=== PATIENT | male | born 1960 | race Caucasian/White ===

== ENCOUNTER 2016-12-10 16:07 | Inpatient (IN) | payer OTHER ==
[~2016-12-10] VITALS: Ht 175.3 cm; Wt 93.5 kg
[2016-12-10] VITALS (12 sets, daily range): BP systolic 60–96; BP diastolic 39–65; PULSE 77–88; RESP 16–20; TEMP 97.5–98; O2SAT 95–99
[~2016-12-10 16:07] MED LIST: DICL75 PO; FOLITAB6 PO; HYDR-3533 PO; HYDR10SO PO; LISI-363 PO; LOVA20TA PO; METO25 PO; ROBA750T3 PO
[2016-12-10] MEDS ORDERED: GABA600T PO (16:25)
[2016-12-10] MEDS ORDERED: HYDR-3533 PO (16:25)
[2016-12-10] MEDS ORDERED: LISI-515 PO (16:25)
[2016-12-10] MEDS ORDERED: LOVA20TA PO (16:25)
[2016-12-10] MEDS ORDERED: FOLI400T PO (16:25)
[2016-12-10] MEDS ORDERED: SODIUM CHLOR 0.9% 1000 ML INJ 1,000 ML IV ONE ×3 (16:30→19:00)
[2016-12-10 16:32] LABS: AUTOMATED NEUTROPHIL # 9.4 TH/MM3 (1.8-7.7); BASOPHIL # 0.2 TH/MM3 (0-0.2); BASOPHIL % 1.3 % (0.0-2.0); EOSINOPHIL # 0.1 TH/MM3 (0-0.4); EOSINOPHIL % 0.7 % (0.0-4.0); HEMATOCRIT 40.6 % (39.0-51.0); HEMO FLAGS DIFF FINAL; LYMPH % 15.4 % (9.0-44.0); LYMPHOCYTE # 1.9 TH/MM3 (1.0-4.8); MEAN CELL VOLUME 94.1 FL (80.0-100.0); MEAN CORPUSCULAR HEMOGLOBIN 32.6 PG (27.0-34.0); MEAN CORPUSCULAR HGB CONC 34.6 % (32.0-36.0); MONO % 8.1 % (0.0-8.0); NEUT % 74.5 % (16.0-70.0); PLATELET COUNT 274 TH/MM3 (150-450); RED BLOOD COUNT 4.32 MIL/MM3 (4.50-5.90); RED CELL DISTRIBUTION WIDTH 13.3 % (11.6-17.2); WHITE BLOOD COUNT 12.6 TH/MM3 (4.0-11.0)
--- NOTE | 2016-12-10 16:35 | PD ---
HPI Chief Complaint: Cardiac Complaint Time Seen by Provider: 16:14 Travel History International Travel<30 days: No Contact w/Intl Traveler<30days: No Traveled to known affect area: No History of Present Illness HPI 56-year-old male complains of generalized malaise, blurry vision and low blood pressure. Patient states that he has not eaten all day. Patient states that he has some alcohol drinks this afternoon and has minimal water intake today. Patient has been working outside in the heat. Patient denies any headache. Patient denies any chest pain or shortness of breath. Patient denies abdominal pain. Patient denies any nausea vomiting diarrhea. Patient denies dysuria or frequency. Patient denies any fever chills. Patient denies any back pain. Patient denies any focal weakness or numbness of extremity. Patient has history of hypertension, dyslipidemia. Patient denies history diabetes. PFSH Past Medical History Autoimmune Disease: No Cardiovascular Problems: Yes High Cholesterol: Yes Diabetes: No Diminished Hearing: No Endocrine: No Genitourinary: No Hypertension: Yes Musculoskeletal: No Neurologic: Yes (neuropathy) Psychiatric: No Reproductive: No Respiratory: No Thyroid Disease: No Social History Alcohol Use: Yes ([place] daily) Tobacco Use: Yes (1 PPD) Substance Use: No Allergies-Medications (Allergen,Severity, Reaction): Coded Allergies: Penicillin (Verified Allergy, Severe, 12/10/16) Reported Meds & Prescriptions Reported Meds & Active Scripts Active Reported Gabapentin 600 Mg Tab 600 Mg PO TID Folic Acid 400 Mcg Tab 400 Mcg PO DAILY Lisinopril 20 Mg Tab 20 Mg PO BID Lortab (Hydrocodone-Acetaminophen) 5-325 Mg Tab 1 Tab PO Q8HR PRN Lovastatin 20 Mg Tab 20 Mg PO HS Review of Systems General / Constitutional: No: Fever Eyes: Positive: Blurred Vision, No: Visual changes HENT: No: Headaches Cardiovascular: No: Chest Pain or Discomfort Respiratory: No: Shortness of Breath Gastrointestinal: No: Abdominal Pain Genitourinary: No: Dysuria Musculoskeletal: No: Pain Skin: No Rash Neurologic: No: Weakness Psychiatric: No: Depression Endocrine: No: Polydipsia Hematologic/Lymphatic: No: Easy Bruising Physical Exam Narrative GENERAL: Well-nourished, well-developed patient. SKIN: Focused skin assessment warm/dry. HEAD: Normocephalic. EYES: No scleral icterus. No injection or drainage. NECK: Supple, trachea midline. No JVD or lymphadenopathy. CARDIOVASCULAR: Regular rate and rhythm without murmurs, gallops, or rubs. RESPIRATORY: Breath sounds equal bilaterally. No accessory muscle use. GASTROINTESTINAL: Abdomen soft, non-tender, nondistended. MUSCULOSKELETAL: No cyanosis, or edema. BACK: Nontender without obvious deformity. No CVA tenderness. Neurologic exam normal. Data Data Last Documented VS Vital Signs Date Time Temp Pulse Resp B/P Pulse Ox O2 Delivery O2 Flow Rate FiO2 12/10/16 17:15 91/61 12/10/16 17:11 86 18 97 Room Air 12/10/16 17:10 21 12/10/16 16:08 97.5 Orders Sodium Chlor 0.9% 1000 Ml Inj (Ns 1000 M (12/10/16 16:30) Sodium Chlor 0.9% 1000 Ml Inj (Ns 1000 M (12/10/16 16:30) Electrocardiogram (12/10/16 16:21) Complete Blood Count With Diff (12/10/16 16:21) Basic Metabolic Panel (Bmp) (12/10/16 16:21) Creatine Kinase (Cpk) (12/10/16 16:21) Troponin I (12/10/16 16:21) Prothrombin Time / Inr (Pt) (12/10/16 16:21) Act Partial Throm Time (Ptt) (12/10/16 16:21) Thyroid Stimulating Hormone (12/10/16 16:21) Chest, Single Ap (12/10/16 16:21) Iv Access Insert/Monitor (12/10/16 16:21) Ecg Monitoring (12/10/16 16:21) Oximetry (12/10/16 16:21) Alcohol (Ethanol) (12/10/16 16:23) CKMB (12/10/16 16:10) CKMB% (12/10/16 16:10) Ct Abd/Pel W/O Iv Contrast (12/10/16 17:17) Dext 5%-Nacl 0.45%... W/Sodium Bicarbona (12/10/16 17:30) Admit Order (Ed Use Only) (12/10/16 17:27) Labs Laboratory Tests Test 12/10/16 16:10 White Blood Count 12.6 TH/MM3 Red Blood Count 4.32 MIL/MM3 Hemoglobin 14.1 GM/DL Hematocrit 40.6 % Mean Corpuscular Volume 94.1 FL Mean Corpuscular Hemoglobin 32.6 PG Mean Corpuscular Hemoglobin 34.6 % Concent Red Cell Distribution Width 13.3 % Platelet Count 274 TH/MM3 Mean Platelet Volume 6.4 FL Neutrophils (%) (Auto) 74.5 % Lymphocytes (%) (Auto) 15.4 % Monocytes (%) (Auto) 8.1 % Eosinophils (%) (Auto) 0.7 % Basophils (%) (Auto) 1.3 % Neutrophils # (Auto) 9.4 TH/MM3 Lymphocytes # (Auto) 1.9 TH/MM3 Monocytes # (Auto) 1.0 TH/MM3 Eosinophils # (Auto) 0.1 TH/MM3 Basophils # (Auto) 0.2 TH/MM3 CBC Comment DIFF FINAL Differential Comment Prothrombin Time 10.7 SEC Prothromb Time International 1.0 RATIO Ratio Activated Partial 35.1 SEC Thromboplast Time Sodium Level 129 MEQ/L Potassium Level 3.9 MEQ/L Chloride Level 94 MEQ/L Carbon Dioxide Level 16.3 MEQ/L Anion Gap 19 MEQ/L Blood Urea Nitrogen 60 MG/DL Creatinine 7.20 MG/DL Estimat Glomerular Filtration 8 ML/MIN Rate Random Glucose 91 MG/DL Calcium Level 8.7 MG/DL Total Creatine Kinase 1582 U/L Creatine Kinase MB 37.1 NG/ML Creatine Kinase MB % 2.3 % Troponin I LESS THAN 0.02 NG/ML Thyroid Stimulating Hormone 0.803 uIU/ML 3rd Gen Ethyl Alcohol Level 68 MG/DL [facility] Medical Decision Making Medical Screen Exam Complete: Yes Emergency Medical Condition: Yes Interpretation(s) 1708 p.m. CBC WBC 12.6. Hemoglobin 14.1 and hematocrit 40.6. 74 neutrophil. Sodium 129. Chloride 94. Bicarbonate 16.3. Anion gap 19. BUN 60. Creatinine 7.20. Total CK 1582. Cardiac enzymes are normal. TSH normal. Alcohol 68. Differential Diagnosis Differential diagnosis including dehydration, electrolyte imbalance, TIA, CVA, IN, sepsis. Narrative Course 56-year-old male with generalized malaise, blurry vision and low blood pressure. Patient with minimal fluid intake and has not eaten all day today. Normal saline solution 2 L IV bolus. I spoke with aircraft avionics technician Dr. Jacobsen, advised D5 and a half with 75 mEq of bicarbonate at 1 25 cc an hour. Patient will be admitted for IV hydration and nephrology consultation. CT scan abdomen and pelvis without contrast was done. I spoke with radiologist about the CT abdomen pelvis which shows possible sigmoidoscopy colitis with focal contained perforation air-containing collection posterior to the sigmoid colon or could be fistula with chronic changes. Patient is asymptomatic and no abdominal pain. I spoke with general surgeon on-call for [facility] Dr. English. Advised admission to the [facility] hospital and consult Gen. surgery in a.m. Levaquin 500 milligrams IV given. Flagyl 500 mg IV given. I spoke with Dr. Roberson, web content director. Patient will be admitted to the [facility] at the [facility]. Surgical consultation and nephrology consultation in a.m. Diagnosis Primary Impression: Acute renal failure Qualified Code: N17.9 - Acute renal failure, unspecified acute renal failure type Additional Impressions: Metabolic acidosis Diverticulitis Qualified Code: K57.32 - Diverticulitis of large intestine without bleeding, unspecified complication status Hyponatremia Rhabdomyolysis Qualified Code: M62.82 - Non-traumatic rhabdomyolysis Admitting Information Admitting Physician Requests: Admit Jared Celeste MD Dec 10, 2016 16:35
[2016-12-10 16:41] LABS: CHLORIDE 94 MEQ/L (98-107); POTASSIUM 3.9 MEQ/L (3.5-5.1); SODIUM (NA) 129 MEQ/L (136-145)
[2016-12-10 16:44] LABS: ANION GAP 19 MEQ/L (5-15); BICARBONATE 16.3 MEQ/L (21.0-32.0); BLOOD UREA NITROGEN 60 MG/DL (7-18)
[2016-12-10 16:46] LABS: APTT (PATIENT) 35.1 SEC (24.3-30.1); PROTHROMBIN TIME - PATIENT 10.7 SEC (9.8-11.6)
[2016-12-10 16:47] LABS: GLOMERULAR FILTRATION RATE 8 ML/MIN (>89)
[2016-12-10 17:02] LABS: CREATINE KINASE 1582 U/L (39-308)
[2016-12-10 17:15] LABS: CKMB 37.1 NG/ML (0.5-3.6)
--- NOTE | 2016-12-10 17:19 | RADHPO ---
EXAM DATE/TIME: 12/10/2016 16:52 [facility] COMPARISON: CHEST SINGLE AP, February 04, 2015, 15:00. INDICATIONS : Short of breath, low blood pressure, weak, dizzy MEDICAL HISTORY : None. SURGICAL HISTORY : None. ENCOUNTER: Initial ACUITY: 1 day PAIN SCORE: 0/10 LOCATION: Bilateral chest FINDINGS: Portable AP view of the chest demonstrates a normal-sized cardiac silhouette. No effusion, consolidat ion, or pneumothorax is visualized. The bones and soft tissues demonstrate no acute abnormality. CONCLUSION: No acute cardiopulmonary abnormality is identified. Joni Cornejo MD on December 10, 2016 at 17:16 Board Certified Radiologist. This report was verified electronically.
[2016-12-10] MEDS ORDERED: SODIUM BICARBONATE 8.4% INJ 75 MEQ in DEXT 5%-NACL 0.45% 1000 ML INJ 1,000 ML IV SCH (17:30)
[2016-12-10] MEDS ORDERED: ACETAMINOPHEN 325 MG TAB PO PRN (17:45)
[2016-12-10] MEDS ORDERED: ONDANSETRON HCL 4 MG/2 ML VIAL IV PRN (17:45)
[2016-12-10] MEDS ORDERED: SODIUM CHLORIDE 0.9% FLUSH 10 ML FLUSH IVF PRN (17:45)
--- NOTE | 2016-12-10 18:55 | RADHPO ---
EXAM DATE/TIME: 12/10/2016 17:45 [facility] COMPARISON: No previous studies available for comparison. INDICATIONS : Hypotensive. ORAL CONTRAST: No oral contrast ingested. RADIATION DOSE: 10.86 CTDIvol (mGy) MEDICAL HISTORY : Hypertension. SURGICAL HISTORY : None. ENCOUNTER: Initial ACUITY: 1 day PAIN SCALE: 0/10 LOCATION: Abdomen/pelvis TECHNIQUE: Volumetric scanning of the abdomen and pelvis was performed. Using automated exposure control and ad justment of the mA and/or kV according to patient size, radiation dose was kept as low as reasonably achievable to obtain optimal diagnostic quality images. FINDINGS: LOWER LUNGS: The visualized lower lungs are clear. LIVER: Homogeneous density without lesion. There is no dilation of the biliary tree. No calcified gallston es. SPLEEN: Normal size without lesion. PANCREAS: Within normal limits. KIDNEYS: There is a 1.9 x 1.7 x 2.1 cm cyst in the super pole the left kidney. There is a 6 by 8mm nonobstruct ing calcified calculus in the inferior pole the left kidney. There is mild left hydronephrosis and mo derate hydroureter likely secondary to functional delayed clearance by left lower quadrant inflammato ry changes ADRENAL GLANDS: Within normal limits. VASCULAR: There is no aortic aneurysm. BOWEL/MESENTERY: Examination is abnormal. There is moderate sigmoid diverticulosis. There is inflammatory changes in t he mid sigmoid region with a small anomaly air-containing collection measuring 2.2 x 1.3 cm seen post eriorly. No drainable fluid collections at this time. Remainder of the bowel is grossly unremarkable. ABDOMINAL WALL: Within normal limits. RETROPERITONEUM: There is no lymphadenopathy. BLADDER: No wall thickening or mass. REPRODUCTIVE: Within normal limits. INGUINAL: Fat-containing right inguinal hernia. MUSCULOSKELETAL: Within normal limits for patient age. CONCLUSION: 1. Sigmoid diverticulitis with focal contained perforation. 2.1 x 1.3 cm air-containing collection po sterior to the sigmoid without drainable associated fluid collection at this time. Yazan Burns MD on December 10, 2016 at 18:47 Board Certified Radiologist. This report was verified electronically.
[2016-12-10] MEDS ORDERED: LEVOFLOXACIN 500 MG PREMIX INJ 100 ML IV ONE (20:00)
[2016-12-10] MEDS ORDERED: metroNIDAZOLE 500 MG INJ 100 ML IV ONE (20:00)
[2016-12-10] MEDS ORDERED: NICOTINE 14 MG/24 HR PATCH T-DERMAL ONE (20:15)
[2016-12-10] MEDS ORDERED: SODIUM CHLORIDE 0.9% FLUSH 10 ML FLUSH IV FLUSH SCH (21:00)
--- NOTE | 2016-12-10 23:47 | HHI.HP ---
[facility] Service Critical Care Medicine Primary Care Physician Derek Lara MD Admission Diagnosis acute renal failure. Hyponatremia. Metabolic acidosis. Dehydratio Diagnosis: Travel History International Travel<30 Days: No Contact w/Intl Traveler <30 Da: No Traveled to Known Affected Are: No History of Present Illness 56-year-old male with history of hypertension, neuropathy, presents with complaints of generalized malaise, blurry vision and low blood pressure. Patient states that he has not eaten all day. He has some alcohol drinks this afternoon and has minimal water intake today. He also has been working outside in the heat. He denies any headache. Patient denies any chest pain or shortness of breath. Patient admits some abdominal pain, however denies any nausea vomiting diarrhea. His CAT scan at the emergency department at [facility] revealed Sigmoid diverticulitis with focal contained perforation. 2.1 x 1.3 cm air-containing collection posterior to the sigmoid without drainable associated fluid. Review of Systems Constitutional: COMPLAINS OF: Diaphoretic episodes, Fatigue, Change in appetite , DENIES: Fever, Weight gain, Weight loss, Chills, Dizziness, Night Sweats Endocrine: DENIES: Heat/cold intolerance, Polydipsia, Polyuria, Polyphagia Eyes: COMPLAINS OF: Blurred vision, Diplopia, Double Vision, DENIES: Eye inflammation, Eye pain, Vision loss, Photosensitivity Ears, nose, mouth, throat: DENIES: Tinnitus, Hearing loss, Vertigo, Nasal discharge, Oral lesions, Throat pain, Hoarseness, Ear Pain, Running Nose, Epistaxis, Sinus Pain, Toothache, Odynophagia Respiratory: DENIES: Apneas, Cough, Snoring, Wheezing, Hemoptysis, Sputum production, Shortness of breath Cardiovascular: DENIES: Chest pain, Palpitations, Syncope, Dyspnea on Exertion , PND, Lower Extremity Edema, Orthopnea, Claudication Gastrointestinal: COMPLAINS OF: Abdominal pain, DENIES: Black stools, Bloody stools, Constipation, Diarrhea, Nausea, Vomiting, Difficulty Swallowing, Anorexia Genitourinary: DENIES: Sexual dysfunction, Urinary frequency, Urinary incontinence, Urgency, Hematuria, Dysuria, Nocturia, Penile Discharge, Testicular Pain, Testicular Swelling Musculoskeletal: DENIES: Joint pain, Muscle aches, Stiffness, Joint Swelling, Back pain, Neck pain Integumentary: DENIES: Abnormal pigmentation, Nail changes, Pruritus, Rash Hematologic/lymphatic: DENIES: Bruising, Lymphadenopathy Immunologic/allergic: DENIES: Eczema, Urticaria Neurologic: DENIES: Abnormal gait, Headache, Localized weakness, Paresthesias, Seizures, Speech Problems, Tremor, Poor Balance Psychiatric: DENIES: Anxiety, Confusion, Mood changes, Depression, Hallucinations, Agitation, Suicidal Ideation, Homicidal Ideation, Delusions Past Family Social History Allergies: Coded Allergies: Penicillin (Verified Allergy, Severe, 12/10/16) Past Medical History Hypertension Dyslipidemia Daily alcohol use Tobacco use disorder Peripheral neuropathy Past Surgical History None Reported Medications Reported Meds & Active Scripts Active Reported Gabapentin 600 Mg Tab 600 Mg PO TID Folic Acid 400 Mcg Tab 400 Mcg PO DAILY Lisinopril 20 Mg Tab 20 Mg PO BID Lortab (Hydrocodone-Acetaminophen) 5-325 Mg Tab 1 Tab PO Q8HR PRN Lovastatin 20 Mg Tab 20 Mg PO HS Active Ordered Medications Current Medications Medications (Trade) Dose Ordered Sig/Jennifer Route PRN Reason Start Time Stop Time Status Last Admin Dose Admin Sodium Bicarbonate/ Dextrose/Sodium Chloride (Sodium Bicarbonate 8.4% Inj/D5W-1/2 NS 1000 ml Inj) 1,075 ml @ 125 mls/hr Q8H36M IV 12/10/16 17:30 12/10/16 18:11 Ondansetron HCl (Zofran Inj) 4 mg Q6H PRN IV NAUSEA OR VOMITING 12/10/16 17:45 Acetaminophen (Tylenol) 650 mg Q4H PRN PO Temp>101F, Headache 12/10/16 17:45 Sodium Chloride (NS Flush) 2 ml BID IV FLUSH 12/10/16 21:00 12/10/16 20:27 Sodium Chloride (NS Flush) 2 ml UNSCH PRN IVF FLUSH AFTER USING IV ACCESS 12/10/16 17:45 Folic Acid (Folate) 1 mg DAILY PO 12/11/16 09:00 Gabapentin 600 mg 600 mg TID PO 12/11/16 09:00 Sodium Chloride (NS 1000 ml Inj) 1,000 ml @ 125 mls/hr Q8H IV 12/11/16 00:15 UNV Sodium Chloride (NS Flush) 2 ml UNSCH PRN .XX FLUSH AFTER USING IV ACCESS 12/11/16 00:15 UNV Sodium Chloride (NS Flush) 2 ml BID .XX 12/11/16 09:00 UNV Acetaminophen (Tylenol) 650 mg Q6H PRN PO PAIN 1-10 AND/OR FEVER >101F 12/11/16 00:15 UNV Hydromorphone HCl (Dilaudid Pf Inj) 1 mg Q4H PRN IV PAIN SCALE 6 TO 10 12/11/16 00:15 UNV Pantoprazole Sodium (Protonix Inj) 40 mg DAILY IV 12/11/16 09:00 UNV Ondansetron HCl (Zofran Inj) 4 mg Q6H PRN IV NAUSEA OR VOMITING 12/11/16 00:15 UNV Metoclopramide HCl (Reglan Inj) 10 mg Q6H PRN IV NAUSEA OR VOMITING 12/11/16 00:15 UNV Prochlorperazine (Compazine Supp) 25 mg Q12H PRN RECTAL NAUSEA OR VOMITING 12/11/16 00:15 UNV Zolpidem Tartrate (Ambien) 5 mg HS PRN PO INSOMNIA 12/11/16 00:15 UNV Heparin Sodium (Porcine) (Heparin Inj) 5,000 units Q8H SQ 12/11/16 00:15 UNV Miscellaneous Information 1 Q361D XX 12/11/16 00:15 UNV Chlorhexidine Gluconate (Chlorhexidine 2% Cloth) 3 pack Taper DAILY@04 TOP 12/11/16 04:00 12/07/17 03:59 UNV Chlorhexidine Gluconate (Chlorhexidine 2% Cloth) 3 pack UNSCH PRN TOP HYGIENIC CARE 12/11/16 00:15 UNV Senna/Docusate Sodium (Nataliya-Colace) 1 tab BID PO 12/11/16 09:00 UNV Magnesium Hydroxide (Milk Of Magnesia Liq) 30 ml Q12H PRN PO MILD - MODERATE CONSTIPATION 12/11/16 00:15 UNV Sennosides (Senokot) 17.2 mg Q12H PRN PO MODERATE - SEVERE CONSTIPATION 12/11/16 00:15 UNV Bisacodyl (Dulcolax Supp) 10 mg DAILY PRN RECTAL SEVERE CONSITIPATION 12/11/16 00:15 UNV Lactulose (Lactulose Liq) 30 ml DAILY PRN PO SEVERE CONSITIPATION 12/11/16 00:15 UNV Family History Noncontributory Social History Drinks bourbon daily Smokes 1 pack per day Denies illicit drug abuse Physical Exam Vital Signs Vital Signs Date Time Temp Pulse Resp B/P Pulse Ox O2 Delivery O2 Flow Rate FiO2 12/10/16 23:30 87 17 95/64 95 12/10/16 22:45 81 17 94/60 95 Room Air 12/10/16 21:37 98.0 88 17 90/60 96 Room Air 12/10/16 20:35 82 16 95/60 98 Room Air 12/10/16 20:35 98 21 12/10/16 20:05 86 17 96/61 97 Room Air 12/10/16 19:00 85 18 92/65 98 Room Air 12/10/16 19:00 85 18 92/65 97 Room Air 12/10/16 18:13 77 18 93/61 99 Room Air 12/10/16 17:15 91/61 12/10/16 17:11 86 18 71/47 97 Room Air 12/10/16 17:10 97 21 12/10/16 16:33 77 18 61/39 97 Room Air 12/10/16 16:26 96 Room Air 12/10/16 16:08 97.5 82 20 60/42 97 Physical Exam GENERAL: Well-nourished, well-developed patient. SKIN: Warm and dry. HEAD: Normocephalic. EYES: No scleral icterus. No injection or drainage. NECK: Supple, trachea midline. No JVD or lymphadenopathy. CARDIOVASCULAR: Regular rate and rhythm without murmurs, gallops, or rubs. RESPIRATORY: Breath sounds equal bilaterally. No accessory muscle use. GASTROINTESTINAL: Abdomen soft, non-tender, nondistended. MUSCULOSKELETAL: No cyanosis, or edema. BACK: Nontender without obvious deformity. No CVA tenderness. EXTREMITIES: No clubbing cyanosis or edema Laboratory Laboratory Tests Test 12/10/16 16:10 White Blood Count 12.6 Red Blood Count 4.32 Hemoglobin 14.1 Hematocrit 40.6 Mean Corpuscular Volume 94.1 Mean Corpuscular Hemoglobin 32.6 Mean Corpuscular Hemoglobin 34.6 Concent Red Cell Distribution Width 13.3 Platelet Count 274 Mean Platelet Volume 6.4 Neutrophils (%) (Auto) 74.5 Lymphocytes (%) (Auto) 15.4 Monocytes (%) (Auto) 8.1 Eosinophils (%) (Auto) 0.7 Basophils (%) (Auto) 1.3 Neutrophils # (Auto) 9.4 Lymphocytes # (Auto) 1.9 Monocytes # (Auto) 1.0 Eosinophils # (Auto) 0.1 Basophils # (Auto) 0.2 CBC Comment DIFF FINAL Differential Comment Prothrombin Time 10.7 Prothromb Time International 1.0 Ratio Activated Partial 35.1 Thromboplast Time Sodium Level 129 Potassium Level 3.9 Chloride Level 94 Carbon Dioxide Level 16.3 Anion Gap 19 Blood Urea Nitrogen 60 Creatinine 7.20 Estimat Glomerular Filtration 8 Rate Random Glucose 91 Calcium Level 8.7 Total Creatine Kinase 1582 Creatine Kinase MB 37.1 Creatine Kinase MB % 2.3 Troponin I LESS THAN 0.02 Thyroid Stimulating Hormone 0.803 3rd Gen Ethyl Alcohol Level 68 Result Diagram: 12/10/16 1610 12/10/16 1610 Imaging Last 24 hours Impressions Abdomen/Pelvis CT 12/10/16 1717 Signed Impressions: Service Date/Time: Saturday, December 10, 2016 17:45 - CONCLUSION: 1. Sigmoid diverticulitis with focal contained perforation. 2.1 x 1.3 cm air-containing collection posterior to the sigmoid without drainable associated fluid collection at this time. Yazan Burns MD Chest X-Ray 12/10/16 1621 Signed Impressions: Service Date/Time: Saturday, December 10, 2016 16:52 - CONCLUSION: No acute cardiopulmonary abnormality is identified. Joni Cornejo MD Assessment and Plan Assessment and Plan Perforated viscus - Admitted to Dr. Lara's service Gen. surgery - Nothing by mouth - IV fluid hydration - Management per surgeon Acute kidney injury - Dehydration - Aggressive IV fluid hydration - Monitor creatinine and urine output and electrolytes Alcohol use disorder - CIWA protocol to monitor for withdrawal - [facility] medications when necessary - Thiamine folate multivitamins Tobacco use disorder - Nicotine patch - Counseling provided Peripheral neuropathy - Continue home dose of gabapentin Hypertension - Hold lisinopril due to acute kidney injury - Currently normotensive - Telemetry - Hydralazine when necessary DVT GI prophylaxis - Subcutaneous heparin and IV omeprazole Critical Care: The total critical care time was 35 minutes. Time to perform other separately billable procedures was not included in the critical care time. Eze Roberson MD Dec 10, 2016 23:47
[2016-12-11] VITALS (9 sets, daily range): BP systolic 86–133; BP diastolic 49–84; PULSE 75–84; RESP 18–28; TEMP 96.5–98; O2SAT 94–100
[2016-12-11] MEDS ORDERED: CHLORHEXIDINE GLUCONATE 2 % 1 PACK (2 CLOTHS) TOP PRN (00:15)
[2016-12-11] MEDS ORDERED: METOCLOPRAMIDE HCL 10 MG/2 ML VIAL IV PRN (00:15)
[2016-12-11] MEDS ORDERED: ACETAMINOPHEN 325 MG TAB PO PRN (00:15)
[2016-12-11] MEDS ORDERED: RESP: ALBUTEROL 2.5 MG/IPRATROPIUM 0.5 MG NEB (PRN) INH (00:15)
[2016-12-11] MEDS ORDERED: PROCHLORPERAZINE 25 MG SUPP RECTAL PRN (00:15)
[2016-12-11] MEDS ORDERED: LACTULOSE SYRUP 20 GM/30 ML CUP PO PRN (00:15)
[2016-12-11] MEDS ORDERED: SENNOSIDES 8.6 MG TAB PO PRN (00:15)
[2016-12-11] MEDS ORDERED: HYDROmorphone HCL PF 1 MG/ML VIAL IV PRN (00:15)
[2016-12-11] MEDS ORDERED: ONDANSETRON HCL 4 MG/2 ML VIAL IV PRN (00:15)
[2016-12-11] MEDS ORDERED: ZOLPIDEM TARTRATE 5 MG TAB PO PRN (00:15)
[2016-12-11] MEDS ORDERED: MISCELLANEOUS NURSING INFORMATION XX SCH (00:15)
[2016-12-11] MEDS ORDERED: SODIUM CHLORIDE 0.9% FLUSH 10 ML FLUSH PRN (00:15)
[2016-12-11] MEDS ORDERED: BISACODYL 10 MG SUPP RECTAL PRN (00:15)
[2016-12-11] MEDS ORDERED: MAGNESIUM HYDROXIDE SUSP 30 ML CUP PO PRN (00:15)
[2016-12-11] MEDS ORDERED: LORazepam 1 MG TAB PO PRN (00:30)
[2016-12-11] MEDS ORDERED: FLUMAZENIL 0.5 MG/5 ML VIAL IV PUSH PRN (00:30)
[2016-12-11] MEDS ORDERED: LORazepam 2 MG/ML VIAL IV PUSH PRN ×4 (00:30)
[2016-12-11] MEDS ORDERED: hydrALAZINE HCL 20 MG/ML VIAL IV PUSH PRN (00:45)
[2016-12-11] MEDS ORDERED: PIPERACIL-TAZO 2.25 GM PREMIX 50 ML IV SCH (01:00)
[2016-12-11] MEDS ORDERED: FLUCONAZOLE 400 MG PREMIX BAG 200 ML IV SCH (01:00)
[2016-12-11] MEDS ORDERED: FLUCONAZOLE 200 MG PREMIX BAG 100 ML IV SCH (01:00)
[2016-12-11] MEDS: SODIUM CHLOR 0.9% 1000 ML INJ 1,000 ML IV SCH ×4 (02:18→23:01)
[2016-12-11] MEDS ORDERED: MULTIVITAMIN INJ 10 ML, THIAMINE INJ 100 MG, FOLIC ACID INJ 1 MG in DEXT 5%-NACL 0.9% 5... IV ONE (02:30)
[2016-12-11] MEDS ORDERED: SODIUM CHLOR 0.9% 1000 ML INJ 2,000 ML IV ONE (03:45)
[2016-12-11] MEDS: CHLORHEXIDINE GLUCONATE 2 % 1 PACK (2 CLOTHS) TOP SCH (03:48)
[2016-12-11] MEDS ORDERED: SODIUM BICARBONATE 8.4% INJ 50 MEQ/50 ML SYR IV PUSH ONE (04:15)
[2016-12-11] MEDS ORDERED: SODIUM BICARBONATE 8.4% INJ 150 MEQ in DEXTROSE 5% IN WATE 1000ML INJ 1,000 ML IV SCH ×2 (04:15)
[2016-12-11 04:44] LABS: BLOOD GAS BASE EXCESS -8.6 mmol/L (-2-2); BLOOD GAS CARBOXYHEMOGLOBIN 2.1 % (0-4); BLOOD GAS HCO3 16 mmol/L (22-26); BLOOD GAS METHEMOGLOBIN 0.8 % (0-2); BLOOD GAS O2 HGB SATURATION 93 % (90-100); BLOOD GAS OXYGEN CONTENT 15.2 Vol % (12.0-20.0); BLOOD GAS PCO2 33 mmHg (38-42); BLOOD GAS PO2 84 mmHg (61-120); BLOOD GAS TOTAL HGB 11.7 G/DL (12.0-16.0); TEMP CORR TO 98.6
[2016-12-11 04:46] LABS: CRITICAL VALUE YES; DRAW SITE RT RADIAL; FIO2 21 %; NUMBER OF ARTERIAL PUNCTURES 1; OXYGEN DEVICE RA; STAT NO; ULNAR PULSE PRESENT
[2016-12-11] MEDS: HEPARIN SODIUM - SQ 10,000 UNITS/ML VIAL SQ SCH ×3 (05:40→22:59)
[2016-12-11 06:46] LABS: CALCIUM-PROTEIN CORRECTED 7.7 MG/DL (8.5-10.1)
[2016-12-11] MEDS: DOCUSATE SODIUM 50 MG/SENNA 8.6 MG TAB PO SCH ×2 (08:31→20:24)
[2016-12-11] MEDS: FOLIC ACID 1 MG TAB PO SCH (08:31)
--- NOTE | 2016-12-11 08:33 | PD.TRANSFR ---
Transfer Summary Admission Date Dec 10, 2016 at 17:33 Admitting Diagnosis acute renal failure. Hyponatremia. Metabolic acidosis. Dehydratio Diagnoses: (1) Acute diverticulitis with perforation Diagnosis: Principal (2) Severe sepsis Diagnosis: Principal (3) Acute renal failure Diagnosis: Principal (4) Metabolic acidosis Diagnosis: Principal (5) Hyponatremia Diagnosis: Principal (6) Dehydration Diagnosis: Principal (7) Hypotension Diagnosis: Principal (8) Folate deficiency Diagnosis: Secondary (9) Chronic alcohol abuse Diagnosis: Secondary (10) Peripheral neuropathy Diagnosis: Secondary (11) Macrocytosis Diagnosis: Secondary (12) GERD (gastroesophageal reflux disease) Diagnosis: Secondary Transfer Summary/Subjective 56-year-old male with history of hypertension, neuropathy, presents with complaints of generalized malaise, blurry vision and low blood pressure. Patient states that he has not eaten all day. He has some alcohol drinks this afternoon and has minimal water intake today. He also has been working outside in the heat. He denies any headache. Patient denies any chest pain or shortness of breath. Patient admits some abdominal pain, however denies any nausea vomiting diarrhea. His CAT scan at the emergency department at [facility] revealed Sigmoid diverticulitis with focal contained perforation. 2.1 x 1.3 cm air-containing collection posterior to the sigmoid without drainable associated fluid. 12/11: Subjectively feeling better. Urine output is adequate. Creatinine has improved from 7.2-3.4. Hyponatremia resolved. Surgical consult is pending at this time Objective Vital Signs Date Time Temp Pulse Resp B/P Pulse Ox O2 Delivery O2 Flow Rate FiO2 12/11/16 08:06 100 21 12/11/16 04:00 97.8 75 18 86/49 12/10/16 22:45 Room Air Intake and Output 12/10/16 12/10/16 12/11/16 08:00 16:00 00:00 Intake Total 3475 ml Output Total 2400 ml Balance 1075 ml Result Diagram: 12/10/16 1610 12/11/16 0413 Other Results Laboratory Tests Test 12/11/16 04:33 Blood Gas Puncture Site RT RADIAL Blood Gas Patient Temperature 98.6 Blood Gas HCO3 16 mmol/L (22-26) Blood Gas Base Excess -8.6 mmol/L (-2-2) Blood Gas Oxygen Saturation 93 % (90-100) Arterial Blood pH 7.31 (7.380-7.420) Arterial Blood Partial 33 mmHg (38-42) Pressure CO2 Arterial Blood Partial 84 mmHg Pressure O2 (61-120) Arterial Blood Oxygen Content 15.2 Vol % (12.0-20.0) Arterial Blood 2.1 % (0-4) Carboxyhemoglobin Arterial Blood Methemoglobin 0.8 % (0-2) Blood Gas Hemoglobin 11.7 G/DL (12.0-16.0) Oxygen Delivery Device RA Blood Gas Inspired Oxygen 21 % Imaging Last 24 hours Impressions Abdomen/Pelvis CT 12/10/16 1717 Signed Impressions: Service Date/Time: Saturday, December 10, 2016 17:45 - CONCLUSION: 1. Sigmoid diverticulitis with focal contained perforation. 2.1 x 1.3 cm air-containing collection posterior to the sigmoid without drainable associated fluid collection at this time. Yazan Burns MD Chest X-Ray 12/10/16 1621 Signed Impressions: Service Date/Time: Saturday, December 10, 2016 16:52 - CONCLUSION: No acute cardiopulmonary abnormality is identified. Joni Cornejo MD Objective Remarks GENERAL: Well-nourished, well-developed patient. SKIN: Warm and dry. HEAD: Normocephalic. EYES: No scleral icterus. No injection or drainage. NECK: Supple, trachea midline. No JVD or lymphadenopathy. CARDIOVASCULAR: Regular rate and rhythm without murmurs, gallops, or rubs. RESPIRATORY: Breath sounds equal bilaterally. No accessory muscle use. GASTROINTESTINAL: Abdomen soft, nondistended. Minimal left lower quadrant tenderness MUSCULOSKELETAL: No cyanosis, or edema. BACK: Nontender without obvious deformity. No CVA tenderness. EXTREMITIES: No clubbing cyanosis or edema A/P Assessment and Plan Sigmoid diverticulitis with contained perforation - Gen. surgery consult ordered - Nothing by mouth - IV fluid hydration - Currently on Zosyn and Diflucan. We'll discontinue Diflucan Acute kidney injury - Dehydration, ATN - Aggressive IV fluid hydration IVF NS 150 ml per hour and 500 ml bolus. DC Bicarb gtt - Monitor creatinine and urine output and electrolytes, creat improved from 7.2 to 3.4 - Nephrology Dr. Jacobsen consulted Alcohol use disorder - [place] protocol to monitor for withdrawal - [facility] medications when necessary - Thiamine folate multivitamins Tobacco use disorder - Nicotine patch - Counseling provided Peripheral neuropathy - Continue home dose of gabapentin Hypertension - Hold lisinopril due to acute kidney injury - Currently normotensive - Telemetry - Hydralazine when necessary DVT GI prophylaxis - Subcutaneous heparin and PPL Critical Care: Level 3 Consult Hospitalist to assume care in am 12/12. Transfer to Med/Surg with Tele Allyssa Quinones MD Dec 11, 2016 08:33
[2016-12-11] MEDS: SODIUM CHLORIDE 0.9% FLUSH 10 ML FLUSH SCH ×2 (09:00→20:23)
[2016-12-11] MEDS ORDERED: SODIUM CHLORID 0.9% 500 ML INJ 500 ML IV ONE (09:00)
[2016-12-11] MEDS ORDERED: GABAPENTIN 300 MG CAP PO SCH (09:00)
[2016-12-11] MEDS: THIAMINE INJ 100 MG in SODIUM CHLORIDE 0.9% INJ 100 ML IV SCH (09:43)
[2016-12-11] MEDS: PANTOPRAZOLE SODIUM 40 MG VIAL IV SCH (09:43)
--- NOTE | 2016-12-11 10:29 | PD.CONS ---
[facility] Service Nephrology Consult Requested By Reason for Consult Acute Renal failure Primary Care Physician Derek Lara MD History of Present Illness This is a 56 y/o male patient who was admitted yesterday evening for dizziness and blurry vision. He works outside and felt himself to be dehydrated, repoerted decreased oral intake admits to daily ETOH use even yesterday prior to admission. PMH of HTN, hyperlipidemia, and neuropathy felt to be due to ETOH abuse. On arrival his creatinine 7.2, which improved to 3.41 with IVF. In 2014 his creatinine was 1.05, he denies hx of renal disorders. Imaging revealed diverticulitis with colonic perforation without an abscess. He was given a dose of fluconazole, flagyl, and levaquin, and is on Zosyn currently. and mother are at the bedside. He is a full code this admission. We were consulted for renal management. (Dorita Drake) Review of Systems Constitutional: COMPLAINS OF: Fatigue, Dizziness, DENIES: Weight gain Cardiovascular: DENIES: Chest pain Gastrointestinal: DENIES: Abdominal pain (Dorita Drake) Past Family Social History Allergies: Coded Allergies: Penicillin (Verified Allergy, Severe, 12/10/16) Past Medical History Hypertension Dyslipidemia Daily alcohol use Tobacco use disorder Peripheral neuropathy Past Surgical History None Reported Medications Gabapentin 600 Mg Tab 600 Mg PO TID Folic Acid 400 Mcg Tab 400 Mcg PO DAILY Lisinopril 20 Mg Tab 20 Mg PO BID Lortab (Hydrocodone-Acetaminophen) 5-325 Mg Tab 1 Tab PO Q8HR PRN Lovastatin 20 Mg Tab 20 Mg PO HS Active Ordered Medications Last 72 hours Impressions Abdomen/Pelvis CT 12/10/16 1717 Signed Impressions: Service Date/Time: Saturday, December 10, 2016 17:45 - CONCLUSION: 1. Sigmoid diverticulitis with focal contained perforation. 2.1 x 1.3 cm air-containing collection posterior to the sigmoid without drainable associated fluid collection at this time. Yazan Burns MD Chest X-Ray 12/10/16 1621 Signed Impressions: Service Date/Time: Saturday, December 10, 2016 16:52 - CONCLUSION: No acute cardiopulmonary abnormality is identified. 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 (Dorita DrakeDerrek BORJAS) Physical Exam Vital Signs Vital Signs Date Time Temp Pulse Resp B/P Pulse Ox O2 Delivery O2 Flow Rate FiO2 12/11/16 08:06 100 21 12/11/16 08:00 97.9 81 28 129/84 94 12/11/16 07:00 81 12/11/16 04:00 97.8 75 18 86/49 100 12/11/16 00:00 84 12/11/16 00:00 98.0 84 24 99/59 100 12/10/16 23:30 87 17 95/64 95 12/10/16 22:45 81 17 94/60 95 Room Air 12/10/16 21:37 98.0 88 17 90/60 96 Room Air 12/10/16 20:35 82 16 95/60 98 Room Air 12/10/16 20:35 98 21 12/10/16 20:05 86 17 96/61 97 Room Air 12/10/16 19:00 85 18 92/65 98 Room Air 12/10/16 19:00 85 18 92/65 97 Room Air 12/10/16 18:13 77 18 93/61 99 Room Air 12/10/16 17:15 91/61 12/10/16 17:11 86 18 71/47 97 Room Air 12/10/16 17:10 97 21 12/10/16 16:33 77 18 61/39 97 Room Air 12/10/16 16:26 96 Room Air 12/10/16 16:08 97.5 82 20 60/42 97 Laboratory Laboratory Tests Test 12/10/16 12/11/16 12/11/16 12/11/16 16:10 02:09 04:13 04:33 White Blood Count 12.6 Red Blood Count 4.32 Hemoglobin 14.1 Hematocrit 40.6 Mean Corpuscular Volume 94.1 Mean Corpuscular Hemoglobin 32.6 Mean Corpuscular Hemoglobin 34.6 Concent Red Cell Distribution Width 13.3 Platelet Count 274 Mean Platelet Volume 6.4 Neutrophils (%) (Auto) 74.5 Lymphocytes (%) (Auto) 15.4 Monocytes (%) (Auto) 8.1 Eosinophils (%) (Auto) 0.7 Basophils (%) (Auto) 1.3 Neutrophils # (Auto) 9.4 Lymphocytes # (Auto) 1.9 Monocytes # (Auto) 1.0 Eosinophils # (Auto) 0.1 Basophils # (Auto) 0.2 CBC Comment DIFF FINAL Differential Comment Prothrombin Time 10.7 Prothromb Time International 1.0 Ratio Activated Partial 35.1 Thromboplast Time Sodium Level 129 140 Potassium Level 3.9 4.0 Chloride Level 94 111 Carbon Dioxide Level 16.3 22.0 Anion Gap 19 7 Blood Urea Nitrogen 60 47 Creatinine 7.20 3.41 Estimat Glomerular Filtration 8 19 Rate Random Glucose 91 86 Calcium Level 8.7 7.0 Total Creatine Kinase 1582 Creatine Kinase MB 37.1 Creatine Kinase MB % 2.3 Troponin I LESS THAN 0.02 Thyroid Stimulating Hormone 0.803 3rd Gen Ethyl Alcohol Level 68 Nasal Screen MRSA (PCR) MRSA NOT DETECTED Protein Corrected Calcium 7.7 Total Protein 5.8 Blood Gas Puncture Site RT RADIAL Blood Gas Patient Temperature 98.6 Blood Gas HCO3 16 Blood Gas Base Excess -8.6 Blood Gas Oxygen Saturation 93 Arterial Blood pH 7.31 Arterial Blood Partial 33 Pressure CO2 Arterial Blood Partial 84 Pressure O2 Arterial Blood Oxygen Content 15.2 Arterial Blood 2.1 Carboxyhemoglobin Arterial Blood Methemoglobin 0.8 Blood Gas Hemoglobin 11.7 Oxygen Delivery Device RA Blood Gas Inspired Oxygen 21 (Dorita Drake) Result Diagram: 12/10/16 1610 12/11/16 0413 Imaging Last Impressions Abdomen/Pelvis CT 12/10/16 1717 Signed Impressions: Service Date/Time: Saturday, December 10, 2016 17:45 - CONCLUSION: 1. Sigmoid diverticulitis with focal contained perforation. 2.1 x 1.3 cm air-containing collection posterior to the sigmoid without drainable associated fluid collection at this time. Yazan Burns MD Chest X-Ray 12/10/16 1621 Signed Impressions: Service Date/Time: Saturday, December 10, 2016 16:52 - CONCLUSION: No acute cardiopulmonary abnormality is identified. Joni Cornejo MD (Dorita Drake) Assessment and Plan Problem List: (1) Acute renal failure Plan: In a patient with creatinine around 1 in 2014 MARGARET due to intravascular volume depletion from dehydration, possible heat stroke renal function is improving with fluids, continue IVF avoid nephrotoxins, LETICIA (home medication) is on hold obtain UA for analysis imaging shows nonobstructing stone on left; also mild hydroureter due to inflammatory process of colon monitor urine output repeat renal panel in am (2) Metabolic acidosis Plan: due to renal failure (3) Dehydration Plan: continue to hydrate follow renal function (4) Chronic alcohol abuse Plan: On ETOH withdrawal protocol monitor for symptoms (5) Hypotension Plan: recently hypotensive hole antihypertensive medications continue IVF hypotension may have been due to infections vs heat stroke (6) Acute diverticulitis with perforation Plan: surgery to follow on Zosyn currently he is pain free (Dorita Drake) Assessment and Plan patient was seen and examined. Agree with above assessment and plan. Discussed with patient and his family at the bedside. Renal function has improved with hydration. (Matthew Jacobsen MD) Problem Qualifiers (1) Acute renal failure: Qualified Code: N17.9 - Acute renal failure, unspecified acute renal failure type Dorita Drake Dec 11, 2016 10:29 Matthew Jacobsen MD Dec 11, 2016 14:58
[2016-12-11] MEDS: PIPERACIL-TAZO 2.25 GM PREMIX 50 ML IV SCH ×3 (11:29→22:59)
[2016-12-11 12:59] LABS: BLOOD, URINE SMALL (NEG); GLUCOSE,URINE NEG (NEG); KETONE, URINE NEG (NEG); NITRITE,URINE NEG (NEG); PH, URINE 6.5 (5.0-8.5); URINE COLOR LIGHT-YELLOW (YELLW/STRAW)
[2016-12-11 13:03] LABS: COMMENT (UR) CATH-CULT NOT IND; CULTURE IF INDICATED CATH CULTURE NOT IND
--- NOTE | 2016-12-11 13:31 | PD.CONS ---
HPI Service General Surgery Consult Requested By Dr. Quinones Reason for Consult Sigmoid diverticulitis with contained perforation Primary Care Physician Derek Lara MD History of Present Illness The patient is a 56-year-old male admitted yesterday with hypotension and acute kidney insufficiency. He was noted on CT abdomen and pelvis to have apparent sigmoid diverticulitis with associated contained perforation. The patient states that Sunday and Sunday he was working outside and then yesterday he was celebrating Father's Day when he began to feel dizzy and have blurry vision. He took his blood pressure at his mother's house which the patient reports was around 60/40. He denies recent abdominal pain or current abdominal pain. He denies nausea vomiting diarrhea or constipation. He states that he had a colonoscopy about 4 years ago which was basically normal except for there may have been a polyp which was removed. The patient has had improvement in the urine and creatinine. He is hungry and wants something to eat. He is anxious to go home. He was transferred to the regular floor this morning and blood pressure is normal. Review of Systems Constitutional: DENIES: Fever, Chills Eyes: DENIES: Eye inflammation, Eye pain Respiratory: DENIES: Cough, Shortness of breath Cardiovascular: DENIES: Chest pain, Palpitations Gastrointestinal: DENIES: Abdominal pain, Constipation, Nausea, Vomiting Musculoskeletal: DENIES: Muscle aches, Stiffness Integumentary: DENIES: Pruritus, Rash Neurologic: DENIES: Headache, Localized weakness Past Family Social History Past Medical History Hypertension Dyslipidemia Daily alcohol use Tobacco use disorder Peripheral neuropathy Past Surgical History None Reported Medications Reported Meds & Active Scripts Active Reported Gabapentin 600 Mg Tab 600 Mg PO TID Folic Acid 400 Mcg Tab 400 Mcg PO DAILY Lisinopril 20 Mg Tab 20 Mg PO BID Lortab (Hydrocodone-Acetaminophen) 5-325 Mg Tab 1 Tab PO Q8HR PRN Lovastatin 20 Mg Tab 20 Mg PO HS Allergies: Coded Allergies: Penicillin (Verified Allergy, Severe, 12/10/16) Active Ordered Medications Current Medications Medications (Trade) Dose Ordered Sig/Jennifer Route Start Time Stop Time Status Last Admin Folic Acid 1 mg 1 mg DAILY PO 12/11/16 09:00 (NS 1000 ml Inj) 1,000 ml @ 150 mls/hr Q6H40M IV 12/11/16 00:15 12/11/16 09:42 (NS Flush) 2 ml UNSCH PRN .XX 12/11/16 00:15 (NS Flush) 2 ml BID .XX 12/11/16 09:00 (Tylenol) 650 mg Q6H PRN PO 12/11/16 00:15 (Dilaudid Pf Inj) 1 mg Q4H PRN IV 12/11/16 00:15 (Protonix Inj) 40 mg DAILY IV 12/11/16 09:00 12/11/16 09:43 (Zofran Inj) 4 mg Q6H PRN IV 12/11/16 00:15 (Reglan Inj) 10 mg Q6H PRN IV 12/11/16 00:15 (Compazine Supp) 25 mg Q12H PRN RECTAL 12/11/16 00:15 (Ambien) 5 mg HS PRN PO 12/11/16 00:15 (Heparin Inj) 5,000 units Q8HR SQ 12/11/16 06:00 12/11/16 05:40 Miscellaneous Information 1 Q361D XX 12/11/16 00:15 12/11/16 02:18 (Chlorhexidine 2% Cloth) 3 pack Taper DAILY@04 TOP 12/11/16 04:00 12/07/17 03:59 12/11/16 03:48 (Chlorhexidine 2% Cloth) 3 pack UNSCH PRN TOP 12/11/16 00:15 (Nataliya-Colace) 1 tab BID PO 12/11/16 09:00 (Milk Of Magnesia Liq) 30 ml Q12H PRN PO 12/11/16 00:15 (Senokot) 17.2 mg Q12H PRN PO 12/11/16 00:15 (Dulcolax Supp) 10 mg DAILY PRN RECTAL 12/11/16 00:15 (Lactulose Liq) 30 ml DAILY PRN PO 12/11/16 00:15 (Romazicon Inj) 0.2 mg Q1M PRN IV PUSH 12/11/16 00:30 (Ativan) 1 mg Q4H PRN PO 12/11/16 00:30 (Ativan Inj) 1 mg Q4H PRN IV PUSH 12/11/16 00:30 (Ativan Inj) 2 mg Q2H PRN IV PUSH 12/11/16 00:30 (Ativan Inj) 2 mg Q1H PRN IV PUSH 12/11/16 00:30 (Ativan Inj) 2 mg Q15M PRN IV PUSH 12/11/16 00:30 Hydralazine HCl 20 mg 20 mg Q4H PRN IV PUSH 12/11/16 00:45 Thiamine HCl 100 mg/Sodium Chloride 101 ml @ 101 mls/hr DAILY IV 12/11/16 09:00 12/11/16 09:43 (Zosyn 2.25 Gm Premix) 50 ml @ 100 mls/hr Q6H IV 12/11/16 10:00 12/11/16 11:29 Family History Noncontributory Social History Drinks bourbon daily Smokes 1 pack per day Denies illicit drug abuse Physical Exam Vital Signs Vital Signs Date Time Temp Pulse Resp B/P Pulse Ox O2 Delivery O2 Flow Rate FiO2 12/11/16 12:20 96.9 76 20 124/81 99 12/11/16 11:46 80 12/11/16 11:20 Room Air 12/11/16 08:06 100 21 12/11/16 08:00 97.9 81 28 129/84 94 12/11/16 07:00 81 12/11/16 04:00 97.8 75 18 86/49 100 12/11/16 00:00 84 12/11/16 00:00 98.0 84 24 99/59 100 12/10/16 23:30 87 17 95/64 95 12/10/16 22:45 81 17 94/60 95 Room Air 12/10/16 21:37 98.0 88 17 90/60 96 Room Air 12/10/16 20:35 82 16 95/60 98 Room Air 12/10/16 20:35 98 21 12/10/16 20:05 86 17 96/61 97 Room Air 12/10/16 19:00 85 18 92/65 98 Room Air 12/10/16 19:00 85 18 92/65 97 Room Air 12/10/16 18:13 77 18 93/61 99 Room Air 12/10/16 17:15 91/61 12/10/16 17:11 86 18 71/47 97 Room Air 12/10/16 17:10 97 21 12/10/16 16:33 77 18 61/39 97 Room Air 12/10/16 16:26 96 Room Air 12/10/16 16:08 97.5 82 20 60/42 97 Physical Exam GENERAL: Awake and alert. No acute distress. Cooperative. HEAD: Normocephalic. Atraumatic. EYES: Pupils equal round and reactive to light bilaterally. No scleral icterus. CHEST: Lungs clear to auscultation bilaterally with no wheezing or rhonchi. No respiratory distress. CARDIOVASCULAR: Regular rate and rhythm. ABDOMEN: Soft, nontender, nondistended. EXTREMITIES: No cyanosis or edema. SKIN: Warm, dry, nonjaundiced. Laboratory Laboratory Tests Test 12/10/16 12/11/16 12/11/16 12/11/16 16:10 02:09 04:13 04:33 White Blood Count 12.6 Red Blood Count 4.32 Hemoglobin 14.1 Hematocrit 40.6 Mean Corpuscular Volume 94.1 Mean Corpuscular Hemoglobin 32.6 Mean Corpuscular Hemoglobin 34.6 Concent Red Cell Distribution Width 13.3 Platelet Count 274 Mean Platelet Volume 6.4 Neutrophils (%) (Auto) 74.5 Lymphocytes (%) (Auto) 15.4 Monocytes (%) (Auto) 8.1 Eosinophils (%) (Auto) 0.7 Basophils (%) (Auto) 1.3 Neutrophils # (Auto) 9.4 Lymphocytes # (Auto) 1.9 Monocytes # (Auto) 1.0 Eosinophils # (Auto) 0.1 Basophils # (Auto) 0.2 CBC Comment DIFF FINAL Differential Comment Prothrombin Time 10.7 Prothromb Time International 1.0 Ratio Activated Partial 35.1 Thromboplast Time Sodium Level 129 140 Potassium Level 3.9 4.0 Chloride Level 94 111 Carbon Dioxide Level 16.3 22.0 Anion Gap 19 7 Blood Urea Nitrogen 60 47 Creatinine 7.20 3.41 Estimat Glomerular Filtration 8 19 Rate Random Glucose 91 86 Calcium Level 8.7 7.0 Total Creatine Kinase 1582 Creatine Kinase MB 37.1 Creatine Kinase MB % 2.3 Troponin I LESS THAN 0.02 Thyroid Stimulating Hormone 0.803 3rd Gen Ethyl Alcohol Level 68 Nasal Screen MRSA (PCR) MRSA NOT DETECTED Protein Corrected Calcium 7.7 Total Protein 5.8 Blood Gas Puncture Site RT RADIAL Blood Gas Patient Temperature 98.6 Blood Gas HCO3 16 Blood Gas Base Excess -8.6 Blood Gas Oxygen Saturation 93 Arterial Blood pH 7.31 Arterial Blood Partial 33 Pressure CO2 Arterial Blood Partial 84 Pressure O2 Arterial Blood Oxygen Content 15.2 Arterial Blood 2.1 Carboxyhemoglobin Arterial Blood Methemoglobin 0.8 Blood Gas Hemoglobin 11.7 Oxygen Delivery Device RA Blood Gas Inspired Oxygen 21 Test 12/11/16 12:30 Urine Color LIGHT-YELLOW Urine Turbidity CLEAR Urine pH 6.5 Urine Specific [place] 1.009 Urine Protein TRACE Urine Glucose (UA) NEG Urine Ketones NEG Urine Occult Blood SMALL Urine Nitrite NEG Urine Bilirubin NEG Urine Urobilinogen LESS THAN 2.0 Urine Leukocyte Esterase NEG Urine RBC 1 Urine WBC LESS THAN 1 Urine Bacteria Microscopic Urinalysis Comment CATH-CULT NOT IND Urine Random Creatinine 41.9 Urine Random Sodium 104 Date/Time Procedure Status Source Growth 12/11/16 13:04 Aerobic Blood Culture Received Blood Peripheral Pending 12/11/16 13:04 Anaerobic Blood Culture Received Blood Peripheral Pending Result Diagram: 12/10/16 1610 12/11/16 0413 Imaging Last Impressions Abdomen/Pelvis CT 12/10/16 1717 Signed Impressions: Service Date/Time: Saturday, December 10, 2016 17:45 - CONCLUSION: 1. Sigmoid diverticulitis with focal contained perforation. 2.1 x 1.3 cm air-containing collection posterior to the sigmoid without drainable associated fluid collection at this time. Yazan Burns MD Chest X-Ray 12/10/16 1621 Signed Impressions: Service Date/Time: Saturday, December 10, 2016 16:52 - CONCLUSION: No acute cardiopulmonary abnormality is identified. Joni Cornejo MD Assessment and Plan Assessment and Plan 56-year-old male admitted with dehydration and acute kidney insufficiency and noted to have sigmoid diverticulitis with contained perforation. He has no abdominal pain or tenderness. Start full liquids. Continue antibiotics. I anticipate he would be able to go home tomorrow from my standpoint with oral antibiotics. Momo Rosas MD Dec 11, 2016 13:31
--- NOTE | 2016-12-11 14:21 | EKG ---
Date Performed: 12/10/2016 Time Performed: 16:26:50 PTAGE: 56 years EKG: Sinus rhythm Since previous tracing, no significant change noted NORMAL ECG PREVIOUS TRACING : 02/04/2015 14.51.06 DOCTOR: Connor Trevino Interpretating Date/Time 12/11/2016 14:16:41
[2016-12-12 02:40] VITALS: PULSE 78
[2016-12-12] MEDS: CHLORHEXIDINE GLUCONATE 2 % 1 PACK (2 CLOTHS) TOP SCH (04:00)
[2016-12-12 04:03] LABS: AUTOMATED NEUTROPHIL # 2.4 TH/MM3 (1.8-7.7); BASOPHIL % 0.6 % (0.0-2.0); EOSINOPHIL # 0.1 TH/MM3 (0-0.4); EOSINOPHIL % 1.4 % (0.0-4.0); HEMATOCRIT 34.2 % (39.0-51.0); HEMO FLAGS DIFF FINAL; LYMPH % 27.7 % (9.0-44.0); LYMPHOCYTE # 1.1 TH/MM3 (1.0-4.8); MEAN CELL VOLUME 95.6 FL (80.0-100.0); MEAN CORPUSCULAR HEMOGLOBIN 32.4 PG (27.0-34.0); MEAN CORPUSCULAR HGB CONC 33.9 % (32.0-36.0); MONO % 10.1 % (0.0-8.0); NEUT % 60.2 % (16.0-70.0); PLATELET COUNT 168 TH/MM3 (150-450); RED BLOOD COUNT 3.58 MIL/MM3 (4.50-5.90); RED CELL DISTRIBUTION WIDTH 13.5 % (11.6-17.2)
[2016-12-12] MEDS: SODIUM CHLOR 0.9% 1000 ML INJ 1,000 ML IV SCH (04:20)
[2016-12-12] MEDS: PIPERACIL-TAZO 2.25 GM PREMIX 50 ML IV SCH (04:21)
[2016-12-12 04:50] LABS: ALT (GPT) 31 U/L (12-78); ANION GAP 9 MEQ/L (5-15); AST (GOT) 43 U/L (15-37); BICARBONATE 22.6 MEQ/L (21.0-32.0); BLOOD UREA NITROGEN 23 MG/DL (7-18); CHLORIDE 114 MEQ/L (98-107); GLOMERULAR FILTRATION RATE 57 ML/MIN (>89); MAGNESIUM 1.5 MG/DL (1.5-2.5); POTASSIUM 3.9 MEQ/L (3.5-5.1); SODIUM (NA) 146 MEQ/L (136-145)
[2016-12-12 04:52] LABS: ALKALINE PHOSPHATASE 57 U/L (45-117); TOTAL BILIRUBIN ADULT 0.5 MG/DL (0.2-1.0)
[2016-12-12] MEDS: HEPARIN SODIUM - SQ 10,000 UNITS/ML VIAL SQ SCH (05:46)
--- NOTE | 2016-12-12 06:55 | RADRPT ---
EXAM DATE/TIME: 12/12/2016 05:38 [place] COMPARISON: CHEST SINGLE AP, December 10, 2016, 16:52. INDICATIONS : Respiratory distress. MEDICAL HISTORY : None. SURGICAL HISTORY : None. ENCOUNTER: Initial ACUITY: 2 days PAIN SCORE: Non-responsive. LOCATION: Bilateral chest FINDINGS: A single view of the chest demonstrates the lungs to be symmetrically aerated without evidence of mas s, infiltrate or effusion. The cardiomediastinal contours are unremarkable. Osseous structures are intact. Scattered subcentimeter granulomas in both lungs again noted. CONCLUSION: No evidence of acute cardiopulmonary disease. Joni Ford MD on December 12, 2016 at 6:53 Board Certified Radiologist. This report was verified electronically.
[2016-12-12 07:00] VITALS: PULSE 66
[2016-12-12] MEDS: FOLIC ACID 1 MG TAB PO SCH (07:59)
[2016-12-12] MEDS: THIAMINE INJ 100 MG in SODIUM CHLORIDE 0.9% INJ 100 ML IV SCH (07:59)
[2016-12-12 08:00] VITALS: BP 178/101; PULSE 61; RESP 19; TEMP 97.5; O2SAT 98
[2016-12-12] MEDS: DOCUSATE SODIUM 50 MG/SENNA 8.6 MG TAB PO SCH (08:00)
[2016-12-12] MEDS: SODIUM CHLORIDE 0.9% FLUSH 10 ML FLUSH SCH (08:00)
[2016-12-12] MEDS: PANTOPRAZOLE SODIUM 40 MG VIAL IV SCH (08:00)
[2016-12-12 08:30] VITALS: O2SAT 95
[2016-12-12] MEDS ORDERED: POTASSIUM PHOSPHATE MONOBASIC 500 MG TAB PO ONE (08:45)
[2016-12-12] MEDS ORDERED: SODIUM CHLOR 0.45% 1000 ML INJ 1,000 ML IV SCH (08:45)
--- NOTE | 2016-12-12 09:28 | HHI.PR ---
Subjective Subjective Notes Denies any abdominal pain. Tolerating fulls. WBC normal today, renal function significantly improved. Objective Vitals/I&O Vital Signs Date Time Temp Pulse Resp B/P Pulse Ox O2 Delivery O2 Flow Rate FiO2 12/12/16 08:00 97.5 61 19 178/101 98 12/12/16 02:40 Room Air 12/11/16 08:06 21 Labs Laboratory Tests Test 12/11/16 12/12/16 12:30 03:51 Urine Color LIGHT-YELLOW Urine Turbidity CLEAR Urine pH 6.5 Urine Specific [place] 1.009 Urine Protein TRACE Urine Glucose (UA) NEG Urine Ketones NEG Urine Occult Blood SMALL Urine Nitrite NEG Urine Bilirubin NEG Urine Urobilinogen LESS THAN 2.0 Urine Leukocyte Esterase NEG Urine RBC 1 Urine WBC LESS THAN 1 Urine Bacteria Microscopic Urinalysis Comment CATH-CULT NOT IND Urine Random Creatinine 41.9 Urine Random Sodium 104 White Blood Count 4.0 Red Blood Count 3.58 Hemoglobin 11.6 Hematocrit 34.2 Mean Corpuscular Volume 95.6 Mean Corpuscular Hemoglobin 32.4 Mean Corpuscular Hemoglobin 33.9 Concent Red Cell Distribution Width 13.5 Platelet Count 168 Mean Platelet Volume 7.0 Neutrophils (%) (Auto) 60.2 Lymphocytes (%) (Auto) 27.7 Monocytes (%) (Auto) 10.1 Eosinophils (%) (Auto) 1.4 Basophils (%) (Auto) 0.6 Neutrophils # (Auto) 2.4 Lymphocytes # (Auto) 1.1 Monocytes # (Auto) 0.4 Eosinophils # (Auto) 0.1 Basophils # (Auto) 0.0 CBC Comment DIFF FINAL Differential Comment Sodium Level 146 Potassium Level 3.9 Chloride Level 114 Carbon Dioxide Level 22.6 Anion Gap 9 Blood Urea Nitrogen 23 Creatinine 1.31 Estimat Glomerular Filtration 57 Rate Random Glucose 80 Lactic Acid Level 0.7 Calcium Level 8.0 Phosphorus Level 1.7 Magnesium Level 1.5 Total Bilirubin 0.5 Aspartate Amino Transf 43 (AST/SGOT) Alanine Aminotransferase 31 (ALT/SGPT) Alkaline Phosphatase 57 Total Protein 6.0 Albumin 2.5 Date/Time Procedure Status Source Growth 12/11/16 13:04 Aerobic Blood Culture Received Blood Peripheral Pending 12/11/16 13:04 Anaerobic Blood Culture Received Blood Peripheral Pending Radiology Last Impressions Abdomen/Pelvis CT 12/10/16 5817 Signed Impressions: Service Date/Time: Saturday, December 10, 2016 17:45 - CONCLUSION: 1. Sigmoid diverticulitis with focal contained perforation. 2.1 x 1.3 cm air-containing collection posterior to the sigmoid without drainable associated fluid collection at this time. Yazan Burns MD Chest X-Ray 12/10/16 1621 Signed Impressions: Service Date/Time: Saturday, December 10, 2016 16:52 - CONCLUSION: No acute cardiopulmonary abnormality is identified. Joni Cornejo MD Narrative Exam NAD Abd: soft, nontender, nondistended A/P Assessment and Plan 56 yo M with dehydration, MARGARET, diverticulitis with contained perforation. No leukocytosis and remains nontender. Ok for dc home today from my standpoint. Recommend f/u with me in 2 weeks. Recommend 10 days levaquin/flagyl. Momo Rosas MD Dec 12, 2016 09:28
--- NOTE | 2016-12-12 09:59 | HHI.PR ---
Subjective Remarks Pt denies any abd pain today He wants his diet advanced to regular consistency diet today Pt is anxious for discharge. Objective Vitals Vital Signs Date Time Temp Pulse Resp B/P Pulse Ox O2 Delivery O2 Flow Rate FiO2 12/12/16 08:00 97.5 61 19 178/101 98 12/12/16 02:40 Room Air 12/12/16 02:40 78 12/11/16 20:38 97.3 81 20 133/83 99 12/11/16 16:10 96.5 82 20 123/84 95 12/11/16 12:20 96.9 76 20 124/81 99 12/11/16 11:46 80 12/11/16 11:20 Room Air 12/11/16 12/11/16 12/12/16 15:00 23:00 07:00 Intake Total 230 ml 1379 ml Output Total 1125 ml Balance -895 ml 1379 ml Intake IV Total 230 ml 1379 ml Output Urine Total 1125 ml # Voids 3 5 # Bowel Movements 1 Result Diagram: 12/12/16 0351 12/12/16 0351 Other Results Laboratory Tests Test 12/10/16 12/11/16 12/11/16 12/11/16 16:10 02:09 04:13 04:33 White Blood Count 12.6 TH/MM3 Red Blood Count 4.32 MIL/MM3 Hemoglobin 14.1 GM/DL Hematocrit 40.6 % Mean Corpuscular Volume 94.1 FL Mean Corpuscular Hemoglobin 32.6 PG Mean Corpuscular Hemoglobin 34.6 % Concent Red Cell Distribution Width 13.3 % Platelet Count 274 TH/MM3 Mean Platelet Volume 6.4 FL Neutrophils (%) (Auto) 74.5 % Lymphocytes (%) (Auto) 15.4 % Monocytes (%) (Auto) 8.1 % Eosinophils (%) (Auto) 0.7 % Basophils (%) (Auto) 1.3 % Neutrophils # (Auto) 9.4 TH/MM3 Lymphocytes # (Auto) 1.9 TH/MM3 Monocytes # (Auto) 1.0 TH/MM3 Eosinophils # (Auto) 0.1 TH/MM3 Basophils # (Auto) 0.2 TH/MM3 CBC Comment DIFF FINAL Differential Comment Prothrombin Time 10.7 SEC Prothromb Time International 1.0 RATIO Ratio Activated Partial 35.1 SEC Thromboplast Time Sodium Level 129 MEQ/L 140 MEQ/L Potassium Level 3.9 MEQ/L 4.0 MEQ/L Chloride Level 94 MEQ/L 111 MEQ/L Carbon Dioxide Level 16.3 MEQ/L 22.0 MEQ/L Anion Gap 19 MEQ/L 7 MEQ/L Blood Urea Nitrogen 60 MG/DL 47 MG/DL Creatinine 7.20 MG/DL 3.41 MG/DL Estimat Glomerular Filtration 8 ML/MIN 19 ML/MIN Rate Random Glucose 91 MG/DL 86 MG/DL Calcium Level 8.7 MG/DL 7.0 MG/DL Total Creatine Kinase 1582 U/L Creatine Kinase MB 37.1 NG/ML Creatine Kinase MB % 2.3 % Troponin I LESS THAN 0.02 NG/ML Thyroid Stimulating Hormone 0.803 uIU/ML 3rd Gen Ethyl Alcohol Level 68 MG/DL Nasal Screen MRSA (PCR) MRSA NOT DETECTED Protein Corrected Calcium 7.7 MG/DL Total Protein 5.8 GM/DL Blood Gas Puncture Site RT RADIAL Blood Gas Patient Temperature 98.6 Blood Gas HCO3 16 mmol/L Blood Gas Base Excess -8.6 mmol/L Blood Gas Oxygen Saturation 93 % Arterial Blood pH 7.31 Arterial Blood Partial 33 mmHg Pressure CO2 Arterial Blood Partial 84 mmHg Pressure O2 Arterial Blood Oxygen Content 15.2 Vol % Arterial Blood 2.1 % Carboxyhemoglobin Arterial Blood Methemoglobin 0.8 % Blood Gas Hemoglobin 11.7 G/DL Oxygen Delivery Device RA Blood Gas Inspired Oxygen 21 % Test 12/11/16 12/12/16 12:30 03:51 Urine Color LIGHT-YELLOW Urine Turbidity CLEAR Urine pH 6.5 Urine Specific [place] 1.009 Urine Protein TRACE mg/dL Urine Glucose (UA) NEG mg/dL Urine Ketones NEG mg/dL Urine Occult Blood SMALL Urine Nitrite NEG Urine Bilirubin NEG Urine Urobilinogen LESS THAN 2.0 MG/DL Urine Leukocyte Esterase NEG Urine RBC 1 /hpf Urine WBC LESS THAN 1 /hpf Urine Bacteria /hpf Microscopic Urinalysis Comment CATH-CULT NOT IND Urine Random Creatinine 41.9 MG/DL Urine Random Sodium 104 MEQ/L White Blood Count 4.0 TH/MM3 Red Blood Count 3.58 MIL/MM3 Hemoglobin 11.6 GM/DL Hematocrit 34.2 % Mean Corpuscular Volume 95.6 FL Mean Corpuscular Hemoglobin 32.4 PG Mean Corpuscular Hemoglobin 33.9 % Concent Red Cell Distribution Width 13.5 % Platelet Count 168 TH/MM3 Mean Platelet Volume 7.0 FL Neutrophils (%) (Auto) 60.2 % Lymphocytes (%) (Auto) 27.7 % Monocytes (%) (Auto) 10.1 % Eosinophils (%) (Auto) 1.4 % Basophils (%) (Auto) 0.6 % Neutrophils # (Auto) 2.4 TH/MM3 Lymphocytes # (Auto) 1.1 TH/MM3 Monocytes # (Auto) 0.4 TH/MM3 Eosinophils # (Auto) 0.1 TH/MM3 Basophils # (Auto) 0.0 TH/MM3 CBC Comment DIFF FINAL Differential Comment Sodium Level 146 MEQ/L Potassium Level 3.9 MEQ/L Chloride Level 114 MEQ/L Carbon Dioxide Level 22.6 MEQ/L Anion Gap 9 MEQ/L Blood Urea Nitrogen 23 MG/DL Creatinine 1.31 MG/DL Estimat Glomerular Filtration 57 ML/MIN Rate Random Glucose 80 MG/DL Lactic Acid Level 0.7 mmol/L Calcium Level 8.0 MG/DL Phosphorus Level 1.7 MG/DL Magnesium Level 1.5 MG/DL Total Bilirubin 0.5 MG/DL Aspartate Amino Transf 43 U/L (AST/SGOT) Alanine Aminotransferase 31 U/L (ALT/SGPT) Alkaline Phosphatase 57 U/L Total Protein 6.0 GM/DL Albumin 2.5 GM/DL Imaging Last Impressions Chest X-Ray 12/12/16 0600 Signed Impressions: Service Date/Time: Monday, December 12, 2016 05:38 - CONCLUSION: No evidence of acute cardiopulmonary disease. Joni Ford MD Abdomen/Pelvis CT 12/10/16 1717 Signed Impressions: Service Date/Time: Saturday, December 10, 2016 17:45 - CONCLUSION: 1. Sigmoid diverticulitis with focal contained perforation. 2.1 x 1.3 cm air-containing collection posterior to the sigmoid without drainable associated fluid collection at this time. Yazan Burns MD Objective Remarks General: NAD, AAOx3 Chest: CTA Cardiac: Regular Abd: +BS, soft ND/NT Ext: No edema A/P Problem List: (1) Acute renal failure Status: Acute Plan: - Pt is a 56-year-old male with hypertension who presented to the ED at [facility] with complaints of generalized malaise, blurry vision and low blood pressure. - He had been working outside for two day without drinking much and not eating much but had had some alcohol the afternoon he was admitted with minimal water intake. - He was found to be hypotensive with MARGARET, Cr was 7.2 at admission. He was admitted to ICU and started on IVF resuscitation. - Nephrology was consulted. - Patient had initially reported some abdominal pain to the ED and was evaluated with CT abd/pelvis which revealed sigmoid diverticulitis with focal contained perforation. 2.1 x 1.3 cm air-containing collection posterior to the sigmoid without drainable associated fluid. - General Surgery was consulted and pt was transferred to [facility]. - Pt was started on IV Zosyn. - He currently denies any abdominal pain, nausea/vomiting, diarrhea or constipation. - His last colonoscopy was on 02/11/2013 --> sessile polyp in the mid transverse colon, sessile polyp in the sigmoid colon, severe diverticulosis, and internal/external hemorrhoids. - Pt was seen by General Surgery and no surgical intervention felt to be necessary at this time. - His renal function has improved with IVF, Cr today is 1.31 - Pt has tolerated liquid diet, Surgery has cleared him to advance diet to low residue. - Pt was recommended to be discharged on oral Flagyl and Levaquin x 7 days. Discussed with the pt in detail about not drinking any alcohol while taking the Flagyl and for 3 days after stopping the Flagyl. He refused to take these medications and requested an alternative because he states that he will "not stop drinking every day." We will prescribe Augmentin BID x 7 days. - Pt has been cleared to resume his Lisinopril from Nephrology - We will resume Lisinopril 20mg po BID, first dose now as BP is elevated - Monitor BP today and if clinical improvement then we will discharge later today. - Pt will need outpt followup with Dr. Rosas in 2 weeks - Pt will need to followup with his PCP, Dr. Derek Lara in 1 week (2) Acute diverticulitis with perforation Status: Acute Plan: - See above. (3) Dehydration Status: Acute Plan: - See above. (4) Hypotension Status: Acute Plan: - Improved and BP actually elevated this morning with systolic of 178 - Resume Lisinopril 20mg po BID (5) Chronic alcohol abuse Status: Acute Plan: - Alcohol cessation - DT precautions - Folate/MVI/Thiamine - Ativan PRN Assessment and Plan Patient examined. Assessment and plan formulated with Ada Rodriguez PA-C. I agree with the above. Problem Qualifiers (1) Acute renal failure: Qualified Code: N17.9 - Acute renal failure, unspecified acute renal failure type Ada Rodriguez Dec 12, 2016 09:59 Alen Holliday DO Dec 15, 2016 23:36
[2016-12-12] MEDS ORDERED: LISINOPRIL 20 MG TAB PO SCH (10:00)
[2016-12-12] MEDS ORDERED: LEVA500T20 PO (10:01)
[2016-12-12] MEDS ORDERED: METR-1 PO (10:01)
--- NOTE | 2016-12-12 10:02 | HHI.DCPOC ---
Discharge Care Plan Diagnosis: (1) Acute kidney insufficiency (2) Acute diverticulitis with perforation (3) Dehydration (4) Hypertension (5) Hyperlipidemia (6) Folate deficiency (7) Chronic alcohol abuse (8) GERD (gastroesophageal reflux disease) (9) Peripheral neuropathy Goals to Promote Your Health * To prevent worsening of your condition and complications * To maintain your health at the optimal level Directions to Meet Your Goals Take your medications as prescribed Follow your dietary instruction Follow activity as directed Keep your appointments as scheduled Take your immunizations and boosters as scheduled If your symptoms worsen call your PCP, if no PCP go to Urgent Care Center or Emergency Room Smoking is Dangerous to Your Health. Avoid second hand smoke Call the 24-hour hour crisis hotline for domestic abuse at Ada Rodriguez Dec 12, 2016 10:02 Alen Holliday DO Dec 15, 2016 23:36
--- NOTE | 2016-12-12 10:12 | HHI.NPPN ---
Subjective Renal Failure: Acute Interval History Lying in bed. Renal function is better. (Dorita Drake) Objective Data Data 12/11/16 12/12/16 19:00 07:00 Intake Total 230 ml 1379 ml Output Total 1125 ml Balance -895 ml 1379 ml Intake IV Total 230 ml 1379 ml Output Urine Total 1125 ml # Voids 3 5 # Bowel Movements 1 Vital Signs Date Time Temp Pulse Resp B/P Pulse Ox O2 Delivery O2 Flow Rate FiO2 12/12/16 08:00 97.5 61 19 178/101 98 12/12/16 02:40 Room Air 12/12/16 02:40 78 12/11/16 20:38 97.3 81 20 133/83 99 12/11/16 16:10 96.5 82 20 123/84 95 12/11/16 12:20 96.9 76 20 124/81 99 12/11/16 11:46 80 12/11/16 11:20 Room Air (Dorita Drake) -: 12/12/16 0351 12/12/16 0351 Microbiology 12/11/16 Aerobic Blood Culture, Received Pending 12/11/16 Anaerobic Blood Culture, Received Pending 12/11/16 Aerobic Blood Culture, Received Pending 12/11/16 Anaerobic Blood Culture, Received Pending Imaging Last 72 hours Impressions Chest X-Ray 12/12/16 0600 Signed Impressions: Service Date/Time: Monday, December 12, 2016 05:38 - CONCLUSION: No evidence of acute cardiopulmonary disease. Joni Ford MD Abdomen/Pelvis CT 12/10/16 1717 Signed Impressions: Service Date/Time: Saturday, December 10, 2016 17:45 - CONCLUSION: 1. Sigmoid diverticulitis with focal contained perforation. 2.1 x 1.3 cm air-containing collection posterior to the sigmoid without drainable associated fluid collection at this time. Yazan Burns MD Chest X-Ray 12/10/16 1621 Signed Impressions: Service Date/Time: Saturday, December 10, 2016 16:52 - CONCLUSION: No acute cardiopulmonary abnormality is identified. Joni Cornejo MD (Dorita Drake) Physical Exam General Appearance: Well Developed, No Acute Distress, Comfortable, Malnourished ( Dorita Drake. FACULTY NEUROPSYCHOLOGIST) Throat Throat Exam: Oral Mucosa [place] & Moist (Dorita Drake FACULTY NEUROPSYCHOLOGIST) Pulmonary Resp Exam: Breath Sounds Equal, No Distress (Dorita DrakeP) Cardiology CV Exam: Regular, Normal Sinus Rhythm (Dorita Drake. FACULTY NEUROPSYCHOLOGIST) Gastrointestinal/Abdomen GI Exam: Soft, Non-Tender (Dorita Drake FACULTY NEUROPSYCHOLOGIST) Musculoskeletal MS Exam: Joints Intact, Normal Gait (Dorita Drake FACULTY NEUROPSYCHOLOGIST) Integumentary Skin Exam: Clear, Warm, Dry, Intact (Dorita Drake. FACULTY NEUROPSYCHOLOGIST) Extremeties Extremities Exam: No Edema, Pedal Pulses Palpable (Droita Drake FACULTY NEUROPSYCHOLOGIST) Neurologic Neuro Exam: Alert, Awake, Oriented, Speech Clear, Moving All Extremities ( Dorita Drake. FACULTY NEUROPSYCHOLOGIST) Psychiatric Psych Exam: Appropriate Responses (Dorita Drake) Assessment/Plan Discussed Condition With: Patient, Spouse Assessment Summary: MARGARET/Acute Renal Failure Electrolyte Assessment: Hypernatremia Problem List: (1) Acute renal failure Plan: In a patient with creatinine around 1 in 2014 MARGARET due to intravascular volume depletion from dehydration, possible heat stroke renal function has improved no acute issues, he is making urine\ UA negative at this time he is stable for discharge IVF changed to 1/2 NS until discharge Lisinopril was resumed advised alcohol moderation when home (2) Metabolic acidosis Plan: corrected, due to renal failure (3) Dehydration Plan: continue to hydrate follow renal function (4) Chronic alcohol abuse Plan: On ETOH withdrawal protocol monitor for symptoms (5) Hypotension Plan: resume medications (6) Acute diverticulitis with perforation Plan: nonsurgical management on levaquin and flagyl (Dorita Drake. FACULTY NEUROPSYCHOLOGIST) Plan patient was seen and examined. Renal function has improved. We will sign off at this time. (Matthew Jacobsen MD) Problem Qualifiers (1) Acute renal failure: Qualified Code: N17.9 - Acute renal failure, unspecified acute renal failure type Dorita Drake. FACULTY NEUROPSYCHOLOGIST Dec 12, 2016 10:12 Matthew Jacobsen MD Dec 12, 2016 19:25
[2016-12-12] MEDS ORDERED: AUGM875T3 PO (10:55)
[2016-12-12 12:00] VITALS: BP 149/91; PULSE 77; RESP 18; TEMP 98.6; O2SAT 98
[2016-12-12] MEDS ORDERED: LEVOFLOXACIN 500 MG TAB PO SCH (14:00)
[2016-12-12] MEDS ORDERED: metroNIDAZOLE 500 MG TAB PO SCH (14:00)
== END 2016-12-12 13:53 | disposition home or self-care (01) | DRG 391 ==
LOC: PHED 16:07 → PHEDA 17:33 → N03A 12-11 00:07 → N05A 12-11 11:19
PROVIDERS: ADMIT Internal Medicine Critical Care Medicine; ATTEND Internal Medicine Critical Care Medicine
DX: K57.20 Diverticulitis of large intestine with perforation and abscess without bleeding (principal); N17.0 Acute kidney failure with tubular necrosis; E87.2 Acidosis; M62.82 Rhabdomyolysis; E87.1 Hypo-osmolality and hyponatremia; E53.8 Deficiency of other specified B group vitamins; I10 Essential (primary) hypertension; E78.5 Hyperlipidemia, unspecified; F17.210 Nicotine dependence, cigarettes, uncomplicated; E86.0 Dehydration; K21.9 Gastro-esophageal reflux disease without esophagitis; D75.89 Other specified diseases of blood and blood-forming organs; G62.1 Alcoholic polyneuropathy; F10.20 Alcohol dependence, uncomplicated
CPT/HCPCS: 36600; 71010; 74176; 80048; 80053; 80307; 81001; 82550; 82552; 82570; 82805; 83605; 83735; 84100; 84155; 84300; 84443; 84484; 85025; 85610; 85730; 87040; 87641; 93005; 96360; C9113; J1450; J1644; J1956; J2543; J3411; J7030; J7040; J7042; J7070

== ENCOUNTER 2017-07-12 14:36 | Inpatient (IN) | payer OTHER ==
[~2017-07-12] VITALS: Ht 172.7 cm; Wt 85.1 kg
[~2017-07-12 14:36] MED LIST changes: +AUGM875T3 PO; -DICL75 PO; +FOLI400T PO; -FOLITAB6 PO; +GABA600T PO; -HYDR10SO PO; -LISI-363 PO; +LISI-515 PO; -METO25 PO; -ROBA750T3 PO
[2017-07-12 14:38] VITALS: BP 140/90; PULSE 111; RESP 18; TEMP 98.2; O2SAT 97
--- NOTE | 2017-07-12 15:31 | RADRPT ---
EXAM DATE/TIME: 07/12/2017 15:12 [facility] COMPARISON: No previous studies available for comparison. INDICATIONS : Right great toe burn. Patient burnt his right great toe a month ago. Swelling and infection. MEDICAL HISTORY : Neuropathy bilateral feet. SURGICAL HISTORY : None. ENCOUNTER: Initial ACUITY: 1 month PAIN SCORE: 6/10 LOCATION: Right great toe. FINDINGS: Three view examination of the right foot demonstrates ostial lysis involving the distal portions of t he first and second distal phalangeal bones concerning for osteomyelitis. There is marked narrowing o f the first MTP joint. The tarsal bones appear intact. The interphalangeal and metatarsophalangeal joints are intact. The calcaneus is intact. Bony mineralization is normal. CONCLUSION: Radiographic evidence of osteomyelitis involving her both of the first 2 toes distally. Jakob Dos Santos MD on July 12, 2017 at 15:29 Board Certified Radiologist. This report was verified electronically.
[2017-07-12 15:55] LABS: AUTOMATED NEUTROPHIL # 5.2 TH/MM3 (1.8-7.7); BASOPHIL # 0.1 TH/MM3 (0-0.2); BASOPHIL % 1.1 % (0.0-2.0); EOSINOPHIL # 0.1 TH/MM3 (0-0.4); EOSINOPHIL % 1.3 % (0.0-4.0); HEMATOCRIT 33.6 % (39.0-51.0); HEMOGLOBIN 11.4 GM/DL (13.0-17.0); LYMPH % 12.9 % (9.0-44.0); LYMPHOCYTE # 0.9 TH/MM3 (1.0-4.8); MEAN CELL VOLUME 96.7 FL (80.0-100.0); MEAN CORPUSCULAR HEMOGLOBIN 32.9 PG (27.0-34.0); MEAN PLATELET VOLUME 6.9 FL (7.0-11.0); MONO % 8.4 % (0.0-8.0); MONOCYTE # 0.6 TH/MM3 (0-0.9); NEUT % 76.3 % (16.0-70.0); PLATELET COUNT 178 TH/MM3 (150-450); RED BLOOD COUNT 3.47 MIL/MM3 (4.50-5.90); RED CELL DISTRIBUTION WIDTH 14.6 % (11.6-17.2); WHITE BLOOD COUNT 6.8 TH/MM3 (4.0-11.0)
[2017-07-12] MEDS ORDERED: metroNIDAZOLE 500 MG INJ 100 ML IV STA (15:58)
[2017-07-12] MEDS ORDERED: AZTREONAM INJ 2,000 MG in SODIUM CHLORIDE 0.9% INJ 100 ML IV STA (15:58)
[2017-07-12] MEDS ORDERED: VANCOMYCIN INJ 1,000 MG in SODIUM CHLOR 0.9% 250 ML INJ 250 ML IV STA (15:58)
--- NOTE | 2017-07-12 16:04 | HHI.HP ---
HPI Service [facility] Hospitalists Primary Care Physician Derek Lara MD Admission Diagnosis Chief Complaint: referred by Dr. Mejia for concerns of osteomyolitis Travel History International Travel<30 Days: No Contact w/Intl Traveler <30 Da: No Traveled to Known Affected Are: No History of Present Illness This is a 56-year-old male patient with past medical history which includes hypertension, hyperlipidemia, daily EtOH use, tobacco abuse, peripheral neuropathy, Villalpando's esophagus diabetes, osteomyelitis of the right hand Dx September [address] Ramos. Patient was sent for MRI of the right hand by Dr. Ramos but does not look like he had MRI or followed up with hand surgery. Patient reports he has had 2 weeks of abx in the past, details are vague. Patient was referred to the emergency department by Dr. Mejia podiatry due to concerns of osteomyelitis of right foot. Patient has blisters on bilateral lower extremities that have been present since April 2017. Initial injury occurred after he placed his feet on a space heater to warm them. Patient then noticed the blisters/wounds that next days. Patient has peripheral neuropathy and has no pain. No drainage noted. Review of Systems Constitutional: DENIES: Fatigue, Fever, Chills Eyes: DENIES: Blurred vision, Diplopia, Vision loss Respiratory: DENIES: Cough, Sputum production, Shortness of breath Cardiovascular: DENIES: Chest pain, Dyspnea on Exertion, Lower Extremity Edema Gastrointestinal: DENIES: Abdominal pain, Constipation, Diarrhea, Nausea, Vomiting Neurologic: COMPLAINS OF: Paresthesias (peripheral neuropathy), DENIES: Abnormal gait, Headache, Localized weakness, Speech Problems Psychiatric: DENIES: Anxiety, Confusion, Depression Past Family Social History Past Medical History hypertension, hyperlipidemia, daily EtOH use, tobacco abuse, peripheral neuropathy, Villalpando's esophagus diabetes, osteomyelitis of the right hand. Past Surgical History Colonoscopy, EGD, renal lithotripsy Reported Medications Augmentin (Amoxicillin-Clavulanate) 875-125 Mg Tab 1 Tab PO BID Gabapentin 600 Mg Tab 600 Mg PO TID Folic Acid 400 Mcg Tab 400 Mcg PO DAILY Lisinopril 20 Mg Tab 20 Mg PO BID Lortab (Hydrocodone-Acetaminophen) 5-325 Mg Tab 1 Tab PO Q8HR PRN Lovastatin 20 Mg Tab 20 Mg PO HS Allergies: Coded Allergies: No Known Allergies (Unverified , 07/12/17) Family History Noncontributory Social History Drinks vodka daily Smokes 1-2 packs per day Denies illicit drug abuse Physical Exam Vital Signs Vital Signs Date Time Temp Pulse Resp B/P (MAP) Pulse Ox O2 Delivery O2 Flow Rate FiO2 07/12/17 14:38 98.2 111 18 140/90 (107) 97 Physical Exam GENERAL: This is a well-nourished, well-developed patient, in no apparent distress. SKIN: bilateral great toe with nonhealing ulcerations, right hand 2nd and 3rd digits also with nonhealing ulcerations HEAD: Atraumatic. Normocephalic. No temporal or scalp tenderness. EYES: Extraocular motions intact. No scleral icterus. No injection or drainage. ENT: Nose without bleeding, purulent drainage or septal hematoma. Throat without erythema, tonsillar hypertrophy or exudate. Uvula midline. Airway patent. NECK: Trachea midline. No JVD or lymphadenopathy. Supple, nontender, no meningeal signs. CARDIOVASCULAR: Regular rate and rhythm RESPIRATORY: Clear to auscultation. Breath sounds equal bilaterally. GASTROINTESTINAL: Abdomen soft, non-tender, nondistended. MUSCULOSKELETAL: Extremities without clubbing, cyanosis, or edema. No joint tenderness, effusion, or edema noted. No calf tenderness. Negative Homans sign bilaterally. NEUROLOGICAL: Awake and alert. Motor and sensory grossly within normal limits. Five out of 5 muscle strength in all muscle groups. Normal speech. Laboratory Laboratory Tests Test 07/12/17 15:31 Caprini VTE Risk Assessment Caprini VTE Risk Assessment: Mod/High Risk (score >= 2) Caprini Risk Assessment Model Point Value = 1 Point Value = 2 Point Value = 3 Point Value = 5 Age 41-60 Minor surgery BMI > 25 kg/m2 Swollen legs Varicose veins or History of unexplained or recurrent spontaneous Oral contraceptives or hormone replacement Sepsis (< 1 month) Serious lung disease, including pneumonia (< 1 month) Abnormal pulmonary function Acute myocardial infarction Congestive heart failure (< 1 month) History of inflammatory bowel disease Medical patient at bed rest Age 61-74 Arthroscopic surgery Major open surgery (> 45 min) Laparoscopic surgery (> 45 min) Malignancy Confined to bed (> 72 hours) Immobilizing plaster cast Central venous access Age >= 75 History of VTE Family history of VTE Factor V Leiden Prothrombin [id number] Lupus anticoagulant Anticardiolipin antibodies Elevated serum homocysteine Heparin-induced thrombocytopenia Other congenital or acquired thrombophilia Stroke (< 1 month) Elective arthroplasty Hip, pelvis, or leg fracture Acute spinal cord injury (< 1 month) Prophylaxis Regimen Total Risk Factor Score Risk Level Prophylaxis Regimen 0-1 Low Early ambulation 2 Moderate Order ONE of the following: *Sequential Compression Device (SCD) *Heparin 5000 units SQ BID 3-4 Higher Order ONE of the following medications: *Heparin 5000 units SQ TID *Enoxaparin/Lovenox 40 mg SQ daily (WT < 150 kg, CrCl > 30 mL/min) *Enoxaparin/Lovenox 30 mg SQ daily (WT < 150 kg, CrCl > 10-29 mL/min) *Enoxaparin/Lovenox 30 mg SQ BID (WT < 150 kg, CrCl > 30 mL/min) AND/OR *Sequential Compression Device (SCD) 5 or more Highest Order ONE of the following medications: *Heparin 5000 units SQ TID (Preferred with Epidurals) *Enoxaparin/Lovenox 40 mg SQ daily (WT < 150 kg, CrCl > 30 mL/min) *Enoxaparin/Lovenox 30 mg SQ daily (WT < 150 kg, CrCl > 10-29 mL/min) *Enoxaparin/Lovenox 30 mg SQ BID (WT < 150 kg, CrCl > 30 mL/min) AND *Sequential Compression Device (SCD) Assessment and Plan Problem List: (1) Osteomyelitis ICD Codes: M86.9 - Osteomyelitis, unspecified Plan: This is a 56-year-old male patient with past medical history which includes osteomyelitis of the right hand Dx September [address] Ramos. Patient was sent for MRI of the right hand by Dr. Ramos but does not look like he had MRI or followed up with hand surgery. Patient was transferred to the emergency department by Dr. Mejia podiatry due to concerns of osteomyelitis of right foot. MRI bilateral lower extremities and right hand Blood culture, wound culture, UA and chest X ray ordered Vancomycin and Zosyn IV Consult podiatry patient known to Dr. Mejia, tentative surgery Sunday or Sunday Consult hand surgery Patient NPO after breakfast (2) Hyperlipidemia ICD Codes: E78.5 - Hyperlipidemia Status: Acute Plan: Continue patient's home statin (3) Chronic alcohol abuse ICD Codes: F10.10 - Chronic alcohol abuse Status: Acute Plan: [facility] protocol monitor for s/s of withdraw folate, B12 and MVI (4) GERD (gastroesophageal reflux disease) ICD Codes: K21.9 - GERD (gastroesophageal reflux disease) Status: Acute Assessment and Plan Patient examined. Assessment and plan formulated with Debi Nelson PA-C. I agree with the above. - Pt previously following with Dr. Ramos, Hand Surgeon, for possible osteomyelitis of right hand/fingers - obtain MRI of right hand - Pt admitted through Dr. Mejia with b/l ulcers at great toes. Possible osteomyelitis - Obtain MRI of right and left foot - Pt started on zosyn/vancomyin - obtain WILTON study - anticipate amputation with Dr. Mejia 07/15 Physician Certification 2 Midnight Certification Type: Admission for Inpatient Services Order for Inpatient Services The services are ordered in accordance with Medicare regulations or non- Medicare payer requirements, as applicable. In the case of services not specified as inpatient-only, they are appropriately provided as inpatient services in accordance with the 2-midnight benchmark. Estimated LOS (days): 3 days is the estimated time the patient will need to remain in the hospital, assuming treatment plan goals are met and no additional complications. Post-Hospital Plan: Not yet determined Debi Nelson Jul 12, 2017 16:04 Alen Holliday DO Jul 13, 2017 00:10
[2017-07-12 16:06] LABS: ALBUMIN 3.2 GM/DL (3.4-5.0); ALT (GPT) 27 U/L (12-78); AST (GOT) 30 U/L (15-37); BICARBONATE 27.1 MEQ/L (21.0-32.0); BLOOD UREA NITROGEN 16 MG/DL (7-18); C-REACTIVE PROTEIN 1.85 MG/DL (0.00-0.30); CALCIUM 8.5 MG/DL (8.5-10.1); CHLORIDE 106 MEQ/L (98-107); CREATININE 1.15 MG/DL (0.60-1.30); GLOMERULAR FILTRATION RATE 66 ML/MIN (>89); GLUCOSE,RANDOM 101 MG/DL (74-106); SODIUM (NA) 137 MEQ/L (136-145)
[2017-07-12 16:07] LABS: INTERNATIONAL NORMALIZED RATIO 1.1 RATIO; PROTHROMBIN TIME - PATIENT 11.4 SEC (9.8-11.6)
[2017-07-12 16:09] LABS: ALKALINE PHOSPHATASE 106 U/L (45-117); TOTAL BILIRUBIN ADULT 0.3 MG/DL (0.2-1.0); TOTAL PROTEIN 8.3 GM/DL (6.4-8.2)
[2017-07-12] MEDS ORDERED: AZTREONAM INJ 1,000 MG in SODIUM CHLORIDE 0.9% INJ 100 ML IV SCH (16:30)
[2017-07-12] MEDS ORDERED: ACETAMINOPHEN 325 MG TAB PO PRN (16:30)
[2017-07-12] MEDS ORDERED: LORazepam 2 MG TAB PO PRN (16:30)
[2017-07-12] MEDS ORDERED: NALOXONE HCL 0.4 MG/ML AMP IV PUSH PRN (16:30)
[2017-07-12] MEDS ORDERED: LORazepam 1 MG TAB PO PRN (16:30)
[2017-07-12] MEDS ORDERED: LORazepam 2 MG/ML VIAL IV PUSH PRN ×4 (16:30)
[2017-07-12] MEDS ORDERED: ONDANSETRON HCL 4 MG/2 ML VIAL IVP PRN (16:30)
[2017-07-12] MEDS ORDERED: FLUMAZENIL 0.5 MG/5 ML VIAL IV PUSH PRN (16:30)
[2017-07-12] MEDS ORDERED: Vancomycin Consult Pharmacy 1 EA OTHER SCH (16:30)
[2017-07-12] MEDS ORDERED: MAGNESIUM HYDROXIDE SUSP 30 ML CUP PO PRN (16:30)
--- NOTE | 2017-07-12 16:39 | RADRPT ---
EXAM DATE/TIME: 07/12/2017 16:26 [facility] COMPARISON: CHEST SINGLE AP, February 04, 2015, 15:00. CT ABDOMEN & PELVIS W/O CONTRAST, December 10, 2016, 17:45. CH EST SINGLE AP, December 10, 2016, 16:52. CHEST SINGLE AP, December 12, 2016, 5:38. INDICATIONS : Rule out sepsis. MEDICAL HISTORY : Hypertension. Hypercholesterolemia. Neuropathy bilateral feet. SURGICAL HISTORY : None. ENCOUNTER: Initial ACUITY: 1 day PAIN SCORE: 0/10 LOCATION: Bilateral chest FINDINGS: There is mild asymmetric elevation of the right diaphragm which is potentially exacerbated by lordoti c projection, however process at the right lung bases not entirely excluded. The lungs are otherwise focally clear. No significant effusion suspected. Cardiac contours are satisfactory. CONCLUSION: Asymmetric elevation of the right diaphragm which may be largely projectional compared to prior. Good quality PA and lateral views the chest versus additional evaluation with CT suggested as clinically appropriate. Joni Minor MD on July 12, 2017 at 16:34 Board Certified Radiologist. This report was verified electronically.
[2017-07-12] MEDS ORDERED: HYDROmorphone HCL PF 1 MG/ML VIAL IV PUSH PRN (16:45)
[2017-07-12] MEDS ORDERED: ENALAPRILAT 1.25 MG/ML VIAL IV PRN (16:45)
[2017-07-12] MEDS ORDERED: cloNIDine HCL 0.2 MG TAB PO PRN (16:45)
[2017-07-12] MEDS ORDERED: LYRI75CA PO (17:05)
[2017-07-12] MEDS ORDERED: DULO1CAP3 PO (17:05)
[2017-07-12] MEDS ORDERED: HYDR-3583 PO (17:05)
[2017-07-12] MEDS ORDERED: CLIN150C14 PO (17:05)
[2017-07-12] MEDS ORDERED: CIPR500T2 PO (17:05)
[2017-07-12] MEDS ORDERED: METO50TA PO (17:05)
[2017-07-12] MEDS ORDERED: NICOTINE 14 MG/24 HR PATCH T-DERMAL SCH (17:15)
[2017-07-12] MEDS ORDERED: RESP: ALBUTEROL 2.5 MG/IPRATROPIUM 0.5 MG NEB (PRN) NEB (17:15)
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
--- NOTE | 2017-07-12 19:37 | EKG ---
Date Performed: 07/12/2017 Time Performed: 16:54:02 PTAGE: 56 years EKG: Sinus rhythm NORMAL ECG No significant change from prior electrocardiogram. PREVIOUS TRACING : 12/10/2016 16.26 DOCTOR: Isidro Martini Interpretating Date/Time 07/12/2017 19:36:28
[2017-07-12 20:00] VITALS: BP 152/89; PULSE 81; RESP 20; TEMP 97.2; O2SAT 100
[2017-07-12] MEDS ORDERED: GADODIAMIDE PF 287 MG/ML 5 ML VIAL (for RAD MRI) IV PUSH ONE (20:14)
[2017-07-12] MEDS: ACETAMINOPHEN/HYDROcodone 325 MG/10 MG TAB PO PRN (20:27)
[2017-07-12] MEDS: METOPROLOL TARTRATE 50 MG TAB PO SCH (20:30)
[2017-07-12] MEDS: LISINOPRIL 20 MG TAB PO SCH (20:30)
[2017-07-12] MEDS: PREGABALIN 75 MG CAP PO SCH (20:30)
[2017-07-12] MEDS: PRAVASTATIN SOD 20 MG TAB PO SCH (20:30)
[2017-07-12] MEDS: SODIUM CHLORIDE 0.9% FLUSH 10 ML FLUSH IV FLUSH SCH (20:32)
[2017-07-12] MEDS: NICOTINE 14 MG/24 HR PATCH T-DERMAL SCH (20:40)
[2017-07-12] MEDS: FOLIC ACID 1 MG TAB PO SCH (21:00)
[2017-07-12] MEDS: PIPERACIL-TAZO 3.375 GM PREMIX 50 ML IV SCH (22:31)
[2017-07-12 22:34] LABS: BILIRUBIN, URINE NEG (NEG); BLOOD, URINE NEG (NEG); GLUCOSE,URINE NEG (NEG); KETONE, URINE NEG (NEG); NITRITE,URINE NEG (NEG); SPERM, URINE RARE; SQUAMOUS EPITHELIAL CELL URINE 1 /hpf (0-5); URINE COLOR YELLOW (YELLW/STRAW); URINE LEUKOCYTE ESTERASE NEG (NEG)
[2017-07-13] VITALS: BP 110/61; PULSE 79; RESP 18; TEMP 96.7; O2SAT 95
[2017-07-13] MEDS: PIPERACIL-TAZO 3.375 GM PREMIX 50 ML IV SCH ×4 (02:20→19:51)
[2017-07-13] MEDS: VANCOMYCIN INJ 1,000 MG in SODIUM CHLOR 0.9% 250 ML INJ 250 ML IV SCH ×2 (04:36→16:00)
[2017-07-13 08:00] VITALS: BP 118/64; PULSE 63; RESP 19; TEMP 97.5; O2SAT 100
--- NOTE | 2017-07-13 08:17 | RADRPT ---
EXAM DATE/TIME: 07/12/2017 18:02 [facility] COMPARISON: No previous studies available for comparison. INDICATIONS : Osteomyelitis. Wound on great toe. CONTRAST: 16 cc Omniscan (gadodiamide) IV MEDICAL HISTORY : Hypertension. SURGICAL HISTORY : None. ENCOUNTER: Initial ACUITY: 3 weeks PAIN SCORE: 0/10 LOCATION: Left Foot. TECHNIQUE: Multiplanar, multisequence MRI examination was performed without contrast and after the intravenous a dministration of gadolinium. FINDINGS: Examination quality is degraded by motion artifact. There is a likely marrow edema within the distal phalanx of the first digit with subtle decreased T1 signal involving the distal phalangeal cuff of the first digit. The postcontrast images demonstrate p ossible enhancement of the tuft laterally. There is soft tissue swelling, subcutaneous edema, and mil d enhancement of the distal aspect of the first digit. No fluid collection or abscess is identified. The proximal phalanx of the fifth digit also appears abnormal demonstrating increased T2 and decrease d T1 signal with possible enhancement. The remaining bones of the foot demonstrate normal T1 signal and no definite marrow edema. There is o steoarthritis at the first metatarsophalangeal joint. Edema is present throughout the midfoot muscula ture and there is a dorsal foot subcutaneous edema. CONCLUSION: 1. Soft tissue swelling of the distal aspect of the first digit with subtle changes involving the fir st digit distal phalangeal tuft which are suspicious for osteomyelitis. It would be helpful to correl ate with plain film examination to evaluate for osseous erosion or periosteal reaction. 2. There is also abnormal signal and enhancement of the fifth digit proximal phalanx. The findings co uld be related to osteomyelitis or even a fracture. Again, correlating with plain film examination ma y be helpful to offer additional characterization. Joni Cornejo MD on July 13, 2017 at 8:07 Board Certified Radiologist. This report was verified electronically.
[2017-07-13] MEDS: METOPROLOL TARTRATE 50 MG TAB PO SCH ×2 (08:34→19:50)
[2017-07-13] MEDS: PREGABALIN 75 MG CAP PO SCH ×2 (08:34→19:51)
[2017-07-13] MEDS: DULoxetine HCl DR 60 MG CAP PO SCH (08:34)
[2017-07-13] MEDS: THIAMINE HCL 100 MG TAB PO SCH (08:34)
[2017-07-13] MEDS: MULTIVITAMINS/MINERALS THERAPEUTIC TAB PO SCH (08:34)
[2017-07-13] MEDS: NICOTINE 14 MG/24 HR PATCH T-DERMAL SCH (08:34)
[2017-07-13] MEDS: FOLIC ACID 1 MG TAB PO SCH (08:34)
[2017-07-13] MEDS: LISINOPRIL 20 MG TAB PO SCH ×2 (08:34→19:50)
[2017-07-13] MEDS ORDERED: REMOVE OLD PATCH T-DERMAL SCH (09:00)
--- NOTE | 2017-07-13 09:12 | RADRPT ---
EXAM DATE/TIME: 07/12/2017 18:02 [facility] COMPARISON: No previous studies available for comparison. INDICATIONS : Osteomyelitis. Wound on distal aspect of great toe. CONTRAST: 16 cc Omniscan (gadodiamide) IV MEDICAL HISTORY : Hypertension. SURGICAL HISTORY : None. ENCOUNTER: Initial ACUITY: 3 weeks PAIN SCORE: 0/10 LOCATION: Right foot. TECHNIQUE: Multiplanar, multisequence MRI examination was performed without contrast and after the intravenous a dministration of gadolinium. FINDINGS: There is cutaneous ulceration at the distal aspect of the great toe. Diffuse soft tissue edema and en hancement are of the great toe. There is erosion of the distal aspect of the distal phalanx and preco ntrast T1 weighted signal abnormality in the distal aspect of the distal phalanx. Diffuse severe bony edema and enhancement of the entire distal phalanx of the great toe. These findings suggest osteomye litis in the proper clinical setting. Cutaneous defect and soft tissue edema/enhancement also noted a t the distal second toe. There is erosion and abnormal signal of the second toe distal phalanx on the precontrast T1-weighted images. Diffuse bony enhancement in this region. These findings also suggest osteomyelitis in the proper clinical setting. Arthritic findings with osteophyte formation and articular cartilage thinning at the great toe MTP colette int. Prominent surrounding reactive bony edema. Chronic fifth MTP joint osteoarthritic findings noted . All visualized tendons are intact. No organized fluid collections seen. Plantar necrosis intact. Sinu s tarsi within normal limits. Diffuse fatty atrophy of the intrinsic foot muscles. CONCLUSION: 1. Findings suggesting osteomyelitis of the distal phalanges of first and second digits. 2. Severe osteoarthritic findings of the great toe MTP joint with severe surrounding reactive bony ch caridad. Ollie Abdi MD on July 13, 2017 at 8:56 Board Certified Radiologist. This report was verified electronically.
[2017-07-13] MEDS ORDERED: GADODIAMIDE PF 287 MG/ML 20 ML VIAL (for RAD MRI) IVCONTRAST ONE (09:22)
[2017-07-13] MEDS: chlordiazePOXIDE 25 MG CAP PO PRN (09:53)
--- NOTE | 2017-07-13 10:20 | RADRPT ---
EXAM DATE/TIME: 07/13/2017 09:02 [facility] COMPARISON: No previous studies available for comparison. INDICATIONS : Osteomyelitis. CONTRAST: 16 cc Omniscan (gadodiamide) IV MEDICAL HISTORY : Hypertension. SURGICAL HISTORY : None. ENCOUNTER: Initial ACUITY: 1 day PAIN SCORE: 3/10 LOCATION: Right Hand TECHNIQUE: Multiplanar, multisequence MRI examination was performed without contrast and after the intravenous a dministration of gadolinium. FINDINGS: Cutaneous ulceration/soft tissue defect at the distal long finger. There is adjacent erosion of the t uft of the long finger distal phalanx. Confluent signal abnormality on the precontrast T1-weighted im ages at the distal end of the distal phalanx. Diffuse signal abnormality on precontrast T2 weighted i mages and enhancement on the postcontrast images of the distal phalanx of the long finger. Findings i ndicate osteomyelitis in the proper clinical setting. Truncation of the index finger distal phalanx suggesting sequela of old trauma/infection or prior amp utation. No organized fluid collection identified. All of the visualized tendons are intact. CONCLUSION: Findings indicating osteomyelitis of the long finger distal phalanx in the proper clinical setting. Ollie Abdi MD on July 13, 2017 at 10:10 Board Certified Radiologist. This report was verified electronically.
--- NOTE | 2017-07-13 10:47 | HHI.PR ---
Subjective Remarks Patient offers no new complaints. Objective Vitals Vital Signs Date Time Temp Pulse Resp B/P (MAP) Pulse Ox O2 Delivery O2 Flow Rate FiO2 07/13/17 08:00 97.5 63 19 118/64 (82) 100 07/13/17 00:00 96.7 79 18 110/61 (77) 95 07/12/17 20:00 97.2 81 20 152/89 (110) 100 07/12/17 18:03 07/12/17 14:38 98.2 111 18 140/90 (107) 97 07/13/17 07/13/17 07/14/17 15:00 23:00 07:00 Intake Total 0 ml Balance 0 ml Intake Oral 0 ml Result Diagram: 07/12/17 1531 07/12/17 1531 Other Results Laboratory Tests Test 07/12/17 15:31 07/12/17 22:00 White Blood Count 6.8 TH/MM3 Red Blood Count 3.47 MIL/MM3 Hemoglobin 11.4 GM/DL Hematocrit 33.6 % Mean Corpuscular Volume 96.7 FL Mean Corpuscular Hemoglobin 32.9 PG Mean Corpuscular Hemoglobin Concent 34.0 % Red Cell Distribution Width 14.6 % Platelet Count 178 TH/MM3 Mean Platelet Volume 6.9 FL Neutrophils (%) (Auto) 76.3 % Lymphocytes (%) (Auto) 12.9 % Monocytes (%) (Auto) 8.4 % Eosinophils (%) (Auto) 1.3 % Basophils (%) (Auto) 1.1 % Neutrophils # (Auto) 5.2 TH/MM3 Lymphocytes # (Auto) 0.9 TH/MM3 Monocytes # (Auto) 0.6 TH/MM3 Eosinophils # (Auto) 0.1 TH/MM3 Basophils # (Auto) 0.1 TH/MM3 CBC Comment DIFF FINAL Differential Comment Erythrocyte Sedimentation Rate 76 mm/hr Prothrombin Time 11.4 SEC Prothromb Time International Ratio 1.1 RATIO Activated Partial Thromboplast Time 32.5 SEC Blood Urea Nitrogen 16 MG/DL Creatinine 1.15 MG/DL Random Glucose 101 MG/DL Total Protein 8.3 GM/DL Albumin 3.2 GM/DL Calcium Level 8.5 MG/DL Alkaline Phosphatase 106 U/L Aspartate Amino Transf (AST/SGOT) 30 U/L Alanine Aminotransferase (ALT/SGPT) 27 U/L Total Bilirubin 0.3 MG/DL Sodium Level 137 MEQ/L Potassium Level 4.3 MEQ/L Chloride Level 106 MEQ/L Carbon Dioxide Level 27.1 MEQ/L Anion Gap 4 MEQ/L Estimat Glomerular Filtration Rate 66 ML/MIN C-Reactive Protein 1.85 MG/DL Urine Color YELLOW Urine Turbidity CLEAR Urine pH 6.0 Urine Specific [place] 1.018 Urine Protein TRACE mg/dL Urine Glucose (UA) NEG mg/dL Urine Ketones NEG mg/dL Urine Occult Blood NEG Urine Nitrite NEG Urine Bilirubin NEG Urine Urobilinogen LESS THAN 2.0 MG/DL Urine Leukocyte Esterase NEG Urine RBC 6 /hpf Urine WBC 2 /hpf Urine Squamous Epithelial Cells 1 /hpf Urine Sperm RARE Microscopic Urinalysis Comment CULT NOT INDICATED Imaging Last Impressions Hand MRI 07/13/17 0913 Signed Impressions: Service Date/Time: Thursday, July 13, 2017 09:02 - CONCLUSION: Findings indicating osteomyelitis of the long finger distal phalanx in the proper clinical setting. Ollie Abdi MD Chest X-Ray 07/12/17 1620 Signed Impressions: Service Date/Time: June 16:26 - CONCLUSION: Asymmetric elevation of the right diaphragm which may be largely projectional compared to prior. Good quality PA and lateral views the chest versus additional evaluation with CT suggested as clinically appropriate. Joni Minor MD Foot X-Ray 07/12/17 0000 Signed Impressions: Service Date/Time: June 15:12 - CONCLUSION: Radiographic evidence of osteomyelitis involving her both of the first 2 toes distally. Jakob Dos Santos MD Foot MRI 07/12/17 0000 Signed Impressions: Service Date/Time: June 18:02 - CONCLUSION: 1. Findings suggesting osteomyelitis of the distal phalanges of first and second digits. 2. 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 Ollie Abdi MD Objective Remarks GENERAL: This is a well-nourished, well-developed patient, in no apparent distress. SKIN: bilateral great toe with nonhealing ulcerations, right hand 2nd and 3rd digits also with nonhealing ulcerations CARDIOVASCULAR: Regular rate and rhythm RESPIRATORY: Clear to auscultation. Breath sounds equal bilaterally. GASTROINTESTINAL: Abdomen soft, non-tender, nondistended. MUSCULOSKELETAL: Extremities without clubbing, cyanosis, or edema. No joint tenderness, effusion, or edema noted. No calf tenderness. Negative Homans sign bilaterally. NEUROLOGICAL: Awake and alert. Motor and sensory grossly within normal limits. Five out of 5 muscle strength in all muscle groups. Normal speech A/P Problem List: (1) Osteomyelitis ICD Codes: M86.9 - Osteomyelitis, unspecified Status: Chronic Plan: This is a 56-year-old male patient with past medical history which includes osteomyelitis of the right hand Dx September [address] Ramos. Patient was sent for MRI of the right hand by Dr. Ramos but does not look like he had MRI or followed up with hand surgery. Patient was transferred to the emergency department by Dr. Mejia podiatry due to concerns of osteomyelitis of right foot. Right foot x-ray done in emergency department reveals radiographic evidence of osteomyelitis involving first 2 toes distally MRI Right foot revealed: Suggesting osteomyelitis of the distal phalanx of first and second digits. 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 MRI right hand: Findings indicating osteomyelitis of the long finger distal phalanx Blood culture obtained and pending UA reviewed no culture indicated Chest x-ray reviewed and reveals asymmetric elevation of the right diaphragm which may be largely projectional compared to prior. Vancomycin and Zosyn IV Consult podiatry patient known to Dr. Mejia, tentative surgery today or Sunday. Discussed case with Dr. Mejia he plans to discuss findings with patient and planned surgery. Dr. Mejia also plans to discuss case with hand surgery Dr. Ramos to determine if they can perform surgeries together Consult hand surgery Patient NPO after breakfast 07/13 (2) Hyperlipidemia ICD Codes: E78.5 - Hyperlipidemia Status: Acute Plan: Continue patient's home statin (3) Chronic alcohol abuse ICD Codes: F10.10 - Chronic alcohol abuse Status: Acute Plan: [facility] protocol monitor for s/s of withdraw folate, B12 and MVI Assessment and Plan Patient examined. Assessment and plan formulated with Debi Nelson PA-C. I agree with the above. Debi Nelson Jul 13, 2017 10:47 Alen Holliday DO Jul 17, 2017 22:41
[2017-07-13 12:00] VITALS: BP 138/95; PULSE 82; RESP 21; TEMP 97.9; O2SAT 95
[2017-07-13] MEDS ORDERED: ceFAZolin INJ 1,000 MG VIAL IV ONE (12:00)
[2017-07-13] MEDS ORDERED: LACTATED RINGER'S 1000 ML INJ 1,000 ML IV ONE (12:00)
[2017-07-13] MEDS ORDERED: ONDANSETRON HCL 4 MG/2 ML VIAL IV ONE ×2 (12:00)
[2017-07-13] MEDS ORDERED: PHENYLEPH/NS 1000 MCG/10 ML SYR IV ONE ×2 (12:00)
[2017-07-13] MEDS ORDERED: LIDOCAINE HCL 1% PF 5 ML SYRINGE OTHER ONE ×2 (12:00)
[2017-07-13] MEDS ORDERED: PROPOFOL 200 MG/20 ML AMP IV ONE ×2 (12:00)
[2017-07-13] MEDS ORDERED: ePHEDrine/NS 25 MG/5 ML SYRINGE IV ONE ×2 (12:00)
--- NOTE | 2017-07-13 13:02 | PD.POD ---
Past Med/Surg/Social History Social History Smoking Status: Current Every Day Smoker Objective Vital Signs Vital Signs Date Time Temp Pulse Resp B/P (MAP) Pulse Ox O2 Delivery O2 Flow Rate FiO2 07/13/17 12:00 97.9 82 21 138/95 (109) 95 07/13/17 08:00 97.5 63 19 118/64 (82) 100 07/13/17 00:00 96.7 79 18 110/61 (77) 95 07/12/17 20:00 97.2 81 20 152/89 (110) 100 07/12/17 18:03 07/12/17 14:38 98.2 111 18 140/90 (107) 97 Coded Allergies: No Known Allergies (Unverified , 07/12/17) Assessment & Plan A/P BL Hallux and right 2nd digit OM with Ulcer FULL CONSULT DICTATED. OR today for BL hallux partial amputation and right 2nd digit amputation. MRI and labs support Dx, no wound or clinical correlation of infection left 5th digit issue seen on MRI. Bro Mejia DPM Jul 13, 2017 13:02
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
[2017-07-13] MEDS ORDERED: NEOMYCIN/POLYMYXIN 1 ML G.U. IRRIGANT ONE (15:36)
--- NOTE | 2017-07-13 15:44 | MB ---
cc: LIZ MALDONADO DPM DATE OF CONSULTATION: 07/13/2017. REASON FOR CONSULTATION: Right foot bilateral digit ulcers, likely osteomyelitis. HISTORY OF PRESENT ILLNESS: This is a 56-year-old male who I met for the first time yesterday in the clinic. He had been seeing my partner Dr. Anaya. Radiographic findings for osteomyelitis were noted. He was given oral antibiotics. Laboratory and MRI findings were ordered. Upon counselling the patient in the outpatient setting, I saw severe signs of infection of the right foot hallux and second digit as well as the left hallux. I recommended admission to the hospital to move quickly to preserve the rest of the patient's foot. The patient is a chronic smoker and he drinks. Currently I am seeing the patient bedside. He understands the MRIs have returned showing osteomyelitis. He is also in the process of being evaluated by a hand surgeon. He is seen bedside with his who confirms the smoking and alcohol. He claims he drinks because his feet burn and sting. He has a history of peripheral neuropathy. He had a referral once to see pain management and apparently he did not follow through. He does take chronic pain medications for this. PAST MEDICAL HISTORY: 1. Peripheral neuropathy. 2. Villalpando's esophagitis. 3. Hypertension. 4. Hyperlipidemia. SOCIAL HISTORY: Daily alcohol abuse. Drinks vodka. Smokes one to two packs a day. Denies illicit drug use. ALLERGIES: NO ALLERGIES LISTED. OUTPATIENT MEDICATIONS: Reviewed. He was taking Augmentin. INPATIENT MEDICATIONS: Reviewed. The patient is receiving antibiotics, Vancomycin and Zosyn as well as aztreonam. PHYSICAL EXAMINATION: VITAL SIGNS: Temperature 97.9, pulse rate 82, respiratory rate 21, blood pressure 138/95. GENERAL: This is an alert and oriented male seen bedside exhibiting nonlabored respirations. He appears to have an eschar on his right hand on the long finger third digit. Bilateral lower extremities examined. On the right lower extremity, there is noted to be a purulent draining ulcer of the distal aspect the hallux that probes directly to the distal phalanx, which is soft. There is noted to be mixed fibrogranular tissue of the distal aspect of the right first and second digits. There is chronic swelling and erythema of the distal aspect of the second digit and the hallux. There is mild swelling of the foot. There appears to be no cellulitic line, soft tissue emphysema, no ischemia. The posterior tibialis and dorsalis pedis are readily palpable. The left lower extremity was examined. There is a similar dry, crusty fibrotic lesion with chronic swelling of the distal hallux. There is no cellulitic line, soft tissue emphysema and no ischemic changes. Pedal pulses are palpable on the left, posterior tibialis and dorsalis pedis. Significant loss of sensation below the patient's bilateral ankles. No obvious musculoskeletal deficits noted. No crepitus or instability upon range motion of the digits, forefoot, hindfoot or ankle. The calf is nontender and nondistended. LABORATORY FINDINGS: White blood cell 6.8, hemoglobin/hematocrit 11 and 33. Erythrocyte sedimentation rate elevated at 76. Sodium 137, potassium 4.3, chloride 106, carbon dioxide 27.1, BUN of 16, creatinine 1.15, random glucose is 101. C-reactive protein elevated at 1.85. Total protein is 8.3, albumin is 3.2. Coagulation profile: PT 11.1. INR 1.1. Blood culture show no growth 1 day. FOOT X-RAYS: Right shows distal tuft erosion of the distal phalanx of the hallux. This is in both the first and second toes distally. MRI reviewed. On the left foot, there appears to be erosion of the distal tail suspicious for osteomyelitis of the hallux distal phalanx. There is note of fifth digit proximal phalanx abnormality that could be correlated osteomyelitis; however, clinically there is no ulcer. There is no redness. This appears to be a possible neuropathic fracture. No significant displacement noted. MRI of the right foot shows osteomyelitic findings of the distal aspect of the right first and second digits with severe arthritis of the first MPJ. Arterial Doppler shows unremarkable segmental evaluation with the WILTON on the right being 1.13 and the left being 1.13. TBI of the right is 0.57 and the left being 0.64. ASSESSMENT AND PLAN: Right and left hallux osteomyelitis involving the distal phalanx, right second digit distal phalanx osteomyelitis, chronic ulcerations, peripheral neuropathy and likely small vessel disease secondary to tobacco abuse. I reviewed in great detail the treatment options, long-term IV antibiotics are usually unsuccessful in the extremities due to poor circulation and chronic smoking. I did review with the patient that amputation will likely eradicate and prevent proximal spread and give him the best chance of long-term healing. I educated that we will try and only partially amputate the hallux since the proximal phalanx appears to be spared; however, the second digit will heal better if we disarticulate at the base of the second MPJ. The patient understood. I furthermore explained that there are risks if he continues to walk, smoke, drink and do things that decrease healing for his body. This may end up in possible proximal amputation, of not loss of limb. His was present for the discussion. They consented for the surgery. Risks and benefits were explained. I will take deep cultures at the proximal margin. ROBY Moran/FLORECITA /2:41 PM /3:23 PM
[2017-07-13] MEDS ORDERED: DO NOT ADM ANY ANTICOAGULANT DRUGS PRN (16:56)
[2017-07-13] MEDS ORDERED: MIDAZOLAM HCL 2 MG/2 ML VIAL ONE (17:07)
--- NOTE | 2017-07-13 17:08 | HHI.PR ---
Immediate Post Op Note Procedure Date: Jul 13, 2017 Pre Op Diagnosis: (1) Osteomyelitis of left foot (2) Osteomyelitis of right foot Post Op Diagnosis: same Surgeon: Bro Gomez Senior Animal Trainer(s): scrub Procedure: Right hallux partial amputation Right 2nd digit amputation Left hallux partial amputation Findings: hard proximal phalanx BL hallus, intact 2nd metatarsal head- no clinical signs of OM Complications: none Specimen(s) removed: bone BL proximal phalanx for margin check for OM, BL bone swab for micro of margin Estimated blood loss: less 50mL Anesthesia: General, Local Drains: None Tourniquet time (min at mmHg) Right 31min 250mmgh mid calf Left 15 min 250mmhg mid calf Patient to: Other Patient Condition: Good Implant/Devices: SEE IMPLANT LOG (if applicable) Date/Time of Procedure: SEE SURGICAL CARE RECORD Bro Gomez DPM Jul 13, 2017 17:08
--- NOTE | 2017-07-13 18:39 | RADRPT ---
EXAM DATE/TIME: 07/13/2017 17:55 [facility] COMPARISON: No previous studies available for comparison. INDICATIONS : Open sore on right distal 3rd digit MEDICAL HISTORY : None. SURGICAL HISTORY : None. ENCOUNTER: Initial ACUITY: 1 day PAIN SCORE: 5/10 LOCATION: Right distal 3rd digit FINDINGS: 3 views of the right third digit reveal a soft tissue defect involving the distal phalanx. There is b vira destruction involving the tuft of the distal phalanx. No radiopaque foreign body observed. Diffus e soft tissue swelling noted. CONCLUSION: 1. Diffuse soft tissue swelling with cortical destruction involving the tuft of the distal phalanx of the third finger worrisome for osteomyelitis. Abraham Young Jr., MD on July 13, 2017 at 18:35 Board Certified Radiologist. This report was verified electronically.
--- NOTE | 2017-07-13 19:28 | MB ---
cc: MASOOD COLLINS DATE OF CONSULTATION 07/12/17 REASON FOR CONSULTATION Right middle finger infection. HISTORY OF PRESENT ILLNESS The patient is an 56-year-old right-hand dominant male sent to the hospital by Dr. Mejia, podiatry, for multiple toe osteomyelitis. The patient was found to have a right middle finger infection and hand surgery was consulted. The patient was seen by me several months ago for right index finger and right middle finger infection. The patient was advised to have amputation of the distal part of the finger which he did not agree upon. This was treated with IV antibiotics. At present time, he complains of mild pain involving the right index finger. Most of his complaints are non-healing wound over the right middle finger. He also gives history of recurrent drainage. The patient denies any pain. He has no sensation from his neuropathy, both toes and the fingers. He denies any fever or chills. The patient was seen in post anesthesia care unit and he just had surgery to his feet. PAST MEDICAL HISTORY 1. Hypertension 2. Peripheral neuropathy 3. Osteomyelitis of the finger. PAST SURGICAL HISTORY As noted. PHYSICAL EXAMINATION The patient is alert, oriented x3. Examination of right hand reveals a scab over the dorsal aspect of the middle finger. Part of the nail plate is not present and part of the proximal nail plate is still visible. There is a scab on the finger on the dorsal radial aspect. No tenderness noted. No drainage noted from the region. Shortening of the finger noted at the distal tip. There is also evidence of shortening of the finger over the index finger region. There is a tear underneath the nail plate over the hyponychium. Swelling of the index and middle fingers are noted. The patient is able to make a fist, terminal decrease of flexion of the DIP joint is limited. He has no sensation over the fingertips. LABORATORY DATA Reviewed. He has white count of 6.8 with neutrophil shift of 76%. IMAGING STUDIES The patient had x-rays of the right middle finger, shows a dissection of the distal phalanx of the terminal part of the distal phalanx is not noted. There is evidence of fragmentation of the proximal part of the distal phalanx extending to the articular surface. The middle phalanx appears not to be involved. He had an MRI scan of the right hand that shows osteomyelitis involving the distal phalanx right middle finger. ASSESSMENT A 56-year-old male with osteomyelitis distal phalanx right middle finger. PLAN The patient has complete destruction of the distal phalanx of the right middle finger. Treatment options were discussed with the patient including IV antibiotics and surgery which would entail disarticulation through the distal interphalangeal joint. The patient is willing to proceed with surgery. We will keep the patient n.p.o. from midnight. We will bring the patient tomorrow for a disarticulation of the right middle finger through the distal interphalangeal joint. The patient has been explained risk and benefits of the procedure. Masood Collins MD SE/ /6:31 PM /7:01 PM
[2017-07-13] MEDS: PRAVASTATIN SOD 20 MG TAB PO SCH (19:51)
[2017-07-13] MEDS: ACETAMINOPHEN/HYDROcodone 325 MG/10 MG TAB PO PRN (19:51)
[2017-07-13] MEDS: SODIUM CHLORIDE 0.9% FLUSH 10 ML FLUSH IV FLUSH SCH (19:57)
[2017-07-13 20:00] VITALS: BP 111/66; PULSE 60; RESP 22; TEMP 97.2; O2SAT 97
[2017-07-13] MEDS: REMOVE OLD PATCH T-DERMAL SCH (21:00)
[2017-07-13] MEDS ORDERED: SODIUM CHLORID 0.9% 500 ML IV PRN (23:30)
[2017-07-13] MEDS ORDERED: LACTATED RINGER'S 1000 ML IV PRN (23:30)
[2017-07-13] MEDS ORDERED: POVIDONE IODINE 5% (ANTISEPSIS KIT) 4 APPLICATIONS EACH NARE PRN (23:30)
[2017-07-13] MEDS ORDERED: CHLORHEXIDINE GLUCONATE 2 % 1 PACK (2 CLOTHS) TOPICAL PRN (23:30)
[2017-07-14] VITALS: BP 109/70; PULSE 83; RESP 20; TEMP 98.8; O2SAT 96
[2017-07-14] MEDS: PIPERACIL-TAZO 3.375 GM PREMIX 50 ML IV SCH ×4 (03:11→19:51)
[2017-07-14 04:00] VITALS: BP 126/79; PULSE 98; RESP 20; TEMP 97.6; O2SAT 98
[2017-07-14] MEDS: VANCOMYCIN INJ 1,000 MG in SODIUM CHLOR 0.9% 250 ML INJ 250 ML IV SCH ×2 (04:13→17:57)
[2017-07-14] MEDS: SODIUM CHLORIDE 0.9% FLUSH 10 ML FLUSH IV FLUSH PRN (04:13)
[2017-07-14] MEDS ORDERED: LIDOCAINE HCL 2% 50 ML VIAL ONE (05:54)
[2017-07-14] MEDS ORDERED: BUPIVACAINE HCL PF 0.25% 30 ML VIAL ONE (05:54)
[2017-07-14] MEDS: METOPROLOL TARTRATE 50 MG TAB PO SCH ×2 (06:00→19:52)
[2017-07-14 06:52] LABS: AUTOMATED NEUTROPHIL # 4.2 TH/MM3 (1.8-7.7); BASOPHIL % 0.6 % (0.0-2.0); EOSINOPHIL # 0.1 TH/MM3 (0-0.4); EOSINOPHIL % 1.6 % (0.0-4.0); HEMATOCRIT 30.7 % (39.0-51.0); HEMOGLOBIN 10.6 GM/DL (13.0-17.0); LYMPH % 15.1 % (9.0-44.0); LYMPHOCYTE # 0.8 TH/MM3 (1.0-4.8); MEAN CELL VOLUME 95.9 FL (80.0-100.0); MEAN CORPUSCULAR HEMOGLOBIN 33.1 PG (27.0-34.0); MEAN CORPUSCULAR HGB CONC 34.5 % (32.0-36.0); MEAN PLATELET VOLUME 7.4 FL (7.0-11.0); MONOCYTE # 0.4 TH/MM3 (0-0.9); NEUT % 74.7 % (16.0-70.0); PLATELET COUNT 152 TH/MM3 (150-450); RED CELL DISTRIBUTION WIDTH 14.1 % (11.6-17.2); WHITE BLOOD COUNT 5.6 TH/MM3 (4.0-11.0)
[2017-07-14 07:03] LABS: BICARBONATE 25.1 MEQ/L (21.0-32.0); CALCIUM 8.3 MG/DL (8.5-10.1); CREATININE 0.99 MG/DL (0.60-1.30)
[2017-07-14 07:04] LABS: INTERNATIONAL NORMALIZED RATIO 1.1 RATIO; PROTHROMBIN TIME - PATIENT 11.4 SEC (9.8-11.6)
[2017-07-14 08:00] VITALS: BP 126/85; PULSE 80; RESP 17; TEMP 96.3; O2SAT 98
[2017-07-14] MEDS: SODIUM CHLORIDE 0.9% FLUSH 10 ML FLUSH IV FLUSH SCH ×2 (08:18→19:51)
--- NOTE | 2017-07-14 09:01 | PD.POD ---
Subjective Pain score: 0 Remarks No events overnight minimal foot pain hand surgery is planned for today Past Med/Surg/Social History Social History Smoking Status: Current Every Day Smoker Objective Vital Signs Vital Signs Date Time Temp Pulse Resp B/P (MAP) Pulse Ox O2 Delivery O2 Flow Rate FiO2 07/14/17 08:00 96.3 80 17 126/85 (99) 98 07/14/17 04:00 97.6 98 20 126/79 (95) 98 07/14/17 00:00 98.8 83 20 109/70 (83) 96 07/13/17 20:00 97.2 60 22 111/66 (81) 97 07/13/17 18:00 98.4 76 17 134/88 (103) 97 Room Air 07/13/17 17:45 80 17 132/92 (105) 97 07/13/17 17:30 80 14 125/84 (98) 94 07/13/17 17:15 80 15 128/86 (100) 96 07/13/17 17:00 81 17 128/84 (99) 96 Nasal Cannula 2 07/13/17 16:57 98.4 79 14 119/76 (90) 97 Nasal Cannula 2 07/13/17 12:00 97.9 82 21 138/95 (109) 95 Coded Allergies: No Known Allergies (Unverified , 07/12/17) Medications and IVs Administered Medications Medications (Trade) Dose Ordered Sig/Jennifer Route PRN Reason Start Time Stop Time Status Last Admin Dose Admin Sodium Chloride (NS Flush) 2 ml UNSCH PRN IV FLUSH FLUSH AFTER USING IV ACCESS 07/12/17 16:30 07/14/17 04:13 Sodium Chloride (NS Flush) 2 ml BID IV FLUSH 07/12/17 21:00 07/14/17 08:18 Vancomycin HCl 1000 mg/Sodium Chloride 250 ml @ 250 mls/hr Q12H IV 07/13/17 04:00 07/14/17 04:13 Acetaminophen/ Hydrocodone Bitart ([place] 10-325 Mg) 1 tab Q4H PRN PO pain 1-5 07/12/17 16:45 07/13/17 19:51 Chlordiazepoxide (Librium) 25 mg BID PRN PO SEVERE ANXIETY OR AGITATION 07/12/17 17:15 07/13/17 09:53 Piperacillin Sod/ Tazobactam Sod 50 ml @ 100 mls/hr Q6H IV 07/12/17 20:00 07/14/17 08:17 Duloxetine HCl (Cymbalta Dr) 60 mg DAILY PO 07/13/17 09:00 07/13/17 08:34 Lisinopril (Prinivil) 20 mg BID PO 07/12/17 21:00 07/13/17 19:50 Pravastatin Sodium (Pravachol) 20 mg HS PO 07/12/17 21:00 07/13/17 19:51 Metoprolol Tartrate (Lopressor) 50 mg BID PO 07/12/17 21:00 07/14/17 06:00 Pregabalin (Lyrica) 75 mg BID PO 07/12/17 21:00 07/13/17 19:51 Folic Acid (Folate) 1 mg DAILY PO 07/12/17 21:00 07/18/17 20:59 07/13/17 08:34 Thiamine HCl (Vitamin B1) 100 mg DAILY PO 07/13/17 09:00 07/13/17 08:34 Multivitamins/ Minerals Therapeutic (Theragran M Tab) 1 tab DAILY PO 07/13/17 09:00 07/18/17 08:59 07/13/17 08:34 Nicotine (Habitrol 14 Mg Patch.24 Hr) 1 patch DAILY T-DERMAL 07/12/17 20:30 07/13/17 08:34 Miscellaneous Information 1 HS T-DERMAL 07/13/17 21:00 07/13/17 21:00 Other Results Laboratory Tests Test 07/12/17 15:31 07/14/17 04:32 White Blood Count 6.8 TH/MM3 5.6 TH/MM3 Red Blood Count 3.47 MIL/MM3 3.20 MIL/MM3 Hemoglobin 11.4 GM/DL 10.6 GM/DL Hematocrit 33.6 % 30.7 % Mean Corpuscular Volume 96.7 FL 95.9 FL Mean Corpuscular Hemoglobin 32.9 PG 33.1 PG Mean Corpuscular Hemoglobin Concent 34.0 % 34.5 % Red Cell Distribution Width 14.6 % 14.1 % Platelet Count 178 TH/MM3 152 TH/MM3 Mean Platelet Volume 6.9 FL 7.4 FL Neutrophils (%) (Auto) 76.3 % 74.7 % Lymphocytes (%) (Auto) 12.9 % 15.1 % Monocytes (%) (Auto) 8.4 % 8.0 % Eosinophils (%) (Auto) 1.3 % 1.6 % Basophils (%) (Auto) 1.1 % 0.6 % Neutrophils # (Auto) 5.2 TH/MM3 4.2 TH/MM3 Lymphocytes # (Auto) 0.9 TH/MM3 0.8 TH/MM3 Monocytes # (Auto) 0.6 TH/MM3 0.4 TH/MM3 Eosinophils # (Auto) 0.1 TH/MM3 0.1 TH/MM3 Basophils # (Auto) 0.1 TH/MM3 0.0 TH/MM3 CBC Comment DIFF FINAL DIFF FINAL Differential Comment Erythrocyte Sedimentation Rate 76 mm/hr Laboratory Tests Test 07/12/17 15:31 07/14/17 04:32 Blood Urea Nitrogen 16 MG/DL 14 MG/DL Creatinine 1.15 MG/DL 0.99 MG/DL Random Glucose 101 MG/DL 75 MG/DL Total Protein 8.3 GM/DL Albumin 3.2 GM/DL Calcium Level 8.5 MG/DL 8.3 MG/DL Alkaline Phosphatase 106 U/L Aspartate Amino Transf (AST/SGOT) 30 U/L Alanine Aminotransferase (ALT/SGPT) 27 U/L Total Bilirubin 0.3 MG/DL Sodium Level 137 MEQ/L 139 MEQ/L Potassium Level 4.3 MEQ/L 3.8 MEQ/L Chloride Level 106 MEQ/L 106 MEQ/L Carbon Dioxide Level 27.1 MEQ/L 25.1 MEQ/L Anion Gap 4 MEQ/L 8 MEQ/L Estimat Glomerular Filtration Rate 66 ML/MIN 79 ML/MIN C-Reactive Protein 1.85 MG/DL Microbiology Date/Time Source Procedure Growth Status 07/12/17 11:40 Blood Peripheral Aerobic Blood Culture - Preliminary NO GROWTH IN 1 DAY Resulted 07/12/17 11:40 Blood Peripheral Anaerobic Blood Culture - Preliminary NO GROWTH IN 1 DAY Resulted 07/12/17 11:40 Blood Peripheral Aerobic Blood Culture - Preliminary NO GROWTH IN 1 DAY Resulted 07/12/17 11:40 Blood Peripheral Anaerobic Blood Culture - Preliminary NO GROWTH IN 1 DAY Resulted 07/13/17 16:24 Wound Foot Fungal Smear - Final NO FUNGAL ELEMENTS SEEN. Resulted 07/13/17 16:24 Wound Foot Fungal Culture Pending Resulted 07/13/17 16:24 Wound Foot Acid Fast Stain Pending Received 1/19/18 16:24 Wound Foot Mycobacterial Culture Pending Received 07/13/17 16:24 Wound Foot Gram Stain - Final Resulted 07/13/17 16:24 Wound Foot Wound Culture Pending Resulted 07/13/17 16:24 Wound Foot Fungal Smear - Final NO FUNGAL ELEMENTS SEEN. Resulted 07/13/17 16:24 Wound Foot Fungal Culture Pending Resulted 07/13/17 16:24 Wound Foot Acid Fast Stain Pending Received 07/13/17 16:24 Wound Foot Mycobacterial Culture Pending Received 07/13/17 16:24 Wound Foot Gram Stain - Final Resulted 07/13/17 16:24 Wound Foot Wound Culture Pending Resulted 07/13/17 16:24 Wound Foot Fungal Smear - Final NO FUNGAL ELEMENTS SEEN. Resulted 07/13/17 16:24 Wound Foot Fungal Culture Pending Resulted 07/13/17 16:24 Wound Foot Acid Fast Stain Pending Received 07/13/17 16:24 Wound Foot Mycobacterial Culture Pending Received 07/13/17 16:24 Wound Foot Gram Stain - Final Resulted 07/13/17 16:24 Wound Foot Wound Culture Pending Resulted Bone pathology pending from surgery Physical Exam General appearance: comfortable Nutritional status: normal Orientation: alert and oriented x3 Details Bilateral lower extremities examined, surgical bandaging still intact, no strikethrough no ascending erythema pedal pulses palpable good range of motion of hindfoot and ankle calf nontender nondistended bilateral Assessment & Plan A/P BL Hallux and right 2nd digit OM with Ulcer Status post bilateral hallux amputation, right second digit amputation 07-13 Await micro-and pathology from surgery will examine wound tomorrow anticipate discharge once pathology returns however recommend a minimum of 2 weeks IV antibiotics. Bro Mejia DPM Jul 14, 2017 09:01
[2017-07-14] MEDS ORDERED: MUPIROCIN 2% OINT 22 GM TUBE ONE (09:17)
[2017-07-14] MEDS ORDERED: NEOMYCIN/POLYMYXIN 1 ML G.U. IRRIGANT ONE (09:19)
[2017-07-14] MEDS: ceFAZolin 2 GM PREMIX 50 ML IV ONE ×2 (09:47→10:22)
[2017-07-14] MEDS ORDERED: BACITRACIN TOP OINT 15 GM TUBE ONE (10:05)
[2017-07-14] MEDS ORDERED: DO NOT ADM ANY ANTICOAGULANT DRUGS PRN (10:37)
--- NOTE | 2017-07-14 10:37 | PD.OP ---
Operative Report Preoperative Diagnosis: (1) osteomyelitis distal phalanx right middle finger Postoperative Diagnosis: (1) osteomyelitis distal phalanx right middle finger Procedure: disarticulation distal interphalangeal joint right middle finger Anesthesia: general Surgeon: Josesito Ramos Census Enumerator(s): delaney Operation and Findings: complete destruction of the distal half of distal phalanx with fragmentation of the base of distal phalanx with nonhealing ulcer over the nail bed/plate right middle finger Josesito Ramos MD Jul 14, 2017 10:37
[2017-07-14] MEDS ORDERED: MIDAZOLAM HCL 2 MG/2 ML VIAL ONE (10:46)
--- NOTE | 2017-07-14 11:54 | HHI.PR ---
Subjective Remarks No new complaints. Pt's pain is controlled. Objective Vitals Vital Signs Date Time Temp Pulse Resp B/P (MAP) Pulse Ox O2 Delivery O2 Flow Rate FiO2 07/14/17 11:07 97.8 66 20 135/80 (98) 100 Room Air 07/14/17 11:00 69 20 131/82 (98) 100 07/14/17 10:42 97.8 70 20 134/79 (97) 95 Nasal Cannula 2 07/14/17 08:00 96.3 80 17 126/85 (99) 98 07/14/17 04:00 97.6 98 20 126/79 (95) 98 07/14/17 00:00 98.8 83 20 109/70 (83) 96 07/13/17 20:00 97.2 60 22 111/66 (81) 97 07/13/17 18:00 98.4 76 17 134/88 (103) 97 Room Air 07/13/17 17:45 80 17 132/92 (105) 97 07/13/17 17:30 80 14 125/84 (98) 94 07/13/17 17:15 80 15 128/86 (100) 96 07/13/17 17:00 81 17 128/84 (99) 96 Nasal Cannula 2 07/13/17 16:57 98.4 79 14 119/76 (90) 97 Nasal Cannula 2 07/13/17 12:00 97.9 82 21 138/95 (109) 95 07/14/17 07/14/17 07/15/17 15:00 23:00 07:00 Intake Total 1000 ml Output Total 5 ml Balance 995 ml Other 1000 ml Estimated Blood Loss 5 ml Result Diagram: 07/14/17 0432 07/14/17 0432 Imaging Last Impressions Hand MRI 07/13/17 0913 Signed Impressions: Service Date/Time: Thursday, July 13, 2017 09:02 - CONCLUSION: Findings indicating osteomyelitis of the long finger distal phalanx in the proper clinical setting. Ollie Abdi MD Finger X-Ray 07/13/17 0000 Signed Impressions: Service Date/Time: Thursday, July 13, 2017 17:55 - CONCLUSION: 1. Diffuse soft tissue swelling with cortical destruction involving the tuft of the distal phalanx of the third finger worrisome for osteomyelitis. Abraham Young Jr., MD Chest X-Ray 07/12/17 1620 Signed Impressions: Service Date/Time: June 16:26 - CONCLUSION: Asymmetric elevation of the right diaphragm which may be largely projectional compared to prior. Good quality PA and lateral views the chest versus additional evaluation with CT suggested as clinically appropriate. Joni Minor MD Foot X-Ray 07/12/17 0000 Signed Impressions: Service Date/Time: June 15:12 - CONCLUSION: Radiographic evidence of osteomyelitis involving her both of the first 2 toes distally. Jakob Dos Santos MD Foot MRI 07/12/17 0000 Signed Impressions: Service Date/Time: June 18:02 - CONCLUSION: 1. Findings suggesting osteomyelitis of the distal phalanges of first and second digits. 2. 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 Ollie Abdi MD Objective Remarks GENERAL: This is a well-nourished, well-developed patient, in no apparent distress. SKIN: bilateral great toe with nonhealing ulcerations, right hand 2nd and 3rd digits also with nonhealing ulcerations CARDIOVASCULAR: Regular rate and rhythm RESPIRATORY: Clear to auscultation. Breath sounds equal bilaterally. GASTROINTESTINAL: Abdomen soft, non-tender, nondistended. MUSCULOSKELETAL: feet and right hand are bandage NEUROLOGICAL: Awake and alert. Motor and sensory grossly within normal limits. Five out of 5 muscle strength in all muscle groups. Normal speech A/P Problem List: (1) Osteomyelitis ICD Codes: M86.9 - Osteomyelitis, unspecified Status: Chronic Plan: This is a 56-year-old male patient with past medical history which includes osteomyelitis of the right hand Dx September [address] Ramos. Patient was sent for MRI of the right hand by Dr. Ramos but does not look like he had MRI or followed up with hand surgery. Patient was transferred to the emergency department by Dr. Mejia podiatry due to concerns of osteomyelitis of right foot. Right foot x-ray done in emergency department reveals radiographic evidence of osteomyelitis involving first 2 toes distally MRI Right foot revealed: Suggesting osteomyelitis of the distal phalanx of first and second digits. 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 MRI right hand: Findings indicating osteomyelitis of the long finger distal phalanx - Blood culture (07/12) --> NGTD - UA reviewed no culture indicated - Chest x-ray ( 07/12) reviewed and reveals asymmetric elevation of the right diaphragm which may be largely projectional compared to prior. - Vancomycin (07/12 - present) - Zosyn (07/12 - present) - Pt takent OR by Dr. Mejia (07/13) - Pt underwent distal, b/l hallux amputation, and amputation of right 2nd digit - continue current antibiotics - consult ID - culture & pathology pending - narcotics prn - supportive care - DVT prophylaxis Right foot 1st toe - gram stain shows NO organism, NO WBC - wound culture pending - Acid Fast stain --> pending - mycobacterial culture --> pending - fungal smear --> pending - fungal culture --> pending Right foot, 2nd toe - gram stain shows NO organism, NO WBC - wound culture pending - Acid Fast stain --> pending - mycobacterial culture --> pending - fungal smear --> pending - fungal culture --> pending Left foot, 1st toe - gram stain shows NO organism, NO WBC - wound culture pending - Acid Fast stain --> pending - mycobacterial culture --> pending - fungal smear --> pending - fungal culture --> pending (2) osteomyelitis distal phalanx right middle finger Status: Chronic Plan: - chronic process. Pt did NOT keep f/u from Spring 2016 - MRI right hand: Findings indicating osteomyelitis of the long finger distal phalanx - Pt taken to the OR (07/14) by Dr. Ramos - Pt underwent disarticulation distal interphalangeal joint right middle finger - studies pending - Vancomycin/Zosyn - consult ID Right hand, 3rd digit - gram stain --> pending - wound culture --> pending - Acid Fast stain --> pending - mycobacterial culture --> pending - fungal smear --> pending - fungal culture --> pending (3) Hyperlipidemia ICD Codes: E78.5 - Hyperlipidemia Status: Acute Plan: Continue patient's home statin (4) Chronic alcohol abuse ICD Codes: F10.10 - Chronic alcohol abuse Status: Acute Plan: [place] protocol monitor for s/s of withdraw folate, B12 and MVI Alen Holliday DO Jul 14, 2017 11:54
--- NOTE | 2017-07-14 11:55 | HHI.FF ---
Infusion Therapy Location of Infusion Therapy: Home Health Care IV Infusion Order Patient Information Appointment Date: Jul 15, 2017 Patient Weight 83 kg Diagnosis: (1) Osteomyelitis Coded Allergies: No Known Allergies (Unverified , 07/12/17) Administer Medication Vancomycin 1.5 grams IV q 24 hours [facility] to manage Start Treatment: Jul 15, 2017 Stop Treatment: Jul 26, 2017 Additional Information Venous access: PICC Line Additional Instructions [x] Peripheral flush and dressing changes per protocol [x] Implanted port and central line ordering clinician: * Implanted port: 10 ml Normal Saline followed by 5 ml Heparin 100 units/ml Heparin flush after each use and monthly to maintain. [] May leave port accessed during therapy. [] May leave peripheral site accessed for duration of therapy. [x] If patient has SOB or respiratory distress, check oxygen saturation. If less than 90% or clinical signs of respiratory distress, administer oxygen at 2 L/min. via nasal cannula and notify physician. [x] Anaphylaxis/Reaction orders: * Stop infusion. * Keep IV line open with saline flush. * Notify physician. * Monitor vital signs every 15 minutes until symptoms resolve. * Check Oxygen saturation; Oxygen at 2 L/min. via nasal cannula if less than 90% or clinical signs of respiratory distress. * Administer diphenhydramine (Benadryl) 25 mg IV STAT, (unless patient has received as pre-med). May repeat once, if necessary. * Solu-Cortef 250 mg IVP over 30-60 seconds, use 100 mg vials for each dissolution. * Epinephrine (1mg/1 ml) 0.3 mg subcutaneously or IVP now with any signs of respiratory distress. * Check with physician for new additional pre-med orders if patient is re- challenged or re-treated. [x] May remove PICC line when treatment complete, after confirming with Physician. [x] If the patient is admitted to the hospital, the ED, or transferred via [facility] , complete transfer form including medication reconciliation order sheet. Laboratory Tests Weekly Labs: CMP, Vancomycin Trough, Vancomycin Peaks Additional Information Please DC PICC once abx completed 07/26/17 Debi Nelson Jul 14, 2017 11:55
--- NOTE | 2017-07-14 11:57 | HHI.FF ---
Face to Face Verification Diagnosis: (1) Osteomyelitis Physical Therapy Order: Evaluate and Treat, Improve ambulation, Strength and gait training Occupational Therapy Order: Evaluate and Treat Home Health Nursing Order: Medication education-adverse effect Wound care and dressing changes IV medication administration Instructions: dressing change instructions per hand surgery and podiatry I have seen patient Juwan Garcia on 07/14/17. My clinical findings support the need for the requested home health care services because: Injectable med education/admin I certify that my clinical findings support that this patient is homebound because: Unsteady gait/balance Debi Nelson Jul 14, 2017 11:57
[2017-07-14 12:00] VITALS: BP 132/83; PULSE 69; RESP 18; TEMP 95.6; O2SAT 97
[2017-07-14] MEDS: LISINOPRIL 20 MG TAB PO SCH ×2 (13:04→19:52)
[2017-07-14] MEDS: PREGABALIN 75 MG CAP PO SCH ×2 (13:05→19:57)
[2017-07-14] MEDS: NICOTINE 14 MG/24 HR PATCH T-DERMAL SCH (13:05)
[2017-07-14] MEDS: DULoxetine HCl DR 60 MG CAP PO SCH (13:05)
[2017-07-14] MEDS: THIAMINE HCL 100 MG TAB PO SCH (13:05)
[2017-07-14] MEDS: FOLIC ACID 1 MG TAB PO SCH (13:05)
[2017-07-14] MEDS: MULTIVITAMINS/MINERALS THERAPEUTIC TAB PO SCH (13:05)
[2017-07-14] MEDS: HYDROmorphone HCL PF 2 MG/ML VIAL IV PUSH PRN ×2 (13:09→19:53)
[2017-07-14] MEDS ORDERED: PHARMACY ORDERED LAB ONE (15:45)
[2017-07-14 16:00] VITALS: BP 99/50; PULSE 79; RESP 19; TEMP 98.4; O2SAT 96
[2017-07-14] MEDS: REMOVE OLD PATCH T-DERMAL SCH (19:52)
[2017-07-14] MEDS: PRAVASTATIN SOD 20 MG TAB PO SCH (19:52)
[2017-07-14 20:00] VITALS: BP 133/79; PULSE 83; RESP 18; TEMP 97.1; O2SAT 100
--- NOTE | 2017-07-14 20:06 | PD.ID.CON ---
History of Present Illness Service ID Consult Requested By Dr Holliday Reason for Consult osteomyelitis Primary Care Physician Derek Lara MD Diagnoses: History of Present Illness 56 yo male with h/o chronic alcoholism and periferal neuropathy presented with infection on R middle finger and b/l feet infection following burn sp 1. Right hallux partial amputation. 2. Left hallux partial amputation. 3. Complete second digit amputation. on 07/13/17 Right hallux Right second digit osteomyelitis were suspected . as well as Left hallux ulceration with likely osteomyelitis. Today he underwent for disarticulation distal interphalangeal joint right middle finger by Dr Raoms Operative Findings included complete destruction of the distal half of distal phalanx with fragmentation of the base of distal phalanx with nonhealing ulcer over the nail bed/plate right middle finger Past Family Social History Allergies: Coded Allergies: No Known Allergies (Unverified , 07/12/17) Active Ordered Medications Medications where reviewed in EMR Antibiotics Include: vancomycin zosyn Physical Exam Vital Signs Vital Signs Date Time Temp Pulse Resp B/P (MAP) Pulse Ox O2 Delivery O2 Flow Rate FiO2 07/14/17 16:00 98.4 79 19 99/50 (66) 96 07/14/17 12:00 95.6 69 18 132/83 (99) 97 07/14/17 11:07 97.8 66 20 135/80 (98) 100 Room Air 07/14/17 11:00 69 20 131/82 (98) 100 07/14/17 10:42 97.8 70 20 134/79 (97) 95 Nasal Cannula 2 07/14/17 08:00 96.3 80 17 126/85 (99) 98 07/14/17 04:00 97.6 98 20 126/79 (95) 98 07/14/17 00:00 98.8 83 20 109/70 (83) 96 Physical Exam CONSTITUTIONAL/GENERAL: This is an adequately nourished patient, in no apparent distress. TUBES/LINES/DRAINS: SKIN: No jaundice, rashes, or lesions. Skin temperature appropriate. Not diaphoretic. HEAD: Atraumatic. Normocephalic. EYES: Pupils equal and round and reactive. Extraocular motions intact. No scleral icterus. No injection or drainage. Fundi not examined. ENT: Hearing grossly normal. Nose without bleeding or purulent drainage. Throat without visible erythema, exudates, masses, or lesions. NECK: Trachea midline. Supple, nontender. No palpable thyroid enlargement or nodularity. CARDIOVASCULAR: Regular rate and rhythm without murmurs, gallops, or rubs. No JVD. Peripheral pulses symmetric. RESPIRATORY/CHEST: Symmetric, unlabored respirations. Clear to auscultation. Breath sounds equal bilaterally. No wheezes, rales, or rhonchi. GASTROINTESTINAL: Abdomen soft, non-tender, nondistended. No hepato-splenomegaly , or palpable masses. No guarding. Bowel sounds present. GENITOURINARY: Without palpable bladder distension. Franco catheter in place. MUSCULOSKELETAL: Extremities without clubbing, cyanosis, or edema. Surgical dressings on b/l feet and R hand are present No edema, ertyhema noted proximally to dressings LYMPHATICS: No palpable cervical or supraclavicular adenopathy. NEUROLOGICAL: Awake and alert. Motor and sensory grossly within normal limits. Follows commands. Clear speech. No tremor. Moves all extremities. PSYCHIATRIC: irritable Laboratory Laboratory Tests Test 07/14/17 04:32 07/14/17 16:00 White Blood Count 5.6 Red Blood Count 3.20 Hemoglobin 10.6 Hematocrit 30.7 Mean Corpuscular Volume 95.9 Mean Corpuscular Hemoglobin 33.1 Mean Corpuscular Hemoglobin Concent 34.5 Red Cell Distribution Width 14.1 Platelet Count 152 Mean Platelet Volume 7.4 Neutrophils (%) (Auto) 74.7 Lymphocytes (%) (Auto) 15.1 Monocytes (%) (Auto) 8.0 Eosinophils (%) (Auto) 1.6 Basophils (%) (Auto) 0.6 Neutrophils # (Auto) 4.2 Lymphocytes # (Auto) 0.8 Monocytes # (Auto) 0.4 Eosinophils # (Auto) 0.1 Basophils # (Auto) 0.0 CBC Comment DIFF FINAL Differential Comment Prothrombin Time 11.4 Prothromb Time International Ratio 1.1 Blood Urea Nitrogen 14 Creatinine 0.99 Random Glucose 75 Calcium Level 8.3 Sodium Level 139 Potassium Level 3.8 Chloride Level 106 Carbon Dioxide Level 25.1 Anion Gap 8 Estimat Glomerular Filtration Rate 79 Vancomycin Level Trough 19.3 Date/Time Source Procedure Growth Status 07/12/17 11:40 Blood Peripheral Aerobic Blood Culture - Preliminary NO GROWTH IN 2 DAYS Resulted 07/12/17 11:40 Blood Peripheral Anaerobic Blood Culture - Preliminary NO GROWTH IN 2 DAYS Resulted 07/14/17 10:00 Wound Finger Fungal Smear Pending Received 07/14/17 10:00 Wound Finger Fungal Culture Pending Received Result Diagram: 07/14/17 0432 07/14/17 0432 Imaging Last Impressions Hand MRI 07/13/17 0913 Signed Impressions: Service Date/Time: Thursday, July 13, 2017 09:02 - CONCLUSION: Findings indicating osteomyelitis of the long finger distal phalanx in the proper clinical setting. Ollie Abdi MD Finger X-Ray 07/13/17 0000 Signed Impressions: Service Date/Time: Thursday, July 13, 2017 17:55 - CONCLUSION: 1. Diffuse soft tissue swelling with cortical destruction involving the tuft of the distal phalanx of the third finger worrisome for osteomyelitis. Abraham Young Jr., MD Chest X-Ray 07/12/17 1620 Signed Impressions: Service Date/Time: June 16:26 - CONCLUSION: Asymmetric elevation of the right diaphragm which may be largely projectional compared to prior. Good quality PA and lateral views the chest versus additional evaluation with CT suggested as clinically appropriate. Joni Minor MD Foot X-Ray 07/12/17 0000 Signed Impressions: Service Date/Time: June 15:12 - CONCLUSION: Radiographic evidence of osteomyelitis involving her both of the first 2 toes distally. Jakob Dos Santos MD Foot MRI 07/12/17 0000 Signed Impressions: Service Date/Time: June 18:02 - CONCLUSION: 1. Findings suggesting osteomyelitis of the distal phalanges of first and second digits. 2. 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 Ollie Abdi MD Assessment and Plan Assessment and Plan B/l hallux and R 2nd toe osteomyelitis. right middle finger osteomyelitis. 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
--- NOTE | 2017-07-14 22:02 | MP ---
cc: LIZ MALDONADO DP DATE OF SURGERY 07/13/17 PREOPERATIVE DIAGNOSIS 1. Right hallux ulceration with likely osteomyelitis. 2. Right second digit ulceration with likely osteomyelitis. 3. Left hallux ulceration with likely osteomyelitis. POSTOPERATIVE DIAGNOSIS 1. Right hallux ulceration with likely osteomyelitis. 2. Right second digit ulceration with likely osteomyelitis. 3. Left hallux ulceration with likely osteomyelitis. PROCEDURES PERFORMED 1. Right hallux partial amputation. 2. Left hallux partial amputation. 3. Complete second digit amputation. FINDINGS Intraoperative margins appear to be clinically free from soft bone. No signs of osteomyelitis. Culture and pathology taken to rule out. ESTIMATED BLOOD LOSS Less than 50 mL ANESTHESIA General with local, 25 mL of 0.25% Marcaine plain. DRAINS None IV FLUIDS Just under 1 liter lactated Ringer's TOURNIQUET TIME Tourniquet on the right 31 minutes at a setting of 250 mmHg On the left 15 minutes at a setting if 250 mmHg about the mid calf. PLAN OF ACTIVITY Return to floor, monitor wounds, monitor path, awake, answered your consult, likely will need a minimum of 2 weeks of IV antibiotics. JUSTIFICATION FOR PROCEDURE A 56-year-old male who obtained a thermal injury some time back in April. He apparently did not have appropriate followup. I saw him for the first time in the clinic. There were bony erosive findings seen on radiograph. The patient was sent to the hospital. MRI showed findings consistent with osteomyelitis. We devised a plan to move forward with amputation to obtain clear margins. Furthermore, the patient is a smoker likely has chronic small vessel disease. The patient also excessively enjoys alcohol, suffers from peripheral neuropathy. The risks of surgery were explained to the patient including but not limited to need for more surgery at a later date, delayed healing, non-healing, further bone infection, partial amputation, partial loss of leg due to complications. The patient's was present for the preoperative evaluation and they both understood. PROCEDURE IN DETAIL Under mild sedation, the patient is brought into the operating room, placed on the operative table in the supine position. Following the induction of general anesthesia, the patient's bilateral lower extremity was then scrubbed, prepped and draped in the usual aseptic fashion. The foot was elevated on the right, exsanguinated and a mid calf tourniquet was appropriately placed, was inflated to 350 mmHg. A fish mouth type incision was made encompassing the distal aspect of the hallux. There were partial-thickness wounds noted at the hallux and an ulcer that probed directly to the distal phalanx. Sharply the distal phalanx was dissected from its fascial insertion and relieved from its attachment to the EHL and FHL. Upon removing the bone, it was soft at the distal phalanx. This was passed off the field. Focus was at the margin of the proximal phalanx. Utilizing power instrumentation, 4 mm of the distal aspect of the proximal phalanx was removed. This was sent for pathological analysis. A bone swab was taken at this area. The tissue appeared to be viable and good. There was excessive plantar fat and adipose which was resected and modeled to allow for an excellent flap closure. Bovie and ligation took place took place of venous and arterial structures as deemed appropriate. The wound was flushed with copious amounts of normal saline. Vicryl was used to close the deep layer. The skin layer was closed utilizing nylon. Next, a fish mouth type incision was made at the base of the second digit proximal phalanx. The was in a vertical fashion as opposed to the one that was just performed and that was in a horizontal fashion of the hallux. Sharp and blunt dissection was carried down to the level of the second MPJ. There was viable tissue. There was no pus. There was no clinical signs of osteomyelitis at the level of the patient's second metatarsal head. There was a hard cortical bone. The toe was then passed off the field for pathological analysis. A bone swab took place of the second MPJ. Bovie and ligation took place of venous and arterial structures. The amputation site was then flushed with copious amounts of normal saline. Deep closure took place utilizing Vicryl. Skin was closed utilizing nylon. Upon relieving the tourniquet, there was a prompt hyperemic response to digits three, four and five and there were good flaps noted of the first and second amputation sites. Next focus was the left foot. The foot was elevated, exsanguinated and previously placed mid calf tourniquet was inflated to 250 mmHg. A horizontal fish mouth incision took place ellipsing ulceration and removing the nail bed down to the patient's distal phalanx. Sharp disarticulation took place at the level of the proximal phalanx and the distal phalanx was then resected. This was passed off the field for pathological analysis. Approximately 4 mm of the distal aspect of the proximal phalanx head was transected. It was noted be hard good cortical bone. This was sent for pathological analysis to check the margin. Deep swab taken at this area of the bone. Redundant tissue was transected. Deep fascia and adipose was closed utilizing Vicryl. Before closing with Vicryl, copious amounts of normal saline flushed the area. Skin was closed utilizing nylon. Upon relieving the left ankle tourniquet, there was good capillary fill time to digits 2, 3, 4 and 5. Good viability of the dorsal and plantar flap. Bulky bandage placed. The patient transferred from OR to PACU with all vital signs stable. The patient is not permitted to weight bear at this point. I am recommending bedrest. I will evaluate the patient on a daily basis until discharged. ROBY Moran/ /5:00 PM /9:41 PM
[2017-07-14] MEDS: TEMAZEPAM 15 MG CAP PO PRN (22:45)
[2017-07-14] MEDS: chlordiazePOXIDE 25 MG CAP PO PRN (22:49)
[2017-07-15] MEDS: PIPERACIL-TAZO 3.375 GM PREMIX 50 ML IV SCH ×4 (03:21→19:32)
[2017-07-15] MEDS: VANCOMYCIN INJ 1,000 MG in SODIUM CHLOR 0.9% 250 ML INJ 250 ML IV SCH ×2 (03:46→16:23)
[2017-07-15 08:00] VITALS: BP 164/95; PULSE 74; RESP 21; TEMP 98.1; O2SAT 97
[2017-07-15 09:05] VITALS: O2SAT 97
[2017-07-15] MEDS: MULTIVITAMINS/MINERALS THERAPEUTIC TAB PO SCH (09:13)
[2017-07-15] MEDS: FOLIC ACID 1 MG TAB PO SCH (09:13)
[2017-07-15] MEDS: LISINOPRIL 20 MG TAB PO SCH ×2 (09:13→19:32)
[2017-07-15] MEDS: DULoxetine HCl DR 60 MG CAP PO SCH (09:13)
[2017-07-15] MEDS: PREGABALIN 75 MG CAP PO SCH ×2 (09:13→19:32)
[2017-07-15] MEDS: THIAMINE HCL 100 MG TAB PO SCH (09:13)
[2017-07-15] MEDS: METOPROLOL TARTRATE 50 MG TAB PO SCH ×2 (09:13→19:32)
[2017-07-15] MEDS: SODIUM CHLORIDE 0.9% FLUSH 10 ML FLUSH IV FLUSH SCH ×2 (09:13→19:33)
[2017-07-15] MEDS: NICOTINE 14 MG/24 HR PATCH T-DERMAL SCH (09:14)
[2017-07-15] MEDS: HYDROmorphone HCL PF 2 MG/ML VIAL IV PUSH PRN ×2 (10:28→19:32)
[2017-07-15 12:00] VITALS: BP 95/58; PULSE 77; RESP 21; TEMP 98.4; O2SAT 96
--- NOTE | 2017-07-15 13:49 | PD.POD ---
Subjective Pain score: 0 Remarks Doing well seen bedside with hand surgery apparently went well minimal foot pain Past Med/Surg/Social History Social History Smoking Status: Current Every Day Smoker Objective Vital Signs Vital Signs Date Time Temp Pulse Resp B/P (MAP) Pulse Ox O2 Delivery O2 Flow Rate FiO2 07/15/17 09:05 97 07/15/17 08:00 98.1 74 21 164/95 (118) 97 07/14/17 20:00 97.1 83 18 133/79 (97) 100 07/14/17 16:00 98.4 79 19 99/50 (66) 96 Coded Allergies: No Known Allergies (Unverified , 07/12/17) Medications and IVs Administered Medications Medications (Trade) Dose Ordered Sig/Jennifer Route PRN Reason Start Time Stop Time Status Last Admin Dose Admin Sodium Chloride (NS Flush) 2 ml UNSCH PRN IV FLUSH FLUSH AFTER USING IV ACCESS 07/12/17 16:30 07/14/17 04:13 Sodium Chloride (NS Flush) 2 ml BID IV FLUSH 07/12/17 21:00 07/15/17 09:13 Vancomycin HCl 1000 mg/Sodium Chloride 250 ml @ 250 mls/hr Q12H IV 07/13/17 04:00 07/15/17 03:46 Acetaminophen/ Hydrocodone Bitart ([place] 10-325 Mg) 1 tab Q4H PRN PO pain 1-5 07/12/17 16:45 07/13/17 19:51 Chlordiazepoxide (Librium) 25 mg BID PRN PO SEVERE ANXIETY OR AGITATION 07/12/17 17:15 07/14/17 22:49 Piperacillin Sod/ Tazobactam Sod 50 ml @ 100 mls/hr Q6H IV 07/12/17 20:00 07/15/17 09:13 Duloxetine HCl (Cymbalta Dr) 60 mg DAILY PO 07/13/17 09:00 07/15/17 09:13 Lisinopril (Prinivil) 20 mg BID PO 07/12/17 21:00 07/15/17 09:13 Pravastatin Sodium (Pravachol) 20 mg HS PO 07/12/17 21:00 07/14/17 19:52 Metoprolol Tartrate (Lopressor) 50 mg BID PO 07/12/17 21:00 07/15/17 09:13 Pregabalin (Lyrica) 75 mg BID PO 07/12/17 21:00 07/15/17 09:13 Folic Acid (Folate) 1 mg DAILY PO 07/12/17 21:00 07/18/17 20:59 07/15/17 09:13 Thiamine HCl (Vitamin B1) 100 mg DAILY PO 07/13/17 09:00 07/15/17 09:13 Multivitamins/ Minerals Therapeutic (Theragran M Tab) 1 tab DAILY PO 07/13/17 09:00 07/18/17 08:59 07/15/17 09:13 Hydromorphone HCl (Dilaudid Pf Inj) 1 mg Q4H PRN IV PUSH pain 6-10 07/12/17 20:30 07/15/17 10:28 Nicotine (Habitrol 14 Mg Patch.24 Hr) 1 patch DAILY T-DERMAL 07/12/17 20:30 07/15/17 09:14 Miscellaneous Information 1 HS T-DERMAL 07/13/17 21:00 07/14/17 19:52 Temazepam (Restoril) 15 mg HS PRN PO INSOMNIA 07/14/17 22:45 07/14/17 22:45 Other Results Laboratory Tests Test 07/14/17 04:32 White Blood Count 5.6 TH/MM3 Red Blood Count 3.20 MIL/MM3 Hemoglobin 10.6 GM/DL Hematocrit 30.7 % Mean Corpuscular Volume 95.9 FL Mean Corpuscular Hemoglobin 33.1 PG Mean Corpuscular Hemoglobin Concent 34.5 % Red Cell Distribution Width 14.1 % Platelet Count 152 TH/MM3 Mean Platelet Volume 7.4 FL Neutrophils (%) (Auto) 74.7 % Lymphocytes (%) (Auto) 15.1 % Monocytes (%) (Auto) 8.0 % Eosinophils (%) (Auto) 1.6 % Basophils (%) (Auto) 0.6 % Neutrophils # (Auto) 4.2 TH/MM3 Lymphocytes # (Auto) 0.8 TH/MM3 Monocytes # (Auto) 0.4 TH/MM3 Eosinophils # (Auto) 0.1 TH/MM3 Basophils # (Auto) 0.0 TH/MM3 CBC Comment DIFF FINAL Differential Comment Laboratory Tests Test 07/14/17 04:32 Blood Urea Nitrogen 14 MG/DL Creatinine 0.99 MG/DL Random Glucose 75 MG/DL Calcium Level 8.3 MG/DL Sodium Level 139 MEQ/L Potassium Level 3.8 MEQ/L Chloride Level 106 MEQ/L Carbon Dioxide Level 25.1 MEQ/L Anion Gap 8 MEQ/L Estimat Glomerular Filtration Rate 79 ML/MIN Microbiology Date/Time Source Procedure Growth Status 07/14/17 10:00 Wound Finger Fungal Smear - Final NO FUNGAL ELEMENTS SEEN. Resulted 07/14/17 10:00 Wound Finger Fungal Culture Pending Resulted 07/14/17 10:00 Wound Finger Acid Fast Stain Pending Received 07/14/17 10:00 Wound Finger Mycobacterial Culture Pending Received 07/14/17 10:00 Wound Finger Gram Stain - Final Resulted 07/14/17 10:00 Wound Finger Wound Culture Pending Resulted 07/13/17 16:24 Wound Foot Fungal Smear - Final NO FUNGAL ELEMENTS SEEN. Resulted 07/13/17 16:24 Wound Foot Fungal Culture Pending Resulted 07/13/17 16:24 Wound Foot Acid Fast Stain Pending Received 07/13/17 16:24 Wound Foot Mycobacterial Culture Pending Received 07/13/17 16:24 Wound Foot Gram Stain - Final Resulted 07/13/17 16:24 Wound Foot Wound Culture - Preliminary Resulted 07/13/17 16:24 Wound Foot Fungal Smear - Final NO FUNGAL ELEMENTS SEEN. Resulted 07/13/17 16:24 Wound Foot Fungal Culture Pending Resulted 07/13/17 16:24 Wound Foot Acid Fast Stain Pending Received 07/13/17 16:24 Wound Foot Mycobacterial Culture Pending Received 07/13/17 16:24 Wound Foot Gram Stain - Final Resulted 07/13/17 16:24 Wound Foot Wound Culture - Preliminary Resulted 07/13/17 16:24 Wound Foot Fungal Smear - Final NO FUNGAL ELEMENTS SEEN. Resulted 07/13/17 16:24 Wound Foot Fungal Culture Pending Resulted 07/13/17 16:24 Wound Foot Acid Fast Stain Pending Received 07/13/17 16:24 Wound Foot Mycobacterial Culture Pending Received 07/13/17 16:24 Wound Foot Gram Stain - Final Resulted 07/13/17 16:24 Wound Foot Wound Culture - Preliminary Resulted Physical Exam Remarks Right hand is bandaged Left foot- hallux amputation site well coapted minimal serosanguineous drainage good capillary fill time to dorsal and plantar flap Right foot hallux amputation site and second digit amputation site, very early dusky formation of the dorsal lateral flap 3 mm however it appears to be nonpurulent no aggressive ischemia noted Good ankle range of motion pulses palpable sensation absent distal to bilateral ankles calf nontender nondistended bilateral Assessment & Plan A/P BL Hallux and right 2nd digit OM with Ulcer Status post bilateral hallux amputation, right second digit amputation 07-13 Micro-appears to be growing staph coag negative defer to infectious disease for management, pathology still pending. The patient needs to be nonweightbearing on the right and heel transfer only on the left. I highly encourage the patient to consider shelter facility placement. Betadine swab to wound edge 4 x [address] every 3 days. The patient is cleared to follow-up in office once antibiotics arrange. Bro Mejia DPM Jul 15, 2017 13:48
--- NOTE | 2017-07-15 14:51 | HHI.PR ---
Subjective Remarks Patient resting in bed offers no new concerns looking forward to DC reports minimal pain Objective Vitals Vital Signs Date Time Temp Pulse Resp B/P (MAP) Pulse Ox O2 Delivery O2 Flow Rate FiO2 07/15/17 12:00 98.4 77 21 95/58 (70) 96 07/15/17 09:05 97 07/15/17 08:00 98.1 74 21 164/95 (118) 97 07/14/17 20:00 97.1 83 18 133/79 (97) 100 07/14/17 16:00 98.4 79 19 99/50 (66) 96 Result Diagram: 07/14/17 0432 07/14/17 0432 Other Results Laboratory Tests Test 07/12/17 15:31 07/12/17 22:00 07/14/17 04:32 07/14/17 16:00 White Blood Count 6.8 TH/MM3 5.6 TH/MM3 Red Blood Count 3.47 MIL/MM3 3.20 MIL/MM3 Hemoglobin 11.4 GM/DL 10.6 GM/DL Hematocrit 33.6 % 30.7 % Mean Corpuscular Volume 96.7 FL 95.9 FL Mean Corpuscular Hemoglobin 32.9 PG 33.1 PG Mean Corpuscular Hemoglobin Concent 34.0 % 34.5 % Red Cell Distribution Width 14.6 % 14.1 % Platelet Count 178 TH/MM3 152 TH/MM3 Mean Platelet Volume 6.9 FL 7.4 FL Neutrophils (%) (Auto) 76.3 % 74.7 % Lymphocytes (%) (Auto) 12.9 % 15.1 % Monocytes (%) (Auto) 8.4 % 8.0 % Eosinophils (%) (Auto) 1.3 % 1.6 % Basophils (%) (Auto) 1.1 % 0.6 % Neutrophils # (Auto) 5.2 TH/MM3 4.2 TH/MM3 Lymphocytes # (Auto) 0.9 TH/MM3 0.8 TH/MM3 Monocytes # (Auto) 0.6 TH/MM3 0.4 TH/MM3 Eosinophils # (Auto) 0.1 TH/MM3 0.1 TH/MM3 Basophils # (Auto) 0.1 TH/MM3 0.0 TH/MM3 CBC Comment DIFF FINAL DIFF FINAL Differential Comment Erythrocyte Sedimentation Rate 76 mm/hr Prothrombin Time 11.4 SEC 11.4 SEC Prothromb Time International Ratio 1.1 RATIO 1.1 RATIO Activated Partial Thromboplast Time 32.5 SEC Blood Urea Nitrogen 16 MG/DL 14 MG/DL Creatinine 1.15 MG/DL 0.99 MG/DL Random Glucose 101 MG/DL 75 MG/DL Total Protein 8.3 GM/DL Albumin 3.2 GM/DL Calcium Level 8.5 MG/DL 8.3 MG/DL Alkaline Phosphatase 106 U/L Aspartate Amino Transf (AST/SGOT) 30 U/L Alanine Aminotransferase (ALT/SGPT) 27 U/L Total Bilirubin 0.3 MG/DL Sodium Level 137 MEQ/L 139 MEQ/L Potassium Level 4.3 MEQ/L 3.8 MEQ/L Chloride Level 106 MEQ/L 106 MEQ/L Carbon Dioxide Level 27.1 MEQ/L 25.1 MEQ/L Anion Gap 4 MEQ/L 8 MEQ/L Estimat Glomerular Filtration Rate 66 ML/MIN 79 ML/MIN C-Reactive Protein 1.85 MG/DL Urine Color YELLOW Urine Turbidity CLEAR Urine pH 6.0 Urine Specific [place] 1.018 Urine Protein TRACE mg/dL Urine Glucose (UA) NEG mg/dL Urine Ketones NEG mg/dL Urine Occult Blood NEG Urine Nitrite NEG Urine Bilirubin NEG Urine Urobilinogen LESS THAN 2.0 MG/DL Urine Leukocyte Esterase NEG Urine RBC 6 /hpf Urine WBC 2 /hpf Urine Squamous Epithelial Cells 1 /hpf Urine Sperm RARE Microscopic Urinalysis Comment CULT NOT INDICATED Vancomycin Level Trough 19.3 MCG/ML Microbiology Date/Time Source Procedure Growth Status 07/12/17 11:40 Blood Peripheral Aerobic Blood Culture - Preliminary NO GROWTH IN 3 DAYS Resulted 07/12/17 11:40 Blood Peripheral Anaerobic Blood Culture - Preliminary NO GROWTH IN 3 DAYS Resulted 07/14/17 10:00 Wound Finger Fungal Smear - Final NO FUNGAL ELEMENTS SEEN. Resulted 07/14/17 10:00 Wound Finger Fungal Culture Pending Resulted Imaging Last Impressions Hand MRI 07/13/17 0913 Signed Impressions: Service Date/Time: Thursday, July 13, 2017 09:02 - CONCLUSION: Findings indicating osteomyelitis of the long finger distal phalanx in the proper clinical setting. Ollie Abdi MD Finger X-Ray 07/13/17 0000 Signed Impressions: Service Date/Time: Thursday, July 13, 2017 17:55 - CONCLUSION: 1. Diffuse soft tissue swelling with cortical destruction involving the tuft of the distal phalanx of the third finger worrisome for osteomyelitis. Abraham Young Jr., MD Chest X-Ray 07/12/17 1620 Signed Impressions: Service Date/Time: June 16:26 - CONCLUSION: Asymmetric elevation of the right diaphragm which may be largely projectional compared to prior. Good quality PA and lateral views the chest versus additional evaluation with CT suggested as clinically appropriate. Joni Minor MD Foot X-Ray 07/12/17 0000 Signed Impressions: Service Date/Time: June 15:12 - CONCLUSION: Radiographic evidence of osteomyelitis involving her both of the first 2 toes distally. Jakob Dos Santos MD Foot MRI 07/12/17 0000 Signed Impressions: Service Date/Time: June 18:02 - CONCLUSION: 1. Findings suggesting osteomyelitis of the distal phalanges of first and second digits. 2. 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 Ollie Abdi MD Objective Remarks GENERAL: This is a well-nourished, well-developed patient, in no apparent distress. SKIN: bilateral feet post-op dressing present dry and intact, right hand post- op dressing present dry and intact CARDIOVASCULAR: Regular rate and rhythm RESPIRATORY: Clear to auscultation. Breath sounds equal bilaterally. GASTROINTESTINAL: Abdomen soft, non-tender, nondistended. MUSCULOSKELETAL: feet and right hand are bandage NEUROLOGICAL: Awake and alert. Motor and sensory grossly within normal limits. Five out of 5 muscle strength in all muscle groups. Normal speech Procedures (07/13) Pt underwent distal, b/l hallux amputation, and amputation of right 2nd digit by Dr. Mejia (07/14) Pt underwent disarticulation distal interphalangeal joint right middle finger by Dr. Ramos A/P Problem List: (1) Osteomyelitis ICD Codes: M86.9 - Osteomyelitis, unspecified Status: Chronic Plan: This is a 56-year-old male patient with past medical history which includes osteomyelitis of the right hand Dx September [address] Ramos. Patient was sent for MRI of the right hand by Dr. Ramos but does not look like he had MRI or followed up with hand surgery. Patient was transferred to the emergency department by Dr. Mejia podiatry due to concerns of osteomyelitis of right foot. Right foot x-ray done in emergency department reveals radiographic evidence of osteomyelitis involving first 2 toes distally MRI Right foot revealed: Suggesting osteomyelitis of the distal phalanx of first and second digits. 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 MRI right hand: Findings indicating osteomyelitis of the long finger distal phalanx - Blood culture (07/12) --> NGTD - UA reviewed no culture indicated - Chest x-ray ( 07/12) reviewed and reveals asymmetric elevation of the right diaphragm which may be largely projectional compared to prior. - Vancomycin (07/12 - present) - Zosyn (07/12 - present) - Pt takent OR by Dr. Mejia (07/13) - Pt underwent distal, b/l hallux amputation, and amputation of right 2nd digit - continue current antibiotics - consult ID - culture & pathology pending - narcotics prn - supportive care - DVT prophylaxis Right foot 1st toe - gram stain shows NO organism, NO WBC - wound culture pending - Acid Fast stain --> pending - mycobacterial culture --> pending - fungal smear --> pending - fungal culture --> pending Right foot, 2nd toe - gram stain shows NO organism, NO WBC - wound culture pending - Acid Fast stain --> pending - mycobacterial culture --> pending - fungal smear --> pending - fungal culture --> pending Left foot, 1st toe - gram stain shows NO organism, NO WBC - wound culture pending - Acid Fast stain --> pending - mycobacterial culture --> pending - fungal smear --> pending - fungal culture --> pending Per Podiatry recommendations patient is nonweightbearing on the right foot and may use heel of left foot to transfer only. Recommending SNF placement at time of DC (2) osteomyelitis distal phalanx right middle finger Status: Chronic Plan: - chronic process. Pt did NOT keep f/u from Spring 2016 - MRI right hand: Findings indicating osteomyelitis of the long finger distal phalanx - Pt taken to the OR (07/14) by Dr. Ramos - Pt underwent disarticulation distal interphalangeal joint right middle finger - studies pending - Vancomycin/Zosyn - consult ID - (07/15) Dr. Holliday discussed the case with Dr. Santos who will be able to give further abx recommendations after pathology results are available Right hand, 3rd digit - gram stain --> pending - wound culture --> pending - Acid Fast stain --> pending - mycobacterial culture --> pending - fungal smear --> pending - fungal culture --> pending (3) Hyperlipidemia ICD Codes: E78.5 - Hyperlipidemia Status: Acute Plan: Continue patient's home statin (4) Chronic alcohol abuse ICD Codes: F10.10 - Chronic alcohol abuse Status: Acute Plan: [facility] protocol monitor for s/s of withdraw folate, B12 and MVI Assessment and Plan Patient examined. Assessment and plan formulated with Debi Nelson PA-C. I agree with the above. Debi Nelson Jul 15, 2017 14:51 Alen Holliday DO Jul 17, 2017 22:53
[2017-07-15 16:00] VITALS: BP 111/74; PULSE 73; RESP 17; TEMP 97.8; O2SAT 97
--- NOTE | 2017-07-15 16:32 | MP ---
cc: MASOOD COLLINS MD DATE OF SURGERY: 07/14/2017. PREOPERATIVE DIAGNOSIS: Osteomyelitis distal phalanx right middle finger. POSTOPERATIVE DIAGNOSIS: Osteomyelitis distal phalanx right little finger. OPERATIVE PROCEDURE PERFORMED: Disarticulation distal interphalangeal joint right middle finger. SURGEON: Masood Collins M.D. ANESTHESIA: General. ESTIMATED BLOOD LOSS: Minimal. TOURNIQUET TIME: 12 minutes at 250 mmHg. COMPLICATIONS: No complications. SPECIMEN: Specimen was sent for culture and sensitivity and for pathology. INDICATIONS FOR THE PROCEDURE: The patient is a 56-year-old male with history of neuropathy. He is a known smoker. He was admitted to the hospital with multiple toe osteomyelitis for which he underwent debridement and partial amputation. The patient was complaining of nonhealing ulcer over the right middle finger region. On examination, he had exposed distal phalanx on the dorsal aspect of the nail bed with nonhealing ulcer. No drainage noted. The patient was treated with multiple p.o. antibiotics in the past with persistent ulcer. X-ray showed complete destruction of the distal part of the distal phalanx and fragmentation of the base of the proximal phalanx. He had an MRI scan which showed osteomyelitis of the distal phalanx. The patient was consented for amputation / disarticulation distal interphalangeal joint right middle finger. He was explained the risks and benefits of the procedure and the need for procedure. DESCRIPTION OF THE PROCEDURE IN DETAIL: The patient was brought to the operating room and under general anesthesia the right upper extremity was thoroughly prepped and draped. The incision site was marked in a fishmouth pattern with a volar long flap incorporating the ulceration. Dorsally, the incision was in a transverse fashion just distal to the DIP joint. After limb exsanguination, the tourniquet was inflated to 250 mmHg. Incision was made over the proposed incision site. Incision was made initially in the . Full-thickness flaps were then created. Dorsally, an incision was made in a transverse fashion and extensor tendon was incised exposing the distal interphalangeal joint. The joint was then disarticulated from dorsally so the distal phalanx with the nonhealing ulcer on the nail bed was removed from the finger. The flexor tendons were retracted distally and transected. Thorough wash of the wound was carried out using normal saline mixed with irrigant and about a liter of solution was used. Tourniquet was deflated. Total tourniquet time was 12 minutes. He had good distal circulation. The flaps were well vascularized. Bleeding points were cauterized with bipolar cautery. The volar palmar flap was then anchored to the dorsal soft tissues using multiple interrupted 5-0 Vicryl stitches. This was then followed by 4-0 nylon in a horizontal mattress interrupted fashion. Xeroform and bacitracin dressing applied. He had good distal circulation of the volar flap. A bulky finger dressing was applied which was held in place by Sof-Rol and a Crystal. The patient was recovered and sent to the recovery room in stable condition. We will continue with limb elevation and IV antibiotics and the specimen was sent for pathology as well as for culture and sensitivity. Masood Collins MD SE/FLORECITA /10:37 AM /4:21 PM
[2017-07-15] MEDS: PRAVASTATIN SOD 20 MG TAB PO SCH (19:32)
[2017-07-15] MEDS: REMOVE OLD PATCH T-DERMAL SCH (19:38)
--- NOTE | 2017-07-15 19:59 | HHI.PR ---
Addendum to Inpatient Note Additional Information ID - pt was seen earlier today around 1700 - full note to follow X cover for Wendi Conn MD Jul 15, 2017 19:59
[2017-07-15 20:00] VITALS: BP 134/86; PULSE 73; RESP 17; TEMP 98.9; O2SAT 97
[2017-07-15] MEDS: TEMAZEPAM 15 MG CAP PO PRN (21:01)
[2017-07-16] MEDS: VANCOMYCIN INJ 1,000 MG in SODIUM CHLOR 0.9% 250 ML INJ 250 ML IV SCH ×2 (03:13→15:49)
[2017-07-16] MEDS: PIPERACIL-TAZO 3.375 GM PREMIX 50 ML IV SCH ×4 (03:13→21:01)
[2017-07-16 08:00] VITALS: BP 171/84; PULSE 66; RESP 18; TEMP 97.8; O2SAT 97
--- NOTE | 2017-07-16 08:40 | HHI.PR ---
Subjective Remarks Patient resting in bed reports mild pain bilateral feet Objective Vitals Vital Signs Date Time Temp Pulse Resp B/P (MAP) Pulse Ox O2 Delivery O2 Flow Rate FiO2 07/15/17 20:00 98.9 73 17 134/86 (102) 97 07/15/17 16:00 97.8 73 17 111/74 (86) 97 07/15/17 12:00 98.4 77 21 95/58 (70) 96 07/15/17 09:05 97 Result Diagram: 07/14/17 0432 07/14/17 0432 Other Results Laboratory Tests Test 07/14/17 04:32 07/14/17 16:00 White Blood Count 5.6 TH/MM3 Red Blood Count 3.20 MIL/MM3 Hemoglobin 10.6 GM/DL Hematocrit 30.7 % Mean Corpuscular Volume 95.9 FL Mean Corpuscular Hemoglobin 33.1 PG Mean Corpuscular Hemoglobin Concent 34.5 % Red Cell Distribution Width 14.1 % Platelet Count 152 TH/MM3 Mean Platelet Volume 7.4 FL Neutrophils (%) (Auto) 74.7 % Lymphocytes (%) (Auto) 15.1 % Monocytes (%) (Auto) 8.0 % Eosinophils (%) (Auto) 1.6 % Basophils (%) (Auto) 0.6 % Neutrophils # (Auto) 4.2 TH/MM3 Lymphocytes # (Auto) 0.8 TH/MM3 Monocytes # (Auto) 0.4 TH/MM3 Eosinophils # (Auto) 0.1 TH/MM3 Basophils # (Auto) 0.0 TH/MM3 CBC Comment DIFF FINAL Differential Comment Prothrombin Time 11.4 SEC Prothromb Time International Ratio 1.1 RATIO Blood Urea Nitrogen 14 MG/DL Creatinine 0.99 MG/DL Random Glucose 75 MG/DL Calcium Level 8.3 MG/DL Sodium Level 139 MEQ/L Potassium Level 3.8 MEQ/L Chloride Level 106 MEQ/L Carbon Dioxide Level 25.1 MEQ/L Anion Gap 8 MEQ/L Estimat Glomerular Filtration Rate 79 ML/MIN Vancomycin Level Trough 19.3 MCG/ML Imaging Last Impressions Hand MRI 07/13/17 0913 Signed Impressions: Service Date/Time: Thursday, July 13, 2017 09:02 - CONCLUSION: Findings indicating osteomyelitis of the long finger distal phalanx in the proper clinical setting. Ollie Abdi MD Finger X-Ray 07/13/17 0000 Signed Impressions: Service Date/Time: Thursday, July 13, 2017 17:55 - CONCLUSION: 1. Diffuse soft tissue swelling with cortical destruction involving the tuft of the distal phalanx of the third finger worrisome for osteomyelitis. Abraham Young Jr., MD Chest X-Ray 07/12/17 1620 Signed Impressions: Service Date/Time: June 16:26 - CONCLUSION: Asymmetric elevation of the right diaphragm which may be largely projectional compared to prior. Good quality PA and lateral views the chest versus additional evaluation with CT suggested as clinically appropriate. Joni Minor MD Foot X-Ray 07/12/17 0000 Signed Impressions: Service Date/Time: June 15:12 - CONCLUSION: Radiographic evidence of osteomyelitis involving her both of the first 2 toes distally. Jakob Dos Santos MD Foot MRI 07/12/17 0000 Signed Impressions: Service Date/Time: June 18:02 - CONCLUSION: 1. Findings suggesting osteomyelitis of the distal phalanges of first and second digits. 2. 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 Ollie Abdi MD Objective Remarks GENERAL: This is a well-nourished, well-developed patient, in no apparent distress. SKIN: bilateral feet post-op dressing present dry and intact, right hand post- op dressing present dry and intact CARDIOVASCULAR: Regular rate and rhythm RESPIRATORY: Clear to auscultation. Breath sounds equal bilaterally. GASTROINTESTINAL: Abdomen soft, non-tender, nondistended. MUSCULOSKELETAL: feet and right hand are bandage NEUROLOGICAL: Awake and alert. Motor and sensory grossly within normal limits. Five out of 5 muscle strength in all muscle groups. Normal speech Procedures (07/13) Pt underwent distal, b/l hallux amputation, and amputation of right 2nd digit by Dr. Mejia (07/14) Pt underwent disarticulation distal interphalangeal joint right middle finger by Dr. Ramos A/P Problem List: (1) Osteomyelitis ICD Codes: M86.9 - Osteomyelitis, unspecified Status: Chronic Plan: This is a 56-year-old male patient with past medical history which includes osteomyelitis of the right hand Dx September [address] Ramos. Patient was sent for MRI of the right hand by Dr. Ramos but does not look like he had MRI or followed up with hand surgery. Patient was transferred to the emergency department by Dr. Mejia podiatry due to concerns of osteomyelitis of right foot. Right foot x-ray done in emergency department reveals radiographic evidence of osteomyelitis involving first 2 toes distally MRI Right foot revealed: Suggesting osteomyelitis of the distal phalanx of first and second digits. 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 MRI right hand: Findings indicating osteomyelitis of the long finger distal phalanx - Blood culture (07/12) --> NGTD - UA reviewed no culture indicated - Chest x-ray ( 07/12) reviewed and reveals asymmetric elevation of the right diaphragm which may be largely projectional compared to prior. - Vancomycin (07/12 - present) - Zosyn (07/12 - present) - Pt takent OR by Dr. Mejia (07/13) - Pt underwent distal, b/l hallux amputation, and amputation of right 2nd digit - continue current antibiotics - consult ID - culture & pathology pending - narcotics prn - supportive care - DVT prophylaxis Right foot 1st toe - gram stain shows NO organism, NO WBC - wound culture pending - Acid Fast stain --> No acid fast bacilli seen - mycobacterial culture --> pending - fungal smear --> No fungal element seen - fungal culture --> pending Right foot, 2nd toe - gram stain shows NO organism, NO WBC - wound culture pending - Acid Fast stain --> No acid fast bacilli seen - mycobacterial culture --> pending - fungal smear --> No fungal element seen - fungal culture --> pending Left foot, 1st toe - gram stain shows NO organism, NO WBC - wound culture pending - Acid Fast stain --> No acid fast bacilli seen - mycobacterial culture --> pending - fungal smear --> No fungal elements seen - fungal culture --> pending Per Podiatry recommendations patient is nonweightbearing on the right foot and may use heel of left foot to transfer only. Recommending SNF placement at time of DC. Patient refusing SNF placement. Patient would like to go home with [facility] (2) osteomyelitis distal phalanx right middle finger Status: Chronic Plan: - chronic process. Pt did NOT keep f/u from Spring 2016 - MRI right hand: Findings indicating osteomyelitis of the long finger distal phalanx - Pt taken to the OR (07/14) by Dr. Ramos - Pt underwent disarticulation distal interphalangeal joint right middle finger - studies pending - Vancomycin/Zosyn - consult ID - (07/15) Dr. Holliday discussed the case with Dr. Santos who will be able to give further abx recommendations after pathology results are available Right hand, 3rd digit - gram stain --> No WBC's seen, No organisms seen - wound culture --> No growth in 24 hours - Acid Fast stain --> pending - mycobacterial culture --> pending - fungal smear --> No fungal elements seen - fungal culture --> pending (3) Hyperlipidemia ICD Codes: E78.5 - Hyperlipidemia Status: Acute Plan: Continue patient's home statin (4) Chronic alcohol abuse ICD Codes: F10.10 - Chronic alcohol abuse Status: Acute Plan: [facility] protocol monitor for s/s of withdraw folate, B12 and MVI Assessment and Plan Patient examined. Assessment and plan formulated with Debi Nelson PA-C. I agree with the above. pathology pending. ID reccs pending. updated pt/. Debi Nelson Jul 16, 2017 08:40 Florin Blair MD Jul 16, 2017 17:16
[2017-07-16] MEDS: METOPROLOL TARTRATE 50 MG TAB PO SCH ×2 (08:42→21:03)
[2017-07-16] MEDS: FOLIC ACID 1 MG TAB PO SCH (08:42)
[2017-07-16] MEDS: LISINOPRIL 20 MG TAB PO SCH ×2 (08:42→21:03)
[2017-07-16] MEDS: DULoxetine HCl DR 60 MG CAP PO SCH (08:43)
[2017-07-16] MEDS: MULTIVITAMINS/MINERALS THERAPEUTIC TAB PO SCH (08:43)
[2017-07-16] MEDS: ACETAMINOPHEN/HYDROcodone 325 MG/10 MG TAB PO PRN ×3 (08:43→21:04)
[2017-07-16] MEDS: NICOTINE 14 MG/24 HR PATCH T-DERMAL SCH (08:43)
[2017-07-16] MEDS: PREGABALIN 75 MG CAP PO SCH ×2 (08:43→21:03)
[2017-07-16] MEDS: THIAMINE HCL 100 MG TAB PO SCH (08:45)
[2017-07-16] MEDS: SODIUM CHLORIDE 0.9% FLUSH 10 ML FLUSH IV FLUSH SCH ×2 (09:20→21:02)
[2017-07-16 12:00] VITALS: BP 154/89; PULSE 59; RESP 18; TEMP 96.9; O2SAT 97
[2017-07-16] MEDS ORDERED: WALKER WHEELS/F1 MIS (12:54)
[2017-07-16] MEDS ORDERED: WHEEMIS3 (12:54)
--- NOTE | 2017-07-16 14:50 | HHI.PR ---
Subjective Remarks complains of no pain no fever complaint with dressing Objective Vital Signs Date Time Temp Pulse Resp B/P (MAP) Pulse Ox O2 Delivery O2 Flow Rate FiO2 07/16/17 08:00 97.8 66 18 171/84 (113) 97 07/15/17 20:00 98.9 73 17 134/86 (102) 97 07/15/17 16:00 97.8 73 17 111/74 (86) 97 I/O 07/15/17 07/15/17 07/15/17 07/16/17 07/16/17 07/16/17 07:00 15:00 23:00 07:00 15:00 23:00 Intake Total 660 ml 925 ml 240 ml Output Total 600 ml 200 ml 350 ml Balance 60 ml 725 ml -110 ml Intake Oral 360 ml 575 ml 240 ml IV Total 300 ml 350 ml Output Urine Total 600 ml 200 ml 350 ml # Voids 3 1 # Bowel Movements 0 1 0 right middle finger: intact dressing incision site clean and dry mild swelling intact distal circulation cultures are negative to date path pending Result Diagram: 07/14/17 0432 07/14/17 0432 Assessment and Plan Assessment and Plan 56 year old male s/p disarticulation through DIP joint right middle finger POD 2 Plan: surrounding skin is cleaned with alcohol wipes dry dressing applied keep the part clean and dry cleared for discharge from hand surgery follow up in 2 weeks time for suture removal keep the dressing on for two weeks. Josesito Ramos MD Jul 16, 2017 14:50
[2017-07-16] MEDS: SODIUM CHLORIDE 0.9% FLUSH 10 ML FLUSH IV FLUSH PRN (15:10)
[2017-07-16 16:00] VITALS: BP 178/100; PULSE 64; RESP 20; TEMP 98.1; O2SAT 97
[2017-07-16 17:25] VITALS: O2SAT 97
--- NOTE | 2017-07-16 18:35 | HHI.IDPN ---
Subjective Subjective Remarks afebrile No growth on all cultures Antibiotics zosyn vanco Allergies: Coded Allergies: No Known Allergies (Unverified , 07/12/17) Objective . Vital Signs Date Time Temp Pulse Resp B/P (MAP) Pulse Ox O2 Delivery O2 Flow Rate FiO2 07/16/17 17:25 97 07/16/17 16:50 16 07/16/17 08:00 97.8 66 18 171/84 (113) 97 07/15/17 20:00 98.9 73 17 134/86 (102) 97 . Microbiology Date/Time Source Procedure Growth Status 07/14/17 10:00 Wound Finger Fungal Smear - Final NO FUNGAL ELEMENTS SEEN. Resulted 07/14/17 10:00 Wound Finger Fungal Culture Pending Resulted 07/14/17 10:00 Wound Finger Acid Fast Stain Pending Received 07/14/17 10:00 Wound Finger Mycobacterial Culture Pending Received 07/14/17 10:00 Wound Finger Gram Stain - Final Resulted 07/14/17 10:00 Wound Finger Wound Culture - Preliminary NO GROWTH IN 48 HOURS. Resulted Imaging Last Impressions Hand MRI 07/13/17 0913 Signed Impressions: Service Date/Time: Thursday, July 13, 2017 09:02 - CONCLUSION: Findings indicating osteomyelitis of the long finger distal phalanx in the proper clinical setting. Ollie Abdi MD Finger X-Ray 07/13/17 0000 Signed Impressions: Service Date/Time: Thursday, July 13, 2017 17:55 - CONCLUSION: 1. Diffuse soft tissue swelling with cortical destruction involving the tuft of the distal phalanx of the third finger worrisome for osteomyelitis. Abraham Young Jr., MD Chest X-Ray 07/12/17 1620 Signed Impressions: Service Date/Time: June 16:26 - CONCLUSION: Asymmetric elevation of the right diaphragm which may be largely projectional compared to prior. Good quality PA and lateral views the chest versus additional evaluation with CT suggested as clinically appropriate. Joni Minor MD Foot X-Ray 07/12/17 0000 Signed Impressions: Service Date/Time: June 15:12 - CONCLUSION: Radiographic evidence of osteomyelitis involving her both of the first 2 toes distally. Jakob Dos Santos MD Foot MRI 07/12/17 0000 Signed Impressions: Service Date/Time: June 18:02 - CONCLUSION: 1. Findings suggesting osteomyelitis of the distal phalanges of first and second digits. 2. 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 Ollie Abdi MD Physical Exam CONSTITUTIONAL/GENERAL: This is an adequately nourished patient, in no apparent distress. TUBES/LINES/DRAINS: SKIN: No jaundice, rashes, or lesions. Skin temperature appropriate. Not diaphoretic. 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
[2017-07-16] MEDS ORDERED: CLIN300C5 PO (18:42)
[2017-07-16 20:00] VITALS: BP 170/104; PULSE 70; RESP 20; TEMP 97.6; O2SAT 100
[2017-07-16] MEDS: REMOVE OLD PATCH T-DERMAL SCH (21:03)
[2017-07-16] MEDS: PRAVASTATIN SOD 20 MG TAB PO SCH (21:03)
[2017-07-16] MEDS: TEMAZEPAM 15 MG CAP PO PRN (22:10)
[2017-07-17] VITALS: BP 152/89; PULSE 63; RESP 18; TEMP 97; O2SAT 97
[2017-07-17] MEDS: PIPERACIL-TAZO 3.375 GM PREMIX 50 ML IV SCH ×4 (03:27→20:29)
[2017-07-17] MEDS ORDERED: PHARMACY ORDERED LAB ONE (03:45)
[2017-07-17 04:11] LABS: CREATININE 1.19 MG/DL (0.60-1.30)
[2017-07-17] MEDS: VANCOMYCIN INJ 1,000 MG in SODIUM CHLOR 0.9% 250 ML INJ 250 ML IV SCH ×2 (04:29→16:51)
[2017-07-17] MEDS ORDERED: LEVO500T8 PO (07:43)
--- NOTE | 2017-07-17 07:46 | HHI.FF ---
Face to Face Verification Diagnosis: (1) Osteomyelitis of left foot (2) Osteomyelitis of right foot (3) osteomyelitis distal phalanx right middle finger Physical Therapy Order: Evaluate and Treat, Improve ambulation Occupational Therapy Order: Evaluate and Treat Home Health Nursing Order: Medical education Signs/symptoms of disease process Oxygen administration education Wound care and dressing changes Instructions: Right middle finger- follow up in 2 weeks time for suture removal. Keep the dressing on for two weeks. Bilateral feet- Betadine swab to wound edge 4 x [address] every 3 days. I have seen patient Juwan Garcia on 07/17/17. My clinical findings support the need for the requested home health care services because: Med compliance is questionable High risk of falls I certify that my clinical findings support that this patient is homebound because: Unsteady gait/balance Debi Nelson Jul 17, 2017 07:46
--- NOTE | 2017-07-17 07:53 | HHI.DS ---
Discharge Summary Admission Date Jul 12, 2017 at 16:23 Discharge Date: Jul 17, 2017 Admitting Diagnosis Osteomyelitis (1) Osteomyelitis ICD Codes: M86.9 - Osteomyelitis, unspecified Status: Chronic (2) osteomyelitis distal phalanx right middle finger Status: Chronic (3) Hyperlipidemia ICD Codes: E78.5 - Hyperlipidemia Status: Acute (4) Chronic alcohol abuse ICD Codes: F10.10 - Chronic alcohol abuse Status: Acute Consultants Dr. Mejia, podiatry Dr. Ramos, hand surgery Dr. Santos, infectious disease Procedures (07/13) Pt underwent distal, b/l hallux amputation, and amputation of right 2nd digit by Dr. Mejia (07/14) Pt underwent disarticulation distal interphalangeal joint right middle finger by Dr. Ramos Brief History This is a 56-year-old male patient with past medical history which includes hypertension, hyperlipidemia, daily EtOH use, tobacco abuse, peripheral neuropathy, Villalpando's esophagus diabetes, osteomyelitis of the right hand Dx September [address] Ramos. Patient was sent for MRI of the right hand by Dr. Ramos but does not look like he had MRI or followed up with hand surgery. Patient reports he has had 2 weeks of abx in the past, details are vague. Patient was referred to the emergency department by Dr. Mejia podiatry due to concerns of osteomyelitis of right foot. Patient has blisters on bilateral lower extremities that have been present since April 2017. Initial injury occurred after he placed his feet on a space heater to warm them. Patient then noticed the blisters/wounds that next days. Patient has peripheral neuropathy and has no pain. No drainage noted. CBC/BMP: 07/14/17 0432 07/17/17 0323 Significant Findings Laboratory Tests Test 07/14/17 16:00 07/17/17 03:23 Vancomycin Level Trough 19.3 MCG/ML (5.0-10.0) 18.0 MCG/ML (5.0-10.0) Estimat Glomerular Filtration Rate 64 ML/MIN (>89) Imaging Last Impressions Hand MRI 07/13/17 0981 Signed Impressions: Service Date/Time: Thursday, July 13, 2017 09:02 - CONCLUSION: Findings indicating osteomyelitis of the long finger distal phalanx in the proper clinical setting. Ollie Abdi MD Finger X-Ray 07/13/17 0000 Signed Impressions: Service Date/Time: Thursday, July 13, 2017 17:55 - CONCLUSION: 1. Diffuse soft tissue swelling with cortical destruction involving the tuft of the distal phalanx of the third finger worrisome for osteomyelitis. Abraham Young Jr., MD Chest X-Ray 07/12/17 1620 Signed Impressions: Service Date/Time: June 16:26 - CONCLUSION: Asymmetric elevation of the right diaphragm which may be largely projectional compared to prior. Good quality PA and lateral views the chest versus additional evaluation with CT suggested as clinically appropriate. Joni Minor MD Foot X-Ray 07/12/17 0000 Signed Impressions: Service Date/Time: June 15:12 - CONCLUSION: Radiographic evidence of osteomyelitis involving her both of the first 2 toes distally. Jakob Dos Santos MD Foot MRI 07/12/17 0000 Signed Impressions: Service Date/Time: June 18:02 - CONCLUSION: 1. Findings suggesting osteomyelitis of the distal phalanges of first and second digits. 2. 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 Ollie Abdi MD PE at Discharge GENERAL: This is a well-nourished, well-developed patient, in no apparent distress. SKIN: bilateral feet post-op dressing present dry and intact, right hand post- op dressing present dry and intact CARDIOVASCULAR: Regular rate and rhythm RESPIRATORY: Clear to auscultation. Breath sounds equal bilaterally. GASTROINTESTINAL: Abdomen soft, non-tender, nondistended. MUSCULOSKELETAL: feet and right hand are bandage NEUROLOGICAL: Awake and alert. Motor and sensory grossly within normal limits. Five out of 5 muscle strength in all muscle groups. Normal speech Hospital Course Osteomyelitis This is a 56-year-old male patient with past medical history which includes osteomyelitis of the right hand Dx [address] Ramos. Patient was sent for MRI of the right hand by Dr. Ramos but does not look like he had MRI or followed up with hand surgery. Patient was transferred to the emergency department by Dr. Mejia podiatry due to concerns of osteomyelitis of right foot. Right foot x-ray done in emergency department reveals radiographic evidence of osteomyelitis involving first 2 toes distally MRI Right foot revealed: Suggesting osteomyelitis of the distal phalanx of first and second digits. 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 MRI right hand: Findings indicating osteomyelitis of the long finger distal phalanx - Blood culture (07/12) --> NGTD - UA reviewed no culture indicated - Chest x-ray ( 07/12) reviewed and reveals asymmetric elevation of the right diaphragm which may be largely projectional compared to prior. - Vancomycin (07/12 - present) - Zosyn (07/12 - present) - Pt takent OR by Dr. Mejia (07/13) - Pt underwent distal, b/l hallux amputation, and amputation of right 2nd digit - continue current antibiotics - consult ID - culture & pathology pending - narcotics prn - supportive care - DVT prophylaxis Right foot 1st toe - gram stain shows NO organism, NO WBC - wound culture pending - Acid Fast stain --> No acid fast bacilli seen - mycobacterial culture --> pending - fungal smear --> No fungal element seen - fungal culture --> pending Right foot, 2nd toe - gram stain shows NO organism, NO WBC - wound culture pending - Acid Fast stain --> No acid fast bacilli seen - mycobacterial culture --> pending - fungal smear --> No fungal element seen - fungal culture --> pending Left foot, 1st toe - gram stain shows NO organism, NO WBC - wound culture pending - Acid Fast stain --> No acid fast bacilli seen - mycobacterial culture --> pending - fungal smear --> No fungal elements seen - fungal culture --> pending Per ID: OK to dc to cont oral clindamycin, levaquine x 2 more weeks (if margins are clean, o/w longer course is required) further rec's per path: if margins show osteomyelitis will need to switch to IV vanco Advised patient to stay in the hospital and await pathology results to determine DC abx. Patient admittedly refused to stay in the hospital any longer. Patient aware that he my require a PICC line and IV abx if pathology does not have clear margins. Dr. Blair notified Dr. Mejia and Dr. Lara Per Podiatry recommendations The patient needs to be nonweightbearing on the right and heel transfer only on the left. I highly encourage the patient to consider [facility]ci facility placement. Betadine swab to wound edge 4 x [address] every 3 days. The patient is cleared to follow-up in office once antibiotics arrange. osteomyelitis distal phalanx right middle finger - chronic process. Pt did NOT keep f/u from Spring 2016 - MRI right hand: Findings indicating osteomyelitis of the long finger distal phalanx - Pt taken to the OR (07/14) by Dr. Ramos - Pt underwent disarticulation distal interphalangeal joint right middle finger - studies pending - Vancomycin/Zosyn - consult ID - (07/15) Dr. Holliday discussed the case with Dr. Santos who will be able to give further abx recommendations after pathology results are available Right hand, 3rd digit - gram stain --> No WBC's seen, No organisms seen - wound culture --> No growth in 24 hours - Acid Fast stain --> pending - mycobacterial culture --> pending - fungal smear --> No fungal elements seen - fungal culture --> pending Per hand surgery: cleared for discharge from hand surgery follow up in 2 weeks time for suture removal keep the dressing on for two weeks. Hyperlipidemia Continue patient's home statin Chronic alcohol abuse [facility] protocol monitor for s/s of withdraw folate, B12 and MVI Patient counselled encouraged to abstain. Pt Condition on Discharge: Stable Discharge Disposition: Disch w/ Home Health Serv Discharge Instructions DIET: Follow Instructions for: As Tolerated, No Restrictions Activities you can perform: See Additionl Instruction Activities to Avoid: Driving for 24 hrs, Weight Bearing, Bathing Other Activity Instructions: The patient needs to be nonweightbearing on the right and heel transfer only on the left. Right middle finger- follow up in 2 weeks time for suture removal. Keep the dressing on for two weeks. Bilateral feet- Betadine swab to wound edge 4 x [address] every 3 days. Follow up Referrals: Hand Surgery - [address] Ramos PCP Follow-up - [address] Lara Podiatry - 1 Week with Bro Mejia DPM New Medications: Clindamycin (Clindamycin) 300 Mg Cap 300 MG PO Q8HR for Infection for 14 Days, CAP 0 Refills Levofloxacin (Levofloxacin) 500 Mg Tablet 500 MG PO DAILY for Infection, #14 TAB 0 Refills Walker with Front Wheels (Walker with Front Wheels) 1 Mis Mis EA .ROUTE DIRECTED, #1 0 Refills Wheelchair (Wheelchair) 1 Mis Mis EA .ROUTE DIRECTED, #1 0 Refills Continued Medications: Duloxetine DR (Duloxetine DR) 60 Mg Capdr 60 MG PO DAILY, #30 CAP 0 Refills Folic Acid (Folic Acid) 400 Mcg Tab 400 MCG PO DAILY for Nutritional Supplement, TAB 0 Refills Hydrocodone-Acetaminophen (Hydrocodone-Acetaminophen) 10-325 mg Tab 1 TAB PO TID PRN for PAIN, TAB 0 Refills Lisinopril (Lisinopril) 20 Mg Tab 20 MG PO BID, #30 TAB 0 Refills Lovastatin (Lovastatin) 20 Mg Tab 20 MG PO HS for Cholesterol Management, #30 TAB 0 Refills Metoprolol Tartrate (Metoprolol Tartrate) 50 Mg Tab 50 MG PO BID, #60 TAB 0 Refills Pregabalin (Lyrica) 75 Mg Cap 75 MG PO BID, #60 CAP 0 Refills Discontinued Medications: Ciprofloxacin (Ciprofloxacin) 500 Mg Tab 500 MG PO BID for Infection, TAB 0 Refills Clindamycin (Clindamycin) 150 Mg Cap 300 MG PO Q8HR for Infection, CAP 0 Refills Debi Nelson Jul 17, 2017 07:53
[2017-07-17 08:00] VITALS: BP 164/96; PULSE 65; RESP 16; TEMP 97.9; O2SAT 96
[2017-07-17] MEDS: PREGABALIN 75 MG CAP PO SCH ×2 (08:44→20:26)
[2017-07-17] MEDS: NICOTINE 14 MG/24 HR PATCH T-DERMAL SCH (08:44)
[2017-07-17] MEDS: FOLIC ACID 1 MG TAB PO SCH (08:44)
[2017-07-17] MEDS: MULTIVITAMINS/MINERALS THERAPEUTIC TAB PO SCH (08:44)
[2017-07-17] MEDS: METOPROLOL TARTRATE 50 MG TAB PO SCH ×2 (08:44→20:26)
[2017-07-17] MEDS: DULoxetine HCl DR 60 MG CAP PO SCH (08:44)
[2017-07-17] MEDS: THIAMINE HCL 100 MG TAB PO SCH (08:45)
[2017-07-17] MEDS: LISINOPRIL 20 MG TAB PO SCH ×2 (08:45→20:27)
[2017-07-17] MEDS: SODIUM CHLORIDE 0.9% FLUSH 10 ML FLUSH IV FLUSH SCH ×2 (08:46→20:29)
[2017-07-17] MEDS: ACETAMINOPHEN/HYDROcodone 325 MG/10 MG TAB PO PRN ×4 (08:52→22:02)
--- NOTE | 2017-07-17 09:54 | HHI.DCPOC ---
Discharge Care Plan Diagnosis: (1) Osteomyelitis of left foot (2) Osteomyelitis of right foot (3) osteomyelitis distal phalanx right middle finger Goals to Promote Your Health * To prevent worsening of your condition and complications * To maintain your health at the optimal level Directions to Meet Your Goals Take your medications as prescribed Follow your dietary instruction Follow activity as directed Keep your appointments as scheduled Take your immunizations and boosters as scheduled If your symptoms worsen call your PCP, if no PCP go to Urgent Care Center or Emergency Room Smoking is Dangerous to Your Health. Avoid second hand smoke Call the 24-hour hour crisis hotline for domestic abuse at Debi Nelson Jul 17, 2017 09:54
[2017-07-17 12:00] VITALS: BP 128/74; PULSE 66; RESP 16; TEMP 97.7; O2SAT 99
[2017-07-17] MEDS ORDERED: CLIN300C5 PO (13:37)
--- NOTE | 2017-07-17 14:32 | HHI.FF ---
Infusion Therapy Location of Infusion Therapy: Home Health Care IV Infusion Order Patient Information Patient Weight 85.1 kg Diagnosis: Coded Allergies: No Known Allergies (Unverified , 07/12/17) Administer Medication Vancomycin q 12 hours 1250 mg IV q 12 Start Treatment: Jul 17, 2017 Stop Treatment: Aug 28, 2017 Additional Information Venous access: PICC Line Additional Instructions [x] Peripheral flush and dressing changes per protocol [x] Implanted port and central millinery blocker: * Implanted port: 10 ml Normal Saline followed by 5 ml Heparin 100 units/ml Heparin flush after each use and monthly to maintain. [] May leave port accessed during therapy. [] May leave peripheral site accessed for duration of therapy. [x] If patient has SOB or respiratory distress, check oxygen saturation. If less than 90% or clinical signs of respiratory distress, administer oxygen at 2 L/min. via nasal cannula and notify physician. [x] Anaphylaxis/Reaction orders: * Stop infusion. * Keep IV line open with saline flush. * Notify physician. * Monitor vital signs every 15 minutes until symptoms resolve. * Check Oxygen saturation; Oxygen at 2 L/min. via nasal cannula if less than 90% or clinical signs of respiratory distress. * Administer diphenhydramine (Benadryl) 25 mg IV STAT, (unless patient has received as pre-med). May repeat once, if necessary. * Solu-Cortef 250 mg IVP over 30-60 seconds, use 100 mg vials for each dissolution. * Epinephrine (1mg/1 ml) 0.3 mg subcutaneously or IVP now with any signs of respiratory distress. * Check with physician for new additional pre-med orders if patient is re- challenged or re-treated. [x] May remove PICC line when treatment complete, after confirming with Physician. [x] If the patient is admitted to the hospital, the ED, or transferred via [facility] , complete transfer form including medication reconciliation order sheet. Laboratory Tests Weekly Labs: CBC w/diff, Creatinine, CRP, SED Rate, Vancomycin Trough Wendi Santos MD Jul 17, 2017 14:32
--- NOTE | 2017-07-17 14:56 | HHI.IDPN ---
Subjective Subjective Remarks afebrile No growth on all cultures no c/o Antibiotics zosyn vanco Allergies: Coded Allergies: No Known Allergies (Unverified , 07/12/17) Objective . Vital Signs Date Time Temp Pulse Resp B/P (MAP) Pulse Ox O2 Delivery O2 Flow Rate FiO2 07/17/17 12:00 97.7 66 16 128/74 (92) 99 07/17/17 08:00 97.9 65 16 164/96 (118) 96 07/17/17 00:00 97.0 63 18 152/89 (110) 97 07/16/17 20:00 97.6 70 20 170/104 (126) 100 07/16/17 17:25 97 07/16/17 16:50 16 07/16/17 16:00 98.1 64 20 178/100 (126) 97 . Laboratory Tests Test 07/17/17 03:23 Creatinine 1.19 MG/DL Estimat Glomerular Filtration Rate 64 ML/MIN Imaging Last Impressions Hand MRI 07/13/17 0913 Signed Impressions: Service Date/Time: Thursday, July 13, 2017 09:02 - CONCLUSION: Findings indicating osteomyelitis of the long finger distal phalanx in the proper clinical setting. Ollie Abdi MD Finger X-Ray 07/13/17 0000 Signed Impressions: Service Date/Time: Thursday, July 13, 2017 17:55 - CONCLUSION: 1. Diffuse soft tissue swelling with cortical destruction involving the tuft of the distal phalanx of the third finger worrisome for osteomyelitis. Abraham Young Jr., MD Chest X-Ray 07/12/17 1620 Signed Impressions: Service Date/Time: June 16:26 - CONCLUSION: Asymmetric elevation of the right diaphragm which may be largely projectional compared to prior. Good quality PA and lateral views the chest versus additional evaluation with CT suggested as clinically appropriate. Joni Minor MD Foot X-Ray 07/12/17 0000 Signed Impressions: Service Date/Time: June 15:12 - CONCLUSION: Radiographic evidence of osteomyelitis involving her both of the first 2 toes distally. Jakob Dos Santos MD Foot MRI 07/12/17 0000 Signed Impressions: Service Date/Time: June 18:02 - CONCLUSION: 1. Findings suggesting osteomyelitis of the distal phalanges of first and second digits. 2. 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 Ollie Abdi MD Physical Exam CONSTITUTIONAL/GENERAL: This is an adequately nourished patient, in no apparent distress. TUBES/LINES/DRAINS:PIVs w/o e/o infx HEENT: non icteric LUNGS: clear to auscultation COR: regular rate, rhtym ABDOMEN: soft. Not tender. NOt distended SKIN: No jaundice, rashes, or lesions. Skin temperature appropriate. Not diaphoretic. 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
--- NOTE | 2017-07-17 14:57 | HHI.FF ---
Infusion Therapy Location of Infusion Therapy: Home Health Care IV Infusion Order Patient Information Patient Weight 85.1 kg Diagnosis: Coded Allergies: No Known Allergies (Unverified , 07/12/17) Administer Medication Vancomycin 1 gram IV q 12 hours Start Treatment: Jul 17, 2017 Stop Treatment: Aug 28, 2017 Additional Information Venous access: PICC Line Additional Instructions [x] Peripheral flush and dressing changes per protocol [x] Implanted port and central electrical line worker: * Implanted port: 10 ml Normal Saline followed by 5 ml Heparin 100 units/ml Heparin flush after each use and monthly to maintain. [] May leave port accessed during therapy. [] May leave peripheral site accessed for duration of therapy. [x] If patient has SOB or respiratory distress, check oxygen saturation. If less than 90% or clinical signs of respiratory distress, administer oxygen at 2 L/min. via nasal cannula and notify physician. [x] Anaphylaxis/Reaction orders: * Stop infusion. * Keep IV line open with saline flush. * Notify physician. * Monitor vital signs every 15 minutes until symptoms resolve. * Check Oxygen saturation; Oxygen at 2 L/min. via nasal cannula if less than 90% or clinical signs of respiratory distress. * Administer diphenhydramine (Benadryl) 25 mg IV STAT, (unless patient has received as pre-med). May repeat once, if necessary. * Solu-Cortef 250 mg IVP over 30-60 seconds, use 100 mg vials for each dissolution. * Epinephrine (1mg/1 ml) 0.3 mg subcutaneously or IVP now with any signs of respiratory distress. * Check with physician for new additional pre-med orders if patient is re- challenged or re-treated. [x] May remove PICC line when treatment complete, after confirming with Physician. [x] If the patient is admitted to the hospital, the ED, or transferred via [facility] , complete transfer form including medication reconciliation order sheet. Laboratory Tests Weekly Labs: CBC w/diff, Creatinine, CRP, SED Rate, Vancomycin Trough Wendi Santos MD Jul 17, 2017 14:57
[2017-07-17] MEDS ORDERED: LEVA750T9 PO (15:04)
[2017-07-17] MEDS ORDERED: EPIN1INJ21 SQ (15:04)
[2017-07-17] MEDS ORDERED: SOLU250I IV PUSH (15:04)
[2017-07-17] MEDS ORDERED: VANC1000P IV (15:04)
[2017-07-17] MEDS ORDERED: EPIN1INJ21 IV PUSH (15:04)
[2017-07-17 15:43] VITALS: O2SAT 96
[2017-07-17 16:00] VITALS: BP 115/79; PULSE 66; RESP 16; TEMP 97.7; O2SAT 99
[2017-07-17] MEDS ORDERED: SODIUM CHLORIDE 0.9% FLUSH 10 ML FLUSH IV FLUSH PRN (16:15)
--- NOTE | 2017-07-17 16:55 | RADRPT ---
EXAM DATE/TIME: 07/17/2017 16:07 [facility] COMPARISON: CHEST SINGLE AP, July 12, 2017, 16:26. INDICATIONS : Left side picc line placement. MEDICAL HISTORY : Hypertension. Hypercholesterolemia. neuropathy SURGICAL HISTORY : toes amputated. ENCOUNTER: Initial ACUITY: 4 - 6 days PAIN SCORE: 0/10 LOCATION: Bilateral chest FINDINGS: A single view of the chest demonstrates the lungs to be symmetrically aerated without evidence of mas s, infiltrate or effusion. The cardiomediastinal contours are unremarkable. Osseous structures are intact. Left upper extremity PICC line. The tip is folded back on itself in the expected region of th e junction of the left and right brachiocephalic veins. CONCLUSION: 1. Lungs are clear. 2. Left upper extremity PICC line with the tip folded back on itself in the expected location of the junction of the left and right brachiocephalic veins Keon Nickerson MD on July 17, 2017 at 16:51 Board Certified Radiologist. This report was verified electronically.
--- NOTE | 2017-07-17 17:11 | RADRPT ---
EXAM DATE/TIME: 07/17/2017 16:58 [facility] COMPARISON: CHEST SINGLE AP, July 17, 2017, 16:07. INDICATIONS : Reposition of the left PICC line. MEDICAL HISTORY : Hypertension. Hypercholesterolemia. Neuropathy. SURGICAL HISTORY : Toes amputated. ENCOUNTER: Subsequent ACUITY: 4 - 6 days PAIN SCORE: 0/10 LOCATION: Bilateral chest FINDINGS: A single view of the chest demonstrates the lungs to be symmetrically aerated without evidence of mas s, infiltrate or effusion. The cardiomediastinal contours are unremarkable. Osseous structures are intact. The PICC line has been successfully repositioned. The tip has been straightened out and now a ppropriately projects over the central venous system. CONCLUSION: Tip of the left upper extremity PICC line has been successfully repositioned as above. Keon Nickerson MD on July 17, 2017 at 17:08 Board Certified Radiologist. This report was verified electronically.
[2017-07-17] MEDS: PRAVASTATIN SOD 20 MG TAB PO SCH (20:26)
[2017-07-17] MEDS: TEMAZEPAM 15 MG CAP PO PRN (20:26)
[2017-07-17] MEDS: REMOVE OLD PATCH T-DERMAL SCH (20:29)
[2017-07-18] VITALS: BP 147/92; PULSE 71; RESP 18; TEMP 97.7; O2SAT 96
[2017-07-18] MEDS: PIPERACIL-TAZO 3.375 GM PREMIX 50 ML IV SCH ×2 (02:17→09:15)
[2017-07-18] MEDS: VANCOMYCIN INJ 1,000 MG in SODIUM CHLOR 0.9% 250 ML INJ 250 ML IV SCH (03:51)
[2017-07-18 06:50] LABS: CREATININE 1.06 MG/DL (0.60-1.30)
[2017-07-18 08:00] VITALS: BP 156/92; PULSE 61; RESP 16; TEMP 96; O2SAT 98
[2017-07-18] MEDS ORDERED: SODIUM CHLORIDE 0.9% FLUSH 10 ML FLUSH IV FLUSH SCH (09:00)
[2017-07-18] MEDS: PREGABALIN 75 MG CAP PO SCH (09:13)
[2017-07-18] MEDS: ACETAMINOPHEN/HYDROcodone 325 MG/10 MG TAB PO PRN (09:13)
[2017-07-18] MEDS: FOLIC ACID 1 MG TAB PO SCH (09:14)
[2017-07-18] MEDS: SODIUM CHLORIDE 0.9% FLUSH 10 ML FLUSH IV FLUSH SCH (09:14)
[2017-07-18] MEDS: LISINOPRIL 20 MG TAB PO SCH (09:14)
[2017-07-18] MEDS: METOPROLOL TARTRATE 50 MG TAB PO SCH (09:14)
[2017-07-18] MEDS: DULoxetine HCl DR 60 MG CAP PO SCH (09:14)
[2017-07-18] MEDS: THIAMINE HCL 100 MG TAB PO SCH (09:14)
[2017-07-18] MEDS: NICOTINE 14 MG/24 HR PATCH T-DERMAL SCH (09:15)
== END 2017-07-18 12:39 | disposition home health service (06) | DRG 505 ==
LOC: NEPE 14:36 → NEDA 16:23 → N07A 20:06
PROVIDERS: ADMIT Hospitalist; ATTEND Hospitalist
PROC: 0Y6Q0Z1 Detachment at Left 1st Toe, High, Open Approach (ICD-10-PCS; 2017-07-13)
PROC: 0Y6P0Z1 Detachment at Right 1st Toe, High, Open Approach (ICD-10-PCS; 2017-07-13)
PROC: 0Y6S0Z0 Detachment at Left 2nd Toe, Complete, Open Approach (ICD-10-PCS; principal; 2017-07-13 15:07)
PROC: 0X6Q0Z3 Detachment at Right Middle Finger, Low, Open Approach (ICD-10-PCS; 2017-07-14)
DX: M86.9 Osteomyelitis, unspecified (principal); G62.1 Alcoholic polyneuropathy; I10 Essential (primary) hypertension; I73.9 Peripheral vascular disease, unspecified; F17.210 Nicotine dependence, cigarettes, uncomplicated; G62.9 Polyneuropathy, unspecified; K22.70 Barrett's esophagus without dysplasia; E78.5 Hyperlipidemia, unspecified; Z87.442 Personal history of urinary calculi; T25.032A Burn of unspecified degree of left toe(s) (nail), initial encounter; X17.XXXA Contact with hot engines, machinery and tools, initial encounter; Y93.89 Activity, other specified; Y92.009 Unspecified place in unspecified non-institutional (private) residence as the place of occurrence of the external cause; K21.9 Gastro-esophageal reflux disease without esophagitis; L97.519 Non-pressure chronic ulcer of other part of right foot with unspecified severity; L97.529 Non-pressure chronic ulcer of other part of left foot with unspecified severity; M19.90 Unspecified osteoarthritis, unspecified site
CPT/HCPCS: 71045; 73140; 73220; 73630; 73720; 80048; 80053; 80202; 81001; 82565; 85025; 85610; 85652; 85730; 86140; 87015; 87040; 87070; 87102; 87116; 87176; 87205; 87206; 88305; 88307; 88311; 93005; 93923; 99285; A9579; J0690; J1170; J1642; J2250; J2370; J2405; J2543; J3010; J3370; J7050; J7120; L3260

== ENCOUNTER 2017-12-20 13:22 | Inpatient (IN) ==
[2017-12-23] MEDS ORDERED: Bisacodyl 10 MG Supp RECTAL PRN (00:01)
[2017-12-23] MEDS ORDERED: Chlorhexidine Gluconate 2% 1 Pack (2 Cloths) TOPICAL PRN (00:01)
[2017-12-23] MEDS ORDERED: Norepinephrine Inj 4 MG in Sodium Chlor 0.9% Inj 246 ML IV.SIG PRN (00:01)
[2017-12-23] MEDS ORDERED: Acetaminophen 325 MG Tablet PO PRN (00:01)
[2017-12-23] MEDS ORDERED: Pantoprazole Inj 80 MG in Sodium Chlor 0.9% Inj 100 ML IV.SIG SCH (00:01)
[2017-12-23] MEDS ORDERED: LORazepam 1 MG Tablet PO PRN (00:01)
[2017-12-23 04:19] LABS: Baso % (Auto) 0.4 % (0.0-2.0); Eos # (Auto) 0.1 th/mm3 (0.0-0.4); Eos % (Auto) 1.1 % (0.0-4.0); Hematocrit 29.7 % (39.0-51.0); Hemoglobin 10.1 gm/dL (13.0-17.0); Lymph # (Auto) 1.1 th/mm3 (1.0-4.8); Lymph % (Auto) 19.2 % (9.0-44.0); Mean Corpuscular HGB Conc 34.1 % (32.0-36.0); Mean Corpuscular Hemoglobin 32.4 pg (27.0-34.0); Mean Corpuscular Volume 95.1 fL (80.0-100.0); Mean Platelet Volume 7.1 fL (7.0-11.0); Mono # (Auto) 0.4 th/mm3 (0.0-0.9); Mono % (Auto) 7.9 % (0.0-8.0); Neut # (Auto) 3.9 th/mm3 (1.8-7.7); Neut % (Auto) 71.4 % (16.0-70.0); Platelet Count 182 th/mm3 (150-450); Red Blood Count 3.12 mil/mm3 (4.50-5.90); Red Cell Distribution Width 14.9 % (11.6-17.2); White Blood Count 5.5 th/mm3 (4.0-11.0)
[2017-12-23 04:41] LABS: Calcium 7.6 mg/dL (8.5-10.1); Carbon Dioxide 19.2 meq/L (21.0-32.0); Magnesium 1.2 mg/dL (1.5-2.5); Potassium 4.1 meq/L (3.5-5.1)
--- NOTE | 2017-12-23 05:09 | XR ---
EXAM DATE: 12/23/2017 4:39 AM EDT AGE/SEX: 57 years / Male INDICATIONS: Follow up ileus. CLINICAL DATA: This is the patient's subsequent encounter. Patient reports that signs and symptoms h ave been present for 3 days and indicates a pain score of 4/10. MEDICAL/SURGICAL HISTORY: None. None. COMPARISON: No prior exams available for comparison. FINDINGS: The abdominal bowel gas pattern is normal. No abnormal masses, calcifications, or organomegaly is s een. The osseous structures are unremarkable. CONCLUSION: Bowel gas pattern unremarkable. 6 mm calculus overlies lower pole left kidney. Electronically signed by: Armand Garcia MD 12/23/2017 5:08 AM EDT
[2017-12-23] MEDS: chlordiazePOXIDE 25 MG Capsule PO SCH ×4 (09:10→21:04)
[2017-12-23] MEDS: Folic Acid 1 MG Tablet PO SCH ×2 (09:10→21:04)
[2017-12-23] MEDS: Multivitamin/Minerals Therapeutic Tablet PO SCH ×2 (09:10→21:04)
[2017-12-23] MEDS: Duloxetine 60 MG DR Capsule PO SCH ×2 (09:10→21:04)
[2017-12-23] MEDS: Famotidine PF Inj 20 MG/2 ML Vial IV.PUSH SCH ×3 (09:11→21:05)
--- NOTE | 2017-12-23 16:00 | P.PNGI ---
Subjective Interval history: Patient is resting in the bed Currently denies any nausea or vomiting or rectal bleeding. Afebrile 98.2 current hemoglobin 10.1 No abdominal pain Chief complaint dysuria <Miranda Pollard - Last Filed: 12/23/17 16:06> Physical Exam Vital signs: Vital Signs 12/23/17 00:05 12/23/17 01:00 12/23/17 02:00 Temperature Pulse Rate 73 64 80 Respiratory Rate 15 13 15 Blood Pressure 158/75 H Pulse Oximetry 98 98 96 12/23/17 02:01 12/23/17 03:00 12/23/17 04:00 Temperature 98.2 F Pulse Rate 91 H 75 70 Respiratory Rate 19 15 14 Blood Pressure 161/127 H 164/79 H 170/95 H Pulse Oximetry 96 98 100 12/23/17 05:00 12/23/17 06:00 12/23/17 10:36 Temperature Pulse Rate 64 67 Respiratory Rate 14 18 Blood Pressure 166/74 H 157/73 H Pulse Oximetry 98 99 93 L Intake & Output 12/22/17 12/23/17 12/23/17 18:59 06:59 18:59 Intake Total 960 / 960 Output Total 800 / 800 Balance 160 / 160 Weight 88.6 kg Intake: Oral 960 / 960 Output: Urine 800 / 800 Other: # Voids 2 Date of Last Bowel Movement 12/23/17 - Constitutional no acute distress - Routine HEENT Exam Head: Present: normocephalic, atraumatic Eye: Present: EOMI ENT: Present: mucous membranes moist - Routine Neck Exam Present: supple - Routine Respiratory Exam Present: decreased breath sounds (But no obvious shortness of breath at rest) - Routine Cardiovascular Exam Present: tachycardia (Current heart rate 109 sinus tachycardia) - Routine Abdominal Exam Present: distended (Minimal, soft bowel sounds) - Routine Extremities Exam Present: edema (Minimal if any moves extremities with purpose) - Routine Skin Exam Present: intact - Routine Neurological Exam Present: alert (Awake answering simple questions) <Miranda Pollard - Last Filed: 12/23/17 16:06> Vital signs: Vital Signs 12/23/17 00:05 12/23/17 01:00 12/23/17 02:00 Temperature Pulse Rate 73 64 80 Respiratory Rate 15 13 15 Blood Pressure 158/75 H Pulse Oximetry 98 98 96 12/23/17 02:01 12/23/17 03:00 12/23/17 04:00 Temperature 98.2 F Pulse Rate 91 H 75 70 Respiratory Rate 19 15 14 Blood Pressure 161/127 H 164/79 H 170/95 H Pulse Oximetry 96 98 100 12/23/17 05:00 12/23/17 06:00 12/23/17 10:36 Temperature Pulse Rate 64 67 Respiratory Rate 14 18 Blood Pressure 166/74 H 157/73 H Pulse Oximetry 98 99 93 L Intake & Output 12/22/17 12/23/17 12/23/17 18:59 06:59 18:59 Intake Total 960 / 960 Output Total 800 / 800 Balance 160 / 160 Weight 88.6 kg Intake: Oral 960 / 960 Output: Urine 800 / 800 Other: # Voids 2 Date of Last Bowel Movement 12/23/17 <Zena Hill - Last Filed: 12/23/17 17:04> Results - Labs CBC & Chem 7: 12/23/17 03:50 12/23/17 03:50 Labs: Laboratory Results - last 24 hr 12/20/17 12/20/17 12/20/17 14:32 14:33 14:33 WBC RBC Hgb Hct MCV MCH MCHC RDW Plt Count MPV Neut % (Auto) Lymph % (Auto) [place] % (Auto) Eos % (Auto) Baso % (Auto) Neut # (Auto) Lymph # (Auto) [place] # (Auto) Eos # (Auto) Baso # (Auto) CBC Comment WBC Differential Differential Comment PT INR APTT Sodium 129 L Potassium 4.6 Chloride 101 Carbon Dioxide 15.6 L Anion Gap 12 BUN 58 H Creatinine 2.90 H Estimated GFR 23 L Random Glucose 136 H Lactic Acid 1.5 Calcium 9.1 Phosphorus Magnesium 1.9 Total Bilirubin 0.5 AST 24 ALT 31 Alkaline Phosphatase 78 Ammonia Total Creatine Kinase 116 Troponin I LESS THAN 0.02 L Total Protein 8.1 Albumin 3.4 Lipase TSH 3rd Generation 1.600 Random Cortisol Ur Collection Type Urine Color Urine Turbidity Urine pH Ur Specific [place] Urine Protein Urine Glucose (UA) Urine Ketones Urine Occult Blood Urine Nitrite Urine Bilirubin Urine Urobilinogen Ur Leukocyte Esterase Urine RBC Ur Squamous Epith Cells Amorphous Sediment Micro UA Comment Urine Collection Time CSF Volume (1) CSF Supernat Color (1) CSF Gross Blood (1) CSF Volume (2) CSF Supernat Color (2) CSF Gross Blood (2) CSF Volume (3) CSF Supernat Color (3) CSF Gross Blood (3) CSF Volume (4) CSF Supernat Color (4) CSF Gross Blood (4) CSF WBC (4) CSF RBC (4) CSF Neutrophils CSF Lymphocytes CSF Glucose CSF Total Protein Nasal Screen MRSA (PCR) Stl C.difficile Tox PCR St C. diff Tox Epid 027 Salicylates 4.4 Urine Opiates Screen Acetaminophen LESS THAN 2.0 L Ur Barbiturates Screen Ur Amphetamines Screen U Benzodiazepines Scrn Urine Cocaine Screen U Cannabinoids Screen Ethyl Alcohol LESS THAN 3 HSV I DNA PCR HSV II DNA PCR 12/20/17 12/20/17 12/20/17 14:33 14:33 14:33 WBC 9.6 RBC 3.91 L Hgb 12.5 L Hct 37.3 L MCV 95.4 MCH 32.0 MCHC 33.5 RDW 14.7 Plt Count 262 MPV 7.5 Neut % (Auto) 81.1 H Lymph % (Auto) 12.4 [place] % (Auto) 5.8 Eos % (Auto) 0.4 Baso % (Auto) 0.3 Neut # (Auto) 7.8 H Lymph # (Auto) 1.2 [place] # (Auto) 0.6 Eos # (Auto) 0.0 Baso # (Auto) 0.0 CBC Comment DIFF FINAL WBC Differential Differential Comment PT 10.1 INR 1.0 APTT 30.6 H Sodium Potassium Chloride Carbon Dioxide Anion Gap BUN Creatinine Estimated GFR Random Glucose Lactic Acid Calcium Phosphorus Magnesium Total Bilirubin AST ALT Alkaline Phosphatase Ammonia 17 Total Creatine Kinase Troponin I Total Protein Albumin Lipase TSH 3rd Generation Random Cortisol Ur Collection Type Urine Color Urine Turbidity Urine pH Ur Specific [place] Urine Protein Urine Glucose (UA) Urine Ketones Urine Occult Blood Urine Nitrite Urine Bilirubin Urine Urobilinogen Ur Leukocyte Esterase Urine RBC Ur Squamous Epith Cells Amorphous Sediment Micro UA Comment Urine Collection Time CSF Volume (1) CSF Supernat Color (1) CSF Gross Blood (1) CSF Volume (2) CSF Supernat Color (2) CSF Gross Blood (2) CSF Volume (3) CSF Supernat Color (3) CSF Gross Blood (3) CSF Volume (4) CSF Supernat Color (4) CSF Gross Blood (4) CSF WBC (4) CSF RBC (4) CSF Neutrophils CSF Lymphocytes CSF Glucose CSF Total Protein Nasal Screen MRSA (PCR) Stl C.difficile Tox PCR St C. diff Tox Epid 027 Salicylates Urine Opiates Screen Acetaminophen Ur Barbiturates Screen Ur Amphetamines Screen U Benzodiazepines Scrn Urine Cocaine Screen U Cannabinoids Screen Ethyl Alcohol HSV I DNA PCR HSV II DNA PCR 12/20/17 12/20/17 12/20/17 15:36 15:36 16:50 WBC RBC Hgb Hct MCV MCH MCHC RDW Plt Count MPV Neut % (Auto) Lymph % (Auto) [place] % (Auto) Eos % (Auto) Baso % (Auto) Neut # (Auto) Lymph # (Auto) [place] # (Auto) Eos # (Auto) Baso # (Auto) CBC Comment WBC Differential Differential Comment PT INR APTT Sodium Potassium Chloride Carbon Dioxide Anion Gap BUN Creatinine Estimated GFR Random Glucose Lactic Acid Calcium Phosphorus Magnesium Total Bilirubin AST ALT Alkaline Phosphatase Ammonia Total Creatine Kinase Troponin I Total Protein Albumin Lipase TSH 3rd Generation Random Cortisol Ur Collection Type CLEAN CATCH Urine Color YELLOW Urine Turbidity CLEAR Urine pH 5.5 Ur Specific [place] LESS/EQUAL 1.005 Urine Protein NEG Urine Glucose (UA) NEG Urine Ketones NEG Urine Occult Blood TRACE Urine Nitrite NEG Urine Bilirubin NEG Urine Urobilinogen 0.2 Ur Leukocyte Esterase NEG Urine RBC 0-3 Ur Squamous Epith Cells 0-5 Amorphous Sediment FEW Micro UA Comment CULT NOT INDICATED Urine Collection Time 1536 CSF Volume (1) 1.5 CSF Supernat Color (1) CLEAR CSF Gross Blood (1) 2+ H CSF Volume (2) 0.9 CSF Supernat Color (2) CLEAR CSF Gross Blood (2) 2+ H CSF Volume (3) 1.8 CSF Supernat Color (3) CLEAR CSF Gross Blood (3) 2+ H CSF Volume (4) 1.8 CSF Supernat Color (4) CLEAR CSF Gross Blood (4) 1+ H CSF WBC (4) 1 CSF RBC (4) 1255 H CSF Neutrophils 100 CSF Lymphocytes 0 CSF Glucose CSF Total Protein Nasal Screen MRSA (PCR) Stl C.difficile Tox PCR St C. diff Tox Epid 027 Salicylates Urine Opiates Screen NEG Acetaminophen Ur Barbiturates Screen NEG Ur Amphetamines Screen NEG U Benzodiazepines Scrn NEG Urine Cocaine Screen NEG U Cannabinoids Screen NEG Ethyl Alcohol HSV I DNA PCR HSV II DNA PCR 12/20/17 12/20/17 12/20/17 16:50 16:50 20:00 WBC RBC Hgb Hct MCV MCH MCHC RDW Plt Count MPV Neut % (Auto) Lymph % (Auto) [place] % (Auto) Eos % (Auto) Baso % (Auto) Neut # (Auto) Lymph # (Auto) [place] # (Auto) Eos # (Auto) Baso # (Auto) CBC Comment WBC Differential Differential Comment PT INR APTT Sodium Potassium Chloride Carbon Dioxide Anion Gap BUN Creatinine Estimated GFR Random Glucose Lactic Acid Calcium Phosphorus Magnesium Total Bilirubin AST ALT Alkaline Phosphatase Ammonia Total Creatine Kinase Troponin I Total Protein Albumin Lipase TSH 3rd Generation Random Cortisol Ur Collection Type Urine Color Urine Turbidity Urine pH Ur Specific [place] Urine Protein Urine Glucose (UA) Urine Ketones Urine Occult Blood Urine Nitrite Urine Bilirubin Urine Urobilinogen Ur Leukocyte Esterase Urine RBC Ur Squamous Epith Cells Amorphous Sediment Micro UA Comment Urine Collection Time CSF Volume (1) CSF Supernat Color (1) CSF Gross Blood (1) CSF Volume (2) CSF Supernat Color (2) CSF Gross Blood (2) CSF Volume (3) CSF Supernat Color (3) CSF Gross Blood (3) CSF Volume (4) CSF Supernat Color (4) CSF Gross Blood (4) CSF WBC (4) CSF RBC (4) CSF Neutrophils CSF Lymphocytes CSF Glucose 73 CSF Total Protein 45.1 H Nasal Screen MRSA (PCR) MRSA DETECTED Stl C.difficile Tox PCR St C. diff Tox Epid 027 Salicylates Urine Opiates Screen Acetaminophen Ur Barbiturates Screen Ur Amphetamines Screen U Benzodiazepines Scrn Urine Cocaine Screen U Cannabinoids Screen Ethyl Alcohol HSV I DNA PCR Negative HSV II DNA PCR Negative 12/20/17 12/20/17 12/20/17 21:18 21:18 23:38 WBC RBC Hgb Hct MCV MCH MCHC RDW Plt Count MPV Neut % (Auto) Lymph % (Auto) [place] % (Auto) Eos % (Auto) Baso % (Auto) Neut # (Auto) Lymph # (Auto) [place] # (Auto) Eos # (Auto) Baso # (Auto) CBC Comment WBC Differential Differential Comment PT INR APTT Sodium Potassium Chloride Carbon Dioxide Anion Gap BUN Creatinine Estimated GFR Random Glucose Lactic Acid 0.7 Calcium Phosphorus Magnesium Total Bilirubin AST ALT Alkaline Phosphatase Ammonia Total Creatine Kinase Troponin I 0.12 H D Total Protein Albumin Lipase 387 TSH 3rd Generation Random Cortisol 4.1 Ur Collection Type Urine Color Urine Turbidity Urine pH Ur Specific [place] Urine Protein Urine Glucose (UA) Urine Ketones Urine Occult Blood Urine Nitrite Urine Bilirubin Urine Urobilinogen Ur Leukocyte Esterase Urine RBC Ur Squamous Epith Cells Amorphous Sediment Micro UA Comment Urine Collection Time CSF Volume (1) CSF Supernat Color (1) CSF Gross Blood (1) CSF Volume (2) CSF Supernat Color (2) CSF Gross Blood (2) CSF Volume (3) CSF Supernat Color (3) CSF Gross Blood (3) CSF Volume (4) CSF Supernat Color (4) CSF Gross Blood (4) CSF WBC (4) CSF RBC (4) CSF Neutrophils CSF Lymphocytes CSF Glucose CSF Total Protein Nasal Screen MRSA (PCR) Stl C.difficile Tox PCR St C. diff Tox Epid 027 Salicylates Urine Opiates Screen Acetaminophen Ur Barbiturates Screen Ur Amphetamines Screen U Benzodiazepines Scrn Urine Cocaine Screen U Cannabinoids Screen Ethyl Alcohol HSV I DNA PCR HSV II DNA PCR 12/21/17 12/21/17 12/21/17 04:44 04:44 04:44 WBC 6.1 RBC 3.29 L Hgb 10.5 L D Hct 32.0 L MCV 97.3 MCH 32.0 MCHC 32.9 RDW 15.8 Plt Count 198 MPV 7.3 Neut % (Auto) 78.4 H Lymph % (Auto) 12.0 [place] % (Auto) 8.5 H Eos % (Auto) 0.5 Baso % (Auto) 0.6 Neut # (Auto) 4.8 Lymph # (Auto) 0.7 L [place] # (Auto) 0.5 Eos # (Auto) 0.0 Baso # (Auto) 0.0 CBC Comment DIFF FINAL WBC Differential Differential Comment PT INR APTT Sodium 138 Potassium 4.6 Chloride 113 H D Carbon Dioxide 15.1 L Anion Gap 10 BUN 35 H D Creatinine 1.71 H D Estimated GFR 42 L Random Glucose 89 Lactic Acid 0.5 Calcium 8.1 L D Phosphorus 3.1 Magnesium 1.5 Total Bilirubin 0.3 AST 20 ALT 22 Alkaline Phosphatase 61 Ammonia Total Creatine Kinase Troponin I Total Protein 6.5 D Albumin 2.8 L D Lipase TSH 3rd Generation Random Cortisol Ur Collection Type Urine Color Urine Turbidity Urine pH Ur Specific [place] Urine Protein Urine Glucose (UA) Urine Ketones Urine Occult Blood Urine Nitrite Urine Bilirubin Urine Urobilinogen Ur Leukocyte Esterase Urine RBC Ur Squamous Epith Cells Amorphous Sediment Micro UA Comment Urine Collection Time CSF Volume (1) CSF Supernat Color (1) CSF Gross Blood (1) CSF Volume (2) CSF Supernat Color (2) CSF Gross Blood (2) CSF Volume (3) CSF Supernat Color (3) CSF Gross Blood (3) CSF Volume (4) CSF Supernat Color (4) CSF Gross Blood (4) CSF WBC (4) CSF RBC (4) CSF Neutrophils CSF Lymphocytes CSF Glucose CSF Total Protein Nasal Screen MRSA (PCR) Stl C.difficile Tox PCR St C. diff Tox Epid 027 Salicylates Urine Opiates Screen Acetaminophen Ur Barbiturates Screen Ur Amphetamines Screen U Benzodiazepines Scrn Urine Cocaine Screen U Cannabinoids Screen Ethyl Alcohol HSV I DNA PCR HSV II DNA PCR 12/21/17 12/21/17 12/21/17 04:44 09:28 16:46 WBC RBC Hgb 10.9 L 11.0 L Hct MCV MCH MCHC RDW Plt Count MPV Neut % (Auto) Lymph % (Auto) [place] % (Auto) Eos % (Auto) Baso % (Auto) Neut # (Auto) Lymph # (Auto) [place] # (Auto) Eos # (Auto) Baso # (Auto) CBC Comment WBC Differential Differential Comment PT INR APTT Sodium Potassium Chloride Carbon Dioxide Anion Gap BUN Creatinine Estimated GFR Random Glucose Lactic Acid Calcium Phosphorus 3.0 Magnesium Total Bilirubin AST ALT Alkaline Phosphatase Ammonia Total Creatine Kinase Troponin I 0.12 H Total Protein Albumin Lipase TSH 3rd Generation Random Cortisol Ur Collection Type Urine Color Urine Turbidity Urine pH Ur Specific [place] Urine Protein Urine Glucose (UA) Urine Ketones Urine Occult Blood Urine Nitrite Urine Bilirubin Urine Urobilinogen Ur Leukocyte Esterase Urine RBC Ur Squamous Epith Cells Amorphous Sediment Micro UA Comment Urine Collection Time CSF Volume (1) CSF Supernat Color (1) CSF Gross Blood (1) CSF Volume (2) CSF Supernat Color (2) CSF Gross Blood (2) CSF Volume (3) CSF Supernat Color (3) CSF Gross Blood (3) CSF Volume (4) CSF Supernat Color (4) CSF Gross Blood (4) CSF WBC (4) CSF RBC (4) CSF Neutrophils CSF Lymphocytes CSF Glucose CSF Total Protein Nasal Screen MRSA (PCR) Stl C.difficile Tox PCR St C. diff Tox Epid 027 Salicylates Urine Opiates Screen Acetaminophen Ur Barbiturates Screen Ur Amphetamines Screen U Benzodiazepines Scrn Urine Cocaine Screen U Cannabinoids Screen Ethyl Alcohol HSV I DNA PCR HSV II DNA PCR 12/22/17 12/22/17 12/22/17 04:30 04:30 08:40 WBC 5.4 RBC 3.17 L Hgb 10.2 L Hct 30.2 L MCV 95.2 MCH 32.2 MCHC 33.8 RDW 15.5 Plt Count 186 MPV 7.1 Neut % (Auto) 69.3 Lymph % (Auto) 19.9 [place] % (Auto) 9.4 H Eos % (Auto) 0.9 Baso % (Auto) 0.5 Neut # (Auto) 3.8 Lymph # (Auto) 1.1 [place] # (Auto) 0.5 Eos # (Auto) 0.1 Baso # (Auto) 0.0 CBC Comment DIFF FINAL WBC Differential Differential Comment PT INR APTT Sodium 137 Potassium 4.1 Chloride 111 H Carbon Dioxide 17.9 L Anion Gap 8 BUN 22 H D Creatinine 1.32 H Estimated GFR 56 L Random Glucose 70 L Lactic Acid Calcium 8.0 L Phosphorus Magnesium Total Bilirubin AST ALT Alkaline Phosphatase Ammonia Total Creatine Kinase Troponin I Total Protein Albumin Lipase TSH 3rd Generation Random Cortisol Ur Collection Type Urine Color Urine Turbidity Urine pH Ur Specific [place] Urine Protein Urine Glucose (UA) Urine Ketones Urine Occult Blood Urine Nitrite Urine Bilirubin Urine Urobilinogen Ur Leukocyte Esterase Urine RBC Ur Squamous Epith Cells Amorphous Sediment Micro UA Comment Urine Collection Time CSF Volume (1) CSF Supernat Color (1) CSF Gross Blood (1) CSF Volume (2) CSF Supernat Color (2) CSF Gross Blood (2) CSF Volume (3) CSF Supernat Color (3) CSF Gross Blood (3) CSF Volume (4) CSF Supernat Color (4) CSF Gross Blood (4) CSF WBC (4) CSF RBC (4) CSF Neutrophils CSF Lymphocytes CSF Glucose CSF Total Protein Nasal Screen MRSA (PCR) Stl C.difficile Tox PCR NEGATIVE St C. diff Tox Epid 027 PRESUMPTIVE NEGATIVE Salicylates Urine Opiates Screen Acetaminophen Ur Barbiturates Screen Ur Amphetamines Screen U Benzodiazepines Scrn Urine Cocaine Screen U Cannabinoids Screen Ethyl Alcohol HSV I DNA PCR HSV II DNA PCR 12/23/17 12/23/17 03:50 03:50 WBC 5.5 RBC 3.12 L Hgb 10.1 L Hct 29.7 L MCV 95.1 MCH 32.4 MCHC 34.1 RDW 14.9 Plt Count 182 MPV 7.1 Neut % (Auto) 71.4 H Lymph % (Auto) 19.2 [place] % (Auto) 7.9 Eos % (Auto) 1.1 Baso % (Auto) 0.4 Neut # (Auto) 3.9 Lymph # (Auto) 1.1 [place] # (Auto) 0.4 Eos # (Auto) 0.1 Baso # (Auto) 0.0 CBC Comment WBC Differential . Differential Comment Auto diff final PT INR APTT Sodium 139 Potassium 4.1 Chloride 110 H Carbon Dioxide 19.2 L Anion Gap 10 BUN 15 Creatinine 1.08 Estimated GFR 71 L Random Glucose 74 Lactic Acid Calcium 7.6 L Phosphorus Magnesium 1.2 L Total Bilirubin AST ALT Alkaline Phosphatase Ammonia Total Creatine Kinase Troponin I Total Protein Albumin Lipase TSH 3rd Generation Random Cortisol Ur Collection Type Urine Color Urine Turbidity Urine pH Ur Specific [place] Urine Protein Urine Glucose (UA) Urine Ketones Urine Occult Blood Urine Nitrite Urine Bilirubin Urine Urobilinogen Ur Leukocyte Esterase Urine RBC Ur Squamous Epith Cells Amorphous Sediment Micro UA Comment Urine Collection Time CSF Volume (1) CSF Supernat Color (1) CSF Gross Blood (1) CSF Volume (2) CSF Supernat Color (2) CSF Gross Blood (2) CSF Volume (3) CSF Supernat Color (3) CSF Gross Blood (3) CSF Volume (4) CSF Supernat Color (4) CSF Gross Blood (4) CSF WBC (4) CSF RBC (4) CSF Neutrophils CSF Lymphocytes CSF Glucose CSF Total Protein Nasal Screen MRSA (PCR) Stl C.difficile Tox PCR St C. diff Tox Epid 027 Salicylates Urine Opiates Screen Acetaminophen Ur Barbiturates Screen Ur Amphetamines Screen U Benzodiazepines Scrn Urine Cocaine Screen U Cannabinoids Screen Ethyl Alcohol HSV I DNA PCR HSV II DNA PCR - Imaging Imaging: Impressions Abdomen X-Ray 12/23/17 00:00 CONCLUSION: Bowel gas pattern unremarkable. 6 mm calculus overlies lower pole left kidney. <Miranda Pollard - Last Filed: 12/23/17 16:06> - Labs CBC & Chem 7: 12/23/17 03:50 12/23/17 03:50 Labs: Laboratory Results - last 24 hr 12/20/17 12/20/17 12/20/17 14:32 14:33 14:33 WBC RBC Hgb Hct MCV MCH MCHC RDW Plt Count MPV Neut % (Auto) Lymph % (Auto) [place] % (Auto) Eos % (Auto) Baso % (Auto) Neut # (Auto) Lymph # (Auto) [place] # (Auto) Eos # (Auto) Baso # (Auto) CBC Comment WBC Differential Differential Comment PT INR APTT Sodium 129 L Potassium 4.6 Chloride 101 Carbon Dioxide 15.6 L Anion Gap 12 BUN 58 H Creatinine 2.90 H Estimated GFR 23 L Random Glucose 136 H Lactic Acid 1.5 Calcium 9.1 Phosphorus Magnesium 1.9 Total Bilirubin 0.5 AST 24 ALT 31 Alkaline Phosphatase 78 Ammonia Total Creatine Kinase 116 Troponin I LESS THAN 0.02 L Total Protein 8.1 Albumin 3.4 Lipase TSH 3rd Generation 1.600 Random Cortisol Ur Collection Type Urine Color Urine Turbidity Urine pH Ur Specific [place] Urine Protein Urine Glucose (UA) Urine Ketones Urine Occult Blood Urine Nitrite Urine Bilirubin Urine Urobilinogen Ur Leukocyte Esterase Urine RBC Ur Squamous Epith Cells Amorphous Sediment Micro UA Comment Urine Collection Time CSF Volume (1) CSF Supernat Color (1) CSF Gross Blood (1) CSF Volume (2) CSF Supernat Color (2) CSF Gross Blood (2) CSF Volume (3) CSF Supernat Color (3) CSF Gross Blood (3) CSF Volume (4) CSF Supernat Color (4) CSF Gross Blood (4) CSF WBC (4) CSF RBC (4) CSF Neutrophils CSF Lymphocytes CSF Glucose CSF Total Protein Nasal Screen MRSA (PCR) Stl C.difficile Tox PCR St C. diff Tox Epid 027 Salicylates 4.4 Urine Opiates Screen Acetaminophen LESS THAN 2.0 L Ur Barbiturates Screen Ur Amphetamines Screen U Benzodiazepines Scrn Urine Cocaine Screen U Cannabinoids Screen Ethyl Alcohol LESS THAN 3 HSV I DNA PCR HSV II DNA PCR 12/20/17 12/20/17 12/20/17 14:33 14:33 14:33 WBC 9.6 RBC 3.91 L Hgb 12.5 L Hct 37.3 L MCV 95.4 MCH 32.0 MCHC 33.5 RDW 14.7 Plt Count 262 MPV 7.5 Neut % (Auto) 81.1 H Lymph % (Auto) 12.4 [place] % (Auto) 5.8 Eos % (Auto) 0.4 Baso % (Auto) 0.3 Neut # (Auto) 7.8 H Lymph # (Auto) 1.2 [place] # (Auto) 0.6 Eos # (Auto) 0.0 Baso # (Auto) 0.0 CBC Comment DIFF FINAL WBC Differential Differential Comment PT 10.1 INR 1.0 APTT 30.6 H Sodium Potassium Chloride Carbon Dioxide Anion Gap BUN Creatinine Estimated GFR Random Glucose Lactic Acid Calcium Phosphorus Magnesium Total Bilirubin AST ALT Alkaline Phosphatase Ammonia 17 Total Creatine Kinase Troponin I Total Protein Albumin Lipase TSH 3rd Generation Random Cortisol Ur Collection Type Urine Color Urine Turbidity Urine pH Ur Specific [place] Urine Protein Urine Glucose (UA) Urine Ketones Urine Occult Blood Urine Nitrite Urine Bilirubin Urine Urobilinogen Ur Leukocyte Esterase Urine RBC Ur Squamous Epith Cells Amorphous Sediment Micro UA Comment Urine Collection Time CSF Volume (1) CSF Supernat Color (1) CSF Gross Blood (1) CSF Volume (2) CSF Supernat Color (2) CSF Gross Blood (2) CSF Volume (3) CSF Supernat Color (3) CSF Gross Blood (3) CSF Volume (4) CSF Supernat Color (4) CSF Gross Blood (4) CSF WBC (4) CSF RBC (4) CSF Neutrophils CSF Lymphocytes CSF Glucose CSF Total Protein Nasal Screen MRSA (PCR) Stl C.difficile Tox PCR St C. diff Tox Epid 027 Salicylates Urine Opiates Screen Acetaminophen Ur Barbiturates Screen Ur Amphetamines Screen U Benzodiazepines Scrn Urine Cocaine Screen U Cannabinoids Screen Ethyl Alcohol HSV I DNA PCR HSV II DNA PCR 12/20/17 12/20/17 12/20/17 15:36 15:36 16:50 WBC RBC Hgb Hct MCV MCH MCHC RDW Plt Count MPV Neut % (Auto) Lymph % (Auto) [place] % (Auto) Eos % (Auto) Baso % (Auto) Neut # (Auto) Lymph # (Auto) [place] # (Auto) Eos # (Auto) Baso # (Auto) CBC Comment WBC Differential Differential Comment PT INR APTT Sodium Potassium Chloride Carbon Dioxide Anion Gap BUN Creatinine Estimated GFR Random Glucose Lactic Acid Calcium Phosphorus Magnesium Total Bilirubin AST ALT Alkaline Phosphatase Ammonia Total Creatine Kinase Troponin I Total Protein Albumin Lipase TSH 3rd Generation Random Cortisol Ur Collection Type CLEAN CATCH Urine Color YELLOW Urine Turbidity CLEAR Urine pH 5.5 Ur Specific [place] LESS/EQUAL 1.005 Urine Protein NEG Urine Glucose (UA) NEG Urine Ketones NEG Urine Occult Blood TRACE Urine Nitrite NEG Urine Bilirubin NEG Urine Urobilinogen 0.2 Ur Leukocyte Esterase NEG Urine RBC 0-3 Ur Squamous Epith Cells 0-5 Amorphous Sediment FEW Micro UA Comment CULT NOT INDICATED Urine Collection Time 1536 CSF Volume (1) 1.5 CSF Supernat Color (1) CLEAR CSF Gross Blood (1) 2+ H CSF Volume (2) 0.9 CSF Supernat Color (2) CLEAR CSF Gross Blood (2) 2+ H CSF Volume (3) 1.8 CSF Supernat Color (3) CLEAR CSF Gross Blood (3) 2+ H CSF Volume (4) 1.8 CSF Supernat Color (4) CLEAR CSF Gross Blood (4) 1+ H CSF WBC (4) 1 CSF RBC (4) 1255 H CSF Neutrophils 100 CSF Lymphocytes 0 CSF Glucose CSF Total Protein Nasal Screen MRSA (PCR) Stl C.difficile Tox PCR St C. diff Tox Epid 027 Salicylates Urine Opiates Screen NEG Acetaminophen Ur Barbiturates Screen NEG Ur Amphetamines Screen NEG U Benzodiazepines Scrn NEG Urine Cocaine Screen NEG U Cannabinoids Screen NEG Ethyl Alcohol HSV I DNA PCR HSV II DNA PCR 12/20/17 12/20/17 12/20/17 16:50 16:50 20:00 WBC RBC Hgb Hct MCV MCH MCHC RDW Plt Count MPV Neut % (Auto) Lymph % (Auto) [place] % (Auto) Eos % (Auto) Baso % (Auto) Neut # (Auto) Lymph # (Auto) [place] # (Auto) Eos # (Auto) Baso # (Auto) CBC Comment WBC Differential Differential Comment PT INR APTT Sodium Potassium Chloride Carbon Dioxide Anion Gap BUN Creatinine Estimated GFR Random Glucose Lactic Acid Calcium Phosphorus Magnesium Total Bilirubin AST ALT Alkaline Phosphatase Ammonia Total Creatine Kinase Troponin I Total Protein Albumin Lipase TSH 3rd Generation Random Cortisol Ur Collection Type Urine Color Urine Turbidity Urine pH Ur Specific [place] Urine Protein Urine Glucose (UA) Urine Ketones Urine Occult Blood Urine Nitrite Urine Bilirubin Urine Urobilinogen Ur Leukocyte Esterase Urine RBC Ur Squamous Epith Cells Amorphous Sediment Micro UA Comment Urine Collection Time CSF Volume (1) CSF Supernat Color (1) CSF Gross Blood (1) CSF Volume (2) CSF Supernat Color (2) CSF Gross Blood (2) CSF Volume (3) CSF Supernat Color (3) CSF Gross Blood (3) CSF Volume (4) CSF Supernat Color (4) CSF Gross Blood (4) CSF WBC (4) CSF RBC (4) CSF Neutrophils CSF Lymphocytes CSF Glucose 73 CSF Total Protein 45.1 H Nasal Screen MRSA (PCR) MRSA DETECTED Stl C.difficile Tox PCR St C. diff Tox Epid 027 Salicylates Urine Opiates Screen Acetaminophen Ur Barbiturates Screen Ur Amphetamines Screen U Benzodiazepines Scrn Urine Cocaine Screen U Cannabinoids Screen Ethyl Alcohol HSV I DNA PCR Negative HSV II DNA PCR Negative 12/20/17 12/20/17 12/20/17 21:18 21:18 23:38 WBC RBC Hgb Hct MCV MCH MCHC RDW Plt Count MPV Neut % (Auto) Lymph % (Auto) [place] % (Auto) Eos % (Auto) Baso % (Auto) Neut # (Auto) Lymph # (Auto) [place] # (Auto) Eos # (Auto) Baso # (Auto) CBC Comment WBC Differential Differential Comment PT INR APTT Sodium Potassium Chloride Carbon Dioxide Anion Gap BUN Creatinine Estimated GFR Random Glucose Lactic Acid 0.7 Calcium Phosphorus Magnesium Total Bilirubin AST ALT Alkaline Phosphatase Ammonia Total Creatine Kinase Troponin I 0.12 H D Total Protein Albumin Lipase 387 TSH 3rd Generation Random Cortisol 4.1 Ur Collection Type Urine Color Urine Turbidity Urine pH Ur Specific [place] Urine Protein Urine Glucose (UA) Urine Ketones Urine Occult Blood Urine Nitrite Urine Bilirubin Urine Urobilinogen Ur Leukocyte Esterase Urine RBC Ur Squamous Epith Cells Amorphous Sediment Micro UA Comment Urine Collection Time CSF Volume (1) CSF Supernat Color (1) CSF Gross Blood (1) CSF Volume (2) CSF Supernat Color (2) CSF Gross Blood (2) CSF Volume (3) CSF Supernat Color (3) CSF Gross Blood (3) CSF Volume (4) CSF Supernat Color (4) CSF Gross Blood (4) CSF WBC (4) CSF RBC (4) CSF Neutrophils CSF Lymphocytes CSF Glucose CSF Total Protein Nasal Screen MRSA (PCR) Stl C.difficile Tox PCR St C. diff Tox Epid 027 Salicylates Urine Opiates Screen Acetaminophen Ur Barbiturates Screen Ur Amphetamines Screen U Benzodiazepines Scrn Urine Cocaine Screen U Cannabinoids Screen Ethyl Alcohol HSV I DNA PCR HSV II DNA PCR 12/21/17 12/21/17 12/21/17 04:44 04:44 04:44 WBC 6.1 RBC 3.29 L Hgb 10.5 L D Hct 32.0 L MCV 97.3 MCH 32.0 MCHC 32.9 RDW 15.8 Plt Count 198 MPV 7.3 Neut % (Auto) 78.4 H Lymph % (Auto) 12.0 [place] % (Auto) 8.5 H Eos % (Auto) 0.5 Baso % (Auto) 0.6 Neut # (Auto) 4.8 Lymph # (Auto) 0.7 L [place] # (Auto) 0.5 Eos # (Auto) 0.0 Baso # (Auto) 0.0 CBC Comment DIFF FINAL WBC Differential Differential Comment PT INR APTT Sodium 138 Potassium 4.6 Chloride 113 H D Carbon Dioxide 15.1 L Anion Gap 10 BUN 35 H D Creatinine 1.71 H D Estimated GFR 42 L Random Glucose 89 Lactic Acid 0.5 Calcium 8.1 L D Phosphorus 3.1 Magnesium 1.5 Total Bilirubin 0.3 AST 20 ALT 22 Alkaline Phosphatase 61 Ammonia Total Creatine Kinase Troponin I Total Protein 6.5 D Albumin 2.8 L D Lipase TSH 3rd Generation Random Cortisol Ur Collection Type Urine Color Urine Turbidity Urine pH Ur Specific [place] Urine Protein Urine Glucose (UA) Urine Ketones Urine Occult Blood Urine Nitrite Urine Bilirubin Urine Urobilinogen Ur Leukocyte Esterase Urine RBC Ur Squamous Epith Cells Amorphous Sediment Micro UA Comment Urine Collection Time CSF Volume (1) CSF Supernat Color (1) CSF Gross Blood (1) CSF Volume (2) CSF Supernat Color (2) CSF Gross Blood (2) CSF Volume (3) CSF Supernat Color (3) CSF Gross Blood (3) CSF Volume (4) CSF Supernat Color (4) CSF Gross Blood (4) CSF WBC (4) CSF RBC (4) CSF Neutrophils CSF Lymphocytes CSF Glucose CSF Total Protein Nasal Screen MRSA (PCR) Stl C.difficile Tox PCR St C. diff Tox Epid 027 Salicylates Urine Opiates Screen Acetaminophen Ur Barbiturates Screen Ur Amphetamines Screen U Benzodiazepines Scrn Urine Cocaine Screen U Cannabinoids Screen Ethyl Alcohol HSV I DNA PCR HSV II DNA PCR 12/21/17 12/21/17 12/21/17 04:44 09:28 16:46 WBC RBC Hgb 10.9 L 11.0 L Hct MCV MCH MCHC RDW Plt Count MPV Neut % (Auto) Lymph % (Auto) [place] % (Auto) Eos % (Auto) Baso % (Auto) Neut # (Auto) Lymph # (Auto) [place] # (Auto) Eos # (Auto) Baso # (Auto) CBC Comment WBC Differential Differential Comment PT INR APTT Sodium Potassium Chloride Carbon Dioxide Anion Gap BUN Creatinine Estimated GFR Random Glucose Lactic Acid Calcium Phosphorus 3.0 Magnesium Total Bilirubin AST ALT Alkaline Phosphatase Ammonia Total Creatine Kinase Troponin I 0.12 H Total Protein Albumin Lipase TSH 3rd Generation Random Cortisol Ur Collection Type Urine Color Urine Turbidity Urine pH Ur Specific [place] Urine Protein Urine Glucose (UA) Urine Ketones Urine Occult Blood Urine Nitrite Urine Bilirubin Urine Urobilinogen Ur Leukocyte Esterase Urine RBC Ur Squamous Epith Cells Amorphous Sediment Micro UA Comment Urine Collection Time CSF Volume (1) CSF Supernat Color (1) CSF Gross Blood (1) CSF Volume (2) CSF Supernat Color (2) CSF Gross Blood (2) CSF Volume (3) CSF Supernat Color (3) CSF Gross Blood (3) CSF Volume (4) CSF Supernat Color (4) CSF Gross Blood (4) CSF WBC (4) CSF RBC (4) CSF Neutrophils CSF Lymphocytes CSF Glucose CSF Total Protein Nasal Screen MRSA (PCR) Stl C.difficile Tox PCR St C. diff Tox Epid 027 Salicylates Urine Opiates Screen Acetaminophen Ur Barbiturates Screen Ur Amphetamines Screen U Benzodiazepines Scrn Urine Cocaine Screen U Cannabinoids Screen Ethyl Alcohol HSV I DNA PCR HSV II DNA PCR 12/22/17 12/22/17 12/22/17 04:30 04:30 08:40 WBC 5.4 RBC 3.17 L Hgb 10.2 L Hct 30.2 L MCV 95.2 MCH 32.2 MCHC 33.8 RDW 15.5 Plt Count 186 MPV 7.1 Neut % (Auto) 69.3 Lymph % (Auto) 19.9 [place] % (Auto) 9.4 H Eos % (Auto) 0.9 Baso % (Auto) 0.5 Neut # (Auto) 3.8 Lymph # (Auto) 1.1 [place] # (Auto) 0.5 Eos # (Auto) 0.1 Baso # (Auto) 0.0 CBC Comment DIFF FINAL WBC Differential Differential Comment PT INR APTT Sodium 137 Potassium 4.1 Chloride 111 H Carbon Dioxide 17.9 L Anion Gap 8 BUN 22 H D Creatinine 1.32 H Estimated GFR 56 L Random Glucose 70 L Lactic Acid Calcium 8.0 L Phosphorus Magnesium Total Bilirubin AST ALT Alkaline Phosphatase Ammonia Total Creatine Kinase Troponin I Total Protein Albumin Lipase TSH 3rd Generation Random Cortisol Ur Collection Type Urine Color Urine Turbidity Urine pH Ur Specific [place] Urine Protein Urine Glucose (UA) Urine Ketones Urine Occult Blood Urine Nitrite Urine Bilirubin Urine Urobilinogen Ur Leukocyte Esterase Urine RBC Ur Squamous Epith Cells Amorphous Sediment Micro UA Comment Urine Collection Time CSF Volume (1) CSF Supernat Color (1) CSF Gross Blood (1) CSF Volume (2) CSF Supernat Color (2) CSF Gross Blood (2) CSF Volume (3) CSF Supernat Color (3) CSF Gross Blood (3) CSF Volume (4) CSF Supernat Color (4) CSF Gross Blood (4) CSF WBC (4) CSF RBC (4) CSF Neutrophils CSF Lymphocytes CSF Glucose CSF Total Protein Nasal Screen MRSA (PCR) Stl C.difficile Tox PCR NEGATIVE St C. diff Tox Epid 027 PRESUMPTIVE NEGATIVE Salicylates Urine Opiates Screen Acetaminophen Ur Barbiturates Screen Ur Amphetamines Screen U Benzodiazepines Scrn Urine Cocaine Screen U Cannabinoids Screen Ethyl Alcohol HSV I DNA PCR HSV II DNA PCR 12/23/17 12/23/17 03:50 03:50 WBC 5.5 RBC 3.12 L Hgb 10.1 L Hct 29.7 L MCV 95.1 MCH 32.4 MCHC 34.1 RDW 14.9 Plt Count 182 MPV 7.1 Neut % (Auto) 71.4 H Lymph % (Auto) 19.2 [place] % (Auto) 7.9 Eos % (Auto) 1.1 Baso % (Auto) 0.4 Neut # (Auto) 3.9 Lymph # (Auto) 1.1 [place] # (Auto) 0.4 Eos # (Auto) 0.1 Baso # (Auto) 0.0 CBC Comment WBC Differential . Differential Comment Auto diff final PT INR APTT Sodium 139 Potassium 4.1 Chloride 110 H Carbon Dioxide 19.2 L Anion Gap 10 BUN 15 Creatinine 1.08 Estimated GFR 71 L Random Glucose 74 Lactic Acid Calcium 7.6 L Phosphorus Magnesium 1.2 L Total Bilirubin AST ALT Alkaline Phosphatase Ammonia Total Creatine Kinase Troponin I Total Protein Albumin Lipase TSH 3rd Generation Random Cortisol Ur Collection Type Urine Color Urine Turbidity Urine pH Ur Specific [place] Urine Protein Urine Glucose (UA) Urine Ketones Urine Occult Blood Urine Nitrite Urine Bilirubin Urine Urobilinogen Ur Leukocyte Esterase Urine RBC Ur Squamous Epith Cells Amorphous Sediment Micro UA Comment Urine Collection Time CSF Volume (1) CSF Supernat Color (1) CSF Gross Blood (1) CSF Volume (2) CSF Supernat Color (2) CSF Gross Blood (2) CSF Volume (3) CSF Supernat Color (3) CSF Gross Blood (3) CSF Volume (4) CSF Supernat Color (4) CSF Gross Blood (4) CSF WBC (4) CSF RBC (4) CSF Neutrophils CSF Lymphocytes CSF Glucose CSF Total Protein Nasal Screen MRSA (PCR) Stl C.difficile Tox PCR St C. diff Tox Epid 027 Salicylates Urine Opiates Screen Acetaminophen Ur Barbiturates Screen Ur Amphetamines Screen U Benzodiazepines Scrn Urine Cocaine Screen U Cannabinoids Screen Ethyl Alcohol HSV I DNA PCR HSV II DNA PCR - Imaging Imaging: Impressions Abdomen X-Ray 12/23/17 00:00 CONCLUSION: Bowel gas pattern unremarkable. 6 mm calculus overlies lower pole left kidney. <Zena Hill - Last Filed: 12/23/17 17:04> Assessment and Plan (1) Anemia Status: Acute Code(s): D64.9 - Anemia, unspecified (2) GI bleed Status: Acute Code(s): K92.2 - Gastrointestinal hemorrhage, unspecified - Plan GI bleed and positive Hemoccult stools History of hypovolemic shock, resolved 12/23/2017 anemia, current hemoglobin 10.1, rectal bleeding dark stools currently none noted PT/INR 1 History of EtOH dependence, patient is alert answering simple questions currently does not appear to have any anxiety. Rectal bleeding dark stools. Patient denies any blood thinners. Current chief complaint dysuria with condom catheter on showing yellow urine with some sediment. Patient states he was given unknown medication to take for 30 to days. Encourage patient to discuss further symptoms with hospitalist. KUB done on 12/23/2017 for follow-up ileus, gaseous bowel pattern unremarkable, appears to be resolved Plan Consent for colonoscopy in a.m. Clear liquids today N.p.o. at midnight except for medications Monitor labs with special attention to hemoglobin Supportive care Further recommendations to follow after procedures Patient was seen per myself and Dr. Hill, note was written on his behalf behalf <Miranda Pollard - Last Filed: 12/23/17 16:06> (1) Anemia Status: Acute Code(s): D64.9 - Anemia, unspecified (2) GI bleed Status: Acute Code(s): K92.2 - Gastrointestinal hemorrhage, unspecified - Plan No bleeding, diarrhea continues. Colonoscopy tomorrow. - Attending Attestation The exam, history, and the medical decision-making described in the above note were completed with the assistance of the mid-level provider. I reviewed and agree with the findings presented. I attest that I had a [id number] encounter with the patient on the same day, and personally performed and documented my assessment and findings in the medical record. <Zena Hill - Last Filed: 12/23/17 17:04>
[2017-12-23] MEDS: Pantoprazole Inj 40 MG Vial IV.PUSH SCH ×2 (18:31→22:14)
[2017-12-23] MEDS: Senna/Docusate Sodium 8.6/50 MG Tablet PO SCH ×3 (18:33→21:02)
[2017-12-23] MEDS: Pregabalin 75 MG Capsule PO SCH ×3 (18:34→21:02)
--- NOTE | 2017-12-23 19:59 | P.PNIM ---
Subjective Interval history: Pt tolerating liquid diet No significant diarrhea Physical Exam Vital signs: Vital Signs 12/23/17 00:05 12/23/17 01:00 12/23/17 02:00 Temperature Pulse Rate 73 64 80 Respiratory Rate 15 13 15 Blood Pressure 158/75 H Pulse Oximetry 98 98 96 12/23/17 02:01 12/23/17 03:00 12/23/17 04:00 Temperature 98.2 F Pulse Rate 91 H 75 70 Respiratory Rate 19 15 14 Blood Pressure 161/127 H 164/79 H 170/95 H Pulse Oximetry 96 98 100 12/23/17 05:00 12/23/17 06:00 12/23/17 10:36 Temperature Pulse Rate 64 67 Respiratory Rate 14 18 Blood Pressure 166/74 H 157/73 H Pulse Oximetry 98 99 93 L 12/23/17 18:42 Temperature Pulse Rate Respiratory Rate 5 L Blood Pressure Pulse Oximetry Intake & Output 12/23/17 12/23/17 12/24/17 06:59 18:59 06:59 Intake Total 960 / 960 Output Total 800 / 800 Balance 160 / 160 Weight 88.6 kg Intake: Oral 960 / 960 Output: Urine 800 / 800 Other: # Voids 2 Date of Last Bowel Movement 12/23/17 Narrative: General: NAD Chest: CTA Cardiac: Regular Abd: +BS, soft nontender Ext: No edema, soft restraints in place Results - Labs CBC & Chem 7: 12/25/17 08:57 12/25/17 08:57 Laboratory Results - last 24 hr 12/20/17 12/20/17 12/20/17 14:32 14:33 14:33 WBC RBC Hgb Hct MCV MCH MCHC RDW Plt Count MPV Neut % (Auto) Lymph % (Auto) [place] % (Auto) Eos % (Auto) Baso % (Auto) Neut # (Auto) Lymph # (Auto) [place] # (Auto) Eos # (Auto) Baso # (Auto) CBC Comment WBC Differential Differential Comment PT INR APTT Sodium 129 L Potassium 4.6 Chloride 101 Carbon Dioxide 15.6 L Anion Gap 12 BUN 58 H Creatinine 2.90 H Estimated GFR 23 L Random Glucose 136 H Lactic Acid 1.5 Calcium 9.1 Phosphorus Magnesium 1.9 Total Bilirubin 0.5 AST 24 ALT 31 Alkaline Phosphatase 78 Ammonia Total Creatine Kinase 116 Troponin I LESS THAN 0.02 L Total Protein 8.1 Albumin 3.4 Lipase TSH 3rd Generation 1.600 Random Cortisol Ur Collection Type Urine Color Urine Turbidity Urine pH Ur Specific [place] Urine Protein Urine Glucose (UA) Urine Ketones Urine Occult Blood Urine Nitrite Urine Bilirubin Urine Urobilinogen Ur Leukocyte Esterase Urine RBC Ur Squamous Epith Cells Amorphous Sediment Micro UA Comment Urine Collection Time CSF Volume (1) CSF Supernat Color (1) CSF Gross Blood (1) CSF Volume (2) CSF Supernat Color (2) CSF Gross Blood (2) CSF Volume (3) CSF Supernat Color (3) CSF Gross Blood (3) CSF Volume (4) CSF Supernat Color (4) CSF Gross Blood (4) CSF WBC (4) CSF RBC (4) CSF Neutrophils CSF Lymphocytes CSF Glucose CSF Total Protein Nasal Screen MRSA (PCR) Stl C.difficile Tox PCR St C. diff Tox Epid 027 Salicylates 4.4 Urine Opiates Screen Acetaminophen LESS THAN 2.0 L Ur Barbiturates Screen Ur Amphetamines Screen U Benzodiazepines Scrn Urine Cocaine Screen U Cannabinoids Screen Ethyl Alcohol LESS THAN 3 HSV I DNA PCR HSV II DNA PCR 12/20/17 12/20/17 12/20/17 14:33 14:33 14:33 WBC 9.6 RBC 3.91 L Hgb 12.5 L Hct 37.3 L MCV 95.4 MCH 32.0 MCHC 33.5 RDW 14.7 Plt Count 262 MPV 7.5 Neut % (Auto) 81.1 H Lymph % (Auto) 12.4 [place] % (Auto) 5.8 Eos % (Auto) 0.4 Baso % (Auto) 0.3 Neut # (Auto) 7.8 H Lymph # (Auto) 1.2 [place] # (Auto) 0.6 Eos # (Auto) 0.0 Baso # (Auto) 0.0 CBC Comment DIFF FINAL WBC Differential Differential Comment PT 10.1 INR 1.0 APTT 30.6 H Sodium Potassium Chloride Carbon Dioxide Anion Gap BUN Creatinine Estimated GFR Random Glucose Lactic Acid Calcium Phosphorus Magnesium Total Bilirubin AST ALT Alkaline Phosphatase Ammonia 17 Total Creatine Kinase Troponin I Total Protein Albumin Lipase TSH 3rd Generation Random Cortisol Ur Collection Type Urine Color Urine Turbidity Urine pH Ur Specific [place] Urine Protein Urine Glucose (UA) Urine Ketones Urine Occult Blood Urine Nitrite Urine Bilirubin Urine Urobilinogen Ur Leukocyte Esterase Urine RBC Ur Squamous Epith Cells Amorphous Sediment Micro UA Comment Urine Collection Time CSF Volume (1) CSF Supernat Color (1) CSF Gross Blood (1) CSF Volume (2) CSF Supernat Color (2) CSF Gross Blood (2) CSF Volume (3) CSF Supernat Color (3) CSF Gross Blood (3) CSF Volume (4) CSF Supernat Color (4) CSF Gross Blood (4) CSF WBC (4) CSF RBC (4) CSF Neutrophils CSF Lymphocytes CSF Glucose CSF Total Protein Nasal Screen MRSA (PCR) Stl C.difficile Tox PCR St C. diff Tox Epid 027 Salicylates Urine Opiates Screen Acetaminophen Ur Barbiturates Screen Ur Amphetamines Screen U Benzodiazepines Scrn Urine Cocaine Screen U Cannabinoids Screen Ethyl Alcohol HSV I DNA PCR HSV II DNA PCR 12/20/17 12/20/17 12/20/17 15:36 15:36 16:50 WBC RBC Hgb Hct MCV MCH MCHC RDW Plt Count MPV Neut % (Auto) Lymph % (Auto) [place] % (Auto) Eos % (Auto) Baso % (Auto) Neut # (Auto) Lymph # (Auto) [place] # (Auto) Eos # (Auto) Baso # (Auto) CBC Comment WBC Differential Differential Comment PT INR APTT Sodium Potassium Chloride Carbon Dioxide Anion Gap BUN Creatinine Estimated GFR Random Glucose Lactic Acid Calcium Phosphorus Magnesium Total Bilirubin AST ALT Alkaline Phosphatase Ammonia Total Creatine Kinase Troponin I Total Protein Albumin Lipase TSH 3rd Generation Random Cortisol Ur Collection Type CLEAN CATCH Urine Color YELLOW Urine Turbidity CLEAR Urine pH 5.5 Ur Specific [place] LESS/EQUAL 1.005 Urine Protein NEG Urine Glucose (UA) NEG Urine Ketones NEG Urine Occult Blood TRACE Urine Nitrite NEG Urine Bilirubin NEG Urine Urobilinogen 0.2 Ur Leukocyte Esterase NEG Urine RBC 0-3 Ur Squamous Epith Cells 0-5 Amorphous Sediment FEW Micro UA Comment CULT NOT INDICATED Urine Collection Time 1536 CSF Volume (1) 1.5 CSF Supernat Color (1) CLEAR CSF Gross Blood (1) 2+ H CSF Volume (2) 0.9 CSF Supernat Color (2) CLEAR CSF Gross Blood (2) 2+ H CSF Volume (3) 1.8 CSF Supernat Color (3) CLEAR CSF Gross Blood (3) 2+ H CSF Volume (4) 1.8 CSF Supernat Color (4) CLEAR CSF Gross Blood (4) 1+ H CSF WBC (4) 1 CSF RBC (4) 1255 H CSF Neutrophils 100 CSF Lymphocytes 0 CSF Glucose CSF Total Protein Nasal Screen MRSA (PCR) Stl C.difficile Tox PCR St C. diff Tox Epid 027 Salicylates Urine Opiates Screen NEG Acetaminophen Ur Barbiturates Screen NEG Ur Amphetamines Screen NEG U Benzodiazepines Scrn NEG Urine Cocaine Screen NEG U Cannabinoids Screen NEG Ethyl Alcohol HSV I DNA PCR HSV II DNA PCR 12/20/17 12/20/17 12/20/17 16:50 16:50 20:00 WBC RBC Hgb Hct MCV MCH MCHC RDW Plt Count MPV Neut % (Auto) Lymph % (Auto) [place] % (Auto) Eos % (Auto) Baso % (Auto) Neut # (Auto) Lymph # (Auto) [place] # (Auto) Eos # (Auto) Baso # (Auto) CBC Comment WBC Differential Differential Comment PT INR APTT Sodium Potassium Chloride Carbon Dioxide Anion Gap BUN Creatinine Estimated GFR Random Glucose Lactic Acid Calcium Phosphorus Magnesium Total Bilirubin AST ALT Alkaline Phosphatase Ammonia Total Creatine Kinase Troponin I Total Protein Albumin Lipase TSH 3rd Generation Random Cortisol Ur Collection Type Urine Color Urine Turbidity Urine pH Ur Specific [place] Urine Protein Urine Glucose (UA) Urine Ketones Urine Occult Blood Urine Nitrite Urine Bilirubin Urine Urobilinogen Ur Leukocyte Esterase Urine RBC Ur Squamous Epith Cells Amorphous Sediment Micro UA Comment Urine Collection Time CSF Volume (1) CSF Supernat Color (1) CSF Gross Blood (1) CSF Volume (2) CSF Supernat Color (2) CSF Gross Blood (2) CSF Volume (3) CSF Supernat Color (3) CSF Gross Blood (3) CSF Volume (4) CSF Supernat Color (4) CSF Gross Blood (4) CSF WBC (4) CSF RBC (4) CSF Neutrophils CSF Lymphocytes CSF Glucose 73 CSF Total Protein 45.1 H Nasal Screen MRSA (PCR) MRSA DETECTED Stl C.difficile Tox PCR St C. diff Tox Epid 027 Salicylates Urine Opiates Screen Acetaminophen Ur Barbiturates Screen Ur Amphetamines Screen U Benzodiazepines Scrn Urine Cocaine Screen U Cannabinoids Screen Ethyl Alcohol HSV I DNA PCR Negative HSV II DNA PCR Negative 12/20/17 12/20/17 12/20/17 21:18 21:18 23:38 WBC RBC Hgb Hct MCV MCH MCHC RDW Plt Count MPV Neut % (Auto) Lymph % (Auto) [place] % (Auto) Eos % (Auto) Baso % (Auto) Neut # (Auto) Lymph # (Auto) [place] # (Auto) Eos # (Auto) Baso # (Auto) CBC Comment WBC Differential Differential Comment PT INR APTT Sodium Potassium Chloride Carbon Dioxide Anion Gap BUN Creatinine Estimated GFR Random Glucose Lactic Acid 0.7 Calcium Phosphorus Magnesium Total Bilirubin AST ALT Alkaline Phosphatase Ammonia Total Creatine Kinase Troponin I 0.12 H D Total Protein Albumin Lipase 387 TSH 3rd Generation Random Cortisol 4.1 Ur Collection Type Urine Color Urine Turbidity Urine pH Ur Specific [place] Urine Protein Urine Glucose (UA) Urine Ketones Urine Occult Blood Urine Nitrite Urine Bilirubin Urine Urobilinogen Ur Leukocyte Esterase Urine RBC Ur Squamous Epith Cells Amorphous Sediment Micro UA Comment Urine Collection Time CSF Volume (1) CSF Supernat Color (1) CSF Gross Blood (1) CSF Volume (2) CSF Supernat Color (2) CSF Gross Blood (2) CSF Volume (3) CSF Supernat Color (3) CSF Gross Blood (3) CSF Volume (4) CSF Supernat Color (4) CSF Gross Blood (4) CSF WBC (4) CSF RBC (4) CSF Neutrophils CSF Lymphocytes CSF Glucose CSF Total Protein Nasal Screen MRSA (PCR) Stl C.difficile Tox PCR St C. diff Tox Epid 027 Salicylates Urine Opiates Screen Acetaminophen Ur Barbiturates Screen Ur Amphetamines Screen U Benzodiazepines Scrn Urine Cocaine Screen U Cannabinoids Screen Ethyl Alcohol HSV I DNA PCR HSV II DNA PCR 12/21/17 12/21/17 12/21/17 04:44 04:44 04:44 WBC 6.1 RBC 3.29 L Hgb 10.5 L D Hct 32.0 L MCV 97.3 MCH 32.0 MCHC 32.9 RDW 15.8 Plt Count 198 MPV 7.3 Neut % (Auto) 78.4 H Lymph % (Auto) 12.0 [place] % (Auto) 8.5 H Eos % (Auto) 0.5 Baso % (Auto) 0.6 Neut # (Auto) 4.8 Lymph # (Auto) 0.7 L [place] # (Auto) 0.5 Eos # (Auto) 0.0 Baso # (Auto) 0.0 CBC Comment DIFF FINAL WBC Differential Differential Comment PT INR APTT Sodium 138 Potassium 4.6 Chloride 113 H D Carbon Dioxide 15.1 L Anion Gap 10 BUN 35 H D Creatinine 1.71 H D Estimated GFR 42 L Random Glucose 89 Lactic Acid 0.5 Calcium 8.1 L D Phosphorus 3.1 Magnesium 1.5 Total Bilirubin 0.3 AST 20 ALT 22 Alkaline Phosphatase 61 Ammonia Total Creatine Kinase Troponin I Total Protein 6.5 D Albumin 2.8 L D Lipase TSH 3rd Generation Random Cortisol Ur Collection Type Urine Color Urine Turbidity Urine pH Ur Specific [place] Urine Protein Urine Glucose (UA) Urine Ketones Urine Occult Blood Urine Nitrite Urine Bilirubin Urine Urobilinogen Ur Leukocyte Esterase Urine RBC Ur Squamous Epith Cells Amorphous Sediment Micro UA Comment Urine Collection Time CSF Volume (1) CSF Supernat Color (1) CSF Gross Blood (1) CSF Volume (2) CSF Supernat Color (2) CSF Gross Blood (2) CSF Volume (3) CSF Supernat Color (3) CSF Gross Blood (3) CSF Volume (4) CSF Supernat Color (4) CSF Gross Blood (4) CSF WBC (4) CSF RBC (4) CSF Neutrophils CSF Lymphocytes CSF Glucose CSF Total Protein Nasal Screen MRSA (PCR) Stl C.difficile Tox PCR St C. diff Tox Epid 027 Salicylates Urine Opiates Screen Acetaminophen Ur Barbiturates Screen Ur Amphetamines Screen U Benzodiazepines Scrn Urine Cocaine Screen U Cannabinoids Screen Ethyl Alcohol HSV I DNA PCR HSV II DNA PCR 12/21/17 12/21/17 12/21/17 04:44 09:28 16:46 WBC RBC Hgb 10.9 L 11.0 L Hct MCV MCH MCHC RDW Plt Count MPV Neut % (Auto) Lymph % (Auto) [place] % (Auto) Eos % (Auto) Baso % (Auto) Neut # (Auto) Lymph # (Auto) [place] # (Auto) Eos # (Auto) Baso # (Auto) CBC Comment WBC Differential Differential Comment PT INR APTT Sodium Potassium Chloride Carbon Dioxide Anion Gap BUN Creatinine Estimated GFR Random Glucose Lactic Acid Calcium Phosphorus 3.0 Magnesium Total Bilirubin AST ALT Alkaline Phosphatase Ammonia Total Creatine Kinase Troponin I 0.12 H Total Protein Albumin Lipase TSH 3rd Generation Random Cortisol Ur Collection Type Urine Color Urine Turbidity Urine pH Ur Specific [place] Urine Protein Urine Glucose (UA) Urine Ketones Urine Occult Blood Urine Nitrite Urine Bilirubin Urine Urobilinogen Ur Leukocyte Esterase Urine RBC Ur Squamous Epith Cells Amorphous Sediment Micro UA Comment Urine Collection Time CSF Volume (1) CSF Supernat Color (1) CSF Gross Blood (1) CSF Volume (2) CSF Supernat Color (2) CSF Gross Blood (2) CSF Volume (3) CSF Supernat Color (3) CSF Gross Blood (3) CSF Volume (4) CSF Supernat Color (4) CSF Gross Blood (4) CSF WBC (4) CSF RBC (4) CSF Neutrophils CSF Lymphocytes CSF Glucose CSF Total Protein Nasal Screen MRSA (PCR) Stl C.difficile Tox PCR St C. diff Tox Epid 027 Salicylates Urine Opiates Screen Acetaminophen Ur Barbiturates Screen Ur Amphetamines Screen U Benzodiazepines Scrn Urine Cocaine Screen U Cannabinoids Screen Ethyl Alcohol HSV I DNA PCR HSV II DNA PCR 12/22/17 12/22/17 12/22/17 04:30 04:30 08:40 WBC 5.4 RBC 3.17 L Hgb 10.2 L Hct 30.2 L MCV 95.2 MCH 32.2 MCHC 33.8 RDW 15.5 Plt Count 186 MPV 7.1 Neut % (Auto) 69.3 Lymph % (Auto) 19.9 [place] % (Auto) 9.4 H Eos % (Auto) 0.9 Baso % (Auto) 0.5 Neut # (Auto) 3.8 Lymph # (Auto) 1.1 [place] # (Auto) 0.5 Eos # (Auto) 0.1 Baso # (Auto) 0.0 CBC Comment DIFF FINAL WBC Differential Differential Comment PT INR APTT Sodium 137 Potassium 4.1 Chloride 111 H Carbon Dioxide 17.9 L Anion Gap 8 BUN 22 H D Creatinine 1.32 H Estimated GFR 56 L Random Glucose 70 L Lactic Acid Calcium 8.0 L Phosphorus Magnesium Total Bilirubin AST ALT Alkaline Phosphatase Ammonia Total Creatine Kinase Troponin I Total Protein Albumin Lipase TSH 3rd Generation Random Cortisol Ur Collection Type Urine Color Urine Turbidity Urine pH Ur Specific [place] Urine Protein Urine Glucose (UA) Urine Ketones Urine Occult Blood Urine Nitrite Urine Bilirubin Urine Urobilinogen Ur Leukocyte Esterase Urine RBC Ur Squamous Epith Cells Amorphous Sediment Micro UA Comment Urine Collection Time CSF Volume (1) CSF Supernat Color (1) CSF Gross Blood (1) CSF Volume (2) CSF Supernat Color (2) CSF Gross Blood (2) CSF Volume (3) CSF Supernat Color (3) CSF Gross Blood (3) CSF Volume (4) CSF Supernat Color (4) CSF Gross Blood (4) CSF WBC (4) CSF RBC (4) CSF Neutrophils CSF Lymphocytes CSF Glucose CSF Total Protein Nasal Screen MRSA (PCR) Stl C.difficile Tox PCR NEGATIVE St C. diff Tox Epid 027 PRESUMPTIVE NEGATIVE Salicylates Urine Opiates Screen Acetaminophen Ur Barbiturates Screen Ur Amphetamines Screen U Benzodiazepines Scrn Urine Cocaine Screen U Cannabinoids Screen Ethyl Alcohol HSV I DNA PCR HSV II DNA PCR 07/01/18 07/01/18 03:50 03:50 WBC 5.5 RBC 3.12 L Hgb 10.1 L Hct 29.7 L MCV 95.1 MCH 32.4 MCHC 34.1 RDW 14.9 Plt Count 182 MPV 7.1 Neut % (Auto) 71.4 H Lymph % (Auto) 19.2 [place] % (Auto) 7.9 Eos % (Auto) 1.1 Baso % (Auto) 0.4 Neut # (Auto) 3.9 Lymph # (Auto) 1.1 [place] # (Auto) 0.4 Eos # (Auto) 0.1 Baso # (Auto) 0.0 CBC Comment WBC Differential . Differential Comment Auto diff final PT INR APTT Sodium 139 Potassium 4.1 Chloride 110 H Carbon Dioxide 19.2 L Anion Gap 10 BUN 15 Creatinine 1.08 Estimated GFR 71 L Random Glucose 74 Lactic Acid Calcium 7.6 L Phosphorus Magnesium 1.2 L Total Bilirubin AST ALT Alkaline Phosphatase Ammonia Total Creatine Kinase Troponin I Total Protein Albumin Lipase TSH 3rd Generation Random Cortisol Ur Collection Type Urine Color Urine Turbidity Urine pH Ur Specific [place] Urine Protein Urine Glucose (UA) Urine Ketones Urine Occult Blood Urine Nitrite Urine Bilirubin Urine Urobilinogen Ur Leukocyte Esterase Urine RBC Ur Squamous Epith Cells Amorphous Sediment Micro UA Comment Urine Collection Time CSF Volume (1) CSF Supernat Color (1) CSF Gross Blood (1) CSF Volume (2) CSF Supernat Color (2) CSF Gross Blood (2) CSF Volume (3) CSF Supernat Color (3) CSF Gross Blood (3) CSF Volume (4) CSF Supernat Color (4) CSF Gross Blood (4) CSF WBC (4) CSF RBC (4) CSF Neutrophils CSF Lymphocytes CSF Glucose CSF Total Protein Nasal Screen MRSA (PCR) Stl C.difficile Tox PCR St C. diff Tox Epid 027 Salicylates Urine Opiates Screen Acetaminophen Ur Barbiturates Screen Ur Amphetamines Screen U Benzodiazepines Scrn Urine Cocaine Screen U Cannabinoids Screen Ethyl Alcohol HSV I DNA PCR HSV II DNA PCR - Imaging Impressions Abdomen X-Ray 12/23/17 00:00 CONCLUSION: Bowel gas pattern unremarkable. 6 mm calculus overlies lower pole left kidney. Assessment and Plan - Assessment (1) Acute on chronic renal insufficiency Code(s): N28.9 - Disorder of kidney and ureter, unspecified; N18.9 - Chronic kidney disease, unspecified Status: Acute Plan: - Likely related to dehydration/diarrhea. - Labs improved with IVF - Cont. to monitor (2) Altered mental status Code(s): R41.82 - Altered mental status, unspecified Status: Acute Plan: - See above - Likely due to shock (3) Anemia Code(s): D64.9 - Anemia, unspecified Status: Acute (4) Dysuria Code(s): R30.0 - Dysuria Status: Acute Plan: - Pt complains of issues with dysuria for the last year - He reports that he urinates several times during the night, has a weak stream and some dribbling. - Pt reports that he saw Dr. Sorenson around 1 month ago and was started on Flomax - UA at admission was negative. - Flomax 0.4mg po daily resumed on 12/24 - Pt had a CT Abd/pelvis on (12/21/17) --> There is mild wall thickening in the sigmoid colon and apparent mild focal scarring versus inflammatory change adjacent mesentery at site of prior perforation. There is no free air. Nonobstructing 6 mm left renal calculus. Mildly nonspecific nonobstructive bowel gas pattern characteristic of an ileus. (5) GI bleed Code(s): K92.2 - Gastrointestinal hemorrhage, unspecified Status: Acute (6) Hypovolemic shock Code(s): R57.1 - Hypovolemic shock Status: Acute Plan: Hypovolemic shock Diarrhea - Pt is a 57 y/o male with alcohol abuse, HTN, CKD stage 3 who presented to the ED at [facility] [place] in hypovolemic shock with reported systolic BP of 48/31 - Pt reported that prior to admission he had profuse diarrhea, around 30 episodes, which began after eating a hamburger out at a restaurant. - Pt was given IVF/pressor/ABX broadly and LP drawn and moved to Main ICU - He was able to be stabilized off pressors. - GI consulted - Stools are negative for C. diff. No enteric pathogens on stool culture. Stool for Giardia and cryptosporidium are pending. - CT Abd/pelvis (12/21/17) --> There is mild wall thickening in the sigmoid colon and apparent mild focal scarring versus inflammatory change adjacent mesentery at site of prior perforation. There is no free air. Nonobstructing 6 mm left renal calculus. Mildly nonspecific nonobstructive bowel gas pattern characteristic of an ileus. - Blood cx's (12/20) with NGTD - KUB (12/23) --> Bowel gas pattern unremarkable. 6 mm calculus overlies lower pole left kidney. - GI planning for colonoscopy on Sunday, 12/24 - Clear liquid diet ordered - NPO after MN - Cont. IVF during colon prep and for NPO after MN for procedure tomorrow - Supportive care (7) ETOH abuse Code(s): F10.10 - Alcohol abuse, uncomplicated Status: Chronic Plan: - Pt reportedly drinks 1 pint of vodka every morning and 4-5 beers nightly. - His LFTs are WNL - Pt with mild EtOH w/d sx's - He is on CIWA protocol plus scheduled Librium 25mg TID - Thiamine/Folic acid/MVI - Pt and family requesting EtOH rehab program info but will need to check with [facility] to see what his options will be on Sunday (8) HTN (hypertension) Code(s): I10 - Essential (primary) hypertension Status: Chronic Plan: - Pt was admitted in shock with severe hypotension - BP has improved - Pt is normally on Metoprolol 50 mg BID and Lisinopril 20 mg BID but these have been on hold - BP elevating today into the 150-160s systolic - Resume LIsinopril 10mg BID - Clonidine PRN - Attending Attestation Patient examined. Assessment and plan formulated with Ada Rodriguez PA-C. I agree with the above.
[2017-12-23] MEDS ORDERED: PEG 3350/E-Lyte Soln 4000 ML Bottle PO ONE (20:00)
[2017-12-23] MEDS: Lisinopril 10 MG Tablet PO SCH (20:48)
[2017-12-23] MEDS: Chlorhexidine Gluconate 2% 1 Pack (2 Cloths) TOPICAL SCH ×2 (21:01→21:02)
[2017-12-23] MEDS: Sod Chloride 0.9% Inj 1,000 ML IV.SIG SCH ×3 (21:22→23:29)
[2017-12-24] MEDS: Chlorhexidine Gluconate 2% 1 Pack (2 Cloths) TOPICAL SCH (03:57)
[2017-12-24] MEDS: Pantoprazole Inj 40 MG Vial IV.PUSH SCH ×2 (05:55→19:25)
[2017-12-24] MEDS: Sod Chloride 0.9% Inj 1,000 ML IV.SIG SCH ×2 (07:05→19:25)
[2017-12-24 08:05] LABS: Baso % (Auto) 0.5 % (0.0-2.0); Eos # (Auto) 0.1 th/mm3 (0.0-0.4); Eos % (Auto) 1.3 % (0.0-4.0); Hematocrit 34.1 % (39.0-51.0); Hemoglobin 11.3 gm/dL (13.0-17.0); Lymph % (Auto) 16.2 % (9.0-44.0); Mean Corpuscular HGB Conc 33.1 % (32.0-36.0); Mean Corpuscular Hemoglobin 31.7 pg (27.0-34.0); Mean Platelet Volume 7.1 fL (7.0-11.0); Mono # (Auto) 0.7 th/mm3 (0.0-0.9); Mono % (Auto) 10.9 % (0.0-8.0); Neut # (Auto) 4.4 th/mm3 (1.8-7.7); Neut % (Auto) 71.1 % (16.0-70.0); Platelet Count 180 th/mm3 (150-450); Red Blood Count 3.55 mil/mm3 (4.50-5.90); White Blood Count 6.2 th/mm3 (4.0-11.0)
[2017-12-24 08:33] LABS: Calcium 8.3 mg/dL (8.5-10.1); Carbon Dioxide 16.7 meq/L (21.0-32.0); Magnesium 1.4 mg/dL (1.5-2.5); Potassium 3.8 meq/L (3.5-5.1)
[2017-12-24] MEDS: Famotidine PF Inj 20 MG/2 ML Vial IV.PUSH SCH ×2 (08:52→21:31)
[2017-12-24] MEDS: chlordiazePOXIDE 25 MG Capsule PO SCH ×4 (08:53→21:29)
[2017-12-24] MEDS: Duloxetine 60 MG DR Capsule PO SCH (08:53)
[2017-12-24] MEDS: Lisinopril 10 MG Tablet PO SCH (08:53)
[2017-12-24] MEDS: Folic Acid 1 MG Tablet PO SCH (08:54)
[2017-12-24] MEDS ORDERED: Phenylephrine/NS 1000 MCG/10ML Syringe IV.PUSH ONE (12:00)
[2017-12-24] MEDS ORDERED: Lidocaine PF 1% Inj 5 ML Syringe INFILTRATN ONE (12:00)
[2017-12-24] MEDS ORDERED: Labetalol HCl Inj 100 MG/20 ML Vial ONE (16:43)
--- NOTE | 2017-12-24 17:02 | GIPROC ---
[facility] [address] [facility]. [facility], [address] COLONOSCOPY PROCEDURE REPORT EXAM DATE: 12/24/2017 PATIENT NAME: Juwan Garcia MR #: [id number] BIRTHDATE: 1960 ENDOSCOPIST: Maite Jeffers MD ORDER #: [id number] NURSE QUALITY: Yung White and Maya Reveles STATUS: inpatient INDICATIONS: The patient is a 57 yr old male here for a colonoscopy due to anemia, gi bleeding, diarrhea PROCEDURE PERFORMED: Colonoscopy with biopsy MEDICATIONS: None and Per Anesthesia. PREP QUALITY: fair PREP TYPE:Other: ESTIMATED BLOOD LOSS: None CONSENT: The patient understands the risks and benefits of the procedure and understands that these risks include, but are not limited to: sedation, allergic reaction, infection, perforation and/or bleeding. Alternative means of evaluation and treatment include, among others: physical exam, x-rays, and/or surgical intervention. The patient elects to proceed with this endoscopic procedure. medical equipment was checked for proper function. Hand hygiene and appropriate measures for infection prevention was taken. After the risks, benefits and alternatives of the procedure were thoroughly explained, Informed consent was verified, confirmed and timeout was successfully executed by the treatment team. A digital exam revealed external hemorrhoids The Pentax [id number] endoscope was introduced through the anus and advanced to the cecum, which was identified by both the appendix and ileocecal valve. The instrument was then slowly withdrawn as the colon was fully examined. COLON FINDINGS: Diverticulosis sigmoid,descending polyp descending diminutive-biopsy. Retroflexed views revealed internal hemorrhoids and Retroflexed views revealed small internal hemorrhoids The scope was then completely withdrawn from the patient and the procedure terminated. PROCEDURE WITHDRAWAL TIME:6minutes ADVERSE EVENTS: There were no complications. IMPRESSIONS: 1. Diverticulosis sigmoid,descending polyp descending diminutive-biopsy 2. Retroflexed views revealed internal hemorrhoids 3. Retroflexed views revealed small internal hemorrhoids 4. Revealed external hemorrhoids RECOMMENDATIONS: 1. Await biopsy results. Biopsy results will not be ready for 7-10 days. If you don't hear from us in two weeks, call our office for results. 2. Await biopsy results. Biopsy results will not be ready for 7-10 days. If you don't hear from us in two weeks, call our office for results. 3. Probiotics from any [employer] or [employer] food store 4. Yearly rectal exams RECALL: Return 3 years Colonoscopy Maite Jeffers MD eSigned: Maite Jeffers MD 12/24/2017 5:02 PM cc:
[2017-12-24] MEDS: Pregabalin 75 MG Capsule PO SCH ×2 (18:59→21:28)
[2017-12-24] MEDS: Senna/Docusate Sodium 8.6/50 MG Tablet PO SCH ×2 (19:00→21:30)
[2017-12-24] MEDS: Multivitamin/Minerals Therapeutic Tablet PO SCH (19:00)
--- NOTE | 2017-12-24 19:36 | P.PNIM ---
Subjective Interval history: Pt had colonoscopy today which noted Diverticulosis,descending colon polyp, and int/ext hemorrhoids Pt tolerating oral intake Afebrile Pt complains of issues with dysuria for the last year He reports that he urinates several times during the night, has a weak stream and some dribbling. Pt reports that he saw Dr. Sorenson around 1 month ago and was started on Flomax Physical Exam Vital signs: Vital Signs 12/23/17 20:00 12/24/17 00:00 12/24/17 04:00 Temperature 98.6 F 98.4 F 98.7 F Pulse Rate 83 93 H 74 Respiratory Rate 14 16 22 Blood Pressure 153/67 H 131/71 158/79 H Pulse Oximetry 100 100 99 12/24/17 08:00 12/24/17 16:20 12/24/17 17:07 Temperature 98.0 F Pulse Rate 77 93 H Respiratory Rate 16 Blood Pressure 177/103 H Pulse Oximetry 100 97 98 12/24/17 17:16 12/24/17 17:30 Temperature Pulse Rate 69 72 Respiratory Rate Blood Pressure 160/76 H 177/88 H Pulse Oximetry 99 98 Intake & Output 12/24/17 12/24/17 12/25/17 06:59 18:59 06:59 Intake Total 4000 / 4000 2300 / 2300 Output Total 1350 / 1350 1200 / 1200 Balance 2650 / 2650 1100 / 1100 Intake: IV 1999 / 1999 NS Inj 1,000 ML @ 100 mls/hr IV 1999 / 1999 .SIG .Q10H BECK Rx#:[id number] Oral 4000 / 4000 50 / 50 Other 250 / 250 Output: Urine 1350 / 1350 1200 / 1200 Other: # Voids 7 Date of Last Bowel Movement 12/24/17 12/24/17 # Bowel Movements 5 4 Narrative: General: Awake, alert Chest: CTA Cardiac: Regular Abd: +BS, soft ND/NT Ext: No edema Results - Labs CBC & Chem 7: 12/25/17 08:57 12/25/17 08:57 Laboratory Results - last 24 hr 12/24/17 12/24/17 07:20 07:20 WBC 6.2 RBC 3.55 L Hgb 11.3 L Hct 34.1 L MCV 96.0 MCH 31.7 MCHC 33.1 RDW 15.0 Plt Count 180 MPV 7.1 Neut % (Auto) 71.1 H Lymph % (Auto) 16.2 [place] % (Auto) 10.9 H Eos % (Auto) 1.3 Baso % (Auto) 0.5 Neut # (Auto) 4.4 Lymph # (Auto) 1.0 [place] # (Auto) 0.7 Eos # (Auto) 0.1 Baso # (Auto) 0.0 WBC Differential . Differential Comment Auto diff final Sodium 139 Potassium 3.8 Chloride 111 H Carbon Dioxide 16.7 L Anion Gap 11 BUN 8 Creatinine 1.12 Estimated GFR 68 L Random Glucose 81 Calcium 8.3 L Magnesium 1.4 L Assessment and Plan - Assessment (1) Acute on chronic renal insufficiency Code(s): N28.9 - Disorder of kidney and ureter, unspecified; N18.9 - Chronic kidney disease, unspecified Status: Acute Plan: - Likely related to dehydration/diarrhea. - Labs improved with IVF - Cont. to monitor (2) Altered mental status Code(s): R41.82 - Altered mental status, unspecified Status: Acute Plan: - See above - Likely due to shock and etoh withdrawal (3) Anemia Code(s): D64.9 - Anemia, unspecified Status: Acute (4) Dysuria Code(s): R30.0 - Dysuria Status: Acute Plan: - Pt complains of issues with dysuria for the last year - He reports that he urinates several times during the night, has a weak stream and some dribbling. - Pt reports that he saw Dr. Sorenson around 1 month ago and was started on Flomax - UA at admission was negative. - Resume Flomax 0.4mg po daily - Check renal US (5) GI bleed Code(s): K92.2 - Gastrointestinal hemorrhage, unspecified Status: Acute (6) Hypovolemic shock Code(s): R57.1 - Hypovolemic shock Status: Acute Plan: Hypovolemic shock Diarrhea - Pt is a 57 y/o male with alcohol abuse, HTN, CKD stage 3 who presented to the ED at [facility]- in hypovolemic shock with reported systolic BP of 48/31 - Pt reported that prior to admission he had profuse diarrhea, around 30 episodes, which began after eating a hamburger out at a restaurant. - Pt was given IVF/pressor/ABX broadly and LP drawn and moved to Main ICU - He was able to be stabilized off pressors. - GI consulted - Stools are negative for C. diff. No enteric pathogens on stool culture. Stool for Giardia and cryptosporidium are pending. - CT Abd/pelvis (12/21/17) --> There is mild wall thickening in the sigmoid colon and apparent mild focal scarring versus inflammatory change adjacent mesentery at site of prior perforation. There is no free air. Nonobstructing 6 mm left renal calculus. Mildly nonspecific nonobstructive bowel gas pattern characteristic of an ileus. - Blood cx's (12/20) with NGTD - KUB (12/23) --> Bowel gas pattern unremarkable. 6 mm calculus overlies lower pole left kidney. - Pt underwent evaluation with colonoscopy on 12/24/17 --> Diverticulosis, descending colon polyp, int/ext hemorrhoids - Pt tolerating oral intake - transfer out of icu - Supportive care (7) ETOH abuse Code(s): F10.10 - Alcohol abuse, uncomplicated Status: Chronic Plan: - Pt reportedly drinks 1 pint of vodka every morning and 4-5 beers nightly. - His LFTs are WNL - Pt with mild EtOH w/d sx's - He is on CIWA protocol plus scheduled Librium 25mg TID - Thiamine/Folic acid/MVI - Pt and family requesting EtOH rehab program info (8) HTN (hypertension) Code(s): I10 - Essential (primary) hypertension Status: Chronic Plan: - Pt was admitted in shock with severe hypotension - BP has improved - Pt is normally on Metoprolol 50 mg BID and Lisinopril 20 mg BID but these have been on hold - BP elevating today into the 150-160s systolic - Lisinopril 10mg BID resumed on 12/23 but BP still elevated - Increase Lisinopril back to 20mg po BID - Clonidine PRN - Attending Attestation Patient examined. Assessment and plan formulated with Ada Rodriguez PA-C. I agree with the above.
[2017-12-24] MEDS: Lisinopril 20 MG Tablet PO SCH (21:29)
[2017-12-24] MEDS: Mag Sulf 1 gm/100 ml Premix 100 ML IV.SIG SCH (21:30)
[2017-12-25] MEDS: Mag Sulf 1 gm/100 ml Premix 100 ML IV.SIG SCH (02:13)
[2017-12-25] MEDS: Sod Chloride 0.9% Inj 1,000 ML IV.SIG SCH ×3 (02:14→22:21)
[2017-12-25] MEDS: Chlorhexidine Gluconate 2% 1 Pack (2 Cloths) TOPICAL SCH (06:36)
[2017-12-25] MEDS: Famotidine PF Inj 20 MG/2 ML Vial IV.PUSH SCH ×2 (09:27→22:18)
[2017-12-25] MEDS: Pregabalin 75 MG Capsule PO SCH ×2 (09:28→22:16)
[2017-12-25] MEDS: chlordiazePOXIDE 25 MG Capsule PO SCH ×2 (09:28→22:16)
[2017-12-25] MEDS: Lisinopril 20 MG Tablet PO SCH ×2 (09:28→22:16)
[2017-12-25] MEDS: Duloxetine 60 MG DR Capsule PO SCH (09:28)
[2017-12-25] MEDS: Folic Acid 1 MG Tablet PO SCH (09:28)
[2017-12-25] MEDS: Senna/Docusate Sodium 8.6/50 MG Tablet PO SCH ×2 (09:29→22:17)
[2017-12-25] MEDS: Multivitamin/Minerals Therapeutic Tablet PO SCH (09:29)
[2017-12-25 10:02] LABS: Baso % (Auto) 0.5 % (0.0-2.0); Eos # (Auto) 0.1 th/mm3 (0.0-0.4); Hematocrit 31.2 % (39.0-51.0); Hemoglobin 10.7 gm/dL (13.0-17.0); Lymph # (Auto) 0.7 th/mm3 (1.0-4.8); Mean Corpuscular HGB Conc 34.1 % (32.0-36.0); Mean Corpuscular Hemoglobin 32.1 pg (27.0-34.0); Mean Platelet Volume 7.3 fL (7.0-11.0); Mono # (Auto) 0.4 th/mm3 (0.0-0.9); Neut # (Auto) 4.2 th/mm3 (1.8-7.7); Neut % (Auto) 77.5 % (16.0-70.0); Platelet Count 207 th/mm3 (150-450); Red Blood Count 3.32 mil/mm3 (4.50-5.90); Red Cell Distribution Width 15.2 % (11.6-17.2); White Blood Count 5.4 th/mm3 (4.0-11.0)
[2017-12-25 10:25] LABS: Alanine Aminotransferase 23 U/L (12-78); Albumin 2.8 g/dL (3.4-5.0); Alkaline Phosphatase 66 U/L (45-117); Anion Gap 10 meq/L (5-15); Aspartate Aminotransferase 18 U/L (15-37); Blood Urea Nitrogen 6 mg/dL (7-18); Calcium 8.6 mg/dL (8.5-10.1); Chloride 113 meq/L (98-107); Glomerular Filtration Rate 75 mL/min (>89); Glucose,Random 98 mg/dL (74-106); Magnesium 2.1 mg/dL (1.5-2.5); Potassium 3.7 meq/L (3.5-5.1); Sodium 141 meq/L (136-145); Total Protein 6.6 g/dL (6.4-8.2)
--- NOTE | 2017-12-25 14:06 | P.PNGI ---
Subjective Interval history: Pt resting in bed Reports BMs since colonoscopy have been normal Tolerating PO Denies nausea, vomiting Physical Exam Vital signs: Vital Signs 12/24/17 16:20 12/24/17 17:07 12/24/17 17:16 Temperature 98.0 F Pulse Rate 77 93 H 69 Respiratory Rate 16 Blood Pressure 177/103 H 160/76 H Pulse Oximetry 97 98 99 12/24/17 17:30 12/24/17 20:00 12/25/17 00:00 Temperature 98.3 F 98.4 F Pulse Rate 72 106 H 74 Respiratory Rate 20 18 Blood Pressure 177/88 H 106/63 159/82 H Pulse Oximetry 98 100 96 12/25/17 04:00 12/25/17 08:00 12/25/17 12:00 Temperature 98.3 F 97.9 F 97.5 F L Pulse Rate 82 75 99 H Respiratory Rate 18 16 18 Blood Pressure 118/72 163/88 H 129/61 Pulse Oximetry 99 98 98 12/25/17 12:40 Temperature Pulse Rate Respiratory Rate Blood Pressure Pulse Oximetry 98 Intake & Output 12/24/17 12/25/17 12/25/17 18:59 06:59 18:59 Intake Total 2300 / 2300 1200 / 1200 Output Total 1200 / 1200 Balance 1100 / 1100 1200 / 1200 Intake: IV 1999 / 1999 1200 / 1200 Magnesium Sulfate 1 gm/D5W 100 200 / 200 ml Premix 100 ML @ 100 mls/hr IV.SIG Q1H BECK Rx#:[id number] NS Inj 1,000 ML @ 100 mls/hr IV 1999 / 1999 1000 / 1000 .SIG .Q10H BECK Rx#:[id number] Oral 50 / 50 Other 250 / 250 Output: Urine 1200 / 1200 Other: # Voids 7 4 Date of Last Bowel Movement 12/24/17 12/24/17 # Bowel Movements 4 - Routine HEENT Exam Head: Present: normocephalic, atraumatic - Routine Respiratory Exam Present: CTA bilaterally. Absent: accessory muscle use - Routine Cardiovascular Exam Present: RRR - Routine Abdominal Exam Present: soft, normoactive bowel sounds. Absent: tenderness, distended, rebound , guarding - Routine Neurological Exam Present: alert, oriented X3 Results - Labs CBC & Chem 7: 12/25/17 08:57 12/25/17 08:57 Laboratory Results - last 24 hr 12/25/17 12/25/17 08:57 08:57 WBC 5.4 RBC 3.32 L Hgb 10.7 L Hct 31.2 L MCV 94.0 MCH 32.1 MCHC 34.1 RDW 15.2 Plt Count 207 MPV 7.3 Neut % (Auto) 77.5 H Lymph % (Auto) 13.0 [place] % (Auto) 8.0 Eos % (Auto) 1.0 Baso % (Auto) 0.5 Neut # (Auto) 4.2 Lymph # (Auto) 0.7 L [place] # (Auto) 0.4 Eos # (Auto) 0.1 Baso # (Auto) 0.0 WBC Differential . Differential Comment Auto diff final Sodium 141 Potassium 3.7 Chloride 113 H Carbon Dioxide 18.0 L Anion Gap 10 BUN 6 L Creatinine 1.03 Estimated GFR 75 L Random Glucose 98 Calcium 8.6 Magnesium 2.1 D Total Bilirubin 0.4 AST 18 ALT 23 Alkaline Phosphatase 66 Total Protein 6.6 Albumin 2.8 L Assessment and Plan (1) Anemia Status: Acute Code(s): D64.9 - Anemia, unspecified (2) GI bleed Status: Acute Code(s): K92.2 - Gastrointestinal hemorrhage, unspecified - Plan Assessment: - GI bleed and heme (+) stools- Pt with AMS, confusion, his base line is A&O X 3 per nurse. Apparently pt reported intermittent bloody stools "He says that on Monday 12/18 he ate a hamburger at [employer] and afterwards had multiple episodes of diarrhea with both soft and liquid stools since 12/18. He estimates in excess of 30 bowel movements. He noticed some blood in stool intermittently. No melena, nausea, vomiting, or abdominal pain. He has h/o diverticulosis and says he had an outpatient colonoscopy about 4 years ago with a benign polyp. He has prior history of contained sigmoid diverticular perforation in November 2016 which was managed medically. He says that his vision has been intermittently "going white" which he feels is worse when he is in bright lights. This has been occurring for 2 days but he states is now resolved". Currently pt is confused, not able to engage in meaningful conversation. No bleeding reported, no bm since admission, blood pressure is stable. Us showed echogenic liver no gall stones. Hgb today is 10.9. - Hypovolemic shock- Improved who is transferred from [facility] emergency department [place] to [facility] due to hypotension. - Alcohol abuse Drinks 1 pint of vodka every morning and 4-5 beers nightly - past medical history of hypertension, diverticulitis, hyperlipidemia, peripheral neuropathy, tobacco abuse per attending (12/25) Pt S/P colonoscopy yesterday. Reports BMs since procedure have been formed and normal. He is tolerating PO intake. Denies nausea, vomiting, abdominal pain. H/H remains stable. Colonoscopy --> Diverticulosis sigmoid,descending. Polyp descending diminutive- biopsy. Internal and external hemorrhoids. Plan: Probiotics Fiber ETOH cessation GI will sign off, please reconsult as needed Have pt follow up with GI after DC Pt has been seen and examined by myself and Dr. Jeffers and this note is written on her behalf
--- NOTE | 2017-12-25 18:53 | P.PNIM ---
Subjective Interval history: No new complaints. Physical Exam Vital signs: Vital Signs 12/24/17 20:00 12/25/17 00:00 12/25/17 04:00 Temperature 98.3 F 98.4 F 98.3 F Pulse Rate 106 H 74 82 Respiratory Rate 20 18 18 Blood Pressure 106/63 159/82 H 118/72 Pulse Oximetry 100 96 99 12/25/17 08:00 12/25/17 12:00 12/25/17 12:40 Temperature 97.9 F 97.5 F L Pulse Rate 75 99 H Respiratory Rate 16 18 Blood Pressure 163/88 H 129/61 Pulse Oximetry 98 98 98 12/25/17 16:00 12/25/17 17:40 Temperature 98.4 F Pulse Rate 100 H Respiratory Rate 16 Blood Pressure 115/81 Pulse Oximetry 98 98 Intake & Output 12/24/17 12/25/17 12/25/17 18:59 06:59 18:59 Intake Total 2300 / 2300 1200 / 1200 Output Total 1200 / 1200 Balance 1100 / 1100 1200 / 1200 Intake: IV 2000 / 1999 1200 / 1200 Magnesium Sulfate 1 gm/D5W 100 200 / 200 ml Premix 100 ML @ 100 mls/hr IV.SIG Q1H BECK Rx#:[id number] NS Inj 1,000 ML @ 100 mls/hr IV 2000 / 2000 1000 / 1000 .SIG .Q10H BECK Rx#:[id number] Oral 50 / 50 Other 250 / 250 Output: Urine 1200 / 1200 Other: # Voids 7 4 Date of Last Bowel Movement 12/24/17 12/24/17 # Bowel Movements 4 Narrative: General: Awake, alert Chest: CTA Cardiac: Regular Abd: +BS, soft ND/NT Ext: No edema Results - Labs CBC & Chem 7: 12/25/17 08:57 12/25/17 08:57 Laboratory Results - last 24 hr 12/25/17 12/25/17 08:57 08:57 WBC 5.4 RBC 3.32 L Hgb 10.7 L Hct 31.2 L MCV 94.0 MCH 32.1 MCHC 34.1 RDW 15.2 Plt Count 207 MPV 7.3 Neut % (Auto) 77.5 H Lymph % (Auto) 13.0 [place] % (Auto) 8.0 Eos % (Auto) 1.0 Baso % (Auto) 0.5 Neut # (Auto) 4.2 Lymph # (Auto) 0.7 L [place] # (Auto) 0.4 Eos # (Auto) 0.1 Baso # (Auto) 0.0 WBC Differential . Differential Comment Auto diff final Sodium 141 Potassium 3.7 Chloride 113 H Carbon Dioxide 18.0 L Anion Gap 10 BUN 6 L Creatinine 1.03 Estimated GFR 75 L Random Glucose 98 Calcium 8.6 Magnesium 2.1 D Total Bilirubin 0.4 AST 18 ALT 23 Alkaline Phosphatase 66 Total Protein 6.6 Albumin 2.8 L - Imaging ITS Impressions Abdomen X-Ray 12/23/17 00:00 CONCLUSION: Bowel gas pattern unremarkable. 6 mm calculus overlies lower pole left kidney. Assessment and Plan - Assessment (1) Acute on chronic renal insufficiency Code(s): N28.9 - Disorder of kidney and ureter, unspecified; N18.9 - Chronic kidney disease, unspecified Status: Acute Plan: - Likely related to dehydration/diarrhea. - Labs improved with IVF - Cont. to monitor (2) Altered mental status Code(s): R41.82 - Altered mental status, unspecified Status: Acute Plan: - See above - Likely due to shock and etoh withdrawal - Improving (3) Anemia Code(s): D64.9 - Anemia, unspecified Status: Acute (4) Dysuria Code(s): R30.0 - Dysuria Status: Acute Plan: - Pt complains of issues with dysuria for the last year - He reports that he urinates several times during the night, has a weak stream and some dribbling. - Pt reports that he saw Dr. Sorenson around 1 month ago and was started on Flomax - UA at admission was negative. - Flomax 0.4mg po daily resumed on 12/24 - Pt had a CT Abd/pelvis on (12/21/17) --> There is mild wall thickening in the sigmoid colon and apparent mild focal scarring versus inflammatory change adjacent mesentery at site of prior perforation. There is no free air. Nonobstructing 6 mm left renal calculus. Mildly nonspecific nonobstructive bowel gas pattern characteristic of an ileus. (5) GI bleed Code(s): K92.2 - Gastrointestinal hemorrhage, unspecified Status: Acute (6) Hypovolemic shock Code(s): R57.1 - Hypovolemic shock Status: Acute Plan: Hypovolemic shock Diarrhea - Pt is a 57 y/o male with alcohol abuse, HTN, CKD stage 3 who presented to the ED at [facility] in hypovolemic shock with reported systolic BP of 48/31 - Pt reported that prior to admission he had profuse diarrhea, around 30 episodes, which began after eating a hamburger out at a restaurant. - Pt was given IVF/pressor/ABX broadly and LP drawn and moved to Main ICU - He was able to be stabilized off pressors. - GI consulted - Stools are negative for C. diff. No enteric pathogens on stool culture. Stool for Giardia and cryptosporidium are pending. - CT Abd/pelvis (12/21/17) --> There is mild wall thickening in the sigmoid colon and apparent mild focal scarring versus inflammatory change adjacent mesentery at site of prior perforation. There is no free air. Nonobstructing 6 mm left renal calculus. Mildly nonspecific nonobstructive bowel gas pattern characteristic of an ileus. - Blood cx's (12/20) with NGTD - KUB (12/23) --> Bowel gas pattern unremarkable. 6 mm calculus overlies lower pole left kidney. - Pt underwent evaluation with colonoscopy on 12/24/17 --> Diverticulosis, descending colon polyp, int/ext hemorrhoids - Pt tolerating oral intake - Pt is stable clinically - Supportive care (7) ETOH abuse Code(s): F10.10 - Alcohol abuse, uncomplicated Status: Chronic Plan: - Pt reportedly drinks 1 pint of vodka every morning and 4-5 beers nightly. - His LFTs are WNL - Pt with mild EtOH w/d sx's - He is on CIWA protocol plus scheduled Librium 25mg TID - Thiamine/Folic acid/MVI - Pt and family requesting EtOH rehab program info (8) HTN (hypertension) Code(s): I10 - Essential (primary) hypertension Status: Chronic Plan: - Pt was admitted in shock with severe hypotension - BP has improved - Pt is normally on Metoprolol 50 mg BID and Lisinopril 20 mg BID but these have been on hold - BP elevating into the 150-160s systolic and Lisinopril 10mg BID resumed on 12/23 but BP was still elevated so Lisinopril was increased to 20mg BID on 12/24 - BP is much better with increased Lisinopril - Clonidine PRN - Attending Attestation Patient examined. Assessment and plan formulated with Ada CAM I agree with the above.
[2017-12-26] MEDS: Chlorhexidine Gluconate 2% 1 Pack (2 Cloths) TOPICAL SCH (03:11)
[2017-12-26] MEDS: Folic Acid 1 MG Tablet PO SCH (08:36)
[2017-12-26] MEDS: Multivitamin/Minerals Therapeutic Tablet PO SCH (08:36)
[2017-12-26] MEDS: Senna/Docusate Sodium 8.6/50 MG Tablet PO SCH (08:36)
[2017-12-26] MEDS: Lisinopril 20 MG Tablet PO SCH (08:36)
[2017-12-26] MEDS: Duloxetine 60 MG DR Capsule PO SCH (08:37)
[2017-12-26] MEDS: Famotidine PF Inj 20 MG/2 ML Vial IV.PUSH SCH (08:37)
[2017-12-26] MEDS: chlordiazePOXIDE 25 MG Capsule PO SCH (08:37)
[2017-12-26] MEDS: Pregabalin 75 MG Capsule PO SCH (08:38)
--- NOTE | 2017-12-26 09:23 | P.DS ---
<Debi Nelson - Last Filed: 12/26/17 18:48> Date of admission: 12/20/17 17:10 Attending physician on discharge: Alen Holliday Anticipated date of discharge: 12/26/17 Brief History from admission: Patient initially admitted to ICU du to hypovolemic shock DS: Diagnosis - Discharge Diagnosis (1) Hypovolemic shock Status: Acute (2) ETOH abuse Status: Chronic (3) Diarrhea Status: Resolved (4) HTN (hypertension) Status: Chronic (5) Acute on chronic renal insufficiency Status: Acute DS: Medications - Discharge Medications Prescriptions: pantoprazole 40 mg PO DAILY #30 tab tamsulosin 0.4 mg PO DAILY #30 cap DS: Summary Hospital Course: Hypovolemic shock Diarrhea - Pt is a 57 y/o male with alcohol abuse, HTN, CKD stage 3 who presented to the ED at [facility] in hypovolemic shock with reported systolic BP of 48/31 - Pt reported that prior to admission he had profuse diarrhea, around 30 episodes, which began after eating a hamburger out at a restaurant. - Pt was given IVF/pressor/ABX broadly and LP drawn and moved to Main ICU - He was able to be stabilized off pressors. - GI consulted - Stools are negative for C. diff. No enteric pathogens on stool culture. Stool for Giardia and cryptosporidium are pending. - CT Abd/pelvis (12/21/17) --> There is mild wall thickening in the sigmoid colon and apparent mild focal scarring versus inflammatory change adjacent mesentery at site of prior perforation. There is no free air. Nonobstructing 6 mm left renal calculus. Mildly nonspecific nonobstructive bowel gas pattern characteristic of an ileus. - Blood cx's (12/20) with NGTD - KUB (12/23) --> Bowel gas pattern unremarkable. 6 mm calculus overlies lower pole left kidney. - Pt underwent evaluation with colonoscopy on 12/24/17 --> Diverticulosis, descending colon polyp, int/ext hemorrhoids - Pt tolerating oral intake - Pt is stable clinically - Supportive care Altered mental status - See above - Likely due to shock and etoh withdrawal - Improving Diarrhea - See above ETOH abuse - Pt reportedly drinks 1 pint of vodka every morning and 4-5 beers nightly. - His LFTs are WNL - Pt with mild EtOH w/d sx's - He is on CIWA protocol plus scheduled Librium 25mg TID - Thiamine/Folic acid/MVI - Pt and family requesting EtOH rehab program info HTN (hypertension) - Pt was admitted in shock with severe hypotension - BP has improved - Pt is normally on Metoprolol 50 mg BID and Lisinopril 20 mg BID but these have been on hold - BP elevating into the 150-160s systolic and Lisinopril 10mg BID resumed on 12/23 but BP was still elevated so Lisinopril was increased to 20mg BID on 12/24 - BP is much better with increased Lisinopril - Clonidine PRN Acute on chronic renal insufficiency - Likely related to dehydration/diarrhea. - Labs improved with IVF - Cont. to monitor Dysuria - Pt complains of issues with dysuria for the last year - He reports that he urinates several times during the night, has a weak stream and some dribbling. - Pt reports that he saw Dr. Sorenson around 1 month ago and was started on Flomax - UA at admission was negative. - Flomax 0.4mg po daily resumed on 12/24 - Pt had a CT Abd/pelvis on (12/21/17) --> There is mild wall thickening in the sigmoid colon and apparent mild focal scarring versus inflammatory change adjacent mesentery at site of prior perforation. There is no free air. Nonobstructing 6 mm left renal calculus. Mildly nonspecific nonobstructive bowel gas pattern characteristic of an ileus. - Time Spent with Patient Total time spent providing and/or coordinating discharge services: Greater than 30 minutes Exam Vital signs: Vital Signs 12/25/17 12:00 12/25/17 12:40 12/25/17 16:00 Temperature 97.5 F L 98.4 F Pulse Rate 99 H 100 H Respiratory Rate 18 16 Blood Pressure 129/61 115/81 Pulse Oximetry 98 98 98 12/25/17 17:40 12/25/17 20:00 12/26/17 00:00 Temperature 98 F 98 F Pulse Rate 85 74 Respiratory Rate 14 18 Blood Pressure 124/79 140/81 Pulse Oximetry 98 99 100 12/26/17 04:00 12/26/17 08:00 Temperature 98.5 F 98.1 F Pulse Rate 71 71 Respiratory Rate 16 20 Blood Pressure 120/68 146/79 H Pulse Oximetry 71 L 95 Intake & Output 12/25/17 12/26/17 12/26/17 18:59 06:59 18:59 Intake Total 1720 / 1720 Balance 1720 / 1720 Intake: Oral 720 / 720 Other 1000 / 1000 Other: Other Intake Source Saline Solution # Voids 4 Date of Last Bowel Movement 12/24/17 12/24/17 - Constitutional no acute distress - Routine HEENT Exam Head: Present: normocephalic, atraumatic Eye: Present: EOMI - Routine Respiratory Exam Present: accessory muscle use, CTA bilaterally - Routine Cardiovascular Exam Present: RRR - Routine Abdominal Exam Present: soft, normoactive bowel sounds. Absent: tenderness, distended - Routine Extremities Exam Present: pulses intact, normal capillary refill - Routine Neurological Exam Present: alert Results Procedures completed during hospitalization: none Pending studies at discharge: Pending at discharge 12/24/17 Surgical [PTH] Routine Labs on day of discharge: Labs from last 24 hours 12/25/17 12/25/17 08:57 08:57 WBC 5.4 RBC 3.32 L Hgb 10.7 L Hct 31.2 L MCV 94.0 MCH 32.1 MCHC 34.1 RDW 15.2 Plt Count 207 MPV 7.3 Neut % (Auto) 77.5 H Lymph % (Auto) 13.0 [place] % (Auto) 8.0 Eos % (Auto) 1.0 Baso % (Auto) 0.5 Neut # (Auto) 4.2 Lymph # (Auto) 0.7 L [place] # (Auto) 0.4 Eos # (Auto) 0.1 Baso # (Auto) 0.0 WBC Differential . Differential Comment Auto diff final Sodium 141 Potassium 3.7 Chloride 113 H Carbon Dioxide 18.0 L Anion Gap 10 BUN 6 L Creatinine 1.03 Estimated GFR 75 L Random Glucose 98 Calcium 8.6 Magnesium 2.1 D Total Bilirubin 0.4 AST 18 ALT 23 Alkaline Phosphatase 66 Total Protein 6.6 Albumin 2.8 L - Impressions ITS Impressions Abdomen X-Ray 12/23/17 00:00 CONCLUSION: Bowel gas pattern unremarkable. 6 mm calculus overlies lower pole left kidney. <Alen Holilday - Last Filed: 01/14/18 21:21> Date of admission: 12/20/17 17:10 DS: Diagnosis - Discharge Diagnosis (1) Acute on chronic renal insufficiency Status: Acute (2) Altered mental status Status: Acute (3) Anemia Status: Acute (4) Dysuria Status: Acute (5) GI bleed Status: Acute (6) Hypovolemic shock Status: Acute (7) ETOH abuse Status: Chronic (8) HTN (hypertension) Status: Chronic DS: Summary Hospital Course: Patient examined. Assessment and plan formulated with Debi Nelson PA-C. I agree with the above. - Time Spent with Patient Total time spent providing and/or coordinating discharge services: Greater than 30 minutes Results - Impressions ITS Impressions Abdomen X-Ray 12/23/17 00:00 CONCLUSION: Bowel gas pattern unremarkable. 6 mm calculus overlies lower pole left kidney. Discharge Plan - Discharge Order Discharge Orders: Discharge Order (Routine); Ordered 12/26/17 Ordered By: Debi Nelson - Discharge Details Anticipated Discharge Date: 12/26/17 - Physicians Team Attending Provider: Louise Sauer Other Providers: Florin Blair MD ; Fitz Rogers MD ; Zena Hill MD - Rxs /Orders / Referrals /Forms Prescriptions: New pantoprazole 40 mg Tablet,Delayed Release (Dr/Ec) 40 mg PO DAILY Qty: 30 RF: 0 tamsulosin 0.4 mg Capsule,Extended Release 24hr 0.4 mg PO DAILY Qty: 30 RF: 0 Continue duloxetine 60 mg PO DAILY hydrocodone-acetaminophen 1 tab PO TID PRN (Reason: Pain) lisinopril 20 mg PO BID lovastatin 20 mg PO HS Lyrica 225 mg PO BID Discontinued Lopressor 50 mg PO BID Referrals: Maite Jeffers MD [Physician] - See Instructions Derek Lara MD [Physician] - See Instructions Chris Sorenson MD [Physician] - See Instructions [facility], [Non-Staff] - See Instructions ([facility] mental health in 2-3 days) - Post Discharge Care Plan Care Plan Goals: Your Health Problems: Goals to Promote Your Health: * To prevent worsening of your condition * To maintain your health at the optimal level Directions to Meet Your Goals: * Take your medications as prescribed * Follow your dietary instruction * Follow activity as directed * Keep your appointments as scheduled * Take your immunizations and boosters as scheduled * If your symptoms worsen call your PCP * If no PCP go to Urgent Care or Emergency Room Smoking is dangerous to your health. Avoid second hand smoke. You may reach the 24-hour crisis hotline for domestic abuse at .
[2017-12-26] MEDS: Sod Chloride 0.9% Inj 1,000 ML IV.SIG SCH (11:07)
== END 2017-12-26 14:18 | disposition home or self-care (01) ==
LOC: HIMC 17:10 → N05 12-25 00:30
PROVIDERS: ADMIT Anesthesiology; ATTEND Anesthesiology

== ENCOUNTER 2018-04-03 14:53 | Inpatient (IN) ==
[2018-04-03] MEDS ORDERED: Haloperidol Inj 5 MG/ML Ampul IV.PUSH PRN (16:19)
[2018-04-03] MEDS ORDERED: Morphine Sulfate Inj 8 MG/ML Vial IV.PUSH ONE (16:19)
[2018-04-03] MEDS ORDERED: Vancomycin Inj 1 GM/200 ML PIGGYBACK IV.SIG ONE (16:19)
[2018-04-03] MEDS ORDERED: LORazepam 1 MG Tablet PO PRN (16:19)
[2018-04-03] MEDS ORDERED: Piperacil/Tazo 3.375 GM Premix 50 ML IV.SIG ONE (16:19)
[2018-04-03 16:45] LABS: Baso % (Auto) 0.1 % (0.0-2.0); Eos % (Auto) 0.3 % (0.0-4.0); Hematocrit 39.9 % (39.0-51.0); Hemoglobin 13.7 gm/dL (13.0-17.0); Lymph # (Auto) 0.7 th/mm3 (1.0-4.8); Lymph % (Auto) 6.1 % (9.0-44.0); Mean Corpuscular HGB Conc 34.3 % (32.0-36.0); Mean Corpuscular Hemoglobin 32.7 pg (27.0-34.0); Mean Corpuscular Volume 95.4 fL (80.0-100.0); Mean Platelet Volume 6.3 fL (7.0-11.0); Mono # (Auto) 1.2 th/mm3 (0.0-0.9); Mono % (Auto) 10.2 % (0.0-8.0); Neut # (Auto) 9.9 th/mm3 (1.8-7.7); Neut % (Auto) 83.3 % (16.0-70.0); Platelet Count 307 th/mm3 (150-450); Red Blood Count 4.18 mil/mm3 (4.50-5.90); Red Cell Distribution Width 15.2 % (11.6-17.2); White Blood Count 11.9 th/mm3 (4.0-11.0)
[2018-04-03] MEDS ORDERED: Morphine Inj 4 MG/ML Vial IV.PUSH ONE (16:48)
[2018-04-03 16:57] LABS: Alanine Aminotransferase 19 U/L (12-78); Albumin 3.4 g/dL (3.4-5.0); Anion Gap 12 meq/L (5-15); Aspartate Aminotransferase 18 U/L (15-37); Blood Urea Nitrogen 14 mg/dL (7-18); Calcium 9.3 mg/dL (8.5-10.1); Chloride 102 meq/L (98-107); Glomerular Filtration Rate 71 mL/min (>89); Glucose,Random 81 mg/dL (74-106); Sodium 136 meq/L (136-145)
[2018-04-03 17:00] LABS: Alkaline Phosphatase 104 U/L (45-117); Total Protein 8.4 g/dL (6.4-8.2)
[2018-04-03] MEDS ORDERED: Vancomycin Inj 1,000 MG in Sodium Chlor 0.9% Inj 250 ML IV.SIG ONE (17:00)
--- NOTE | 2018-04-03 17:20 | ED ---
HPI General Chief Complaint: Recheck/Abnormal Lab/Rx Stated Complaint: Poss Finger Infection Time Seen by Provider: 04/03/18 16:00 Source: patient and family Mode of arrival: ambulatory Limitations: no limitations History of Present Illness HPI narrative: 57-year-old male the presents to the ED for evaluation of infection to his right index finger. Patient has a history of neuropathy and basically has no feeling of most of his fingers as well as his toes. This is been chronic. The believe this is related to his smoking and alcohol. He apparently has had swelling in his right index finger for about 2 weeks now. He went to see Dr. Ramos yesterday who recommended MRI and started him on Bactrim. MRI results were concerning for osteomyelitis per patient and was told to come here for IV antibiotics. Denies any chest pain at this time. Denies any urinary symptoms. Per patient his pain is 4 out of 10. He did had an infection to his right middle finger for which she had to have amputation. Per patient he is hoping that he does not have to have this again. He denies any fevers chills or sweats. No other medical problems reported at this time. Related Data Home Medications Medication Instructions Recorded Confirmed duloxetine 120 mg PO DAILY 04/03/18 04/03/18 folic acid 1 mg PO DAILY 04/03/18 04/03/18 hydrocodone-acetaminophen 1 tab PO TID 04/03/18 04/03/18 lamotrigine 50 mg PO DAILY 04/03/18 04/03/18 lamotrigine 75 mg PO HS 04/03/18 04/03/18 lisinopril 20 mg PO BID 04/03/18 04/03/18 lovastatin 40 mg PO DAILY 04/03/18 04/03/18 metoprolol tartrate 50 mg PO BID 04/03/18 04/03/18 pantoprazole 20 mg PO DAILY 04/03/18 04/03/18 silver sulfadiazine 1 applic TOPICAL DAILY 04/03/18 04/03/18 sulfamethoxazole-trimethoprim 1 tab PO BID 04/03/18 04/03/18 Allergies Allergy/AdvReac Type Severity Reaction Status Date / Time No Known Allergies Allergy Verified 04/03/18 16:20 Review of Systems ROS: all other systems reviewed are negative [facility] Medical History Medical History Alcohol abuse (Acute) HTN (hypertension) (Acute) Neuropathy (Acute) Social History Social History Substance History: No History of Abuse Smoking Status: Current every day smoker Tobacco Type: Cigarettes How Often Do You Have a Drink Containing Alcohol: 4 or more times a week Recent Travel in [facility] within the Last 8 Weeks: No Recent Out of Country Travel within the Last 8 Weeks: No Immunization History Tetanus Immunization: Unsure Exam Narrative Exam Narrative: GENERAL: Well appearing SKIN: Focused skin assessment warm/dry. HEAD: Atraumatic. Normocephalic. EYES: Pupils equal and round. No scleral icterus. No injection or drainage. ENT: No nasal bleeding or discharge. Mucous membranes pink and moist. Tongue is midline. No uvula deviation. NECK: Trachea midline. No JVD. CARDIOVASCULAR: Regular rate and rhythm. No murmur appreciated. RESPIRATORY: No accessory muscle use. Clear to auscultation. Breath sounds equal bilaterally. GASTROINTESTINAL: Abdomen soft, non-tender, nondistended. Hepatic and splenic margins not palpable. MUSCULOSKELETAL: No obvious deformities. No clubbing. No cyanosis. No edema. Full ROM of the upper and lower extremities bilaterally. had obvious distal amputation of right index finger. Has swelling and pain with discharge of distal right index finger. Finger itself is twice the sice of the other one. Good capillary refill. Warm and tender to touch. NEUROLOGICAL: Awake and alert. No obvious cranial nerve deficits. Motor grossly within normal limits. Normal speech. PSYCHIATRIC: Appropriate mood and affect; insight and judgment normal. Course Initial Documented Vital Signs Temperature 98.6 F 04/03/18 15:21 Pulse Rate 95 H 04/03/18 15:21 Respiratory Rate 16 04/03/18 15:21 Blood Pressure 126/79 04/03/18 15:21 Pulse Oximetry 99 04/03/18 15:21 Last Documented Vital Signs Temperature 98.6 F 04/03/18 15:21 Pulse Rate 97 H 04/03/18 16:15 Respiratory Rate 20 04/03/18 16:15 Blood Pressure 127/75 04/03/18 16:15 Pulse Oximetry 94 L 04/03/18 16:15 Medical Decision Making MARIELLE Attestation MARIELLE supervised visit: Yes Attestation: I, Dr. Almaguer, have reviewed the advance practice practitioner's documentation and am in agreement, met with the patient face to face, made the diagnosis, and the medical decision making was done by me. *My assessment and Findings: Patient is a 57-year-old male whom was sent here for osteomyelitis of the finger. He is hemodynamically stable while in the emergency department. He has been given antibiotics and was seen by the hand surgeon solar sales consultant in the emergency department. He has been admitted to the hospitalist for further evaluation and management. MDM Narrative Medical decision making narrative: 57 yo male here for osteomyelitis to finger. Patient was properly examined and was found to have signs and symptoms consistent with infection. Failed outpatient treatment. Likely osteo-. I spoke with Dr. Ramos over the phone who wants the patient admitted to medicine, consult to him and ID. Started on IV antibiotics. Per Dr. ashlee Marroquin no surgery planned. Wants to try IV antibiotics. Patient does tell me that he has a chronic issue with alcohol and drinks pretty much heavily every day. CIWA was ordered because of this. Patient was given nicotine patch as he is also a smoker. Case discussed with Dr. Velasco who agrees admission to his service. Medical Screen Exam Complete: Yes Emergency Medical Condition: Yes Differential Diagnosis Differential Diagnosis: cellulitis vs osteomyelitis vs failed outpatient treatment Medical Records Medical records reviewed: Yes I reviewed the patient's medical records. Lab Data Lab results reviewed: Yes I reviewed the patient's lab results. Result diagrams: 04/03/18 16:29 04/03/18 16:29 Lab Results 04/03/18 04/03/18 04/03/18 Range/Units 16:29 16:29 16:29 WBC 11.9 H (4.0-11.0) th/mm3 RBC 4.18 L (4.50-5.90) mil/mm3 Hgb 13.7 (13.0-17.0) gm/dL Hct 39.9 (39.0-51.0) % MCV 95.4 (80.0-100.0) fL MCH 32.7 (27.0-34.0) pg MCHC 34.3 (32.0-36.0) % RDW 15.2 (11.6-17.2) % Plt Count 307 (150-450) th/mm3 MPV 6.3 L (7.0-11.0) fL Neut % (Auto) 83.3 H (16.0-70.0) % Lymph % (Auto) 6.1 L (9.0-44.0) % [place] % (Auto) 10.2 H (0.0-8.0) % Eos % (Auto) 0.3 (0.0-4.0) % Baso % (Auto) 0.1 (0.0-2.0) % Neut # (Auto) 9.9 H (1.8-7.7) th/mm3 Lymph # (Auto) 0.7 L (1.0-4.8) th/mm3 [place] # (Auto) 1.2 H (0.0-0.9) th/mm3 Eos # (Auto) 0.0 (0.0-0.4) th/mm3 Baso # (Auto) 0.0 (0.0-0.2) th/mm3 WBC Differential . Differential Comment Auto diff final Sodium 136 (136-145) meq/L Potassium 4.0 (3.5-5.1) meq/L Chloride 102 (98-107) meq/L Carbon Dioxide 22.0 (21.0-32.0) meq/L Anion Gap 12 (5-15) meq/L BUN 14 (7-18) mg/dL Creatinine 1.08 (0.60-1.30) mg/dL Estimated GFR 71 L (>89) mL/min Random Glucose 81 (74-106) mg/dL Lactic Acid 1.5 (0.4-2.0) mmol/L Calcium 9.3 (8.5-10.1) mg/dL Total Bilirubin 0.5 (0.2-1.0) mg/dL AST 18 (15-37) U/L ALT 19 (12-78) U/L Alkaline Phosphatase 104 (45-117) U/L Total Protein 8.4 H (6.4-8.2) g/dL Albumin 3.4 (3.4-5.0) g/dL Discharge Plan Discharge Disposition Patient Disposition: 30 Still Patient Discharge Details Diagnosis: Finger infection, Osteomyelitis Physicians Team ED Provider: Dannielle Almaguer ED Midlevel Provider: Victoriano Mahmood Primary Care Provider: Derek Lara Attending Provider: Holliday,Edward B Other Providers: Josesito Ramos Status ED Status: Admitted Patient
--- NOTE | 2018-04-03 18:55 | XR ---
EXAM DATE: 04/03/2018 6:13 PM EDT AGE/SEX: 57 years / Male INDICATIONS: Pain and swelling Right 2nd digit for 5 days. CLINICAL DATA: This is the patient's initial encounter. Patient reports that signs and symptoms have been present for 4 - 6 days and indicates a pain score of 5/10. MEDICAL/SURGICAL HISTORY: . Hypercholesterolemia. Hypertension. Colon polyps. Diverticulosis. S moker. Acute renal failure. None. COMPARISON: [facility] [place], FINGER RIGHT 3RD DIGIT ([id number]), 07/13/2017. . FINDINGS: There is soft tissue swelling seen at the second and third digits. There is acro-osteolysis of the di stal aspect of the second distal phalanx. This finding was present on the prior exam. The patient is status post anterior fixation of the distal third phalanx. There appears to be joint space narrowing at the first MCP joint with some chronic change at the first metacarpal head. CONCLUSION: Soft tissue swelling at the second and third digits. Chronic change of distal acro osteolysis at the second distal phalanx. Status post indentation of the third distal phalanx. Electronically signed by: Joni Willoughby MD 04/03/2018 6:54 PM EDT
[2018-04-03] MEDS ORDERED: Bisacodyl 10 MG Supp RECTAL PRN (19:09)
[2018-04-03] MEDS ORDERED: Vancomycin Consult Pharmacy 1 EACH OTHER SCH (19:15)
--- NOTE | 2018-04-03 19:23 | P.HP ---
History of Present Illness Service: [facility] hospitalist Primary Care Physician: Derek Lara MD Chief Complaint: sent by hand surgeon for IV antibiotics History of Present Illness: HPI narrative: 57-year-old male the presents to the ED for evaluation of infection to his right index finger. Patient has a history of neuropathy and basically has no feeling of most of his fingers as well as his toes. This is been chronic. The believe this is related to his smoking and alcohol. He apparently has had swelling in his right index finger for about 2 weeks now. He went to see Dr. Ramos yesterday who recommended MRI and started him on Bactrim. MRI results were concerning for osteomyelitis per patient and was told to come here for IV antibiotics. Denies any chest pain at this time. Denies any urinary symptoms. Per patient his pain is 4 out of 10. He did had an infection to his right middle finger for which she had to have amputation. Per patient he is hoping that he does not have to have this again. He denies any fevers chills or sweats. No other medical problems reported at this time. Patient does have history ETOH abuse and smoking with hypertension ,will also start alcohol withdrawal protocol. Denies fever ,chills,N,or vomit ,abdominal pain chest pain or SOB. Patient has history amputation finger,hx osteomyelitis Related Data - Diagnosis (1) Osteomyelitis (2) Finger infection (3) ETOH abuse (4) HTN (hypertension) Inpatient Certification: I certify that the inpatient services were ordered in accordance with Medicare regulations governing the order. This includes certification that hospital inpatient services are reasonable and necessary and in the case of services not specified as inpatient-only under 42 CFR 419.22(n), that they are appropriately provided as inpatient services in accordance to with the 2-midnight benchmark under 43 CFR 412.3(e) Estimated Total Length of Stay (Days): 3 Plans for Post Hospital Care: Not yet determined Review of Systems All other systems reviewed negative except as stated in HPI PMFSH - History History Provided By: Patient - Medical History Medical History: Medical History (Last Reviewed 04/03/18 @ 19:17 by Jorge Velasco MD) Alcohol abuse HTN (hypertension) Neuropathy - Tobacco History Tobacco Use In Past 30 Days: Yes Smoking Status: Current every day smoker Tobacco Type: Cigarettes - Alcohol History How Often Do You Have a Drink Containing Alcohol: 4 or more times a week - Substance Use History Substance History: No History of Abuse - Travel History Recent Travel in the [place] Within the Last 8 Weeks: No Recent Travel Out of the Country Within the Last 8 Weeks: No - Immunization History Tetanus Immunization: Unsure Medications and Allergies Active Medications: Active Medications Hydrocodone Bitart/Acetaminophen ([place]omers 10/325) 1 tab PO TID BECK Al Hydroxide/Mg Hydroxide (Milk Of Magnesia Liq) 30 ml PO Q12H PRN PRN Reason: Mild Constipation Bisacodyl (Dulcolax Supp) 10 mg RECTAL DAILY PRN PRN Reason: SEVERE CONSITIPATION Duloxetine HCl (Cymbalta) 120 mg PO DAILY [facility] Flumazenil (Romazecon Inj) 0.2 mg IV.PUSH Q1M PRN PRN Reason: OVERSEDATION Folic Acid (Folic Acid) 1 mg PO DAILY [facility] Haloperidol Lactate (Haldol Inj) 1 mg IV.PUSH Q15M PRN PRN Reason: for severe agitation Piperacillin/Tazobactam/Dextrose (Zosyn 3.375 Gm Premix) 50 mls @ 100 mls/hr IV.SIG Q8H [facility] Pharmacy Profile Note (Vancomycin Consult Pharmacy) 0 mls @ 0 mls/hr OTHER UNSCH [facility] Lactulose (Lactulose Liq) 30 ml PO DAILY PRN PRN Reason: SEVERE CONSITIPATION Lamotrigine (Lamictal) 50 mg PO DAILY [facility] Lamotrigine (Lamictal) 75 mg PO HS [facility] Lisinopril (Prinivil) 20 mg PO BID [facility] Lorazepam (Ativan Inj) 1 mg IV.PUSH Q4H PRN PRN Reason: for CIWA 8-10 Lorazepam (Ativan Inj) 2 mg IV.PUSH Q15M PRN PRN Reason: for CIWA > 20 Lorazepam (Ativan Inj) 2 mg IV.PUSH Q1H PRN PRN Reason: for CIWA 15-20 Lorazepam (Ativan Inj) 2 mg IV.PUSH Q2H PRN PRN Reason: for CIWA 11-14 Lorazepam (Ativan) 1 mg PO Q4H PRN PRN Reason: for CIWA 8-10 Lorazepam (Ativan) 2 mg PO Q2H PRN PRN Reason: for CIWA 11-14 Metoprolol Tartrate (Lopressor) 50 mg PO BID [facility] Non-Formulary Medication (Lovastatin [Lovastatin]) 40 mg PO DAILY [facility] Pantoprazole Sodium (Protonix) 20 mg PO DAILY [facility] Senna/Docusate Sodium (Nataliya-Colace) 1 tab PO BID [facility] Sennosides (Senokot) 17.2 mg PO Q12H PRN PRN Reason: Moderate Constipation Silver Sulfadiazine (Silvadene 1% Cream (50 Gm)) 1 applicatio TOPICAL DAILY [facility] Allergies Allergy/AdvReac Type Severity Reaction Status Date / Time No Known Allergies Allergy Verified 04/03/18 16:20 Home Medications Medication Instructions Recorded Confirmed Type duloxetine 120 mg PO DAILY 04/03/18 04/03/18 History folic acid 1 mg PO DAILY 04/03/18 04/03/18 History hydrocodone-acetaminophen 1 tab PO TID 04/03/18 04/03/18 History lamotrigine 50 mg PO DAILY 04/03/18 04/03/18 History lamotrigine 75 mg PO HS 04/03/18 04/03/18 History lisinopril 20 mg PO BID 04/03/18 04/03/18 History lovastatin 40 mg PO DAILY 04/03/18 04/03/18 History metoprolol tartrate 50 mg PO BID 04/03/18 04/03/18 History pantoprazole 20 mg PO DAILY 04/03/18 04/03/18 History silver sulfadiazine 1 applic TOPICAL DAILY 04/03/18 04/03/18 History sulfamethoxazole-trimethoprim 1 tab PO BID 04/03/18 04/03/18 History Exam Vital signs: Vital Signs 04/03/18 15:21 04/03/18 16:15 Temperature 98.6 F Pulse Rate 95 H 97 H Respiratory Rate 16 20 Blood Pressure 126/79 127/75 Pulse Oximetry 99 94 L Intake & Output 04/03/18 04/03/18 04/04/18 06:59 18:59 06:59 Intake Total 50 / 50 250 / 250 Balance 50 / 50 250 / 250 Weight 79.379 kg Intake: IV 50 / 50 250 / 250 Zosyn 3.375 GM Premix 50 ML @ 50 / 50 100 mls/hr IV.SIG ONCE ONE Rx#: [id number] Vancomycin Inj 1,000 MG In NS 250 / 250 Inj 250 ML @ 200 mls/hr IV.SIG ONCE ONE Rx#:[id number] Narrative: GENERAL: SKIN: Warm and dry. HEAD: Normocephalic. EYES: No scleral icterus. No injection or drainage. NECK: Supple, trachea midline. No JVD or lymphadenopathy. CARDIOVASCULAR: Regular rate and rhythm without murmurs, gallops, or rubs. RESPIRATORY: Breath sounds equal bilaterally. No accessory muscle use. GASTROINTESTINAL: Abdomen soft, non-tender, nondistended. MUSCULOSKELETAL: No cyanosis, or edema. swelling pain with discharge rt index finger twice size other one BACK: Nontender without obvious deformity. No CVA tenderness. Results - Labs CBC & Chem 7: 04/03/18 16:29 04/03/18 16:29 Labs: Laboratory Results - last 24 hr 04/03/18 04/03/18 04/03/18 16:29 16:29 16:29 WBC 11.9 H RBC 4.18 L Hgb 13.7 Hct 39.9 MCV 95.4 MCH 32.7 MCHC 34.3 RDW 15.2 Plt Count 307 MPV 6.3 L Neut % (Auto) 83.3 H Lymph % (Auto) 6.1 L [place] % (Auto) 10.2 H Eos % (Auto) 0.3 Baso % (Auto) 0.1 Neut # (Auto) 9.9 H Lymph # (Auto) 0.7 L [place] # (Auto) 1.2 H Eos # (Auto) 0.0 Baso # (Auto) 0.0 WBC Differential . Differential Comment Auto diff final Sodium 136 Potassium 4.0 Chloride 102 Carbon Dioxide 22.0 Anion Gap 12 BUN 14 Creatinine 1.08 Estimated GFR 71 L Random Glucose 81 Lactic Acid 1.5 Calcium 9.3 Total Bilirubin 0.5 AST 18 ALT 19 Alkaline Phosphatase 104 Total Protein 8.4 H Albumin 3.4 - Imaging Impressions Finger X-Ray 04/03/18 18:13 CONCLUSION: Soft tissue swelling at the second and third digits. Chronic change of distal acro osteolysis at the second distal phalanx. Status post indentation of the third distal phalanx. Caprini VTE Risk Assessment Caprini VTE Risk Assessment: Moderate/High Risk (score >= 2) Caprini Risk Assessment Model: Point Value = 1 Point Value = 2 Point Value = 3 Point Value = 5 Age 41-60 Minor surgery BMI > 25 kg/m2 Swollen legs Varicose veins or History of unexplained or recurrent spontaneous Oral contraceptives or hormone replacement Sepsis (< 1 month) Serious lung disease, including pneumonia (< 1 month) Abnormal pulmonary function Acute myocardial infarction Congestive heart failure (< 1 month) History of inflammatory bowel disease Medical patient at bed rest Age 61-74 Arthroscopic surgery Major open surgery (> 45 min) Laparoscopic surgery (> 45 min) Malignancy Confined to bed (> 72 hours) Immobilizing plaster cast Central venous access Age >= 75 History of VTE Family history of VTE Factor V Leiden Prothrombin [id number] Lupus anticoagulant Anticardiolipin antibodies Elevated serum homocysteine Heparin-induced thrombocytopenia Other congenital or acquired thrombophilia Stroke (< 1 month) Elective arthroplasty Hip, pelvis, or leg fracture Acute spinal cord injury (< 1 month) Prophylaxis Regimen: Total Risk Factor Score Risk Level Prophylaxis Regimen 0-1 Low Early ambulation 2 Moderate Order ONE of the following: *Sequential Compression Device (SCD) *Heparin 5000 units SQ BID 3-4 Higher Order ONE of the following medications: *Heparin 5000 units SQ TID *Enoxaparin/Lovenox 40 mg SQ daily (WT < 150 kg, CrCl > 30 mL/min) *Enoxaparin/Lovenox 30 mg SQ daily (WT < 150 kg, CrCl > 10-29 mL/min) *Enoxaparin/Lovenox 30 mg SQ BID (WT < 150 kg, CrCl > 30 mL/min) AND/OR *Sequential Compression Device (SCD) 5 or more Highest Order ONE of the following medications: *Heparin 5000 units SQ TID (Preferred with Epidurals) *Enoxaparin/Lovenox 40 mg SQ daily (WT < 150 kg, CrCl > 30 mL/min) *Enoxaparin/Lovenox 30 mg SQ daily (WT < 150 kg, CrCl > 10-29 mL/min) *Enoxaparin/Lovenox 30 mg SQ BID (WT < 150 kg, CrCl > 30 mL/min) AND *Sequential Compression Device (SCD) Assessment and Plan - Assessment (1) Osteomyelitis Code(s): M86.9 - Osteomyelitis, unspecified Status: Acute Plan: start on IV vancomycin ,Zoysn consult hand and ID (2) Finger infection Code(s): L08.9 - Local infection of the skin and subcutaneous tissue, unspecified Status: Acute Plan: as above IV antibiotics (3) ETOH abuse Code(s): F10.10 - Alcohol abuse, uncomplicated Status: Chronic Plan: withdrawal protocol (4) HTN (hypertension) Code(s): I10 - Essential (primary) hypertension Status: Chronic Plan: continue home meds - Plan further plan as case develops Code Status: full Discussed Condition With: patient (1) Osteomyelitis Qualifiers: Osteomyelitis type: other Osteomyelitis location: hand Laterality: right Qualified Code(s): M86.8X4 - Other osteomyelitis, hand
--- NOTE | 2018-04-03 20:29 | MB ---
cc: Josesito Ramos MD DATE: 04/03/2018 REASON FOR CONSULTATION: Right index finger infection. HISTORY OF PRESENT ILLNESS: The patient is a 57-year-old male with history of neuropathy and loss of sensation of the fingers seen by me in the office for right index finger infection. The patient had similar complaints involving the right middle finger for which he underwent disarticulation through the distal interphalangeal joint several months ago. He denies any complaints of the right middle finger. The patient is presented to the office yesterday with complaints of drainage from the right index finger region for the past few weeks, worse for the past 2 days associated with swelling and redness. He also complains of mild pain involving right index finger. Denies any fever. Denies any chills. Denies any injury. PAST MEDICAL HISTORY: Significant for neuropathy. PAST SURGICAL HISTORY: Significant for disarticulation through the distal interphalangeal joint, right middle finger. PHYSICAL EXAMINATION: GENERAL: The patient is alert and oriented x3. EXTREMITIES: Examination of the right hand reveals a draining sinus from the nail bed region of the index finger. He has loss of distal tip of the index finger with remnant of nail noted. He has diffuse swelling of the index finger extending from the proximal phalanx region distally. There is also surrounding swelling and erythema. Drainage noted from the sinus on squeezing the finger. He also has tenderness along the palmar aspect of the index finger. Range of motion of the index finger is limited and painful. Healed stump of the right middle finger. No signs of infection of the right middle finger noted. LABORATORY DATA: His lab work was reviewed. He has white count of 11.9, neutrophil shift of 83%. The patient had an MRI scan at outside facility, which shows a tear of the flexor digitorum profundus tendon. The proximal stump is proximal to the PIP joint. There is significant edema around the tendon. There is also evidence of abnormal marrow edema involving the distal phalanx base. tear of the flexor digitorum tendon of the middle finger is also noted and the tendon is retracted proximal to the PIP joint. This is a postoperative change as he had disarticulation through the distal interphalangeal joint several months ago. ASSESSMENT: A 57-year-old male with an infection of the right index finger, chronic with draining sinus and likely osteomyelitis of the distal phalanx base. PLAN: We will obtain x-rays of the right index finger. We will get infectious disease for IV antibiotics recommendation. Option of amputation was discussed with the patient. The patient is not keen on amputation. He would like to try incision and drainage along IV antibiotics initially. The patient was also informed that because of the draining wound with a likely collection, he would at least benefit from incision and drainage of the left index finger. We will plan for incision and drainage of right index finger. Keep the patient npo. risks and benefits of the procedure was explained to the patient. Josesito Ramos MD SE/omar , 06:23 PM , 06:33 PM MTDD
[2018-04-03] MEDS: Piperacil/Tazo 3.375 GM Premix 50 ML IV.SIG SCH (21:18)
[2018-04-03] MEDS: lamoTRIgine 100 MG Tablet PO SCH (21:19)
[2018-04-03] MEDS: Metoprolol Tartrate 50 MG Tablet PO SCH (21:19)
[2018-04-03] MEDS: Lisinopril 20 MG Tablet PO SCH (21:20)
[2018-04-03] MEDS: Morphine Sulfate Inj 2 MG/ML Vial IV.PUSH PRN (22:00)
[2018-04-04] MEDS: Senna/Docusate Sodium 8.6/50 MG Tablet PO SCH ×3 (00:21→22:50)
[2018-04-04] MEDS ORDERED: Vancomycin Inj 1,000 MG in Sodium Chlor 0.9% Inj 250 ML IV.SIG ONE (01:00)
[2018-04-04] MEDS ORDERED: HYDROmorphone PF Inj 2 MG/ML Vial IV.PUSH ONE (01:00)
[2018-04-04] MEDS: Melatonin 5 MG Tablet PO SCH ×2 (01:44→22:44)
[2018-04-04] MEDS: Piperacil/Tazo 3.375 GM Premix 50 ML IV.SIG SCH ×3 (04:19→19:37)
[2018-04-04 08:28] LABS: Baso % (Auto) 0.4 % (0.0-2.0); Eos # (Auto) 0.1 th/mm3 (0.0-0.4); Eos % (Auto) 1.5 % (0.0-4.0); Hematocrit 35.5 % (39.0-51.0); Hemoglobin 12.1 gm/dL (13.0-17.0); Lymph # (Auto) 0.7 th/mm3 (1.0-4.8); Lymph % (Auto) 9.3 % (9.0-44.0); Mean Corpuscular HGB Conc 34.1 % (32.0-36.0); Mean Corpuscular Volume 93.9 fL (80.0-100.0); Mean Platelet Volume 6.7 fL (7.0-11.0); Mono # (Auto) 0.8 th/mm3 (0.0-0.9); Mono % (Auto) 10.7 % (0.0-8.0); Neut # (Auto) 6.1 th/mm3 (1.8-7.7); Neut % (Auto) 78.1 % (16.0-70.0); Platelet Count 270 th/mm3 (150-450); Red Blood Count 3.78 mil/mm3 (4.50-5.90); Red Cell Distribution Width 15.3 % (11.6-17.2); White Blood Count 7.8 th/mm3 (4.0-11.0)
[2018-04-04 09:10] LABS: Potassium 4.4 meq/L (3.5-5.1)
[2018-04-04] MEDS: Duloxetine 60 MG DR Capsule PO SCH (09:22)
[2018-04-04] MEDS: Pantoprazole Sodium 20 MG DR Tablet PO SCH (09:22)
[2018-04-04] MEDS: lamoTRIgine 25 MG TABLET PO SCH (09:22)
[2018-04-04] MEDS: Folic Acid 1 MG Tablet PO SCH (09:23)
[2018-04-04] MEDS: Lisinopril 20 MG Tablet PO SCH ×2 (09:28→22:43)
[2018-04-04] MEDS: Metoprolol Tartrate 50 MG Tablet PO SCH ×2 (09:28→22:45)
[2018-04-04] MEDS ORDERED: Sod Chloride 0.9% Inj 1,000 ML IV.CONT SCH (10:00)
--- NOTE | 2018-04-04 12:20 | P.PNIM ---
Subjective Interval history: No new complaints. Physical Exam Vital signs: 04/04/18 02:01 04/04/18 04:00 04/04/18 08:00 Temperature 98.1 F 98 F Pulse Rate 69 67 Respiratory Rate 18 20 18 Blood Pressure 105/72 112/79 Pulse Oximetry 98 100 Narrative: GENERAL: This is a well-nourished, well-developed patient, in no apparent distress. CARDIOVASCULAR: Regular rate and rhythm without murmurs, gallops, or rubs. RESPIRATORY: Clear to auscultation. Breath sounds equal bilaterally. No wheezes , rales, or rhonchi. GASTROINTESTINAL: Abdomen soft, non-tender, nondistended. Normal active bowel sounds MUSCULOSKELETAL: Extremities without clubbing, cyanosis, or edema. NEURO: Alert & Oriented x4 to person, place, time, situation. Moves all ext x4 - Urinary Catheter Management Condom Cath placed during this visit: no Results - Labs CBC & Chem 7: 04/04/18 07:27 04/06/18 06:01 Microbiology 04/03/18 16:20 Blood - Peripheral Aerobic Blood Culture - Preliminary No growth in 1 day 04/03/18 16:20 Blood - Peripheral Anaerobic Blood Culture - Preliminary No growth in 1 day 04/03/18 16:29 Blood - Peripheral Aerobic Blood Culture - Preliminary No growth in 1 day 04/03/18 16:29 Blood - Peripheral Anaerobic Blood Culture - Preliminary No growth in 1 day 04/03/18 16:30 Abscess - Finger Gram Stain - Final - Imaging Finger X-Ray 04/03/18 18:13 Soft tissue swelling at the second and third digits. Chronic change of distal acro osteolysis at the second distal phalanx. Status post indentation of the third distal phalanx. MRI right hand (performed at [facility] 04/03/18) Tears involving the flexor profunda tendons of the 2nd and 3rd gingers in the plantar aspect of the hand Possible injury to the s2nd distal phalangeal bone Assessment and Plan - Assessment (1) Superficial injury of right ring finger with infection Code(s): S60.944A - Unspecified superficial injury of right ring finger, initial encounter; L08.9 - Local infection of the skin and subcutaneous tissue, unspecified Status: Acute Plan: 57 y/o M with chronic infection of right index finger - draining sinus - possible ostomyelitis of the distal phalanx base - MRI right hand (performed at [facility] 04/03/18) Tears involving the flexor profunda tendons of the 2nd and 3rd gingers in the plantar aspect of the hand Possible injury to the s2nd distal phalangeal bone - await Infectious Disease consult - Pt to undergo I&D today (04/04) with Dr. Santana - zosyn (04/03 - present) - Vancomycin (04/03 - present) - Silvadene - prn [place] - Pt was confrontational and refused repeat MR with contrast - Case d/w Dr. Santana. Pt will have bone bx with I&D to evaluate for osteomyelitis - SCDs for DVT prophylaxis - supportive care - Pt interviewed and examined with Debi Nelson PA-C - I was called by Dr. Anaya (04/04). Pt was unpleasant & ultimately refused Infectious Disease consultation. I will cancel ID consult, and consider resubmitting ID consult 04/05. Periperal Neuropathy - cymbalta, lamictal per pain mgmt HTN - continue metoprolol - stop lisinopril h/o Etoh abuse - start librium 25mg BID - [place] protocol (2) ETOH abuse Code(s): F10.10 - Alcohol abuse, uncomplicated Status: Chronic (3) HTN (hypertension) Code(s): I10 - Essential (primary) hypertension Status: Chronic (4) Peripheral neuropathy Code(s): G62.9 - Polyneuropathy, unspecified Status: Acute
[2018-04-04] MEDS: Vancomycin Inj 1,750 MG in Sodium Chlor 0.9% Inj 500 ML IV.SIG SCH (12:54)
[2018-04-04] MEDS: chlordiazePOXIDE 25 MG Capsule PO SCH (14:38)
[2018-04-04] MEDS ORDERED: Neomycin/Polymyxin G.U. Irrigant 1 ML Ampul ONE (19:11)
[2018-04-04] MEDS ORDERED: Phenylephrine/NS 1000 MCG/10ML Syringe IV.PUSH ONE (19:20)
[2018-04-04] MEDS ORDERED: Lidocaine PF 1% Inj 5 ML Syringe OTHER ONE (19:20)
--- NOTE | 2018-04-04 20:47 | P.OP ---
- Preoperative Diagnosis (1) Osteomyelitis of finger of right hand Comment: distal phalanx right index finger - Postoperative Diagnosis (1) Osteomyelitis of finger of right hand Comment: distal phalanx right index finger (2) Suppurative tenosynovitis of flexor tendon of right hand Comment: right index finger Procedure: incision and drainage right index finger drainage flexor tendon sheath right index finger curettage distal phalanx right index finger Anesthesia: GETA Surgeon: Josesito Ramos MD Estimated blood loss (mL): 10 Tourniquet time (min): 39 Pathology: other (swab from flexor tendon sheath right index finger, nail bed region and pathology specimen of distal phalanx right index finger)
[2018-04-04] MEDS ORDERED: fentaNYL Citrate Inj 100 MCG/2 ML Ampul ONE (20:56)
[2018-04-04] MEDS ORDERED: Melatonin 5 MG Tablet PO SCH (21:00)
--- NOTE | 2018-04-04 21:35 | MP ---
cc: Josesito Ramos MD DATE OF OPERATION: 04/04/2018 PREOPERATIVE DIAGNOSIS: Osteomyelitis, distal phalanx, right index finger. POSTOPERATIVE DIAGNOSES: 1. Osteomyelitis, distal phalanx, right index finger. 2. Suppurative flexor tenosynovitis, right index finger. PROCEDURE PERFORMED: 1. Incision and drainage, right index finger. 2. Drainage of flexor tendon sheath, right index finger. 3. Curettage of distal phalanx, right index finger. SURGEON: Josesito Ramos MD ANESTHESIA: General. ESTIMATED BLOOD LOSS: 10 mL. TOURNIQUET TIME: 39 minutes at 250 mmHg. SPECIMEN: Sent for culture and sensitivity from flexor tendon sheath, nail bed region and a bone biopsy specimen from the distal phalanx to pathology. DISPOSITION: To PACU stable. INDICATIONS: The patient is a 57-year-old male with a history of neuropathy and loss of sensation of the fingertips who presented with drainage from the nail bed region of the right index finger of several weeks' duration, worse for the past 2-3 days, associated with swelling and redness of the index finger. The patient had a draining wound from the nail bed region. He had partial resorption of the index finger distal phalanx from neuropathy. He also had mild tenderness in the palm. The patient had loss of sensation and hence clinically, he was not in significant pain. MRI scan showed rupture of the flexor tendon and retraction of the proximal stump to the PIP joint region. The patient was consented for incision and drainage of the right index finger. The patient was also informed about the possibility of flexor tendon drainage depending on intraoperative findings. The patient was consented for the same. DESCRIPTION OF PROCEDURE: The patient was brought to the operating room. Under general anesthesia, the right upper extremity was sterilely prepped and draped. After limb elevation, the tourniquet was inflated to 250 mmHg. Attention was initially directed to the palmar region corresponding to the A1 clark. An oblique incision was made over the region. Soft tissue dissection was carried out and the A1 clark was exposed. There was evidence of purulence at the A1 clark region. The A1 clark was released in a proximal to distal direction. On release, there was evidence of purulence within the tendon sheath. A specimen was sent for culture and sensitivity. The flexor digitorum profundus tendon was also found to be loose and on retracting the tendon, the stump of the flexor tendon was ruptured at its distal aspect and was easily withdrawn into the A1 clark region. Part of the flexor digitorum profundus was transected and sent as a pathology specimen. He had an intact flexor digitorum superficialis tendon. Another incision was made just proximal to the DIP joint crease in a transverse fashion and the A5 clark was exposed. There was evidence of purulence within the region. A thorough wash of the flexor tendon sheath was carried out using normal saline with irrigant. About 500 mL of solution was used until the flexor tendon sheath was cleared of all purulent material. Attention was then directed dorsally. The nail plate, which was tiny and deformed, was removed. There was evidence of purulence within the region. The nail bed was excised as he had almost complete loss of the nail plate except for the proximal 2-3 mm. The distal phalanx was exposed after removal of the nail bed and the distal phalanx was found to be soft and easily rongeured. He had the proximal one-third of the distal phalanx stump left. Rongeuring was carried out to the base of the distal phalanx. The patient did not consent for amputation of the finger; hence, rongeuring was carried out up until normal bone was reached, which was the base of the distal phalanx. This specimen was sent to pathology to rule out osteomyelitis clinically and intraoperatively. This was consistent with osteomyelitis. On rongeuring the distal phalanx, I was able to connect from the dorsal wound to the volar aspect of the flexor tendon sheath region which had ruptured and retracted proximally. A thorough wash was given using hydrogen peroxide, normal saline and irrigant. The tourniquet was deflated at 39 minutes. He did have good circulation up to the proximal interphalangeal joint region. Capillary refill was delayed distally. This was consistent with the preop vascularity as well. Packing of the wound was carried out using 1/4 inch iodoform packing material. The wound was then loosely approximated using 5 horizontal mattress in interrupted fashion in the palm and on the dorsal aspect. A bulky hand dressing was applied, which was held in place with a Sof-Rol and a bias hand wrap. The patient was recovered and sent to recovery in stable condition. We will follow up cultures, obtain an infectious disease consult and continue with IV antibiotics. MD Genesis Vlilalobos , 08:53 PM , 09:05 PM ANASTACIO
[2018-04-04] MEDS: Morphine Sulfate Inj 2 MG/ML Vial IV.PUSH PRN (22:43)
[2018-04-04] MEDS: lamoTRIgine 100 MG Tablet PO SCH (22:43)
[2018-04-05] MEDS: chlordiazePOXIDE 25 MG Capsule PO SCH ×2 (04:02→13:10)
[2018-04-05] MEDS: Piperacil/Tazo 3.375 GM Premix 50 ML IV.SIG SCH ×3 (04:02→20:21)
[2018-04-05] MEDS: Morphine Sulfate Inj 2 MG/ML Vial IV.PUSH PRN (04:14)
[2018-04-05] MEDS: Vancomycin Inj 1,750 MG in Sodium Chlor 0.9% Inj 500 ML IV.SIG SCH (05:52)
[2018-04-05] MEDS: Senna/Docusate Sodium 8.6/50 MG Tablet PO SCH ×2 (10:02→20:22)
[2018-04-05] MEDS: Folic Acid 1 MG Tablet PO SCH (10:02)
[2018-04-05] MEDS: Pantoprazole Sodium 20 MG DR Tablet PO SCH (10:02)
[2018-04-05] MEDS: lamoTRIgine 25 MG TABLET PO SCH (10:02)
[2018-04-05] MEDS: Duloxetine 60 MG DR Capsule PO SCH (10:02)
[2018-04-05] MEDS: Lisinopril 20 MG Tablet PO SCH (10:03)
[2018-04-05] MEDS: Metoprolol Tartrate 50 MG Tablet PO SCH ×2 (10:03→20:21)
--- NOTE | 2018-04-05 13:01 | P.PNIM ---
Subjective Interval history: No new complaints. Pt's pain is controlled. Pt is calmer today. Physical Exam Vital signs: 04/05/18 08:00 Temperature 98.1 F Pulse Rate 68 Respiratory Rate 18 Blood Pressure 104/64 Pulse Oximetry Narrative: GENERAL: This is a well-nourished, well-developed patient, in no apparent distress. CARDIOVASCULAR: Regular rate and rhythm without murmurs, gallops, or rubs. RESPIRATORY: Clear to auscultation. Breath sounds equal bilaterally. No wheezes , rales, or rhonchi. GASTROINTESTINAL: Abdomen soft, non-tender, nondistended. Normal active bowel sounds MUSCULOSKELETAL: right hand is bandaged. NEURO: Alert & Oriented x4 to person, place, time, situation. Moves all ext x4 - Urinary Catheter Management Condom Cath placed during this visit: no Results - Labs CBC & Chem 7: 04/04/18 07:27 04/06/18 06:01 Microbiology 04/04/18 19:47 Tissue - Finger Gram Stain - Final 04/04/18 19:47 Tissue - Finger Wound Culture - Preliminary Group B beta Strep 04/04/18 19:47 Tissue - Finger Fungal Smear - Final No fungal elements seen 04/04/18 19:47 Wound - Finger Gram Stain - Final 04/04/18 19:47 Wound - Finger Wound Culture - Preliminary 04/03/18 16:30 Abscess - Finger Gram Stain - Final 04/03/18 16:30 Abscess - Finger Wound Culture - Preliminary Staphylococcus aureus Group B beta Strep 04/03/18 16:20 Blood - Peripheral Aerobic Blood Culture - Preliminary No growth in 2 days 04/03/18 16:20 Blood - Peripheral Anaerobic Blood Culture - Preliminary No growth in 2 days 04/03/18 16:29 Blood - Peripheral Aerobic Blood Culture - Preliminary No growth in 2 days 04/03/18 16:29 Blood - Peripheral Anaerobic Blood Culture - Preliminary No growth in 2 days 04/04/18 19:47 Wound - Finger Fungal Smear - Final No fungal elements seen Assessment and Plan - Assessment (1) Superficial injury of right ring finger with infection Code(s): S60.944A - Unspecified superficial injury of right ring finger, initial encounter; L08.9 - Local infection of the skin and subcutaneous tissue, unspecified Status: Acute Plan: 57 y/o M with chronic infection of right index finger - draining sinus - possible ostomyelitis of the distal phalanx base - MRI right hand (performed at [facility] 04/03/18) - Tears involving the flexor profunda tendons of the 2nd and 3rd fingers in the plantar aspect of the hand - Possible injury to the 2nd distal phalangeal bone - case reviewed with Radiology 04/04/18. Imaging studies osteomyelitis of right index finger - Pt underwent surgery with Dr. Ramos (04/04/18) 1. Incision and drainage, right index finger. 2. Drainage of flexor tendon sheath, right index finger. 3. Curettage of distal phalanx, right index finger. - wound culture (04/03/18) --> MSSA, group B strep - Intraoperative Nail Bed Cx (04/04/18) --> Group B strep - Other intraoperative Cultures (04/04/18) --> pending - Vancomycin (04/03 - present) - Zosyn (04/03 - present) - prn [place] - Pt had refused ID consultation (04/04/18) - Today (04/05/18). Pt is agreeable to ID consult. I will place consult. - Pt seen today & yesterday together with Debi Nelson PA-C. - SCDs for DVT prophylaxis - supportive care Periperal Neuropathy - cymbalta, lamictal per pain mgmt HTN - continue metoprolol - stop lisinopril h/o Etoh abuse - start librium 25mg BID - [facility] protocol (2) ETOH abuse Code(s): F10.10 - Alcohol abuse, uncomplicated Status: Chronic (3) HTN (hypertension) Code(s): I10 - Essential (primary) hypertension Status: Chronic (4) Peripheral neuropathy Code(s): G62.9 - Polyneuropathy, unspecified Status: Acute
--- NOTE | 2018-04-05 17:10 | P.PNADD ---
Addendum to Inpatient Note Additional information: Pt seen around 1600 full note to follow
--- NOTE | 2018-04-05 18:03 | P.CONID ---
History of Present Illness Service: ID Consult date: 04/05/18 Requesting Physician: Alen Holliday Reason for Consult: osteomyelitis of right index finger Primary Care Provider: Derek Lara MD Chief Complaint: sent by hand surgeon for IV antibiotics History of Present Illness: 57 yo male with periferal neuropathy s/p multiple fingers and toes amputations presentes with infected index finger that started 2-3 weeks ago as blisters and skin sloughing Non contrasted MRI done as o/p showed tendon tears Pt was admitted for surgery and IV abx Op report was reviewed:Osteomyelitis of finger of right hand Comment: distal phalanx right index finger and Suppurative tenosynovitis of flexor tendon of right hand of right index finger sp incision and drainage right index finger, drainage flexor tendon sheath right index finger, curettage distal phalanx right index finger cultures growing GB strep and MSSA PMFSH - History History Provided By: Patient - Medical History Medical History: Medical History (Last Reviewed 04/03/18 @ 19:17 by Jorge Velasco MD) Alcohol abuse HTN (hypertension) Neuropathy - Tobacco History Second Hand Smoke Exposure: Yes Tobacco Use In Past 30 Days: Yes Smoking Status: Current every day smoker Tobacco Type: Cigars - Alcohol History How Often Do You Have a Drink Containing Alcohol: 4 or more times a week - Substance Use History Substance History: No History of Abuse - Travel History Recent Travel in the [place] Within the Last 8 Weeks: No Recent Travel Out of the Country Within the Last 8 Weeks: No - Immunization History Tetanus Immunization: Unsure Medications and Allergies Active Medications: Active Medications Hydrocodone Bitart/Acetaminophen ([place] 10/325) 1 tab PO TID [facility] Last Admin: 04/05/18 13:55 Dose: 1 tab Al Hydroxide/Mg Hydroxide (Milk Of Magnradha Liq) 30 ml PO Q12H PRN PRN Reason: Mild Constipation Bisacodyl (Dulcolax Supp) 10 mg RECTAL DAILY PRN PRN Reason: SEVERE CONSITIPATION Chlordiazepoxide (Librium) 25 mg PO Q12H [facility] Last Admin: 04/05/18 13:10 Dose: 25 mg Duloxetine HCl (Cymbalta) 120 mg PO DAILY [facility] Last Admin: 04/05/18 10:02 Dose: 120 mg Flumazenil (Romazecon Inj) 0.2 mg IV.PUSH Q1M PRN PRN Reason: OVERSEDATION Folic Acid (Folic Acid) 1 mg PO DAILY [facility] Last Admin: 04/05/18 10:02 Dose: 1 mg Haloperidol Lactate (Haldol Inj) 1 mg IV.PUSH Q15M PRN PRN Reason: for severe agitation Piperacillin/Tazobactam/Dextrose (Zosyn 3.375 Gm Premix) 50 mls @ 100 mls/hr IV.SIG Q8H [facility] Last Infusion: 04/05/18 13:21 Dose: Infused Pharmacy Profile Note (Vancomycin Consult Pharmacy) 0 mls @ 0 mls/hr OTHER UNSCH [facility] Vancomycin HCl 1,750 mg/ (Sodium Chloride) 517.5 mls @ 250 mls/hr IV.SIG Q18H [facility] Last Infusion: 04/05/18 10:18 Dose: Infused Lactulose (Lactulose Liq) 30 ml PO DAILY PRN PRN Reason: SEVERE CONSITIPATION Lamotrigine (Lamictal) 50 mg PO DAILY [facility] Last Admin: 04/05/18 10:02 Dose: 50 mg Lamotrigine (Lamictal) 75 mg PO [facility] Last Admin: 04/04/18 22:43 Dose: 75 mg Lorazepam (Ativan Inj) 1 mg IV.PUSH Q4H PRN PRN Reason: for CIWA 8-10 Lorazepam (Ativan Inj) 2 mg IV.PUSH Q15M PRN PRN Reason: for CIWA > 20 Lorazepam (Ativan Inj) 2 mg IV.PUSH Q1H PRN PRN Reason: for CIWA 15-20 Lorazepam (Ativan Inj) 2 mg IV.PUSH Q2H PRN PRN Reason: for CIWA 11-14 Lorazepam (Ativan) 1 mg PO Q4H PRN PRN Reason: for CIWA 8-10 Lorazepam (Ativan) 2 mg PO Q2H PRN PRN Reason: for CIWA 11-14 Melatonin (Melatonin) 5 mg PO [facility] Last Admin: 04/04/18 22:44 Dose: 5 mg Metoprolol Tartrate (Lopressor) 50 mg PO BID [facility] Last Admin: 04/05/18 10:03 Dose: Not Given Miscellaneous Information ([facility] Ordered Lab Info) 0 each OTHER ONCE ONE Stop: 04/05/18 23:46 Miscellaneous Information ([facility] Nursing Information) 1 each OTHER UNSCH PRN PRN Reason: SEE LABEL COMMENTS Stop: 04/05/18 20:50 Morphine Sulfate (Morphine Inj) 2 mg IV.PUSH Q6H PRN PRN Reason: PAIN SCALE 6 TO 10 Last Admin: 04/05/18 04:14 Dose: 2 mg Nicotine (Habitrol 21 Mg Patch.24 Hr) 1 patch T-DERMAL DAILY [facility] Last Admin: 04/05/18 13:10 Dose: 1 patch Pantoprazole Sodium (Protonix) 20 mg PO DAILY [facility] Last Admin: 04/05/18 10:02 Dose: 20 mg Patch Removal (Remove Old Patch) 1 each T-DERMAL DAILY [facility] Last Admin: 04/05/18 13:10 Dose: 1 each Pravastatin Sodium (Pravachol) 40 mg PO DAILY [facility] Last Admin: 04/05/18 10:02 Dose: 40 mg Senna/Docusate Sodium (Nataliya-Colace) 1 tab PO BID [facility] Last Admin: 04/05/18 10:02 Dose: 1 tab Sennosides (Senokot) 17.2 mg PO Q12H PRN PRN Reason: Moderate Constipation Silver Sulfadiazine (Silvadene 1% Cream (50 Gm)) 1 applicatio TOPICAL DAILY [facility] Last Admin: 04/05/18 10:18 Dose: Not Given Allergies Allergy/AdvReac Type Severity Reaction Status Date / Time No Known Allergies Allergy Verified 04/03/18 16:20 Home Medications Medication Instructions Recorded Confirmed Type duloxetine 120 mg PO DAILY 04/03/18 04/03/18 History folic acid 1 mg PO DAILY 04/03/18 04/03/18 History hydrocodone-acetaminophen 1 tab PO TID 04/03/18 04/03/18 History lamotrigine 50 mg PO DAILY 04/03/18 04/03/18 History lamotrigine 75 mg PO HS 04/03/18 04/03/18 History lisinopril 20 mg PO BID 04/03/18 04/03/18 History lovastatin 40 mg PO DAILY 04/03/18 04/03/18 History metoprolol tartrate 50 mg PO BID 04/03/18 04/03/18 History pantoprazole 20 mg PO DAILY 04/03/18 04/03/18 History silver sulfadiazine 1 applic TOPICAL DAILY 04/03/18 04/03/18 History sulfamethoxazole-trimethoprim 1 tab PO BID 04/03/18 04/03/18 History Exam Vital signs: Vital Signs 04/04/18 20:51 04/04/18 21:00 04/04/18 21:15 Temperature 98.0 F 97.4 F L Pulse Rate 66 66 66 Respiratory Rate 14 14 14 Blood Pressure 105/67 101/66 95/56 L Pulse Oximetry 95 95 93 L 04/04/18 22:00 04/05/18 00:00 04/05/18 04:00 Temperature 97.4 F L 98 F Pulse Rate 76 74 69 Respiratory Rate 18 18 Blood Pressure 102/71 92/54 L Pulse Oximetry 97 94 L 04/05/18 08:00 04/05/18 12:00 04/05/18 16:00 Temperature 98.1 F 97.9 F Pulse Rate 68 70 71 Respiratory Rate 18 18 Blood Pressure 104/64 93/57 L Pulse Oximetry 97 Intake & Output 04/04/18 04/05/18 04/05/18 18:59 06:59 18:59 Intake Total 567.5 / 567.5 1550 / 1550 567.5 / 567.5 Output Total 180 / 180 425 / 425 Balance 387.5 / 387.5 1540 / 1540 142.5 / 142.5 Weight 81.7 kg Intake: IV 567.5 / 567.5 1100 / 1100 567.5 / 567.5 NS Inj 1,000 ML @ 75 mls/hr IV. 1000 / 1000 CONT .[id number] [facility] Rx#:[id number] Zosyn 3.375 GM Premix 50 ML @ 50 / 50 100 / 100 50 / 50 100 mls/hr IV.SIG Q8H [facility] Rx#: [id number] Vancomycin Inj 1,750 MG In NS 517.5 / 517.5 517.5 / 517.5 Inj 500 ML @ 250 mls/hr IV.SIG Q18H [facility] Rx#:[id number] Anesthesia Amount 450 / 450 Output: Urine 180 / 180 425 / 425 Estimated Blood Loss Other: Date of Last Bowel Movement 04/03/18 04/03/18 # Bowel Movements 0 - Constitutional no acute distress, average body habitus - Routine HEENT Exam Head: Present: normocephalic, atraumatic Eye: Present: EOMI, PERRL. Absent: conjunctival icterus, scleral injection ENT: Present: mucous membranes moist, oropharynx clear - Routine Neck Exam Present: supple. Absent: JVD - Routine Respiratory Exam Present: decreased breath sounds, CTA bilaterally - Routine Cardiovascular Exam Present: RRR, S1, S2. Absent: murmur, gallop, rubs - Routine Abdominal Exam Present: soft, normoactive bowel sounds. Absent: tenderness, distended, organomegaly, mass - Routine Extremities Exam Present: amputation (see comments). Absent: cyanosis, clubbing, edema Comments: Ulcer present on pad of R hallux Partically amputate b/l great toes and R 2nd toe Distal phalanx amputation of r ring finger excellent pedal pulses decreased sensation to light touch feet, hands well perfused, brisk refill - Routine Skin Exam Present: dry, warm. Absent: lesions, jaundice - Routine Neurological Exam Present: alert, oriented X3, CN II-XII intact, sensory deficit (decreased sensation in gloves and socks destribution), moving all extremities, normal speech - Routine Psychiatric Exam Present: normal affect, cooperative Results - Labs CBC & Chem 7: 04/04/18 07:27 04/04/18 07:27 - Imaging Finger X-Ray 04/03/18 18:13 CONCLUSION: Soft tissue swelling at the second and third digits. Chronic change of distal acro osteolysis at the second distal phalanx. Status post indentation of the third distal phalanx. Assessment and Plan - Plan Periferal neuropahty ? ETOH induced Multiple digits loss 2/2 rosteomyelitis Presentes with acute R IF osteomyelitis, GBS, MSSA sp surgery cont vanco zosyn untill cultures finalised will follow path as well anticipate IV abx upon dc
[2018-04-05] MEDS: lamoTRIgine 100 MG Tablet PO SCH (20:21)
[2018-04-05] MEDS: Melatonin 5 MG Tablet PO SCH (20:21)
--- NOTE | 2018-04-05 21:00 | XR ---
EXAM DATE: 04/05/2018 12:00 AM EDT AGE/SEX: 57 years / Male INDICATIONS: Right second digit pain and swelling for one week. CLINICAL DATA: This is the patient's subsequent encounter. Patient reports that signs and symptoms h ave been present for 1 week and indicates a pain score of 2/10. MEDICAL/SURGICAL HISTORY: . Hypercholesterolemia. Hypertension. Colon polyps. Diverticulosis. S moker. Acute renal failure. . Right hand surgery. COMPARISON: [facility], FINGER RIGHT 2ND DIGIT MIN 2V, 04/03/2018. . FINDINGS: There is evidence for prior amputation of the second distal phalanx. Since the prior study from 2 day s ago there is more destructive erosive changes involving the second distal phalanx with significant osteolysis at the site since the prior exam suspicious for osteomyelitis possibly aggressive type of infectious process with some gas within the subcutaneous tissues as well which extends from the PIP j oint to distal phalangeal area not present previously. CONCLUSION: Significant osteolysis and destruction of the second distal phalanx since 2 days ago with gas collect ion in the adjacent soft tissue is highly suspicious for aggressive infection in the soft tissues and osteomyelitis. Electronically signed by: Mauri Coe MD 04/05/2018 8:58 PM EDT
[2018-04-05] MEDS ORDERED: Pharmacy Ordered Lab Info OTHER ONE (23:45)
[2018-04-06] MEDS: Vancomycin Inj 1,750 MG in Sodium Chlor 0.9% Inj 500 ML IV.SIG SCH (00:12)
[2018-04-06] MEDS: chlordiazePOXIDE 25 MG Capsule PO SCH ×2 (01:44→13:39)
[2018-04-06] MEDS: Piperacil/Tazo 3.375 GM Premix 50 ML IV.SIG SCH ×2 (03:36→13:40)
[2018-04-06] MEDS: Pantoprazole Sodium 20 MG DR Tablet PO SCH (08:08)
[2018-04-06] MEDS: Metoprolol Tartrate 50 MG Tablet PO SCH ×2 (08:08→21:27)
[2018-04-06] MEDS: Duloxetine 60 MG DR Capsule PO SCH (08:08)
[2018-04-06] MEDS: lamoTRIgine 25 MG TABLET PO SCH (08:08)
[2018-04-06] MEDS: Senna/Docusate Sodium 8.6/50 MG Tablet PO SCH ×2 (08:09→21:27)
[2018-04-06] MEDS: Folic Acid 1 MG Tablet PO SCH (08:09)
--- NOTE | 2018-04-06 15:45 | P.PNID ---
Subjective Remarks: tolerating abx OK no new c/o afebrile growing GBS, MSSA, r/o anaerob WBC went down path P Antibiotics: zosyn vancomycin Allergies/Adverse Reactions: Allergies No Known Allergies Allergy (Verified 04/03/18 16:20) Objective Vital Signs 04/05/18 16:00 04/05/18 20:00 04/06/18 00:00 Temperature 98.3 F 97.7 F 97.8 F Pulse Rate 79 73 68 Respiratory Rate 18 18 18 Blood Pressure 120/72 101/61 98/57 L Pulse Oximetry 97 100 97 04/06/18 04:00 04/06/18 08:00 04/06/18 12:00 Temperature 97.8 F 97.3 F L 97.8 F Pulse Rate 63 62 70 Respiratory Rate 18 20 20 Blood Pressure 91/54 L 138/76 93/51 L Pulse Oximetry 98 100 98 Intake & Output 04/05/18 04/06/18 04/06/18 18:59 06:59 18:59 Intake Total 1047.5 / 1047.5 867.5 / 867.5 50 / 50 Output Total 825 / 825 400 / 400 Balance 222.5 / 222.5 467.5 / 467.5 50 / 50 Weight 81.5 kg Intake: IV 567.5 / 567.5 617.5 / 617.5 50 / 50 Zosyn 3.375 GM Premix 50 ML @ 50 / 50 100 / 100 50 / 50 100 mls/hr IV.SIG Q8H BECK Rx#: [id number] Vancomycin Inj 1,750 MG In NS 517.5 / 517.5 517.5 / 517.5 Inj 500 ML @ 250 mls/hr IV.SIG Q18H BECK Rx#:[id number] Oral 480 / 480 250 / 250 Output: Urine 425 / 425 400 / 400 Urine Amount (Catheter) 400 / 400 Condom 400 / 400 Other: Date of Last Bowel Movement 04/03/18 04/03/18 16:20 Blood - Peripheral Aerobic Blood Culture - Preliminary No growth in 3 days 04/03/18 16:20 Blood - Peripheral Anaerobic Blood Culture - Preliminary No growth in 3 days 04/03/18 16:29 Blood - Peripheral Aerobic Blood Culture - Preliminary No growth in 3 days 04/03/18 16:29 Blood - Peripheral Anaerobic Blood Culture - Preliminary No growth in 3 days 04/04/18 19:47 Tissue - Finger Gram Stain - Final 04/04/18 19:47 Tissue - Finger Wound Culture - Final Group B beta Strep Staphylococcus aureus 04/04/18 19:47 Wound - Finger Gram Stain - Final 04/04/18 19:47 Wound - Finger Wound Culture - Final Group B beta Strep 04/04/18 19:47 Wound - Finger Fungal Smear - Final No fungal elements seen 04/04/18 19:47 Wound - Finger Fungal Culture - Pending 04/04/18 19:47 Wound - Finger Acid Fast Bacilli Smear - Final No acid fast bacilli seen 04/04/18 19:47 Wound - Finger Mycobacterial Culture - Pending 04/04/18 19:47 Tissue - Finger Acid Fast Bacilli Smear - Final No acid fast bacilli seen 04/04/18 19:47 Tissue - Finger Mycobacterial Culture - Pending 04/04/18 19:47 Tissue - Finger Fungal Smear - Final No fungal elements seen 04/04/18 19:47 Tissue - Finger Fungal Culture - Pending 04/03/18 16:30 Abscess - Finger Gram Stain - Final 04/03/18 16:30 Abscess - Finger Wound Culture - Preliminary Staphylococcus aureus Group B beta Strep Lab - Chemistry Results 04/06/18 06:01 Creatinine 1.25 Estimated GFR 60 L Imaging: ITS Impressions Finger X-Ray 04/05/18 00:00 CONCLUSION: Significant osteolysis and destruction of the second distal phalanx since 2 days ago with gas collection in the adjacent soft tissue is highly suspicious for aggressive infection in the soft tissues and osteomyelitis. Physical Exam: GENERAL: NAD SKIN: Warm and dry. No rash EYES: Pupils equal and round. No scleral icterus. No injection or drainage. ENT: Mucous membranes pink and moist. RESPIRATORY: No accessory muscle use. Breathing unlaboured GASTROINTESTINAL: Abdomen soft, non-tender, nondistended. Hepatic and splenic margins not palpable. MUSCULOSKELETAL: Extremities without clubbing, cyanosis, or edema. No obvious deformities. 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 anaerob (finger) sp surgery dc vanco change zosyn to Unasyn will follow path as well anticipate IV abx upon dc
--- NOTE | 2018-04-06 15:54 | P.PNIM ---
Subjective Interval history: Patient offers no new concerns/complaints today planning to go to OR tomorrow Physical Exam Vital signs: Vital Signs 04/05/18 16:00 04/05/18 20:00 04/06/18 00:00 Temperature 98.3 F 97.7 F 97.8 F Pulse Rate 79 73 68 Respiratory Rate 18 18 18 Blood Pressure 120/72 101/61 98/57 L Pulse Oximetry 97 100 97 04/06/18 04:00 04/06/18 08:00 04/06/18 12:00 Temperature 97.8 F 97.3 F L 97.8 F Pulse Rate 63 62 70 Respiratory Rate 18 20 20 Blood Pressure 91/54 L 138/76 93/51 L Pulse Oximetry 98 100 98 Intake & Output 04/05/18 04/06/18 04/06/18 18:59 06:59 18:59 Intake Total 1047.5 / 1047.5 867.5 / 867.5 50 / 50 Output Total 825 / 825 400 / 400 Balance 222.5 / 222.5 467.5 / 467.5 50 / 50 Weight 81.5 kg Intake: IV 567.5 / 567.5 617.5 / 617.5 50 / 50 Zosyn 3.375 GM Premix 50 ML @ 50 / 50 100 / 100 50 / 50 100 mls/hr IV.SIG Q8H BECK Rx#: [id number] Vancomycin Inj 1,750 MG In NS 517.5 / 517.5 517.5 / 517.5 Inj 500 ML @ 250 mls/hr IV.SIG Q18H BECK Rx#:[id number] Oral 480 / 480 250 / 250 Output: Urine 425 / 425 400 / 400 Urine Amount (Catheter) 400 / 400 Condom 400 / 400 Other: Date of Last Bowel Movement 04/03/18 Narrative: GENERAL: This is a well-nourished, well-developed patient, in no apparent distress SKIN: post op dressing R hand present dry and intact CARDIOVASCULAR: Regular rate and rhythm RESPIRATORY: Clear to auscultation. Breath sounds equal bilaterally. GASTROINTESTINAL: Abdomen soft, non-tender, nondistended. Normal active bowel sounds MUSCULOSKELETAL: Extremities without clubbing, cyanosis, or edema. NEURO: Alert & Oriented x4 to person, place, time, situation. Moves all ext x4 - Urinary Catheter Management Condom Cath placed during this visit: no Results - Labs CBC & Chem 7: 04/04/18 07:27 04/06/18 06:01 Laboratory Results - last 24 hr 04/05/18 04/06/18 23:30 06:01 Creatinine 1.25 Estimated GFR 60 L Vancomycin Trough 15.9 H Microbiology 04/03/18 16:20 Blood - Peripheral Aerobic Blood Culture - Preliminary No growth in 3 days 04/03/18 16:20 Blood - Peripheral Anaerobic Blood Culture - Preliminary No growth in 3 days 04/03/18 16:29 Blood - Peripheral Aerobic Blood Culture - Preliminary No growth in 3 days 04/03/18 16:29 Blood - Peripheral Anaerobic Blood Culture - Preliminary No growth in 3 days 04/04/18 19:47 Tissue - Finger Gram Stain - Final 04/04/18 19:47 Tissue - Finger Wound Culture - Final Group B beta Strep Staphylococcus aureus 04/04/18 19:47 Wound - Finger Gram Stain - Final 04/04/18 19:47 Wound - Finger Wound Culture - Final Group B beta Strep 04/04/18 19:47 Wound - Finger Fungal Smear - Final No fungal elements seen 04/04/18 19:47 Wound - Finger Acid Fast Bacilli Smear - Final No acid fast bacilli seen 04/04/18 19:47 Tissue - Finger Acid Fast Bacilli Smear - Final No acid fast bacilli seen 04/04/18 19:47 Tissue - Finger Fungal Smear - Final No fungal elements seen - Imaging Impressions Finger X-Ray 04/05/18 00:00 CONCLUSION: Significant osteolysis and destruction of the second distal phalanx since 2 days ago with gas collection in the adjacent soft tissue is highly suspicious for aggressive infection in the soft tissues and osteomyelitis. Assessment and Plan - Assessment (1) Superficial injury of right ring finger with infection Code(s): S60.944A - Unspecified superficial injury of right ring finger, initial encounter; L08.9 - Local infection of the skin and subcutaneous tissue, unspecified Status: Acute Plan: 57 y/o M with chronic infection of right index finger - draining sinus - possible ostomyelitis of the distal phalanx base - MRI right hand (performed at [facility] 04/03/18) Tears involving the flexor profunda tendons of the 2nd and 3rd gingers in the plantar aspect of the hand Possible injury to the s2nd distal phalangeal bone - 04/04 Dr. Holliday was called by Dr. Anaya (04/04). Pt was unpleasant & ultimately refused Infectious Disease consultation. I will cancel ID consult, and consider resubmitting ID consult 04/05. - consult Infectious Disease, appreciate input. - Pt to undergo I&D today (04/04) with Dr. Santana - zosyn (04/03 - 04/06) - Vancomycin (04/03 - 04/06) - 04/06 ID DC'd vanco and Zosyn started Unasyn - Silvadene - prn [place] - Pt was confrontational and refused repeat MR with contrast 04/04 - Case d/w Dr. Santana. Pt will have bone bx with I&D to evaluate for osteomyelitis - SCDs for DVT prophylaxis - supportive care - 04/06 Dr. Holliday discussed the case with Dr. Santana plans to take patient to the OR for Disarticulation 04/07 Periperal Neuropathy - Cymbalta, Lamictal per pain mgmt HTN - continue metoprolol - stop lisinopril h/o Etoh abuse - start librium 25mg BID - CIWA protocol DVT prophylaxis with SCDs (2) ETOH abuse Code(s): F10.10 - Alcohol abuse, uncomplicated Status: Chronic (3) HTN (hypertension) Code(s): I10 - Essential (primary) hypertension Status: Chronic (4) Peripheral neuropathy Code(s): G62.9 - Polyneuropathy, unspecified Status: Acute - Attending Attestation Patient examined. Assessment and plan formulated with Debi Nelson PA-C. I agree with the above.
[2018-04-06] MEDS ORDERED: Metoprolol Tartrate 25 MG Tablet PO ONE (17:58)
[2018-04-06] MEDS ORDERED: Chlorhexidine Gluconate 2% 1 Pack (2 Cloths) TOPICAL ONE (17:58)
[2018-04-06] MEDS ORDERED: Sodium Chlor 0.9% Inj 500 ML IV.SIG SCH (18:00)
[2018-04-06] MEDS: Ampicillin/Sulbactam Inj 3 GM in Sodium Chloride 0.9% Inj 100 ML IV.SIG SCH ×2 (18:12→21:27)
[2018-04-06] MEDS: lamoTRIgine 100 MG Tablet PO SCH (21:26)
[2018-04-06] MEDS: Melatonin 5 MG Tablet PO SCH (21:27)
[2018-04-07] MEDS: chlordiazePOXIDE 25 MG Capsule PO SCH ×2 (03:53→13:34)
[2018-04-07] MEDS: Ampicillin/Sulbactam Inj 3 GM in Sodium Chloride 0.9% Inj 100 ML IV.SIG SCH ×4 (03:53→21:04)
[2018-04-07] MEDS: Pantoprazole Sodium 20 MG DR Tablet PO SCH (08:06)
[2018-04-07] MEDS: Duloxetine 60 MG DR Capsule PO SCH (08:06)
[2018-04-07] MEDS: Folic Acid 1 MG Tablet PO SCH (08:06)
[2018-04-07] MEDS: Metoprolol Tartrate 50 MG Tablet PO SCH ×2 (08:06→21:05)
[2018-04-07] MEDS: Senna/Docusate Sodium 8.6/50 MG Tablet PO SCH ×2 (08:06→21:04)
[2018-04-07] MEDS: lamoTRIgine 25 MG TABLET PO SCH (08:07)
[2018-04-07] MEDS ORDERED: Neomycin/Polymyxin G.U. Irrigant 1 ML Ampul ONE (09:20)
[2018-04-07] MEDS ORDERED: Lidocaine PF 1% Inj 5 ML Syringe OTHER ONE (09:24)
[2018-04-07] MEDS ORDERED: Phenylephrine/NS 1000 MCG/10ML Syringe IV.PUSH ONE (09:24)
[2018-04-07] MEDS ORDERED: fentaNYL Citrate Inj 100 MCG/2 ML Ampul ONE (10:12)
--- NOTE | 2018-04-07 10:43 | P.OP ---
- Preoperative Diagnosis (1) Osteomyelitis of finger of right hand Comment: distal phalanx right index finger (2) Suppurative tenosynovitis of flexor tendon of right hand Comment: right index finger - Postoperative Diagnosis (1) Osteomyelitis of finger of right hand Comment: distal phalanx right index finger (2) Suppurative tenosynovitis of flexor tendon of right hand Comment: right index finger Date of procedure: 04/07/18 Procedure: wash, drainage debridement flexor tendon sheath right index finger disarticulation distal interphalangeal joint right index finger Anesthesia: GETA Surgeon: Josesito Ramos MD Estimated blood loss (mL): 5 Tourniquet time (min): 36 Pathology: other (distal phalanx for pathology)
--- NOTE | 2018-04-07 13:54 | MP ---
cc: Josesito Ramos MD DATE OF OPERATION: 04/07/2018 PREOPERATIVE DIAGNOSIS: Osteomyelitis, distal phalanx, right index finger; and suppurative tenosynovitis, flexor tendon, right index finger. POSTOPERATIVE DIAGNOSES: Osteomyelitis, distal phalanx, right index finger; and suppurative tenosynovitis, flexor tendon, right index finger. PROCEDURE: Drainage, debridement, flexor tendon sheath, right index finger. Disarticulation, distal interphalangeal joint, right index finger. SURGEON: Josesito Ramos MD ANESTHESIA: General. ESTIMATED BLOOD LOSS: About 5 mL. TOURNIQUET TIME: 36 minutes at 250 mmHg. SPECIMENS: Sent to pathology, the amputated part. DISPOSITION: To PACU stable. INDICATIONS: The patient is a 57-year-old male with history of neuropathy, presented with infection of the right index finger. The patient underwent washed drainage of the flexor tendon sheath and debridement of the distal phalanx 2 days ago. The patient initially was not willing for amputation, and postoperatively, the patient was found to have persistent drainage from the nail bed region and the palm region and was consented for disarticulation through the distal interphalangeal joint, right index finger. He had an MRI scan which showed osteomyelitis of the distal phalanx. The patient was explained the risks and benefits of the procedure. PROCEDURE IN DETAIL: The patient was brought to the operating room under general anesthesia. The right upper extremity was thoroughly prepped and draped. Previously placed packing was removed, and there was evidence of purulence from the palm region corresponding to the flexor tendon sheath as well as distally over the DIP joint region. After limb elevation, tourniquet was inflated to 250 mmHg. The incision site was then extended in the palm corresponding to the flexor tendon. On exploration, there was evidence of purulence and hypertrophic tenosynovium around the flexor tendon. The patient previously had ruptured flexor digitorum profundus, which was transected proximally during previous surgery. Using a rongeur, excisional debridement of hypertrophic tenosynovium and infected tissue around the flexor tendon was carried out. Proximal to distal washing was tried, and not much of fluid was coming out at the DIP joint. Hence, a decision was made to proceed with an incision at the PIP joint region. A transverse incision was made just proximal to the PIP joint, and flexor tendon sheath was opened, and with this, I was able to obtain wash out from a proximal to distal direction. About 1 L of solution was used using normal saline mixed with irrigant. Attention was then directed to the distal phalanx region. A fishmouth incision was made over the pulp of the index finger extended transversely just proximal to the nail bed region corresponding to the infection distally. Incision was made over the proposed incision site. Soft tissue dissection was carried out using sharp dissection, and the DIP joint was exposed, and the part of the distal phalanx which was remaining was removed along with the infected soft tissue, and specimen was sent for pathology. There was some eburnation of the cartilage of the head of the middle phalanx. There was also evidence of involvement of the extensor tendon at the DIP joint region. Excisional debridement of the extensor tendon was carried out up to the PIP joint. Thorough wash was given using normal saline mixed with irrigant. Tourniquet was deflated at 36 minutes. He had decreased capillary refill over the pulp region, which has been in his usual finding since hospital admission because of thick callus skin. Skin flaps were then approximated over the head of the middle phalanx and held in place by multiple 5-0 nylon stitches in a horizontal mattress fashion. Packing of the DIP joint and the wounds were carried out prior to closure. The palm wound was loosely approximated using 5-0 nylon in a horizontal mattress interrupted fashion. Bulky finger dressing was applied which was held in place with Sof-Rol and bias hand wrap. The patient was recovered and sent to recovery in stable condition. We will follow up cultures and continue with IV antibiotics based on ID recommendations. Josesito Ramos MD SE/cherelle , 10:48 AM , 10:57 AM
--- NOTE | 2018-04-07 16:07 | P.PNIM ---
Subjective Interval history: Pt's pain is controlled. Physical Exam Vital signs: 04/07/18 11:15 04/07/18 11:30 Temperature Pulse Rate 63 65 Respiratory Rate 15 16 Blood Pressure 136/89 137/90 Pulse Oximetry 95 97 Narrative: GENERAL: This is a well-nourished, well-developed patient, in no apparent distress SKIN: post op dressing R hand present dry and intact CARDIOVASCULAR: Regular rate and rhythm RESPIRATORY: Clear to auscultation. Breath sounds equal bilaterally. GASTROINTESTINAL: Abdomen soft, non-tender, nondistended. Normal active bowel sounds MUSCULOSKELETAL: Extremities without clubbing, cyanosis, or edema. NEURO: Alert & Oriented x4 to person, place, time, situation. Moves all ext x4 - Urinary Catheter Management Condom Cath placed during this visit: no Results - Labs CBC & Chem 7: 04/04/18 07:27 04/06/18 06:01 04/03/18 16:30 Abscess - Finger Gram Stain - Final 04/03/18 16:30 Abscess - Finger Wound Culture - Final Staphylococcus aureus Group B beta Strep anaerobic gram pos cocci 04/03/18 16:20 Blood - Peripheral Aerobic Blood Culture - Preliminary No growth in 4 days 04/03/18 16:20 Blood - Peripheral Anaerobic Blood Culture - Preliminary No growth in 4 days 04/03/18 16:29 Blood - Peripheral Aerobic Blood Culture - Preliminary No growth in 4 days 04/03/18 16:29 Blood - Peripheral Anaerobic Blood Culture - Preliminary No growth in 4 days Assessment and Plan - Assessment (1) Superficial injury of right ring finger with infection Code(s): S60.944A - Unspecified superficial injury of right ring finger, initial encounter; L08.9 - Local infection of the skin and subcutaneous tissue, unspecified Status: Acute Plan: 57 y/o M with chronic infection of right index finger - draining sinus - possible ostomyelitis of the distal phalanx base - MRI right hand (performed at [facility] 04/03/18) Tears involving the flexor profunda tendons of the 2nd and 3rd gingers in the plantar aspect of the hand Possible injury to the s2nd distal phalangeal bone - 04/04 Dr. Holliday was called by Dr. Anaya (04/04). Pt was unpleasant & ultimately refused Infectious Disease consultation. I will cancel ID consult, and consider resubmitting ID consult 04/05. - Appreciate input from Dr. Santos, ID. - zosyn (04/03 - 04/06) - Vancomycin (04/03 - 04/06) - Unasy (04/06 - present) - prn [place] - Pt was confrontational and refused repeat MR with contrast 04/04 - Pt underwent I&D and bone marrow Bx with Dr. Santana (04/04). Pathology pending - Pt underwent taken to the OR (04/07) with Dr. Santana and underwent - wash, drainage debridement flexor tendon sheath right index finger - disarticulation distal interphalangeal joint right index finger Periperal Neuropathy - Cymbalta, Lamictal per pain mgmt HTN - continue metoprolol - stop lisinopril h/o Etoh abuse - start librium 25mg BID - [place] protocol DVT prophylaxis with SCDs (2) ETOH abuse Code(s): F10.10 - Alcohol abuse, uncomplicated Status: Chronic (3) HTN (hypertension) Code(s): I10 - Essential (primary) hypertension Status: Chronic (4) Peripheral neuropathy Code(s): G62.9 - Polyneuropathy, unspecified Status: Acute
[2018-04-07] MEDS: lamoTRIgine 100 MG Tablet PO SCH (21:04)
[2018-04-07] MEDS: Melatonin 5 MG Tablet PO SCH (21:06)
[2018-04-07] MEDS: Morphine Sulfate Inj 2 MG/ML Vial IV.PUSH PRN (21:09)
[2018-04-08] MEDS: Ampicillin/Sulbactam Inj 3 GM in Sodium Chloride 0.9% Inj 100 ML IV.SIG SCH ×4 (03:53→21:22)
[2018-04-08] MEDS: chlordiazePOXIDE 25 MG Capsule PO SCH (03:53)
[2018-04-08] MEDS: Morphine Sulfate Inj 2 MG/ML Vial IV.PUSH PRN (04:02)
[2018-04-08] MEDS: Senna/Docusate Sodium 8.6/50 MG Tablet PO SCH ×2 (09:00→21:24)
--- NOTE | 2018-04-08 09:47 | P.PNIM ---
Subjective Interval history: Patient offers no new concerns/complaints Physical Exam Vital signs: Vital Signs 04/07/18 10:44 04/07/18 11:00 04/07/18 11:15 Temperature 97.9 F Pulse Rate 70 58 L 63 Respiratory Rate 16 13 15 Blood Pressure 107/67 118/80 136/89 Pulse Oximetry 98 94 L 95 04/07/18 11:30 04/07/18 16:00 04/07/18 17:33 Temperature 97.7 F Pulse Rate 65 69 Respiratory Rate 16 14 7 L Blood Pressure 137/90 110/74 Pulse Oximetry 97 99 04/07/18 20:00 04/08/18 00:00 04/08/18 04:00 Temperature 97.5 F L 98 F 98.1 F Pulse Rate 84 75 67 Respiratory Rate 16 16 18 Blood Pressure 109/71 124/68 156/92 H Pulse Oximetry 97 98 97 04/08/18 08:00 Temperature 96.7 F L Pulse Rate 70 Respiratory Rate 18 Blood Pressure 131/88 Pulse Oximetry 97 Intake & Output 04/07/18 04/08/18 04/08/18 18:59 06:59 18:59 Intake Total 1000 / 1000 200 / 200 Output Total 5 / 5 900 / 900 Balance 995 / 995 -700 / -700 Weight 84.6 kg Intake: IV 200 / 200 200 / 200 Unasyn Inj 3 GM In NS Inj 100 200 / 200 200 / 200 ML @ 200 mls/hr IV.SIG Q6H BECK Rx#:[id number] Anesthesia Amount 800 / 800 Output: Urine 900 / 900 Estimated Blood Loss 5 / 5 Other: # Voids 2 Narrative: GENERAL: This is a well-nourished, well-developed patient, in no apparent distress SKIN: post op dressing R hand present dry and intact CARDIOVASCULAR: Regular rate and rhythm RESPIRATORY: Clear to auscultation. Breath sounds equal bilaterally. GASTROINTESTINAL: Abdomen soft, non-tender, nondistended. Normal active bowel sounds MUSCULOSKELETAL: Extremities without clubbing, cyanosis, or edema. NEURO: Alert & Oriented x4 to person, place, time, situation. Moves all ext x4 - Urinary Catheter Management Condom Cath placed during this visit: no Results - Labs CBC & Chem 7: 04/04/18 07:27 04/06/18 06:01 Microbiology 04/03/18 16:30 Abscess - Finger Gram Stain - Final 04/03/18 16:30 Abscess - Finger Wound Culture - Final Staphylococcus aureus Group B beta Strep anaerobic gram pos cocci 04/03/18 16:20 Blood - Peripheral Aerobic Blood Culture - Preliminary No growth in 4 days 04/03/18 16:20 Blood - Peripheral Anaerobic Blood Culture - Preliminary No growth in 4 days 04/03/18 16:29 Blood - Peripheral Aerobic Blood Culture - Preliminary No growth in 4 days 04/03/18 16:29 Blood - Peripheral Anaerobic Blood Culture - Preliminary No growth in 4 days Assessment and Plan - Assessment (1) Superficial injury of right ring finger with infection Code(s): S60.944A - Unspecified superficial injury of right ring finger, initial encounter; L08.9 - Local infection of the skin and subcutaneous tissue, unspecified Status: Acute Plan: 57 y/o M with chronic infection of right index finger - draining sinus - possible ostomyelitis of the distal phalanx base - MRI right hand (performed at [facility] 04/03/18) Tears involving the flexor profunda tendons of the 2nd and 3rd gingers in the plantar aspect of the hand Possible injury to the s2nd distal phalangeal bone - 04/04 Dr. Holliday was called by Dr. Anaya (04/04). Pt was unpleasant & ultimately refused Infectious Disease consultation. I will cancel ID consult, and consider resubmitting ID consult 04/05. - Appreciate input from Dr. Santos, ID. - zosyn (04/03 - 04/06) - Vancomycin (04/03 - 04/06) - Unasy (04/06 - present) - prn [place] - Pt was confrontational and refused repeat MR with contrast 04/04 - Pt underwent I&D and bone marrow Bx with Dr. Santana (04/04). Pathology pending - Pt underwent taken to the OR (04/07) with Dr. Santana and underwent - wash, drainage debridement flexor tendon sheath right index finger - disarticulation distal interphalangeal joint right index finger - awaiting further recommendations per ID and hand surgery, will likely need HHC with IV abx at time of DC Periperal Neuropathy - Cymbalta, Lamictal per pain mgmt HTN - continue metoprolol - stop lisinopril h/o Etoh abuse - start librium 25mg BID - CIWA protocol DVT prophylaxis with SCDs The exam, history, and the medical decision-making described in the above note were completed with the assistance of the mid-level provider. I reviewed and agree with the findings presented. I attest that I had a [id number] encounter with the patient on the same day, and personally performed and documented my assessment and findings in the medical record. cont current abx. Hand surgery to reassess wound today. Await ID final reccs. (2) ETOH abuse Code(s): F10.10 - Alcohol abuse, uncomplicated Status: Chronic (3) HTN (hypertension) Code(s): I10 - Essential (primary) hypertension Status: Chronic (4) Peripheral neuropathy Code(s): G62.9 - Polyneuropathy, unspecified Status: Acute
[2018-04-08] MEDS: Duloxetine 60 MG DR Capsule PO SCH (12:29)
[2018-04-08] MEDS: Folic Acid 1 MG Tablet PO SCH (12:30)
[2018-04-08] MEDS: Metoprolol Tartrate 50 MG Tablet PO SCH ×2 (12:30→21:23)
[2018-04-08] MEDS: Pantoprazole Sodium 20 MG DR Tablet PO SCH (12:30)
[2018-04-08] MEDS: lamoTRIgine 25 MG TABLET PO SCH (12:35)
[2018-04-08] MEDS: lamoTRIgine 100 MG Tablet PO SCH (21:23)
[2018-04-08] MEDS: Melatonin 5 MG Tablet PO SCH (21:23)
[2018-04-09] MEDS: Ampicillin/Sulbactam Inj 3 GM in Sodium Chloride 0.9% Inj 100 ML IV.SIG SCH ×4 (04:08→22:11)
[2018-04-09] MEDS: Morphine Sulfate Inj 2 MG/ML Vial IV.PUSH PRN (04:13)
[2018-04-09] MEDS: lamoTRIgine 25 MG TABLET PO SCH (11:07)
[2018-04-09] MEDS: Duloxetine 60 MG DR Capsule PO SCH (11:07)
[2018-04-09] MEDS: Pantoprazole Sodium 20 MG DR Tablet PO SCH (11:09)
[2018-04-09] MEDS: chlordiazePOXIDE 25 MG Capsule PO SCH (11:09)
[2018-04-09] MEDS: Folic Acid 1 MG Tablet PO SCH (11:09)
[2018-04-09] MEDS: Metoprolol Tartrate 50 MG Tablet PO SCH ×2 (11:09→22:10)
--- NOTE | 2018-04-09 11:09 | P.PNIM ---
Subjective Interval history: Patient in bed finishing breakfast offers no new concerns or complaints Physical Exam Vital signs: Vital Signs 04/08/18 12:22 04/08/18 20:00 04/09/18 00:00 Temperature 98.1 F 98.1 F Pulse Rate 72 65 Respiratory Rate 8 L 16 20 Blood Pressure 127/72 127/82 Pulse Oximetry 99 97 04/09/18 04:00 04/09/18 08:00 Temperature 97.7 F 97.6 F Pulse Rate 56 L 57 L Respiratory Rate 20 14 Blood Pressure 147/88 H 138/86 Pulse Oximetry 98 98 Intake & Output 04/08/18 04/09/18 04/09/18 18:59 06:59 18:59 Intake Total 200 / 200 100 / 100 Balance 200 / 200 100 / 100 Weight 86.9 kg Intake: IV 200 / 200 100 / 100 Unasyn Inj 3 GM In NS Inj 100 200 / 200 100 / 100 ML @ 200 mls/hr IV.SIG Q6H BECK Rx#:[id number] Other: Date of Last Bowel Movement 04/06/18 Narrative: GENERAL: This is a well-nourished, well-developed patient, in no apparent distress SKIN: post op dressing R hand present dry and intact CARDIOVASCULAR: Regular rate and rhythm RESPIRATORY: Clear to auscultation. Breath sounds equal bilaterally. GASTROINTESTINAL: Abdomen soft, non-tender, nondistended. Normal active bowel sounds MUSCULOSKELETAL: Extremities without clubbing, cyanosis, or edema. NEURO: Alert & Oriented x4 to person, place, time, situation. Moves all ext x4 - Urinary Catheter Management Condom Cath placed during this visit: no Results - Labs CBC & Chem 7: 04/04/18 07:27 04/06/18 06:01 Microbiology 04/03/18 16:20 Blood - Peripheral Aerobic Blood Culture - Final No growth in 5 days 04/03/18 16:20 Blood - Peripheral Anaerobic Blood Culture - Final No growth in 5 days 04/03/18 16:29 Blood - Peripheral Aerobic Blood Culture - Final No growth in 5 days 04/03/18 16:29 Blood - Peripheral Anaerobic Blood Culture - Final No growth in 5 days Assessment and Plan - Assessment (1) Superficial injury of right ring finger with infection Code(s): S60.944A - Unspecified superficial injury of right ring finger, initial encounter; L08.9 - Local infection of the skin and subcutaneous tissue, unspecified Status: Acute Plan: 57 y/o M with chronic infection of right index finger - draining sinus - possible ostomyelitis of the distal phalanx base - MRI right hand (performed at [facility] 04/03/18) Tears involving the flexor profunda tendons of the 2nd and 3rd gingers in the plantar aspect of the hand Possible injury to the s2nd distal phalangeal bone - 04/04 Dr. Holliday was called by Dr. Anaya (04/04). Pt was unpleasant & ultimately refused Infectious Disease consultation. I will cancel ID consult, and consider resubmitting ID consult 04/05. - Appreciate input from Dr. Santos, ANTONELLA. - zosyn (04/03 - 04/06) - Vancomycin (04/03 - 04/06) - Unasy (04/06 - present) - prn [place] - Pt was confrontational and refused repeat MR with contrast 04/04 - Pt underwent I&D and bone marrow Bx with Dr. Santana (04/04). Pathology pending - Pt underwent taken to the OR (04/07) with Dr. Santana and underwent - wash, drainage debridement flexor tendon sheath right index finger - disarticulation distal interphalangeal joint right index finger - Blood cultures from 04/03 no growth x 5 days - 04/03/18 16:30 Abscess - Finger Wound Culture - Final Staphylococcus aureus Group B beta Strep anaerobic gram pos cocci 04/04/18 19:47 Tissue - Finger Wound Culture - Final Group B beta Strep Staphylococcus aureus 04/04/18 19:47 Wound - Finger Wound Culture - Final Group B beta Strep 04/04/18 19:47 Wound - Finger Fungal Smear - Final No fungal elements seen 04/04/18 19:47 Wound - Finger Acid Fast Bacilli Smear - Final No acid fast bacilli seen 04/04/18 19:47 Tissue - Finger Acid Fast Bacilli Smear - Final No acid fast bacilli seen 04/04/18 19:47 Tissue - Finger Fungal Smear - Final No fungal elements seen - awaiting further recommendations per ID and hand surgery, will likely need HHC with IV abx at time of DC Periperal Neuropathy - Cymbalta, Lamictal per pain mgmt HTN - continue metoprolol - stop lisinopril h/o Etoh abuse - start librium 25mg BID - CIWA protocol DVT prophylaxis with SCDs The exam, history, and the medical decision-making described in the above note were completed with the assistance of the mid-level provider. I reviewed and agree with the findings presented. I attest that I had a [id number] encounter with the patient on the same day, and personally performed and documented my assessment and findings in the medical record. discuss dc abx choice with ID today. (2) ETOH abuse Code(s): F10.10 - Alcohol abuse, uncomplicated Status: Chronic (3) HTN (hypertension) Code(s): I10 - Essential (primary) hypertension Status: Chronic (4) Peripheral neuropathy Code(s): G62.9 - Polyneuropathy, unspecified Status: Acute
[2018-04-09] MEDS: Senna/Docusate Sodium 8.6/50 MG Tablet PO SCH ×2 (11:10→22:10)
[2018-04-09] MEDS: Melatonin 5 MG Tablet PO SCH (22:10)
[2018-04-09] MEDS: lamoTRIgine 100 MG Tablet PO SCH (22:11)
[2018-04-10] MEDS: Ampicillin/Sulbactam Inj 3 GM in Sodium Chloride 0.9% Inj 100 ML IV.SIG SCH ×4 (04:30→22:40)
--- NOTE | 2018-04-10 09:11 | MB ---
cc: Bro Mejia DPM DATE: 04/10/2018 REASON FOR CONSULTATION: Right hallux ulceration. 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 Currently, the patient has been admitted for osteomyelitis of his upper extremity hand. He is status post surgical intervention. Infectious disease requested consultation for help with management of right hallux ulcer. Currently, I am seeing the patient at bedside. The patient is elevating the arm in a sling. His pain is not significant. He has no events that occurred overnight. Of note, the patient was seen last in my office within the last week or so. The patient did not have impressive signs of infection of the hallux ulcer. An in-office debridement took place, and the patient was counseled on smoking cessation, and advised to stop drinking alcohol. PAST MEDICAL HISTORY: Alcohol abuse, peripheral neuropathy, hypertension, likely small vessel disease. PAST SURGICAL HISTORY: Pertaining to the lower extremity, partial digit amputation of the right and left, now with a recurrent chronic ulceration of the right hallux. ALLERGIES: NO KNOWN DRUG ALLERGIES. ACTIVE MEDICATIONS: He is receiving ampicillin p.r.n. Please see complete medication list in chart. PHYSICAL EXAMINATION: VITAL SIGNS: Temperature is 97.7, pulse rate 76. He is satting 96% on room air, respiratory rate 20, blood pressure 130/86. GENERAL: This is an alert and oriented gentleman seen at bedside exhibiting nonlabored respirations. EXTREMITIES: Right upper extremity is elevated in a sling. Bilateral lower extremities are examined. Well-healed partial digit amputation sites of the right hallux. There appears to be a dry stable borderline full-thickness wound of the plantar aspect of a partially amputated hallux. It Has minimal redness. No obvious probing to bone, no exposed tendon. The base appears to be dry, but red bilateral. Pedal pulses are palpable. Sensation is significantly decreased to light touch and deep pressure, but there is good range of motion of forefoot, hindfoot and ankle. LABORATORY DATA: White blood cell trending down from 11.9 to 7.8, hemoglobin and hematocrit 12 and 35, platelet count is 270. Chem-7: Sodium 134, potassium 4.4, chloride 103, CO2 of 24, BUN is 11. Random glucose is 99. Wound culture pertaining to the finger, Staph aureus, group B strep and gram-positive cocci. Blood culture negative 5 days. ASSESSMENT AND PLAN: Chronic right hallux ulceration. I do not feel initially that this is a complicated ulceration; however, given the extent of his upper extremity infection, I am requesting MRI to rule out any signs of osteomyelitis. The ulcer appears to be dry at this point. I do not think there is anything to culture. MRI ordered. I will advise pending the MRI. My initial impression is the patient needs wound care, smoking cessation. Limit weightbearing activity. I will advise in the next 24 hours, pending further studies. Thank you for this consultation. ROBY Moran/esteban , 08:07 AM , 08:15 AM
[2018-04-10] MEDS: Metoprolol Tartrate 50 MG Tablet PO SCH ×2 (10:06→22:42)
[2018-04-10] MEDS: Duloxetine 60 MG DR Capsule PO SCH (10:06)
[2018-04-10] MEDS: Folic Acid 1 MG Tablet PO SCH (10:07)
[2018-04-10] MEDS: Pantoprazole Sodium 20 MG DR Tablet PO SCH (10:07)
[2018-04-10] MEDS: Senna/Docusate Sodium 8.6/50 MG Tablet PO SCH ×2 (10:07→22:42)
[2018-04-10] MEDS: chlordiazePOXIDE 25 MG Capsule PO SCH (10:07)
[2018-04-10] MEDS: lamoTRIgine 25 MG TABLET PO SCH ×2 (10:07→23:12)
--- NOTE | 2018-04-10 11:41 | P.PNIM ---
Subjective Interval history: pt eager for dc. his parents are here. Physical Exam Vital signs: Vital Signs 04/09/18 12:00 04/09/18 16:00 04/09/18 19:03 Temperature 97.4 F L 97.9 F Pulse Rate 71 74 Respiratory Rate 16 18 8 L Blood Pressure 106/72 97/60 L Pulse Oximetry 98 97 04/09/18 20:00 04/10/18 00:00 Temperature 97.3 F L 97.7 F Pulse Rate 70 76 Respiratory Rate 20 20 Blood Pressure 132/90 130/86 Pulse Oximetry 98 96 Intake & Output 04/09/18 04/10/18 04/10/18 18:59 06:59 18:59 Intake Total 100 / 100 300 / 300 Output Total 600 / 600 Balance 100 / 100 -300 / -300 Weight 84.4 kg Intake: IV 100 / 100 300 / 300 Unasyn Inj 3 GM In NS Inj 100 100 / 100 300 / 300 ML @ 200 mls/hr IV.SIG Q6H BECK Rx#:[id number] Output: Urine 600 / 600 Other: Date of Last Bowel Movement 04/06/18 04/09/18 heart reg lungcta abds /nt ext right hand wrapped. - Urinary Catheter Management Condom Cath placed during this visit: no Results - Labs CBC & Chem 7: 04/04/18 07:27 04/06/18 06:01 Assessment and Plan - Assessment (1) Superficial injury of right ring finger with infection Code(s): S60.944A - Unspecified superficial injury of right ring finger, initial encounter; L08.9 - Local infection of the skin and subcutaneous tissue, unspecified Status: Acute Plan: 57 y/o M with chronic infection of right index finger - draining sinus - possible ostomyelitis of the distal phalanx base - MRI right hand (performed at [facility] 04/03/18) Tears involving the flexor profunda tendons of the 2nd and 3rd gingers in the plantar aspect of the hand Possible injury to the s2nd distal phalangeal bone - 04/04 Dr. Holliday was called by Dr. Anaya (04/04). Pt was unpleasant & ultimately refused Infectious Disease consultation. I will cancel ID consult, and consider resubmitting ID consult 04/05. - Appreciate input from ANTONELLA Figueroa. - zosyn (04/03 - 04/06) - Vancomycin (04/03 - 04/06) - Unasy (04/06 - present) - prn [place] - Pt was confrontational and refused repeat MR with contrast 04/04 - Pt underwent I&D and bone marrow Bx with Dr. Santana (04/04). Pathology pending - Pt underwent taken to the OR (04/07) with Dr. Santana and underwent - wash, drainage debridement flexor tendon sheath right index finger - disarticulation distal interphalangeal joint right index finger - Blood cultures from 04/03 no growth x 5 days - 04/03/18 16:30 Abscess - Finger Wound Culture - Final Staphylococcus aureus Group B beta Strep anaerobic gram pos cocci 04/04/18 19:47 Tissue - Finger Wound Culture - Final Group B beta Strep Staphylococcus aureus 04/04/18 19:47 Wound - Finger Wound Culture - Final Group B beta Strep 04/04/18 19:47 Wound - Finger Fungal Smear - Final No fungal elements seen 04/04/18 19:47 Wound - Finger Acid Fast Bacilli Smear - Final No acid fast bacilli seen 04/04/18 19:47 Tissue - Finger Acid Fast Bacilli Smear - Final No acid fast bacilli seen 04/04/18 19:47 Tissue - Finger Fungal Smear - Final No fungal elements seen - discussed with dr Santos who believes he will need picc line and iv abx at home. She will discuss with vascular and also podiatry evaluating a chronic ulceration on right foot to exclude osteo. mri pending. Periperal Neuropathy - Cymbalta, Lamictal per pain mgmt HTN - continue metoprolol - stop lisinopril h/o Etoh abuse - librium taper - CIWA protocol DVT prophylaxis with SCDs (2) ETOH abuse Code(s): F10.10 - Alcohol abuse, uncomplicated Status: Chronic (3) HTN (hypertension) Code(s): I10 - Essential (primary) hypertension Status: Chronic (4) Peripheral neuropathy Code(s): G62.9 - Polyneuropathy, unspecified Status: Acute
--- NOTE | 2018-04-10 17:27 | MB ---
cc: Darryl Romano MD DATE: 04/10/2018 CONSULTING PHYSICIAN: Darryl Romano MD, vascular surgery. REASON FOR CONSULTATION: Distal peripheral vascular disease, necrosis of the acral space. HISTORY OF PRESENT ILLNESS: This 57-year-old male had multiple admissions to this hospital. He has undergone repeated surgeries in the last few years for amputation of gangrenous toes of the feet and osteomyelitis of the fingers of the hands. Question arises about any vascular implications. The patient now presents with again gangrene of the fingers of the hand and also an ulcer over the left hallux, which appears to be associated with osteomyelitis and the patient will require transmetatarsal amputation for the same. The reason for the disease process appears to be somewhat elusive and vascular input is sought. PAST MEDICAL HISTORY: Hypertension, hyperlipidemia, severe peripheral neuropathy. The patient denies diabetes mellitus. SOCIAL HISTORY: Noncompliance with medical care. The patient smokes about 2 packs a day and drinks about a half bottle of vodka a day. He does not use any drugs. PHYSICAL EXAMINATION: GENERAL: Reveals a 57-year-old male. HEENT: Normocephalic. No trauma to the head. Pupils equal and reactive. Extraocular muscles intact. NECK: Bilateral carotid pulses. No bruits. No signs of masses in the neck. CHEST: Bilateral breath sounds. HEART: Regular rhythm. ABDOMEN: Soft. Active bowel sounds. No rebound. No guarding. No masses. EXTREMITIES: The patient has palpable femoral and palpable popliteal, dorsalis pedis and posterior tibial pulses bilateral. He has no signs of acute or chronic vascular deficit. He has bilateral brachial, ulnar and radial pulses. The patient has had previous amputation on both feet and the right hand by Dr. Ramos and at this point has an ulcer on the bottom of the second toe, which clearly will need to be amputated. Feet are warm. NEUROLOGIC: The patient is grossly intact with obviously decreased sensation in both lower extremities, mainly of the bottom of the feet, but also somewhat over the dorsum of the feet. RECOMMENDATIONS: This patient does not have classic stigmata of Buerger's disease. He does not have any significant degree of arteriosclerotic disease in his proximal vessels. Patients with distal palpable vessels like dorsalis pedis and posterior tibial, clearly do not have significant degree of vascular disease in the legs. Buerger's disease, on the other hand, can manifest as a condition mainly involving the arms, which is exception of course to most vascular conditions and falls in the category of immune reticuloendothelial, immunoproliferative and vasoactive disorders. Smoking is of course aggravating the whole situation. In addition, the patient could be throwing small emboli from the cardiac circulation, but this will be very unusual and it should not present as it does in this particular individual. Clearly, cessation of smoking has been suggested to the patient. He states that he will not stop smoking. I will do a few other studies, but in this particular situation, there is no vascular intervention that would help this patient. Thank you very much for the referral. MD VINCENT Rodriguez/ky , 04:30 PM , 04:41 PM
[2018-04-10] MEDS ORDERED: Gadobutrol PF 7.5 MMOL/7.5 ML Vial (for RAD) IV.SIG ONE (22:13)
--- NOTE | 2018-04-10 22:29 | MR ---
EXAM DATE: 04/10/2018 1:56 PM EDT AGE/SEX: 57 years / Male INDICATIONS: Osteomyelitis. Right Great Toe Wound CLINICAL DATA: This is the patient's subsequent encounter. Patient reports that signs and symptoms h ave been present for 2 months and indicates a pain score of 0/10. MEDICAL/SURGICAL HISTORY: . Anemia, ETOH, Osteomyelitis, Neuropathy, PAD, HTN . Partial Amputa tion R index, middle fingers, Partial Amputation Right great toe, Right 2nd toe amputation. COMPARISON: [facility] [place], MRI FOOT RIGHT W & W/O CONTRAST, 07/12/2017. . TECHNIQUE: Multiplanar, multisequence MRI examination was performed without contrast and after th e intravenous administration of 7.5 ml Omniscan (gadodiamide) single exam dose. FINDINGS: Comparison is June 2017. There is interval amputation of the second toe and the distal phalanx of the first toe. There is some enhancement of the soft tissues around the remaining great toe character istic of cellulitis. There is some enhancement of the distal portion of the proximal phalanx of the g reat toe which may represent an early osteomyelitis. Cystic changes in the first metatarsal head are stable since the prior exam. There are new marrow signal abnormalities in the distal tibia and in the talus with somewhat serpigin ous ages suggesting marrow infarcts. No evidence for osteomyelitis in the third, fourth or fifth toes. Degenerative changes in the foot. CONCLUSION: 1. Probable early osteomyelitis of the remaining distal portion of the proximal phalanx great toe. 2. Interval amputation of distal phalanx great toe and second toe. 3. New marrow signal abnormalities in the distal tibia and talus, possibly marrow infarcts is some e gisselle in the distal tibial plafond. 4. Stable cystic changes in the first metatarsal head. Electronically signed by: Armand Garcia MD 04/10/2018 10:27 PM EDT
[2018-04-10] MEDS: Melatonin 5 MG Tablet PO SCH (22:42)
[2018-04-10] MEDS: lamoTRIgine 100 MG Tablet PO SCH (23:09)
[2018-04-11] MEDS ORDERED: Sodium Chloride 0.9% 2 ML Flush PRN IV.FLUSH (01:39)
[2018-04-11] MEDS: Ampicillin/Sulbactam Inj 3 GM in Sodium Chloride 0.9% Inj 100 ML IV.SIG SCH ×4 (04:55→23:02)
[2018-04-11] MEDS: lamoTRIgine 25 MG TABLET PO SCH ×2 (09:00→20:05)
[2018-04-11] MEDS: Pantoprazole Sodium 20 MG DR Tablet PO SCH (09:29)
[2018-04-11] MEDS: Metoprolol Tartrate 50 MG Tablet PO SCH ×2 (09:30→20:05)
[2018-04-11] MEDS: Duloxetine 60 MG DR Capsule PO SCH (09:30)
[2018-04-11] MEDS: chlordiazePOXIDE 25 MG Capsule PO SCH (09:30)
[2018-04-11] MEDS: Folic Acid 1 MG Tablet PO SCH (09:30)
[2018-04-11] MEDS: Senna/Docusate Sodium 8.6/50 MG Tablet PO SCH ×2 (09:30→20:06)
[2018-04-11] MEDS: Sodium Chloride 0.9% 2 ML Flush BID IV.FLUSH SCH ×2 (09:40→20:05)
--- NOTE | 2018-04-11 10:23 | P.PNIM ---
Subjective Interval history: No new complaints Tolerating oral intake Anxious for discharge Physical Exam Vital signs: Vital Signs 04/10/18 12:00 04/10/18 16:00 04/10/18 19:50 Temperature 97.5 F L 97.8 F 97.1 F L Pulse Rate 67 73 68 Respiratory Rate 17 17 18 Blood Pressure 107/73 94/56 L 114/76 Pulse Oximetry 98 97 100 04/11/18 00:00 04/11/18 02:05 04/11/18 04:00 Temperature 97.2 F L 97.2 F L Pulse Rate 69 64 Respiratory Rate 16 17 17 Blood Pressure 97/52 L 118/79 Pulse Oximetry 100 04/11/18 04:34 04/11/18 08:00 Temperature 97.8 F Pulse Rate 62 Respiratory Rate 17 20 Blood Pressure 152/89 H Pulse Oximetry 98 Intake & Output 04/10/18 04/11/18 04/11/18 18:59 06:59 18:59 Intake Total 2940 / 2940 300 / 300 Output Total 1006 / 1006 800 / 800 Balance 1934 / 1934 -500 / -500 Weight 80.9 kg Intake: IV 100 / 100 300 / 300 Unasyn Inj 3 GM In NS Inj 100 100 / 100 300 / 300 ML @ 200 mls/hr IV.SIG Q6H BECK Rx#:[id number] Oral 2039 / 2039 Anesthesia Amount 800 / 800 Output: Urine 600 / 600 800 / 800 Stool 1 / 1 Estimated Blood Loss 5 / 5 Urine Amount (Catheter) 400 / 400 Condom 400 / 400 Other: # Voids 3 1 Date of Last Bowel Movement 04/10/18 # Bowel Movements 1 Narrative: GENERAL: NAD, AAOx3 SKIN: post op dressing R hand present dry and intact CARDIO: Regular RESP: CTA bilaterally. ABD: +BS, soft, non-tender, nondistended. Normal active bowel sounds EXT: Right hallux with a dry wound of the plantar aspect of a partially amputated hallux. It has minimal erythema. - Urinary Catheter Management Condom Cath placed during this visit: no Results - Labs CBC & Chem 7: 04/04/18 07:27 04/06/18 06:01 Laboratory Results - last 24 hr 04/10/18 19:55 Total Protein (PEP) 6.4 - Imaging Impressions Foot MRI 04/10/18 00:00 CONCLUSION: 1. Probable early osteomyelitis of the remaining distal portion of the proximal phalanx great toe. 2. Interval amputation of distal phalanx great toe and second toe. 3. New marrow signal abnormalities in the distal tibia and talus, possibly marrow infarcts is some edema in the distal tibial plafond. 4. Stable cystic changes in the first metatarsal head. Assessment and Plan - Assessment (1) Superficial injury of right ring finger with infection Code(s): S60.944A - Unspecified superficial injury of right ring finger, initial encounter; L08.9 - Local infection of the skin and subcutaneous tissue, unspecified Status: Acute Plan: Right ring finger infection - Pt is a 57 y/o M with chronic infection of right index finger - draining sinus - possible osteomyelitis of the distal phalanx base - [facility] --> tears involving the flexor profunda tendons of the 2nd and 3rd gingers in the plantar aspect of the hand. Possible injury to the 2nd distal phalangeal bone - 04/04 Dr. Holliday was called by Dr. Anaya (04/04). Pt was unpleasant & ultimately refused Infectious Disease consultation. - Resubmitted ID consult 04/05. Appreciate input from Dr. Santos, ID. - Zosyn (04/03 - 04/06) - Vancomycin (04/03 - 04/06) - Unasyn (04/06 - present) - prn [place] - Pt was confrontational and refused repeat MR with contrast 04/04 - Pt underwent I&D and bone marrow Bx with Dr. Santana (04/04). Pathology --> The bone from the right index finger (2) reveals acute osteomyelitis. There is also relatively abundant keratinaceous material such as that typically associated with an epidermal inclusion cyst. - Pt underwent taken to the OR (04/07) with Dr. Santana and underwent - wash, drainage debridement flexor tendon sheath right index finger - disarticulation distal interphalangeal joint right index finger - Pathology from finger amputation --> GANGRENOUS NECROSIS AND ACUTE OSTEOMYELITIS. THE INFLAMMATORY PROCESS APPEARS TO EXTEND TO THE SOFT TISSUE AND BONY RESECTION MARGINS - Blood cultures from 04/03 no growth x 5 days - 04/03/18 16:30 Abscess - Finger Wound Culture - Final Staphylococcus aureus Group B beta Strep anaerobic gram pos cocci 04/04/18 19:47 Tissue - Finger Wound Culture - Final Group B beta Strep Staphylococcus aureus 04/04/18 19:47 Wound - Finger Wound Culture - Final Group B beta Strep 04/04/18 19:47 Wound - Finger Fungal Smear - Final No fungal elements seen 04/04/18 19:47 Wound - Finger Acid Fast Bacilli Smear - Final No acid fast bacilli seen 04/04/18 19:47 Tissue - Finger Acid Fast Bacilli Smear - Final No acid fast bacilli seen 04/04/18 19:47 Tissue - Finger Fungal Smear - Final No fungal elements seen - The case was discussed between Dr. Blair and Dr Santos on 04/10 who believes the will need picc line and iv abx at home. - ID consulted podiatry and vascular surgery regarding a chronic ulceration on right foot - MRI Right Foot (03/1710): 1. Probable early osteomyelitis of the remaining distal portion of the proximal phalanx great toe. 2. Interval amputation of distal phalanx great toe and second toe. 3. New marrow signal abnormalities in the distal tibia and talus, possibly marrow infarcts is some edema in the distal tibial plafond. 4. Stable cystic changes in the first metatarsal head. - Vascular surgery did not feel that there was any surgical intervention warranted at this time - Podiatry to re-evaluate Periperal Neuropathy - Cymbalta, Lamictal per pain mgmt HTN - continue metoprolol - stop lisinopril h/o Etoh abuse - Stop Librium - CIWA protocol DVT prophylaxis with SCDs The exam, history, and the medical decision-making described in the above note were completed with the assistance of the mid-level provider. I reviewed and agree with the findings presented. I attest that I had a [id number]-pwdm encounter with the patient on the same day, and personally performed and documented my assessment and findings in the medical record. await final abx reccs per ID> possible osteo at amputation site great toe and also path for amputated index finger showing osteo/inflammation to resection site. (2) ETOH abuse Code(s): F10.10 - Alcohol abuse, uncomplicated Status: Chronic (3) HTN (hypertension) Code(s): I10 - Essential (primary) hypertension Status: Chronic (4) Peripheral neuropathy Code(s): G62.9 - Polyneuropathy, unspecified Status: Acute
--- NOTE | 2018-04-11 17:30 | P.PNVS ---
Subjective Subjective/Hospital Course: 04/11/2018 This patient does not have classic stigmata of Buerger's disease. He does not have any significant degree of arteriosclerotic disease in his proximal vessels. Patients with distal palpable vessels like dorsalis pedis and posterior tibial, clearly do not have significant degree of vascular disease in the legs. Buerger's disease, on the other hand, can manifest as a condition mainly involving the arms, which is exception of course to most vascular conditions and falls in the category of immune reticuloendothelial, immunoproliferative and vasoactive disorders. Buerger's disease is considered an autoimmune phenomenon activated by nicotine and smoking is of course aggravating the whole situation. In order to diagnose Buerger's disease patient should have 5 criteria which are usually onset of the disease before age of 50, smoking history, infrapopliteal and arm obliterative disease and thrombophlebitis migrans. Classic angiogram may reveal corkscrew collateral circulation but this is not specific just for Buerger's disease. Considering that the large vessels were spared from the disease there is no surgical intervention that would help or treat the disease and the only adequate response to it is cessation of smoking. Based on all of above, this patient has some stigmata of Buerger's disease and lacks some other and therefore it is unclear if he may have it. Formal angiogram will not be helpful for it because patient does not have large vessel disease just by clinical exam and there is no surgical intervention as far as Buerger's disease is concerned as it is. After long discussion with patient he states that he adamantly refuses to stop smoking and and essentially dismissed my opinion. There is nothing I can add to care of this gentleman. Objective Vital Signs / I&O: Vital Signs 04/10/18 19:50 04/11/18 00:00 04/11/18 02:05 Temperature 97.1 F L 97.2 F L Pulse Rate 68 69 Respiratory Rate 18 16 17 Blood Pressure 114/76 97/52 L Pulse Oximetry 100 04/11/18 04:00 04/11/18 04:34 04/11/18 08:00 Temperature 97.2 F L 97.8 F Pulse Rate 64 62 Respiratory Rate 17 17 20 Blood Pressure 118/79 152/89 H Pulse Oximetry 100 98 04/11/18 12:00 04/11/18 16:00 Temperature 97.3 F L 97.5 F L Pulse Rate 67 72 Respiratory Rate 18 20 Blood Pressure 111/67 132/80 Pulse Oximetry 99 100 Intake & Output 04/10/18 04/11/18 04/11/18 18:59 06:59 18:59 Intake Total 2940 / 2940 300 / 300 100 / 100 Output Total 1006 / 1006 800 / 800 Balance 1934 / 1934 -500 / -500 100 / 100 Weight 80.9 kg Intake: IV 100 / 100 300 / 300 100 / 100 Unasyn Inj 3 GM In NS Inj 100 100 / 100 300 / 300 100 / 100 ML @ 200 mls/hr IV.SIG Q6H [facility] Rx#:[id number] Oral 2039 / 2039 Anesthesia Amount 800 / 800 Output: Urine 600 / 600 800 / 800 Stool / Estimated Blood Loss 5 / 5 Urine Amount (Catheter) 400 / 400 Condom 400 / 400 Other: # Voids 3 1 Date of Last Bowel Movement 04/10/18 # Bowel Movements 1 Laboratory Results - last 24 hr 04/10/18 19:55 Total Protein (PEP) 6.4 Microbiology 04/04/18 19:47 Fungal Smear - Final Wound - Finger No fungal elements seen Fungal Culture - Preliminary No growth in 1 week 04/04/18 19:47 Fungal Smear - Final Tissue - Finger No fungal elements seen Fungal Culture - Preliminary No growth in 1 week 04/04/18 19:47 Acid Fast Bacilli Smear - Final Tissue - Finger No acid fast bacilli seen Mycobacterial Culture - Preliminary No growth in 1 week 04/04/18 19:47 Acid Fast Bacilli Smear - Final Wound - Finger No acid fast bacilli seen Mycobacterial Culture - Preliminary No growth in 1 week Impressions Foot MRI 04/10/18 00:00 CONCLUSION: 1. Probable early osteomyelitis of the remaining distal portion of the proximal phalanx great toe. 2. Interval amputation of distal phalanx great toe and second toe. 3. New marrow signal abnormalities in the distal tibia and talus, possibly marrow infarcts is some edema in the distal tibial plafond. 4. Stable cystic changes in the first metatarsal head.
--- NOTE | 2018-04-11 18:11 | P.PN ---
Subjective Interval history: complains of no pain Physical Exam Vital signs: Vital Signs 04/10/18 19:50 04/11/18 00:00 04/11/18 02:05 Temperature 97.1 F L 97.2 F L Pulse Rate 68 69 Respiratory Rate 18 16 17 Blood Pressure 114/76 97/52 L Pulse Oximetry 100 04/11/18 04:00 04/11/18 04:34 04/11/18 08:00 Temperature 97.2 F L 97.8 F Pulse Rate 64 62 Respiratory Rate 17 17 20 Blood Pressure 118/79 152/89 H Pulse Oximetry 100 98 04/11/18 12:00 04/11/18 16:00 Temperature 97.3 F L 97.5 F L Pulse Rate 67 72 Respiratory Rate 18 20 Blood Pressure 111/67 132/80 Pulse Oximetry 99 100 Intake & Output 04/10/18 04/11/18 04/11/18 18:59 06:59 18:59 Intake Total 2940 / 2940 300 / 300 100 / 100 Output Total 1006 / 1006 800 / 800 Balance 1934 / 1934 -500 / -500 100 / 100 Weight 80.9 kg Intake: IV 100 / 100 300 / 300 100 / 100 Unasyn Inj 3 GM In NS Inj 100 100 / 100 300 / 300 100 / 100 ML @ 200 mls/hr IV.SIG Q6H [facility] Rx#:[id number] Oral 2039 / 2039 Anesthesia Amount 800 / 800 Output: Urine 600 / 600 800 / 800 Stool 1 / 1 Estimated Blood Loss 5 / 5 Urine Amount (Catheter) 400 / 400 Condom 400 / 400 Other: # Voids 3 1 Date of Last Bowel Movement 04/10/18 # Bowel Movements 1 Narrative: exam left hand/index finger: minimal drainage from the palm region mild redness over the proximal phalanx region limited range of motion no sensation distally cultures: group B strep pathology: osteomyelitis distal phalanx - Urinary Catheter Management Condom Cath placed during this visit: no Results - Labs CBC & Chem 7: 04/04/18 07:27 04/06/18 06:01 Laboratory Results - last 24 hr 04/10/18 19:55 Total Protein (PEP) 6.4 Albumin (PEP) 3.24 L Albumin/Globulin Ratio 1.02 L Fmqbw-7-Pbzolimjl 0.31 H Vsnts-8-Vlbfhalxb 1.01 H Beta Globulins 0.74 Gamma Globulins 1.10 Microbiology 04/04/18 19:47 Wound - Finger Fungal Smear - Final No fungal elements seen 04/04/18 19:47 Wound - Finger Fungal Culture - Preliminary No growth in 1 week 04/04/18 19:47 Tissue - Finger Fungal Smear - Final No fungal elements seen 04/04/18 19:47 Tissue - Finger Fungal Culture - Preliminary No growth in 1 week 04/04/18 19:47 Tissue - Finger Acid Fast Bacilli Smear - Final No acid fast bacilli seen 04/04/18 19:47 Tissue - Finger Mycobacterial Culture - Preliminary No growth in 1 week 04/04/18 19:47 Wound - Finger Acid Fast Bacilli Smear - Final No acid fast bacilli seen 04/04/18 19:47 Wound - Finger Mycobacterial Culture - Preliminary No growth in 1 week - Imaging Impressions Foot MRI 04/10/18 00:00 CONCLUSION: 1. Probable early osteomyelitis of the remaining distal portion of the proximal phalanx great toe. 2. Interval amputation of distal phalanx great toe and second toe. 3. New marrow signal abnormalities in the distal tibia and talus, possibly marrow infarcts is some edema in the distal tibial plafond. 4. Stable cystic changes in the first metatarsal head. Assessment and Plan - Plan 57 year old male s/p disarticulation DIP joint and drainage flexor tendon sheath left hand/ring finger Plan: surrounding skin is cleaned with alcohol wipes dry dressing applied antibiotics based on ID recommendations hand surgery will follow
[2018-04-11] MEDS: Melatonin 5 MG Tablet PO SCH (20:05)
--- NOTE | 2018-04-11 20:11 | P.PNPOD ---
Subjective Interval history: right hallux wound, evaluate for osteomyelitis Physical Exam Vital signs: Vital Signs 04/11/18 00:00 04/11/18 02:05 04/11/18 04:00 Temperature 97.2 F L 97.2 F L Pulse Rate 69 64 Respiratory Rate 16 17 17 Blood Pressure 97/52 L 118/79 Pulse Oximetry 100 04/11/18 04:34 04/11/18 08:00 04/11/18 12:00 Temperature 97.8 F 97.3 F L Pulse Rate 62 67 Respiratory Rate 17 16 18 Blood Pressure 152/89 H 111/67 Pulse Oximetry 98 99 04/11/18 16:00 Temperature 97.5 F L Pulse Rate 72 Respiratory Rate 20 Blood Pressure 132/80 Pulse Oximetry 100 Intake & Output 04/11/18 04/11/18 04/12/18 06:59 18:59 06:59 Intake Total 300 / 300 1840 / 1840 Output Total 800 / 800 606 / 606 Balance -500 / -500 1234 / 1234 Weight 80.9 kg Intake: IV 300 / 300 200 / 200 Unasyn Inj 3 GM In NS Inj 100 300 / 300 200 / 200 ML @ 200 mls/hr IV.SIG Q6H [facility] Rx#:[id number] Oral 840 / 840 Anesthesia Amount 800 / 800 Output: Urine 800 / 800 200 / 200 Stool 1 / 1 Estimated Blood Loss 5 / 5 Urine Amount (Catheter) 400 / 400 Condom 400 / 400 Other: # Voids 1 1 Date of Last Bowel Movement 04/10/18 # Bowel Movements 1 Narrative: Right residual hallux with plantar ulceration with chronic appearance. mild hyperkeratotic rim. No purulence noted. No exposed bone noted Medications and Allergies Active Medications: Active Medications Hydrocodone Bitart/Acetaminophen ([place] 10/325) 1 tab PO TID [facility] Last Admin: 04/11/18 18:11 Dose: 1 tab Al Hydroxide/Mg Hydroxide (Milk Of Magnesia Liq) 30 ml PO Q12H PRN PRN Reason: Mild Constipation Bisacodyl (Dulcolax Supp) 10 mg RECTAL DAILY PRN PRN Reason: SEVERE CONSITIPATION Duloxetine HCl (Cymbalta) 120 mg PO DAILY [facility] Last Admin: 04/11/18 09:30 Dose: 120 mg Flumazenil (Romazecon Inj) 0.2 mg IV.PUSH Q1M PRN PRN Reason: OVERSEDATION Folic Acid (Folic Acid) 1 mg PO DAILY [facility] Last Admin: 04/11/18 09:30 Dose: 1 mg Ampicillin Sodium/Sulbactam (Sodium 3 gm/ Sodium Chloride) 100 mls @ 200 mls/ hr IV.SIG Q6H [facility] Last Infusion: 04/11/18 18:45 Dose: Infused Lactulose (Lactulose Liq) 30 ml PO DAILY PRN PRN Reason: SEVERE CONSITIPATION Lamotrigine (Lamictal) 50 mg PO DAILY [facility] Last Admin: 04/11/18 09:00 Dose: 50 mg Lamotrigine (Lamictal) 75 mg PO HS [facility] Last Admin: 04/10/18 23:12 Dose: 75 mg Lorazepam (Ativan) 1 mg PO Q4H PRN PRN Reason: for CIWA 8-10 Lorazepam (Ativan) 2 mg PO Q2H PRN PRN Reason: for CIWA 11-14 Melatonin (Melatonin) 5 mg PO HS [facility] Last Admin: 04/10/18 22:42 Dose: 5 mg Metoprolol Tartrate (Lopressor) 50 mg PO BID [facility] Last Admin: 04/11/18 09:30 Dose: 50 mg Morphine Sulfate (Morphine Inj) 2 mg IV.PUSH Q6H PRN PRN Reason: PAIN SCALE 6 TO 10 Last Admin: 04/09/18 04:13 Dose: 2 mg Mupirocin (Bactroban 2% Oint) 1 applicatio TOPICAL ONCE ONE Stop: 04/11/18 20:07 Nicotine (Habitrol 21 Mg Patch.24 Hr) 1 patch T-DERMAL DAILY [facility] Last Admin: 04/11/18 09:28 Dose: 1 patch Pantoprazole Sodium (Protonix) 20 mg PO DAILY [facility] Last Admin: 04/11/18 09:29 Dose: 20 mg Patch Removal (Remove Old Patch) 1 each T-DERMAL DAILY [facility] Last Admin: 04/11/18 09:39 Dose: 1 each Pravastatin Sodium (Pravachol) 40 mg PO DAILY [facility] Last Admin: 04/11/18 09:30 Dose: 40 mg Senna/Docusate Sodium (Nataliya-Colace) 1 tab PO BID [facility] Last Admin: 04/11/18 09:30 Dose: 1 tab Sennosides (Senokot) 17.2 mg PO Q12H PRN PRN Reason: Moderate Constipation Sodium Chloride (Ns Flush) 2 ml IV.FLUSH BID [facility] Last Admin: 04/11/18 09:40 Dose: Not Given Sodium Chloride (Ns Flush) 2 ml IV.FLUSH PRN PRN PRN Reason: FLUSH AFTER USING IV ACCESS Allergies Allergy/AdvReac Type Severity Reaction Status Date / Time No Known Allergies Allergy Verified 04/03/18 16:20 Home Medications Medication Instructions Recorded Confirmed Type duloxetine 120 mg PO DAILY 04/03/18 04/03/18 History folic acid 1 mg PO DAILY 04/03/18 04/03/18 History hydrocodone-acetaminophen 1 tab PO TID 04/03/18 04/03/18 History lamotrigine 50 mg PO DAILY 04/03/18 04/03/18 History lamotrigine 75 mg PO HS 04/03/18 04/03/18 History lisinopril 20 mg PO BID 04/03/18 04/03/18 History lovastatin 40 mg PO DAILY 04/03/18 04/03/18 History metoprolol tartrate 50 mg PO BID 04/03/18 04/03/18 History pantoprazole 20 mg PO DAILY 04/03/18 04/03/18 History silver sulfadiazine 1 applic TOPICAL DAILY 04/03/18 04/03/18 History sulfamethoxazole-trimethoprim 1 tab PO BID 04/03/18 04/03/18 History Results - Labs CBC & Chem 7: 04/04/18 07:27 04/06/18 06:01 Laboratory Results - last 24 hr 04/10/18 19:55 Total Protein (PEP) 6.4 Albumin (PEP) 3.24 L Albumin/Globulin Ratio 1.02 L Fzoqa-4-Qvtfuohtn 0.31 H Wcznz-1-Eefbuguvf 1.01 H Beta Globulins 0.74 Gamma Globulins 1.10 Microbiology 04/04/18 19:47 Wound - Finger Fungal Smear - Final No fungal elements seen 04/04/18 19:47 Wound - Finger Fungal Culture - Preliminary No growth in 1 week 04/04/18 19:47 Tissue - Finger Fungal Smear - Final No fungal elements seen 04/04/18 19:47 Tissue - Finger Fungal Culture - Preliminary No growth in 1 week 04/04/18 19:47 Tissue - Finger Acid Fast Bacilli Smear - Final No acid fast bacilli seen 04/04/18 19:47 Tissue - Finger Mycobacterial Culture - Preliminary No growth in 1 week 04/04/18 19:47 Wound - Finger Acid Fast Bacilli Smear - Final No acid fast bacilli seen 04/04/18 19:47 Wound - Finger Mycobacterial Culture - Preliminary No growth in 1 week - Imaging Impressions Foot MRI 04/10/18 00:00 CONCLUSION: 1. Probable early osteomyelitis of the remaining distal portion of the proximal phalanx great toe. 2. Interval amputation of distal phalanx great toe and second toe. 3. New marrow signal abnormalities in the distal tibia and talus, possibly marrow infarcts is some edema in the distal tibial plafond. 4. Stable cystic changes in the first metatarsal head. Assessment and Plan - Assessment (1) Osteomyelitis of toe of right foot Code(s): M86.9 - Osteomyelitis, unspecified Status: Acute Plan: Reviewed MRI with patient showing possibly early signs of osteomyelitis. Clinically, patient's toe does not appear acutely infected. Continue local wound care for now and follow up [address] Mejia Daily bactroban and bandaid to right hallux and ambulate in surgical shoe right foot at all times. Ok to remove when at rest or sleeping No further treatment planned at this time. Will continue to monitor toe as outpatient
[2018-04-12] MEDS: Ampicillin/Sulbactam Inj 3 GM in Sodium Chloride 0.9% Inj 100 ML IV.SIG SCH ×4 (04:34→21:23)
[2018-04-12 06:01] VITALS: RESP 18
[2018-04-12] MEDS: Folic Acid 1 MG Tablet PO SCH (08:00)
[2018-04-12] MEDS: Sodium Chloride 0.9% 2 ML Flush BID IV.FLUSH SCH ×2 (08:01→20:10)
[2018-04-12] MEDS: Pantoprazole Sodium 20 MG DR Tablet PO SCH (08:01)
[2018-04-12] MEDS: Duloxetine 60 MG DR Capsule PO SCH (08:01)
[2018-04-12] MEDS: Metoprolol Tartrate 50 MG Tablet PO SCH ×2 (08:02→20:10)
[2018-04-12] MEDS: Senna/Docusate Sodium 8.6/50 MG Tablet PO SCH ×2 (08:03→20:11)
--- NOTE | 2018-04-12 09:57 | P.PNIM ---
Subjective Interval history: eager for dc Physical Exam Vital signs: Vital Signs 04/11/18 12:00 04/11/18 16:00 04/11/18 20:00 Temperature 97.3 F L 97.5 F L 97.6 F Pulse Rate 67 72 73 Respiratory Rate 18 20 18 Blood Pressure 111/67 132/80 120/86 Pulse Oximetry 99 100 97 04/12/18 00:00 04/12/18 02:43 04/12/18 04:00 Temperature 97.6 F 97.7 F Pulse Rate 74 69 Respiratory Rate 18 17 18 Blood Pressure 101/69 103/67 Pulse Oximetry 98 98 04/12/18 08:00 Temperature 97.3 F L Pulse Rate 67 Respiratory Rate 18 Blood Pressure 102/71 Pulse Oximetry 98 Intake & Output 04/11/18 04/12/18 04/12/18 18:59 06:59 18:59 Intake Total 1840 / 1840 200 / 200 Output Total 606 / 606 600 / 600 Balance 1234 / 1234 -400 / -400 Weight 83.6 kg Intake: IV 200 / 200 200 / 200 Unasyn Inj 3 GM In NS Inj 100 200 / 200 200 / 200 ML @ 200 mls/hr IV.SIG Q6H [facility] Rx#:[id number] Oral 840 / 840 Anesthesia Amount 800 / 800 Output: Urine 200 / 200 600 / 600 Stool 1 / 1 Estimated Blood Loss 5 / 5 Urine Amount (Catheter) 400 / 400 Condom 400 / 400 Other: # Voids 1 Date of Last Bowel Movement 04/10/18 # Bowel Movements 1 heart reg lung cta abd s/nt ext no right hand bandaged. - Urinary Catheter Management Condom Cath placed during this visit: no Results - Labs CBC & Chem 7: 04/04/18 07:27 04/06/18 06:01 Laboratory Results - last 24 hr 04/10/18 19:55 Albumin (PEP) 3.24 L Albumin/Globulin Ratio 1.02 L Eilat-4-Zoqbqcnsq 0.31 H Gctfj-6-Lurwxtjuo 1.01 H Beta Globulins 0.74 Gamma Globulins 1.10 Microbiology 04/04/18 19:47 Wound - Finger Fungal Smear - Final No fungal elements seen 04/04/18 19:47 Wound - Finger Fungal Culture - Preliminary No growth in 1 week 04/04/18 19:47 Tissue - Finger Fungal Smear - Final No fungal elements seen 04/04/18 19:47 Tissue - Finger Fungal Culture - Preliminary No growth in 1 week 04/04/18 19:47 Tissue - Finger Acid Fast Bacilli Smear - Final No acid fast bacilli seen 04/04/18 19:47 Tissue - Finger Mycobacterial Culture - Preliminary No growth in 1 week 04/04/18 19:47 Wound - Finger Acid Fast Bacilli Smear - Final No acid fast bacilli seen 04/04/18 19:47 Wound - Finger Mycobacterial Culture - Preliminary No growth in 1 week Assessment and Plan - Assessment (1) Superficial injury of right ring finger with infection Code(s): S60.944A - Unspecified superficial injury of right ring finger, initial encounter; L08.9 - Local infection of the skin and subcutaneous tissue, unspecified Status: Acute Plan: Right ring finger infection - Pt is a 57 y/o M with 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 Possible injury to the 2nd distal phalangeal bone - 04/04 Dr. Holliday was called by Dr. Anaya (04/04). Pt was unpleasant & ultimately refused Infectious Disease consultation. - Resubmitted ID consult 04/05. Appreciate input from Dr. Santos, ID. - Zosyn (04/03 - 04/06) - Vancomycin (04/03 - 04/06) - Unasyn (04/06 - present) - prn Tennyson - Pt was confrontational and refused repeat MR with contrast 04/04 - Pt underwent I&D and bone marrow Bx with Dr. Santana (04/04). Pathology --> The bone from the right index finger (2) reveals acute osteomyelitis. There is also relatively abundant keratinaceous material such as that typically associated with an epidermal inclusion cyst. - Pt underwent taken to the OR (04/07) with Dr. Santana and underwent - wash, drainage debridement flexor tendon sheath right index finger - disarticulation distal interphalangeal joint right index finger - Pathology from finger amputation --> GANGRENOUS NECROSIS AND ACUTE OSTEOMYELITIS. THE INFLAMMATORY PROCESS APPEARS TO EXTEND TO THE SOFT TISSUE AND BONY RESECTION MARGINS - Blood cultures from 04/03 no growth x 5 days - 04/03/18 16:30 Abscess - Finger Wound Culture - Final Staphylococcus aureus Group B beta Strep anaerobic gram pos cocci 04/04/18 19:47 Tissue - Finger Wound Culture - Final Group B beta Strep Staphylococcus aureus 04/04/18 19:47 Wound - Finger Wound Culture - Final Group B beta Strep 04/04/18 19:47 Wound - Finger Fungal Smear - Final No fungal elements seen 04/04/18 19:47 Wound - Finger Acid Fast Bacilli Smear - Final No acid fast bacilli seen 04/04/18 19:47 Tissue - Finger Acid Fast Bacilli Smear - Final No acid fast bacilli seen 04/04/18 19:47 Tissue - Finger Fungal Smear - Final No fungal elements seen - The case was discussed between Dr. Blair and Dr Santos on 04/10 who believes the will need picc line and iv abx at home. - ID consulted podiatry and vascular surgery regarding a chronic ulceration on right foot - MRI Right Foot (03/1710): 1. Probable early osteomyelitis of the remaining distal portion of the proximal phalanx great toe. 2. Interval amputation of distal phalanx great toe and second toe. 3. New marrow signal abnormalities in the distal tibia and talus, possibly marrow infarcts is some edema in the distal tibial plafond. 4. Stable cystic changes in the first metatarsal head. - Vascular surgery did not feel that there was any surgical intervention warranted at this time - Podiatry evaluated and no surgery planned. MRI questioned osteo at amputation site great toe - Hand reevaluated last night. the pathology suggested inflammation/osteo to the margin ID to give abx. Given the above I would imaging at least a 4 week abx course to cover any residual bone infection. Periperal Neuropathy - Cymbalta, Lamictal per pain mgmt HTN - continue metoprolol - stop lisinopril h/o Etoh abuse - Stop Librium - WA protocol DVT prophylaxis with SCDs (2) ETOH abuse Code(s): F10.10 - Alcohol abuse, uncomplicated Status: Chronic (3) HTN (hypertension) Code(s): I10 - Essential (primary) hypertension Status: Chronic (4) Peripheral neuropathy Code(s): G62.9 - Polyneuropathy, unspecified Status: Acute
[2018-04-12] MEDS: lamoTRIgine 25 MG TABLET PO SCH ×2 (11:02→20:09)
--- NOTE | 2018-04-12 12:08 | P.PNADD ---
Addendum to Inpatient Note Additional information: path dw Dr Celestino benavideso is involving proximal margin Cont Unasyn x 6 weeks, fu with hand surgeon PICC OPAT hypercoagulability w/u
--- NOTE | 2018-04-12 12:13 | P.DCO ---
Post Hospital Infusion Therapy - Infusion Therapy Location of Infusion Therapy: Home Health Care IV Infusion Order - Patient Information Patient Weight: 83.6 kg - Administer Medication Ampicillin/Sulbactam Directions: q 6 hours Additional Dosing Instructions: 3 gm IV Start Treatment: 04/12/18 Stop Treatment: 05/17/18 - Additional Information Venous Access: PICC Line Additional Instructions: [x] Peripheral flush and dressing changes per protocol [x] Implanted port and central line patrolman: * Implanted port: 10 ml Normal Saline followed by 5 ml Heparin 100 units/ml Heparin flush after each use and monthly to maintain. [] May leave port accessed during therapy. [] May leave peripheral site accessed for duration of therapy. [x] If patient has SOB or respiratory distress, check oxygen saturation. If less than 90% or clinical signs of respiratory distress, administer oxygen at 2 L/min. via nasal cannula and notify physician. [x] Anaphylaxis/Reaction orders: * Stop infusion. * Keep IV line open with saline flush. * Notify physician. * Monitor vital signs every 15 minutes until symptoms resolve. * Check Oxygen saturation; Oxygen at 2 L/min. via nasal cannula if less than 90% or clinical signs of respiratory distress. * Administer diphenhydramine (Benadryl) 25 mg IV STAT, (unless patient has received as pre-med). May repeat once, if necessary. * Solu-Cortef 250 mg IVP over 30-60 seconds, use 100 mg vials for each dissolution. * Epinephrine (1mg/1 ml) 0.3 mg subcutaneously or IVP now with any signs of respiratory distress. * Check with physician for new additional pre-med orders if patient is re- challenged or re-treated. [x] May remove PICC line when treatment complete, after confirming with Physician. [x] If the patient is admitted to the hospital, the ED, or transferred via [facility] , complete transfer form including medication reconciliation order sheet. Weekly Labs: CBC w/diff, Creatinine, LFTs (Hepatic Function Test) - Patient Information Allergies No Known Allergies Allergy (Verified 04/03/18 16:20)
[2018-04-12 14:03] LABS: Baso % (Auto) 0.5 % (0.0-2.0); Eos # (Auto) 0.1 th/mm3 (0.0-0.4); Eos % (Auto) 1.5 % (0.0-4.0); Hematocrit 37.4 % (39.0-51.0); Hemoglobin 12.5 gm/dL (13.0-17.0); Lymph # (Auto) 1.1 th/mm3 (1.0-4.8); Mean Corpuscular HGB Conc 33.5 % (32.0-36.0); Mean Corpuscular Hemoglobin 31.2 pg (27.0-34.0); Mean Corpuscular Volume 93.1 fL (80.0-100.0); Mean Platelet Volume 6.9 fL (7.0-11.0); Mono # (Auto) 0.5 th/mm3 (0.0-0.9); Mono % (Auto) 7.4 % (0.0-8.0); Neut # (Auto) 5.1 th/mm3 (1.8-7.7); Neut % (Auto) 74.6 % (16.0-70.0); Platelet Count 307 th/mm3 (150-450); Red Blood Count 4.01 mil/mm3 (4.50-5.90); Red Cell Distribution Width 14.4 % (11.6-17.2); White Blood Count 6.8 th/mm3 (4.0-11.0)
[2018-04-12 14:18] LABS: Activated Partial Thrombo Time 27.9 sec (24.3-30.1); Prothrombin Time 10.2 sec (9.8-11.6)
[2018-04-12 14:28] LABS: Calcium 8.9 mg/dL (8.5-10.1); Potassium 3.7 meq/L (3.5-5.1)
--- NOTE | 2018-04-12 15:04 | P.DCO ---
- Diagnosis (1) HTN (hypertension) Status: Chronic (2) Acute on chronic renal insufficiency Status: Acute (3) Finger infection Status: Acute (4) Osteomyelitis Status: Acute (5) Superficial injury of right ring finger with infection Status: Acute (6) Peripheral neuropathy Status: Acute (7) Suppurative tenosynovitis of flexor tendon of right hand Status: Acute (8) Osteomyelitis of toe of right foot Status: Acute - Home Health Nursing Order: Signs/symptoms of disease process, Wound care and dressing changes, Nursing assessment with vital signs, IV medication administration Instructions: Keep LUE elevated, surrounding skin is to be cleaned with alcohol wipes, dry dressing applied to left hand Twice daily bactroban and bandaid to right hallux and ambulate in surgical shoe right foot at all times. Ok to remove when at rest or sleeping - Case Management Consult Yes - Certification I have seen patient Juwan Garcia on 04/12/18. My clinical findings support the need for the requested home health care services because: Deconditioned with increased weakness, Infection with risk of complications, Injectable medication education/administration I certify that my clinical findings support that this patient is homebound because: Post-op weakness (4) Osteomyelitis Qualifiers: Osteomyelitis type: other Osteomyelitis location: hand Laterality: right Qualified Code(s): M86.8X4 - Other osteomyelitis, hand
[2018-04-12] MEDS ORDERED: Heparin Central Flush 100 UNIT/ML 5 ML Vial IV.FLUSH PRN (17:55)
[2018-04-12] MEDS: Melatonin 5 MG Tablet PO SCH (20:09)
[2018-04-13] MEDS: Ampicillin/Sulbactam Inj 3 GM in Sodium Chloride 0.9% Inj 100 ML IV.SIG SCH ×2 (03:45→09:13)
[2018-04-13 08:34] VITALS: BP 114/80; PULSE 80; TEMP 98.4; O2SAT 98
[2018-04-13] MEDS: Sodium Chloride 0.9% 2 ML Flush BID IV.FLUSH SCH (09:00)
[2018-04-13] MEDS ORDERED: Heparin Central Flush 100 UNIT/ML 5 ML Vial IV.FLUSH SCH (09:00)
[2018-04-13] MEDS: Folic Acid 1 MG Tablet PO SCH (09:20)
[2018-04-13] MEDS: Metoprolol Tartrate 50 MG Tablet PO SCH (09:20)
[2018-04-13] MEDS: Pantoprazole Sodium 20 MG DR Tablet PO SCH (09:21)
[2018-04-13] MEDS: lamoTRIgine 25 MG TABLET PO SCH (09:21)
[2018-04-13] MEDS: Duloxetine 60 MG DR Capsule PO SCH (09:21)
--- NOTE | 2018-04-13 10:36 | P.DS ---
Date of admission: 04/03/18 17:32 Primary care physician: Derek Lara MD Brief History from admission: HPI narrative: 57-year-old male the presents to the ED for evaluation of infection to his right index finger. Patient has a history of neuropathy and basically has no feeling of most of his fingers as well as his toes. This is been chronic. The believe this is related to his smoking and alcohol. He apparently has had swelling in his right index finger for about 2 weeks now. He went to see Dr. Ramos yesterday who recommended MRI and started him on Bactrim. MRI results were concerning for osteomyelitis per patient and was told to come here for IV antibiotics. Denies any chest pain at this time. Denies any urinary symptoms. Per patient his pain is 4 out of 10. He did had an infection to his right middle finger for which she had to have amputation. Per patient he is hoping that he does not have to have this again. He denies any fevers chills or sweats. No other medical problems reported at this time. Patient does have history ETOH abuse and smoking with hypertension ,will also start alcohol withdrawal protocol. Denies fever ,chills,N,or vomit ,abdominal pain chest pain or SOB. Patient has history amputation finger,hx osteomyelitis Related Data DS: Diagnosis - Discharge Diagnosis (1) Superficial injury of right ring finger with infection Status: Acute (2) ETOH abuse Status: Chronic (3) HTN (hypertension) Status: Chronic (4) Peripheral neuropathy Status: Acute DS: Medications - Discharge Medications Prescriptions: ampicillin-sulbactam 3 gm IV Q6H 35 Days each mupirocin calcium [Bactroban] 1 applic TOPICAL BID 30 Days g DS: Summary Hospital Course: - Assessment (1) Superficial injury of right ring finger with infection Code(s): S60.944A - Unspecified superficial injury of right ring finger, initial encounter; L08.9 - Local infection of the skin and subcutaneous tissue, unspecified Status: Acute Plan: Right ring finger infection - Pt is a 57 y/o M with chronic infection of right index finger - draining sinus - possible osteomyelitis of the distal phalanx base - MRI right hand (performed at [facility] 04/03/18) --> tears involving the flexor profunda tendons of the 2nd and 3rd gingers in the plantar aspect of the hand. Possible injury to the 2nd distal phalangeal bone - 04/04 Dr. Holliday was called by Dr. Anaya (04/04). Pt was unpleasant & ultimately refused Infectious Disease consultation. - Resubmitted ID consult 04/05. Appreciate input from Dr. Santos, ID. - Zosyn (04/03 - 04/06) - Vancomycin (04/03 - 04/06) - Unasyn (04/06 - present) - prn [place] - Pt was confrontational and refused repeat MR with contrast 04/04 - Pt underwent I&D and bone marrow Bx with Dr. Santana (04/04). Pathology --> The bone from the right index finger (2) reveals acute osteomyelitis. There is also relatively abundant keratinaceous material such as that typically associated with an epidermal inclusion cyst. - Pt underwent taken to the OR (04/07) with Dr. Santana and underwent - wash, drainage debridement flexor tendon sheath right index finger - disarticulation distal interphalangeal joint right index finger - Pathology from finger amputation --> GANGRENOUS NECROSIS AND ACUTE OSTEOMYELITIS. THE INFLAMMATORY PROCESS APPEARS TO EXTEND TO THE SOFT TISSUE AND BONY RESECTION MARGINS - Blood cultures from 04/03 no growth x 5 days - 04/03/18 16:30 Abscess - Finger Wound Culture - Final Staphylococcus aureus Group B beta Strep anaerobic gram pos cocci 04/04/18 19:47 Tissue - Finger Wound Culture - Final Group B beta Strep Staphylococcus aureus 04/04/18 19:47 Wound - Finger Wound Culture - Final Group B beta Strep 04/04/18 19:47 Wound - Finger Fungal Smear - Final No fungal elements seen 04/04/18 19:47 Wound - Finger Acid Fast Bacilli Smear - Final No acid fast bacilli seen 04/04/18 19:47 Tissue - Finger Acid Fast Bacilli Smear - Final No acid fast bacilli seen 04/04/18 19:47 Tissue - Finger Fungal Smear - Final No fungal elements seen - The case was discussed between Dr. Blair and Dr Santos on 04/10 who believes the will need picc line and iv abx at home. - ID consulted podiatry and vascular surgery regarding a chronic ulceration on right foot - MRI Right Foot (03/1710): 1. Probable early osteomyelitis of the remaining distal portion of the proximal phalanx great toe. 2. Interval amputation of distal phalanx great toe and second toe. 3. New marrow signal abnormalities in the distal tibia and talus, possibly marrow infarcts is some edema in the distal tibial plafond. 4. Stable cystic changes in the first metatarsal head. - Vascular surgery did not feel that there was any surgical intervention warranted at this time - Podiatry evaluated and no surgery planned. MRI questioned osteo at amputation site great toe - Hand reevaluated last night. the pathology suggested inflammation/osteo to the margin ID recommends 6 weeks iv unasyn. picc line placed. he will f/u with Hand surgery and podiatry. ID requested hypercoag labs which were ordered and pending on dc. - Cymbalta, Lamictal per pain mgmt HTN - continue metoprolol - stop lisinopril h/o Etoh abuse - Stop Librium - CIWA protocol DVT prophylaxis with SCDs (2) ETOH abuse Code(s): F10.10 - Alcohol abuse, uncomplicated Status: Chronic (3) HTN (hypertension) Code(s): I10 - Essential (primary) hypertension Status: Chronic (4) Peripheral neuropathy Code(s): G62.9 - Polyneuropathy, unspecified Status: Acute - Time Spent with Patient Total time spent providing and/or coordinating discharge services: Greater than 30 minutes - Quality: VTE Deep Vein Thrombosis/Pulmonary Embolism Present on Admission: No Exam Vital signs: Vital Signs 04/12/18 12:00 04/12/18 20:00 04/13/18 00:00 Temperature 97.9 F 97.7 F 97.6 F Pulse Rate 65 76 69 Respiratory Rate 18 18 18 Blood Pressure 159/68 H 103/58 L 121/74 Pulse Oximetry 96 99 100 04/13/18 04:00 04/13/18 08:00 Temperature 97.6 F 98.4 F Pulse Rate 78 80 Respiratory Rate 18 18 Blood Pressure 113/69 114/80 Pulse Oximetry 96 98 Intake & Output 04/12/18 04/13/18 04/13/18 18:59 06:59 18:59 Intake Total 100 / 100 300 / 300 Output Total 950 / 950 Balance 100 / 100 -650 / -650 Weight 83.6 kg 83.9 kg Intake: IV 100 / 100 300 / 300 Unasyn Inj 3 GM In NS Inj 100 100 / 100 300 / 300 ML @ 200 mls/hr IV.SIG Q6H BECK Rx#:[id number] Output: Urine 950 / 950 Other: # Voids 4 Date of Last Bowel Movement 04/11/18 heart reg lung cta abd s/nt ext right hand bandaged Results Procedures completed during hospitalization: right hand i/d distal index finger amputation Completed studies during hospitalization: Pending at discharge 04/04/18 07:39 Surgical [PTH] Routine 04/07/18 09:14 Surgical [PTH] Routine Labs on day of discharge: Labs from last 24 hours 04/13/18 04/12/18 04/12/18 09:12 13:46 13:46 WBC RBC Hgb Hct MCV MCH MCHC RDW Plt Count MPV Neut % (Auto) Lymph % (Auto) Sullivan % (Auto) Eos % (Auto) Baso % (Auto) Neut # (Auto) Lymph # (Auto) Sullivan # (Auto) Eos # (Auto) Baso # (Auto) WBC Differential Differential Comment PT 10.2 INR 1.0 APTT 27.9 Protein C Activity Pending Factor V Leiden Mutat Pending Factor V Leiden Interp Pending Sodium 136 Potassium 3.7 Chloride 103 Carbon Dioxide 28.0 Anion Gap 5 BUN 14 Creatinine 1.20 Estimated GFR 63 L Random Glucose 115 H Calcium 8.9 PEP Pathologist Comment 04/12/18 04/10/18 13:46 19:55 WBC 6.8 RBC 4.01 L Hgb 12.5 L Hct 37.4 L MCV 93.1 MCH 31.2 MCHC 33.5 RDW 14.4 Plt Count 307 MPV 6.9 L Neut % (Auto) 74.6 H Lymph % (Auto) 16.0 Sullivan % (Auto) 7.4 Eos % (Auto) 1.5 Baso % (Auto) 0.5 Neut # (Auto) 5.1 Lymph # (Auto) 1.1 Sullivan # (Auto) 0.5 Eos # (Auto) 0.1 Baso # (Auto) 0.0 WBC Differential . Differential Comment Auto diff final PT INR APTT Protein C Activity Factor V Leiden Mutat Factor V Leiden Interp Sodium Potassium Chloride Carbon Dioxide Anion Gap BUN Creatinine Estimated GFR Random Glucose Calcium PEP Pathologist Comment Preliminary micro results at discharge 04/04/18 19:47 Fungal Culture - Preliminary Wound - Finger No growth in 1 week 04/04/18 19:47 Fungal Culture - Preliminary Tissue - Finger No growth in 1 week 04/04/18 19:47 Mycobacterial Culture - Preliminary Tissue - Finger No growth in 1 week 04/04/18 19:47 Mycobacterial Culture - Preliminary Wound - Finger No growth in 1 week - Impressions ITS Impressions Finger X-Ray 04/05/18 00:00 CONCLUSION: Significant osteolysis and destruction of the second distal phalanx since 2 days ago with gas collection in the adjacent soft tissue is highly suspicious for aggressive infection in the soft tissues and osteomyelitis. Foot MRI 04/10/18 00:00 CONCLUSION: 1. Probable early osteomyelitis of the remaining distal portion of the proximal phalanx great toe. 2. Interval amputation of distal phalanx great toe and second toe. 3. New marrow signal abnormalities in the distal tibia and talus, possibly marrow infarcts is some edema in the distal tibial plafond. 4. Stable cystic changes in the first metatarsal head. Discharge Plan - Discharge Disposition Patient Disposition: /Home Health Service - Discharge Condition Condition: Stable - Discharge Order Discharge Orders: Discharge Order (Routine); Ordered 04/12/18 Ordered By: Ada Rodriguez - Discharge Details Anticipated Discharge Date: 04/12/18 Discharge Comment: Followup with Dr. Ramos next week, call for that appt - Physicians Team Primary Care Provider: Derek Lara Attending Provider: Alen Holliday Other Providers: Josesito Ramos MD ; Wendi Santos MD ; Bro Gomez DPM ; Darryl Romano MD ; [facility]
[2018-04-13] MEDS: Senna/Docusate Sodium 8.6/50 MG Tablet PO SCH (10:49)
[2018-04-17 03:51] LABS: Dil Russell Viper Venom Conf ( NEGATIVE (NEGATIVE); Dil Russell Viper Venom Time M ND (CORRECTED); Lupus Anticoagulant PTT Screen 41 seconds (< OR = 40)
[2018-04-17 17:47] LABS: Factor V Leiden Mutation Negative (Negative); Protein C Functional 103 % (70 - 150)
== END 2018-04-13 11:18 | disposition home health service (06) ==
LOC: NEPE 14:53 → NEDA 17:32 → N05 18:32
PROVIDERS: ADMIT Hospitalist; ATTEND Hospitalist
PROC: [UNRECOGNIZED PROCEDURE] (2018-04-07 09:26)